=== PATIENT | female | born 1990 | race Caucasian/White ===

== ENCOUNTER 2020-02-22 08:59 | Emergency (ER) | payer MEDICAID, SELFPAY ==
[2020-02-22 09:16] VITALS: BP 103/71; PULSE 77; RESP 16; TEMP 37.1; O2SAT 100; BMI 29.2
--- NOTE | 2020-02-22 09:30 | CT_ITS ---
EXAMINATION: CT ABDOMEN AND PELVIS WITHOUT CONTRAST CLINICAL INFORMATION: Lower abdominal pain. Left abdominal/flank pain. Question stones. COMPARISON: 03/07/2019 TECHNIQUE: Multidetector volumetric imaging was performed from the superior aspect of the liver through the pubic symphysis. Sagittal and coronal reformatted images were obtained on the technologist's workstation. This CT examination was performed using dose optimization techniques as appropriate, variously including the following: *Automated exposure control *Adjustment of mA and/or kV according to patient size (this includes techniques or standardized protocols for targeted exams where dose is matched to indication/reason for exam; i.e. extremities or head) *Use of iterative reconstruction technique DLP: 625 mGy-cm FINDINGS: LUNG BASES: The visualized lung bases are unremarkable. LIVER, GALLBLADDER, AND BILIARY TREE: The liver is normal in size, shape, and attenuation. No focal hepatic lesion or biliary ductal dilatation is present. The gallbladder is unremarkable with no evidence of radiopaque gallstones, gallbladder wall thickening, or obvious pericholecystic inflammatory changes. PANCREAS: Unremarkable. SPLEEN: Unremarkable. ADRENAL GLANDS: Unremarkable. KIDNEYS AND URETERS: The kidneys are normal in size, shape, and attenuation. No hydronephrosis or hydroureter. Left-sided renal calculi are identified. On the left there are at least 2 lower pole calculi. The largest measures 0.3 cm, 9.5 cm from the posterior axillary line. 0.2 cm right upper pole calculus is seen. There are no ureteral calculi seen. BLADDER: Unremarkable. GASTROINTESTINAL TRACT: The stomach is unremarkable. Normal caliber small bowel. No obstruction. No colonic wall thickening or inflammatory change. No free air or free fluid. Normal appendix. ABDOMINAL WALL: No significant hernia is appreciated. LYMPH NODES: Normal. VASCULAR: Unremarkable. PELVIC VISCERA: Anteverted uterus. IUD in place. No adnexal mass. OSSEOUS STRUCTURES: No acute or suspicious osseous abnormality. CT/CT abdomen pelvis wo con IMPRESSION: Multiple nonobstructing bilateral renal calculi. No hydronephrosis. No acute inflammatory changes.
[2020-02-22 09:41] LABS: UPreg QC Valid YES; Urine Pregnancy NEGATIVE (NEGATIVE)
[2020-02-22 09:42] LABS: Glucose Urine UA NEG (NEG); Leukocyte Esterase Urine TRACE (NEG); Nitrite Urine NEG (NEG); PH 5.5 (5.0-8.0); Specific Gravity - Urine >= 1.030 (1.005-1.025); Urine Blood 1+ (NEG); Urine Ketones NEG (NEG); Urine Protein NEG (NEG-TRACE)
[2020-02-22 09:43] LABS: Appearance Urine HAZY; Color Urine YELLOW
[2020-02-22 09:53] LABS: Bacteria Urine TRACE /LPF; Mucus Urine TRACE /LPF; Squamous Epithelial Cell Urine 2+ /LPF; WBC Urine 0-2 /HPF (0-4)
[2020-02-22 09:57] LABS: MANUAL DIFF FLAG NO
[2020-02-22 10:00] LABS: Basophils Percent Auto 0.3 % (0-2); Eosinophils Absolute Auto 0.1 X10*3/uL (0.0-0.4); Eosinophils Percent Auto 1.2 % (0-4); Hematocrit 35.9 % (37-47); Hemoglobin 12.2 g/dl (12.0-16.0); Imm Gran Abs Auto 0.02 X10*3/uL (0.00-0.03); Imm Gran Pct Auto 0.3 % (0.0-0.4); Lymphocytes Percent Auto 33.5 % (20-40); Mean Corpuscular Hemoglobin 29.9 pg (27.0-33.0); Mean Platelet Volume 10.3 fL (9.4-12.3); Monocytes Absolute Auto 0.4 X10*3/uL (0.1-1.2); Monocytes Percent Auto 7.3 % (2-11); Neutrophils Absolute Auto 3.4 X10*3/uL (2.0-8.3); Neutrophils Percent Auto 57.4 % (45-73); Platelet Count 289 X10*3/uL (160-400); Red Blood Count 4.08 X10*6/uL (4.20-5.50); Red Cell Distribution Width 12.3 % (11.0-16.0)
--- NOTE | 2020-02-22 10:02 | ED.ABDPAIN ---
HPI - Abdominal Pain General Chief Complaint: Abdominal Pain Stated Complaint: QUEST UTI Time Seen by Provider: 02/22/20 09:22 Source: patient Mode of arrival: ambulatory Limitations: no limitations History of Present Illness HPI narrative: 29yoF c PMHx of uti's, kidney stones and arthritis presenting to the ED c c/o lower/left abd pain c associated dysuria, increased urgency/frequency and hematuria for a few days worse today. Denies vaginal discharge or thoughts of STD. Denies any additional complaints or concerns at this time. Related Data Previous Rx's Medication Instructions Recorded levofloxacin 750 mg PO DAILY 5 Days #5 tab 02/22/20 naproxen 500 mg PO BID PRN #10 tab 02/22/20 oxycodone-acetaminophen [Percocet] 1 tab PO Q6H PRN #10 tab 02/22/20 Allergies Allergy/AdvReac Type Severity Reaction Status Date / Time shrimp Allergy Mild SWELLING Verified 02/22/20 09:20 gabapentin [GABAPENTIN] Allergy Unknown COULDNT Verified 02/22/20 09:20 FEEL LEGS , numbness methotrexate [METHOTREXATE] Allergy Unknown VOMITING Verified 02/22/20 09:20 nitrofurantoin Allergy Unknown cyclic Verified 11/20/19 00:00 vomitting shellfish derived Allergy Unknown UNKNOWN Verified 02/22/20 09:20 [SHELLFISH DERIVED] Sulfa (Sulfonamide Allergy Unknown SOB, Verified 11/20/19 00:00 Antibiotics) Tembling, LE weakness sulfamethoxazole Allergy Unknown NUMBNESS Verified 02/22/20 09:20 [From BACTRIM] IN BLE, VOMITING trimethoprim [From BACTRIM] Allergy Unknown NUMBNESS Verified 02/22/20 09:20 IN BLE, VOMITING abatacept [From Orencia] Allergy Swelling Verified 02/22/20 09:20 Shellfish Allergy Unknown anaphylaxis Uncoded 11/20/19 00:00 Sulfamethoxazole Allergy Unknown SOB, Uncoded 11/20/19 00:00 trembling, LE weakness Review of Systems Review of Systems Constitutional : No Weight loss, No Fever, No Chills, No Night Sweats, No Fatigue, NoMalaise ENT/Mouth: No ear pain, No sore throat, No Difficulty swallowing Cardiovascular : No Chest Pain, No SOB, No Dyspnea on Exertion, No Orthopnea, NoEdema, No Palpitations Respiratory : No Cough, No Sputum, No Wheezing, No Dyspnea Gastrointestinal : No Nausea, No Vomiting, No Diarrhea, + abdominal Pain, No Hematochezia, No Melena Genitourinary : No irregular bleeding, + Dysuria, + Urinary Frequency, + Hematuria, No Urinary Incontinence, + Urgency, No Flank Pain, No Vaginal discharge Musculoskeletal : No joint pain, No Myalgias, No Joint Swelling Skin : No Skin Lesions, No rash Neuro : No Weakness, No Numbness, No Paresthesias, No Loss of Consciousness, NoDizziness, No Headache Psych : No Social Issues, Heme/Lymph: No Bruising, No Bleeding,No Lymphadenopathy Endocrine : No Polyuria, No Polydipsia, No Temperature Intolerance Yes all other systems are reviewed and are negative Physical Exam Vital Signs: Vital Signs: Last Vital Signs Temp 98.7 F 02/22/20 09:16 Pulse 77 02/22/20 09:16 Resp 16 02/22/20 09:16 BP 103/71 02/22/20 09:16 Pulse Ox 100 02/22/20 09:16 Body Mass Index 29.2 vital signs have been reviewed as normal and appeared to be correct. Blood pressure normal. Heart rate normal. Respiration rate normal. Temperature normal. Oxygen saturation normal. Appearance: Alert. Oriented X3. No acute distress. Head: Normal external exam. Eyes: PERRLA. EOMI. Conjunctiva and sclera normal. Eyelids normal. ENT: Pharynx normal. Uvula midline. Moist mucous membranes. Neck: Normal inspection. Neck supple. FROM. No adenopathy. No meningeal signs. CVS: Normal heart rate and rhythm. Heart sound normal. No murmurs noted. Pulses normal throughout. Respiratory: No respiratory distress. Painless inspiration. Breath sounds normal. No wheezes/rales/rhonchi noted. Chest nontender. No accessory muscle usage noted or decreased air movement noted. Abdomen: Soft and mild ttp of suprapubic abd and left flank. Bowel sounds normal in all 4 quadrants. No distention noted. No organomegaly noted. No visible injury noted. Back: + left sided CVA tenderness. No CVAT to right side. Full range of motion noted. Skin: Skin warm and dry. Normal skin color. Normal skin turgor. No rashes/lesions/lacerations noted. Extremities: Extremities exhibit normal range of motion. Extremities nontender. Neuro: Oriented X 3. No motor deficit. No sensory deficit. Reflexes normal. Course Course Course Narrative: 9:25am - 29yoF c PMHx of uti's, kidney stones and arthritis presenting to the ED c c/o lower/left abd pain c associated dysuria, increased urgency/frequency and hematuria for a few days worse today. - Concern for UTI vs Kidney stones vs Pyelonephritis - Plan: Labs, ua, uhcg, and ct scan of abd/pelvis without iv contrats. Then re-evaluate Reevaluation(s) Reevaluation #1: Labs within normal limits. UA with a trace of leukocytes although negative nitrates and +[address] scan of abdomen pelvis without contrast revealed bilateral renal stones no other acute processes. Will DC home with antibiotics for UTI and symptomatic treatment and instructions to follow-up with urologist that I will refer her to an primary care provider. Patient understands agrees with this plan. Also instructed to return if any new or worsening symptoms. Time: 11:06 MDM - Abdominal Pain Medical Records Attestation: I reviewed the patient's medical records. Lab Data Attestation: I reviewed the patient's lab results. Result diagrams: 02/22/20 09:51 02/22/20 09:51 Labs: Lab Results 02/22/20 02/22/20 02/22/20 Range/Units 09:30 09:51 09:51 WBC 6.0 (4.8-10.8) X10*3/uL RBC 4.08 L (4.20-5.50) X10*6/uL Hgb 12.2 (12.0-16.0) g/dl Hct 35.9 L (37-47) % MCV 88.0 (80-98) fL MCH 29.9 (27.0-33.0) pg MCHC 34.0 (31.0-35.0) g/dl RDW 12.3 (11.0-16.0) % Plt Count 289 (160-400) X10*3/uL MPV 10.3 (9.4-12.3) fL Immature Gran % (Auto) 0.3 (0.0-0.4) % Neut % (Auto) 57.4 (45-73) % Lymph % (Auto) 33.5 (20-40) % Hooker % (Auto) 7.3 (2-11) % Eos % (Auto) 1.2 (0-4) % Baso % (Auto) 0.3 (0-2) % Lymph # (Auto) 2.0 (1.2-4.9) X10*3/uL Hooker # (Auto) 0.4 (0.1-1.2) X10*3/uL Eos # (Auto) 0.1 (0.0-0.4) X10*3/uL Baso # (Auto) 0.0 (0.0-0.2) X10*3/uL Abs Immat Gran (auto) 0.02 (0.00-0.03) X10*3/uL Absolute Neuts (auto) 3.4 (2.0-8.3) X10*3/uL Absolute Nucleated RBC 0.000 (0.0-0.012) X10*3/uL Nucleated RBC % (auto) 0.0 (0.0-0.2) /100WBC PT (10.8-13.0) SEC INR (0.9-1.1) Sodium 137 (135-145) mmol/L Potassium 4.1 (3.3-5.1) mmol/l Chloride 106 (96-108) mmol/L Carbon Dioxide 24 (22-29) mmol/L Anion Gap 11 L (12-20) BUN 12 (9-16) mg/dL Creatinine 0.73 (0.5-1.4) mg/dL Estim Creat Clear Calc 102.9 Estimated GFR > 60 Random Glucose 84 (60-115) mg/dL Calcium 8.5 (8.4-10.2) mg/dL Urine Color YELLOW Urine Appearance HAZY Urine pH 5.5 (5.0-8.0) Ur Specific Willard >= 1.030 H (1.005-1.025) Urine Protein NEG (NEG-TRACE) MG/DL Urine Glucose (UA) NEG (NEG) MG/DL Urine Ketones NEG (NEG) MG/DL Urine Blood 1+ H (NEG) Urine Nitrite NEG (NEG) Ur Leukocyte Esterase TRACE H (NEG) Urine RBC 1-4 (0) /HPF Urine WBC 0-2 (0-4) /HPF Ur Squamous Epith Cells 2+ /LPF Urine Bacteria TRACE /LPF Urine Mucus TRACE /LPF Urine Test NEGATIVE (NEGATIVE) 02/22/20 Range/Units 09:51 WBC (4.8-10.8) X10*3/uL RBC (4.20-5.50) X10*6/uL Hgb (12.0-16.0) g/dl Hct (37-47) % MCV (80-98) fL MCH (27.0-33.0) pg MCHC (31.0-35.0) g/dl RDW (11.0-16.0) % Plt Count (160-400) X10*3/uL MPV (9.4-12.3) fL Immature Gran % (Auto) (0.0-0.4) % Neut % (Auto) (45-73) % Lymph % (Auto) (20-40) % Hooker % (Auto) (2-11) % Eos % (Auto) (0-4) % Baso % (Auto) (0-2) % Lymph # (Auto) (1.2-4.9) X10*3/uL Hooker # (Auto) (0.1-1.2) X10*3/uL Eos # (Auto) (0.0-0.4) X10*3/uL Baso # (Auto) (0.0-0.2) X10*3/uL Abs Immat Gran (auto) (0.00-0.03) X10*3/uL Absolute Neuts (auto) (2.0-8.3) X10*3/uL Absolute Nucleated RBC (0.0-0.012) X10*3/uL Nucleated RBC % (auto) (0.0-0.2) /100WBC PT 10.6 L (10.8-13.0) SEC INR 0.9 (0.9-1.1) Sodium (135-145) mmol/L Potassium (3.3-5.1) mmol/l Chloride (96-108) mmol/L Carbon Dioxide (22-29) mmol/L Anion Gap (12-20) BUN (9-16) mg/dL Creatinine (0.5-1.4) mg/dL Estim Creat Clear Calc Estimated GFR Random Glucose (60-115) mg/dL Calcium (8.4-10.2) mg/dL Urine Color Urine Appearance Urine pH (5.0-8.0) Ur Specific Willard (1.005-1.025) Urine Protein (NEG-TRACE) MG/DL Urine Glucose (UA) (NEG) MG/DL Urine Ketones (NEG) MG/DL Urine Blood (NEG) Urine Nitrite (NEG) Ur Leukocyte Esterase (NEG) Urine RBC (0) /HPF Urine WBC (0-4) /HPF Ur Squamous Epith Cells /LPF Urine Bacteria /LPF Urine Mucus /LPF Urine Test (NEGATIVE) Imaging Data CT scan - abdomen: Attestation: I personally reviewed and interpreted this imaging study as follows: Radiologist's impression: FINDINGS: LUNG BASES: The visualized lung bases are unremarkable. LIVER, GALLBLADDER, AND BILIARY TREE: The liver is normal in size, shape, and attenuation. No focal hepatic lesion or biliary ductal dilatation is present. The gallbladder is unremarkable with no evidence of radiopaque gallstones, gallbladder wall thickening, or obvious pericholecystic inflammatory changes. PANCREAS: Unremarkable. SPLEEN: Unremarkable. ADRENAL GLANDS: Unremarkable. KIDNEYS AND URETERS: The kidneys are normal in size, shape, and attenuation. No hydronephrosis or hydroureter. Left-sided renal calculi are identified. On the left there are at least 2 lower pole calculi. The largest measures 0.3 cm, 9.5 cm from the posterior axillary line. 0.2 cm right upper pole calculus is seen. There are no ureteral calculi seen. BLADDER: Unremarkable. GASTROINTESTINAL TRACT: The stomach is unremarkable. Normal caliber small bowel. No obstruction. No colonic wall thickening or inflammatory change. No free air or free fluid. Normal appendix. ABDOMINAL WALL: No significant hernia is appreciated. LYMPH NODES: Normal. VASCULAR: Unremarkable. PELVIC VISCERA: Anteverted uterus. IUD in place. No adnexal mass. OSSEOUS STRUCTURES: No acute or suspicious osseous abnormality. CT/CT abdomen pelvis wo con IMPRESSION: Multiple nonobstructing bilateral renal calculi. No hydronephrosis. No acute inflammatory changes. Discharge Plan Discharge Clinical Impression: UTI (urinary tract infection), Kidney stones Patient Disposition: Home, Self-Care Instructions: Kidney Stones (ED), Urinary Tract Infection in Women (ED) Prescriptions: New oxycodone-acetaminophen [Percocet] 5-325 mg tablet 1 tab PO Q6H PRN (Reason: pain) Qty: 10 RF: 0 naproxen 500 mg tablet 500 mg PO BID PRN (Reason: pain) Qty: 10 RF: 0 levofloxacin 750 mg tablet 750 mg PO DAILY 5 Days Qty: 5 RF: 0 Referrals: Yoni Topete MD [Physician] - 2 days Zachary Damian III, MD [Physician] - 2 days Print Language: Armenian [facility] Past Medical History Attestation statement: The following information was validated with the patient. Medical History Arthritis Social History Social History Smoking Status: Never smoker Use of substances other than those prescribed or required for medical reasons: Yes Substance Use Type: Marijuana and Other Substance Use Type Other:: edibles Substance Use Frequency: Daily Advance Directives: No Advance Directives Information Provided: Yes
[2020-02-22 10:05] LABS: INTERNATIONAL NORM RATIO 0.9 (0.9-1.1); Prothrombin Time 10.6 SEC (10.8-13.0)
[2020-02-22 10:20] LABS: Anion Gap 11 (12-20); Blood Urea Nitrogen 12 mg/dL (9-16); Calcium 8.5 mg/dL (8.4-10.2); Carbon Dioxide 24 mmol/L (22-29); Chloride 106 mmol/L (96-108); Creatinine Clr Calc Pharmacy 102.9; Estimated Glomerular Filt Rate > 60; Glucose Random 84 mg/dL (60-115); Potassium 4.1 mmol/l (3.3-5.1); Sodium 137 mmol/L (135-145)
== END 2020-02-22 12:03 | disposition home or self-care (01) ==
PROVIDERS: Physician Assistant Medical; Emergency Provider Emergency Medicine; PCP Internal Medicine
DX: N20.0 Calculus of kidney (principal); N39.0 Urinary tract infection, site not specified; R10.30 Lower abdominal pain, unspecified; Z79.899 Other long term (current) drug therapy
CPT/HCPCS: 36415; 74176; 80048; 81001; 81025; 85025; 85610; 87086; 99284

== ENCOUNTER 2020-02-26 07:56 | Outpatient (REF) | payer MEDICAID, SELFPAY ==
--- NOTE | 2020-02-26 | US_ITS ---
EXAMINATION: US COMPLETE ABDOMEN WITH LIVER ELASTOGRAPHY CLINICAL INFORMATION: Abdominal bloating COMPARISON: CT of the abdomen and pelvis 02/22/2020 and renal ultrasound June 2019 TECHNIQUE: Real-time imaging of the abdominal viscera. Noninvasive ultrasound liver fibrosis assessment is performed using Florecita ElastPQ point quantification shear wave elastography (pSWE) with a 5 MHz transducer. Multiple elastography samples are obtained. FINDINGS: PANCREAS: The visualized pancreatic head and body are normal in appearance. The remainder of the pancreas is obscured from visualization by the overlying bowel gas. ABDOMINAL AORTA: The proximal, middle, and distal aortic segments are normal in caliber. INFERIOR VENA CAVA: Visualized portions are normal. LIVER: Liver echotexture is slightly increased. The liver is normal in contour. No focal lesion or intrahepatic biliary duct dilatation. The right lobe measures 14.7 cm in length. The left lobe measures 9 cm in length. The main portal vein is patent with appropriate hepatopedal flow Shear wave elastography provides a median stiffness of 1.2 m/s (reference: normal median stiffness is 0.81 - 1.22 m/s). The IQR/median stiffness to assess sampling precision is 0.1 (reference: optimal IQR/median stiffness is under 0.3). GALLBLADDER: There are gallstones in the gallbladder. The gallbladder is normal in size. The gallbladder wall does not appear thickened. There is no pericholecystic fluid. COMMON BILE DUCT: Normal in caliber measuring 0.4 cm in diameter. RIGHT KIDNEY: Normal. No hydronephrosis. No renal calculi or focal parenchymal lesions. The kidney measures 11 cm in maximum dimension. LEFT KIDNEY: There are 2 echogenic densities in the lower pole with twinkle artifact suggestive of small stones. No hydronephrosis or mass. The kidney measures 10 cm in maximum dimension. SPLEEN: Normal. The spleen measures 9.5 cm in maximum dimension. FREE FLUID: None. US/US abdomen comp w elastography IMPRESSION: 1. Impression: Slightly echogenic liver. Gallstones. Small left renal stones. Limited visualization of the tail the pancreas. 2. Elastography: Metavir score F0 suggestive of no increased risk of developing liver fibrosis.
== END 2020-02-26 07:57 | disposition home or self-care (01) ==
LOC: HO.US 07:56
PROVIDERS: PCP Internal Medicine; Visit Provider Internal Medicine Gastroenterology
DX: R14.0 Abdominal distension (gaseous) (principal)
CPT/HCPCS: 76705; 76981

== ENCOUNTER 2020-04-05 09:25 | Observation (INO) | payer MEDICAID, SELFPAY ==
[2020-04-05 09:47] VITALS: BP 126/90; PULSE 78; RESP 18; TEMP 36.6; O2SAT 99; BMI 29.1
--- NOTE | 2020-04-05 10:01 | US_ITS ---
EXAMINATION: US ABDOMEN LIMITED CLINICAL INFORMATION: Right upper quadrant pain with nausea and vomiting. History of gallstone. COMPARISON: Ultrasound abdomen 02/26/[address] abdomen pelvis 02/22/2020 TECHNIQUE: Real-time imaging of the right upper quadrant abdominal viscera. FINDINGS: PANCREAS: The pancreas appears unremarkable, without masses or ductal dilatation, with the exception of the tail which is obscured by bowel gas. LIVER: Liver echogenicity is increased consistent with fatty infiltration of the liver. The liver is normal in size. The liver contour is normal. No focal hepatic lesion. There is no intrahepatic biliary duct dilatation seen. GALLBLADDER: Again seen is at one large mobile gallstone in the gallbladder measuring 1.8 cm. There is no evidence of cholecystitis. COMMON BILE DUCT: Normal in caliber measuring 0.2 cm in diameter. RIGHT KIDNEY: Normal. No hydronephrosis. No renal calculi or focal parenchymal lesions. The kidney measures 11.4 cm in maximum dimension. FREE FLUID: None. US/US abdomen limited IMPRESSION: Hepatic steatosis and cholelithiasis. No evidence of cholecystitis.
--- NOTE | 2020-04-05 10:03 | ED.ABDPAIN ---
HPI - Abdominal Pain General Chief Complaint: Abdominal Pain Stated Complaint: abd pain Time Seen by Provider: 04/05/20 09:56 Source: patient Mode of arrival: ambulatory History of Present Illness HPI narrative: 30-year-old female with a past medical history of kidney stones, UTI, threatened, gallstones presenting to the ED complaining of right upper quadrant abdominal pain radiating to back worsening x2 weeks with associated nonbloody nausea/vomiting and diarrhea. Reports was sent in by Dr. Osorio for likely cholecystectomy. Admits to decreased p.o. intake, and pain worse with eating. Denies fever, chills, dysuria/hematuria, constipation MD elicited complaint: abdominal pain Related Data Home Medications Medication Instructions Recorded Confirmed tocilizumab [Actemra] 1 syringe SUBCUT QWEEK 04/05/20 04/05/20 Previous Rx's Medication Instructions Recorded dicyclomine 10 mg capsule 10 mg PO TID PRN 30 Days #90 cap 04/03/20 Allergies Allergy/AdvReac Type Severity Reaction Status Date / Time shrimp Allergy Mild SWELLING Verified 02/22/20 09:20 gabapentin [GABAPENTIN] Allergy Unknown COULDNT Verified 02/22/20 09:20 FEEL LEGS , numbness methotrexate [METHOTREXATE] Allergy Unknown VOMITING Verified 02/22/20 09:20 nitrofurantoin Allergy Unknown cyclic Verified 11/20/19 00:00 vomitting shellfish derived Allergy Unknown UNKNOWN Verified 02/22/20 09:20 [SHELLFISH DERIVED] Sulfa (Sulfonamide Allergy Unknown SOB, Verified 11/20/19 00:00 Antibiotics) Tembling, LE weakness sulfamethoxazole Allergy Unknown NUMBNESS Verified 02/22/20 09:20 [From BACTRIM] IN BLE, VOMITING trimethoprim [From BACTRIM] Allergy Unknown NUMBNESS Verified 02/22/20 09:20 IN BLE, VOMITING abatacept [From Orencia] Allergy Swelling Verified 02/22/20 09:20 Shellfish Allergy Unknown anaphylaxis Uncoded 11/20/19 00:00 Sulfamethoxazole Allergy Unknown SOB, Uncoded 11/20/19 00:00 trembling, LE weakness Review of Systems Review of Systems Constitutional: No Weight loss, No Fever, No Chills Cardiovascular: No Chest Pain, No SOB Respiratory: No Cough, No Sputum, No Wheezing Gastrointestinal: + Nausea, + Vomiting, + Diarrhea, No Constipation, + Abdominal pain Genitourinary: No irregular bleeding, No Dysuria, No Urinary Frequency, No Hematuria,No Flank Pain, No Urinary Flow Changes, No Hesitancy Musculoskeletal: No joint pain, No Myalgias, No Joint Swelling Skin: No Skin Lesions, No rash Yes all other systems are reviewed and are negative Physical Exam Vital Signs: Vital Signs: Last Vital Signs Temp 95.8 F L 04/05/20 14:00 Pulse 75 04/05/20 14:00 Resp 15 04/05/20 14:00 BP 105/70 04/05/20 14:00 Pulse Ox 100 04/05/20 14:00 Body Mass Index 29.1 Const: General: cooperative and healthy appearing Orientation/consciousness: patient oriented x3 Limitations: no limitations HENMT: Head: Yes normal to inspection Ears: hearing grossly normal bilaterally General nose exam: Normal external nose present Face and sinus: Yes normal facial exam Eyes: General: appearance normal, both eyes and all related structures EOM: EOMs intact bilaterally Neck: Neck: Yes normal visual inspection Resp: Effort & Inspection: normal respiratory effort Cardio: Rate: regular rate GI: Inspection: Yes normal to inspection Palpation (GI): Soft to palpation, Tenderness to palpation present (GI) in the epigastrum and in the RUQ, no guarding and not rigid : General: Yes no CVA tenderness Back/Spine/Pelvis: Back: no CVA tenderness Skin: Rashes: no rashes Wounds: no wounds Neuro: General: patient oriented x3 Gait exam (Neuro): Normal gait present Extrem: General: Yes normal to inspection Course Course Course Narrative: labs unremarkable, UA neg Abdomen ultrasound showing hepatic steatosis and cholelithiasis. No evidence of cholecystitis > will consult Dr. Osorio Patient failed p.o. trial in the ED due to nausea and abd pain Dr. Osorio evaluated patient in the ED and recommended CT with IV/ PO contrast and then admission. Dr. Veronica aware MDM - Abdominal Pain MDM Narrative Medical decision making narrative: 30-year-old female with a past medical history of kidney stones, UTI, threatened, gallstones presenting to the ED complaining of right upper quadrant abdominal pain radiating to back worsening x2 weeks with associated nonbloody nausea/vomiting and diarrhea. On exam VSS, NAD/well appearing, abdomen soft with right upper quadrant ttp, no rebound or guarding. Concern for cholecystitis vs pancreatitis vs cholelithiasis. Lower concern for appendicitis/diverticulitis or UTI Plan: Labs, UA, abdomen ultrasound, IVF, Zofran, reassess Lab Data Result diagrams: 04/05/20 11:04 04/05/20 11:04 Labs: Lab Results 04/05/20 04/05/20 04/05/20 Range/Units 11:04 11:04 11:04 WBC 9.3 (4.8-10.8) X10*3/uL RBC 4.18 L (4.20-5.50) X10*6/uL Hgb 12.7 (12.0-16.0) g/dl Hct 38.3 (37-47) % MCV 91.6 (80-98) fL MCH 30.4 (27.0-33.0) pg MCHC 33.2 (31.0-35.0) g/dl RDW 12.7 (11.0-16.0) % Plt Count 310 (160-400) X10*3/uL MPV 10.5 (9.4-12.3) fL Immature Gran % (Auto) 0.2 (0.0-0.4) % Neut % (Auto) 65.0 (45-73) % Lymph % (Auto) 25.1 (20-40) % [place] % (Auto) 7.0 (2-11) % Eos % (Auto) 2.4 (0-4) % Baso % (Auto) 0.3 (0-2) % Lymph # (Auto) 2.3 (1.2-4.9) X10*3/uL [place] # (Auto) 0.7 (0.1-1.2) X10*3/uL Eos # (Auto) 0.2 (0.0-0.4) X10*3/uL Baso # (Auto) 0.0 (0.0-0.2) X10*3/uL Abs Immat Gran (auto) 0.02 (0.00-0.03) X10*3/uL Absolute Neuts (auto) 6.1 (2.0-8.3) X10*3/uL Absolute Nucleated RBC 0.000 (0.0-0.012) X10*3/uL Nucleated RBC % (auto) 0.0 (0.0-0.2) /100WBC Hold Blue Top SEE NOTE Sodium 139 (135-145) mmol/L Potassium 4.4 (3.3-5.1) mmol/l Chloride 108 (96-108) mmol/L Carbon Dioxide 24 (22-29) mmol/L Anion Gap 11 L (12-20) BUN 14 (9-16) mg/dL Creatinine 0.67 (0.5-1.4) mg/dL Estim Creat Clear Calc 110.8 Estimated GFR > 60 Random Glucose 88 (60-115) mg/dL Calcium 8.5 (8.4-10.2) mg/dL Magnesium 2.2 (1.6-2.6) mg/dL Total Bilirubin 0.4 (0.0-1.0) mg/dL Direct Bilirubin < 0.2 (0.0-0.5) mg/dL AST 17 (5-31) U/L ALT 13 (0-31) U/L Alkaline Phosphatase 57 (39-117) U/L Total Protein 6.9 (6.5-8.0) g/dL Albumin 4.3 (3.5-5.0) g/dL Urine Color Urine Appearance Urine pH (5.0-8.0) Ur Specific [place] (1.005-1.025) Urine Protein (NEG-TRACE) MG/DL Urine Glucose (UA) (NEG) MG/DL Urine Ketones (NEG) MG/DL Urine Blood (NEG) Urine Nitrite (NEG) Ur Leukocyte Esterase (NEG) Urine RBC (0) /HPF Urine WBC (0-4) /HPF Ur Squamous Epith Cells /LPF Urine Bacteria /LPF Urine Test (NEGATIVE) COVID-19 ([facility]) (Negative) COVID-19 Clin Com 04/05/20 04/05/20 Range/Units 11:04 15:59 WBC (4.8-10.8) X10*3/uL RBC (4.20-5.50) X10*6/uL Hgb (12.0-16.0) g/dl Hct (37-47) % MCV (80-98) fL MCH (27.0-33.0) pg MCHC (31.0-35.0) g/dl RDW (11.0-16.0) % Plt Count (160-400) X10*3/uL MPV (9.4-12.3) fL Immature Gran % (Auto) (0.0-0.4) % Neut % (Auto) (45-73) % Lymph % (Auto) (20-40) % [place] % (Auto) (2-11) % Eos % (Auto) (0-4) % Baso % (Auto) (0-2) % Lymph # (Auto) (1.2-4.9) X10*3/uL [place] # (Auto) (0.1-1.2) X10*3/uL Eos # (Auto) (0.0-0.4) X10*3/uL Baso # (Auto) (0.0-0.2) X10*3/uL Abs Immat Gran (auto) (0.00-0.03) X10*3/uL Absolute Neuts (auto) (2.0-8.3) X10*3/uL Absolute Nucleated RBC (0.0-0.012) X10*3/uL Nucleated RBC % (auto) (0.0-0.2) /100WBC Hold Blue Top Sodium (135-145) mmol/L Potassium (3.3-5.1) mmol/l Chloride (96-108) mmol/L Carbon Dioxide (22-29) mmol/L Anion Gap (12-20) BUN (9-16) mg/dL Creatinine (0.5-1.4) mg/dL Estim Creat Clear Calc Estimated GFR Random Glucose (60-115) mg/dL Calcium (8.4-10.2) mg/dL Magnesium (1.6-2.6) mg/dL Total Bilirubin (0.0-1.0) mg/dL Direct Bilirubin (0.0-0.5) mg/dL AST (5-31) U/L ALT (0-31) U/L Alkaline Phosphatase (39-117) U/L Total Protein (6.5-8.0) g/dL Albumin (3.5-5.0) g/dL Urine Color YELLOW Urine Appearance CLEAR Urine pH 5.5 (5.0-8.0) Ur Specific [place] >= 1.030 H (1.005-1.025) Urine Protein NEG (NEG-TRACE) MG/DL Urine Glucose (UA) NEG (NEG) MG/DL Urine Ketones NEG (NEG) MG/DL Urine Blood 1+ H (NEG) Urine Nitrite NEG (NEG) Ur Leukocyte Esterase NEG (NEG) Urine RBC 1-4 (0) /HPF Urine WBC 0-2 (0-4) /HPF Ur Squamous Epith Cells 1+ /LPF Urine Bacteria NONE /LPF Urine Test NEGATIVE (NEGATIVE) COVID-19 ([facility]) Negative (Negative) COVID-19 Clin Com See Note Discharge Plan Discharge Clinical Impression: Cholelithiasis, Nausea & vomiting Patient Disposition: Admitted As Inpatient Prescriptions: No Action dicyclomine 10 mg capsule 10 mg PO TID PRN (Reason: abdominal cramping) 30 Days Qty: 90 RF: 3 Actemra 162 mg/0.9 mL syringe 1 syringe subcut QWEEK RF: 0 PMFSH Past Medical History Attestation statement: The following information was validated with the patient. Medical History Arthritis Social History Social History Smoking Status: Never smoker Use of substances other than those prescribed or required for medical reasons: No Substance Use Type: Marijuana and Other Advance Directives: No Advance Directives Information Provided: Yes
--- NOTE | 2020-04-05 10:23 | PC.NURSE ---
ultrasound at bedside.
[2020-04-05] MEDS: ondansetron HCL 4 MG/2 ML VIAL IVPUSH (11:09)
[2020-04-05] MEDS: 0.9 % Sodium Chloride 1,000 ML 999 ML IVCONT (11:09)
[2020-04-05 11:12] VITALS: BP 105/64; PULSE 75; RESP 16; TEMP 36.8; O2SAT 99
[2020-04-05 11:14] LABS: Basophils Percent Auto 0.3 % (0-2); Eosinophils Absolute Auto 0.2 X10*3/uL (0.0-0.4); Eosinophils Percent Auto 2.4 % (0-4); Hematocrit 38.3 % (37-47); Hemoglobin 12.7 g/dl (12.0-16.0); Imm Gran Abs Auto 0.02 X10*3/uL (0.00-0.03); Imm Gran Pct Auto 0.2 % (0.0-0.4); Lymphocytes Absolute Auto 2.3 X10*3/uL (1.2-4.9); Lymphocytes Percent Auto 25.1 % (20-40); MANUAL DIFF FLAG NO; Mean Corpuscular HGB Conc 33.2 g/dl (31.0-35.0); Mean Corpuscular Hemoglobin 30.4 pg (27.0-33.0); Mean Corpuscular Volume 91.6 fL (80-98); Mean Platelet Volume 10.5 fL (9.4-12.3); Monocytes Absolute Auto 0.7 X10*3/uL (0.1-1.2); Neutrophils Absolute Auto 6.1 X10*3/uL (2.0-8.3); Platelet Count 310 X10*3/uL (160-400); Red Blood Count 4.18 X10*6/uL (4.20-5.50); Red Cell Distribution Width 12.7 % (11.0-16.0); White Blood Count 9.3 X10*3/uL (4.8-10.8)
[2020-04-05 11:17] LABS: Glucose Urine UA NEG (NEG); Leukocyte Esterase Urine NEG (NEG); Nitrite Urine NEG (NEG); PH 5.5 (5.0-8.0); Specific Gravity - Urine >= 1.030 (1.005-1.025); Urine Blood 1+ (NEG); Urine Ketones NEG (NEG); Urine Protein NEG (NEG-TRACE)
[2020-04-05 11:19] LABS: UPreg QC Valid YES; Urine Pregnancy NEGATIVE (NEGATIVE)
[2020-04-05 11:20] LABS: Appearance Urine CLEAR; Color Urine YELLOW
[2020-04-05 11:26] LABS: Squamous Epithelial Cell Urine 1+ /LPF; WBC Urine 0-2 /HPF (0-4)
[2020-04-05 11:42] LABS: Alanine Aminotransferase 13 U/L (0-31); Albumin Level 4.3 g/dL (3.5-5.0); Alkaline Phosphatase 57 U/L (39-117); Anion Gap 11 (12-20); Aspartate Amino Transferase 17 U/L (5-31); Bilirubin Direct < 0.2 mg/dL (0.0-0.5); Bilirubin Total 0.4 mg/dL (0.0-1.0); Blood Urea Nitrogen 14 mg/dL (9-16); Calcium 8.5 mg/dL (8.4-10.2); Carbon Dioxide 24 mmol/L (22-29); Chloride 108 mmol/L (96-108); Creatinine Clr Calc Pharmacy 110.8; Estimated Glomerular Filt Rate > 60; Glucose Random 88 mg/dL (60-115); Magnesium 2.2 mg/dL (1.6-2.6); Potassium 4.4 mmol/l (3.3-5.1); Sodium 139 mmol/L (135-145); Total Protein 6.9 g/dL (6.5-8.0)
[2020-04-05 12:00] VITALS: BP 103/58; PULSE 79; RESP 16; O2SAT 100
--- NOTE | 2020-04-05 12:47 | PC.NURSE ---
pt c/o nausea after po challenge (apple juice and saltine.
[2020-04-05] MEDS: Ketorolac Tromethamine 15 MG/ML VIAL IVPUSH (13:10)
[2020-04-05] MEDS: Metoclopramide HCl 10 MG/2 ML VIAL IVPUSH (13:11)
[2020-04-05] MEDS: Magnesium Hydrox/Alum Hydrox 30 ML ORAL.SUSP PO (13:11)
--- NOTE | 2020-04-05 13:27 | CT_ITS ---
EXAMINATION: CT ABDOMEN AND PELVIS WITH CONTRAST CLINICAL INFORMATION: Upper abdominal pain. Nausea and vomiting. COMPARISON: CT scan abdomen pelvis 02/22/2020. Ultrasound of abdomen 04/05/2020 TECHNIQUE: Multidetector volumetric images were obtained from the superior aspect of the liver through the pubic symphysis following administration 85 mL of Omnipaque 350 intravenous contrast. Sagittal and coronal reformatted images were obtained on the technologist's workstation. Oral contrast: Administered This CT examination was performed using dose optimization techniques as appropriate, variously including the following: *Automated exposure control *Adjustment of mA and/or kV according to patient size (this includes techniques or standardized protocols for targeted exams where dose is matched to indication/reason for exam; i.e. extremities or head) *Use of iterative reconstruction technique DLP: 634 mGy-cm FINDINGS: LUNG BASES: The visualized lung bases are unremarkable. LIVER, GALLBLADDER, AND BILIARY TREE: The liver is normal in size, shape, and attenuation. No focal hepatic lesion or biliary ductal dilatation is present. The gallbladder is unremarkable with no evidence of radiopaque gallstones, gallbladder wall thickening, or obvious pericholecystic inflammatory changes. PANCREAS: Unremarkable. SPLEEN: Unremarkable. ADRENAL GLANDS: Unremarkable. KIDNEYS AND URETERS: Normal enhancement of the parenchyma of the kidneys. No edema around the kidneys. There is no renal lesion. No renal or ureteral calculus or hydronephrosis. The small stone seen in the left kidney on prior CAT scan 02/22/2020 are not apparent on this postcontrast exam. BLADDER: Unremarkable. GASTROINTESTINAL TRACT: The small and large bowel are unremarkable. The appendix is unremarkable. ABDOMINAL WALL: No significant hernia is appreciated. LYMPH NODES: Normal. VASCULAR: Unremarkable. PELVIC VISCERA: The uterus is anteverted. IUD in the endometrial cavity. There is no adnexal abnormality. OSSEOUS STRUCTURES: Unremarkable. CT/CT abdomen pelvis w con IMPRESSION: No acute abnormality CT scan abdomen and pelvis.
[2020-04-05 14:00] VITALS: BP 105/70; PULSE 75; RESP 15; TEMP 35.4; O2SAT 100
--- NOTE | 2020-04-05 14:46 | P.CNGI_ITS ---
History of Present Illness Data of Consult Service Date: 04/05/20 Requesting physician: Janessa Rivera Primary Care Provider: Sharon Caicedo MD HPI Reason for consult: RUQ pain 30 yr old f with hx of migraines and RA on actemra who I am seeing for assessment for abdominal pain She has had on and off upper abdominal pain for months, which has been getting worse over time, and colicky in nature recent episode stated lastnight and was 10/10 severity, radiating into the side and into the right shoulder tip as well she has nausea, no vomtiing pain worse with fried,greasy foods and garlic sh has had soem oily type diarrhea episodes denie sjaundice, no dark urine or glo stools she denies fever, but feels like she is having chills LFT this admission nml, gallstone seen in GB, CBC is nml us last month also revealed gallstones Family history: Significant for 3 cousins with MS, mother has RA Social history: Comes from home, smokes marijuana medically for her RA, denies any alcohol or tobacco use Review of Systems Review of Systems: Constitutional: No Weight loss, No Fever, No Chills Cardiovascular: No Chest Pain, No SOB Respiratory: No Cough, No Sputum, No Wheezing Gastrointestinal: as above Genitourinary: No irregular bleeding, No Dysuria, No Urinary Frequency, No Hematuria,No Flank Pain, No Urinary Flow Changes, No Hesitancy Musculoskeletal: No joint pain, No Myalgias, No Joint Swelling Skin: No Skin Lesions, No rash Yes all other systems are reviewed and are negative PMFSH Past Medical History Medical History Arthritis Social History Social History Smoking Status: Never smoker Use of substances other than those prescribed or required for medical reasons: No Substance Use Type: Marijuana and Other Advance Directives: No Advance Directives Information Provided: Yes Meds Allergies Allergy/AdvReac Type Severity Reaction Status Date / Time shrimp Allergy Mild SWELLING Verified 02/22/20 09:20 gabapentin [GABAPENTIN] Allergy Unknown COULDNT Verified 02/22/20 09:20 FEEL LEGS , numbness methotrexate [METHOTREXATE] Allergy Unknown VOMITING Verified 11/13/20 09:20 nitrofurantoin Allergy Unknown cyclic Verified 11/20/19 00:00 vomitting shellfish derived Allergy Unknown UNKNOWN Verified 02/22/20 09:20 [SHELLFISH DERIVED] Sulfa (Sulfonamide Allergy Unknown SOB, Verified 11/20/19 00:00 Antibiotics) Tembling, LE weakness sulfamethoxazole Allergy Unknown NUMBNESS Verified 02/22/20 09:20 [From BACTRIM] IN BLE, VOMITING trimethoprim [From BACTRIM] Allergy Unknown NUMBNESS Verified 02/22/20 09:20 IN BLE, VOMITING abatacept [From Orencia] Allergy Swelling Verified 02/22/20 09:20 Shellfish Allergy Unknown anaphylaxis Uncoded 11/20/19 00:00 Sulfamethoxazole Allergy Unknown SOB, Uncoded 11/20/19 00:00 trembling, LE weakness Physical Exam Vital Signs: Vital Signs: Last Vital Signs Temp 98.2 F 04/05/20 11:12 Pulse 79 04/05/20 12:00 Resp 16 04/05/20 12:00 BP 103/58 L 04/05/20 12:00 Pulse Ox 100 04/05/20 12:00 Body Mass Index 29.1 Const: General: cooperative and healthy appearing Orientation/consciousness: patient oriented x3 Limitations: no limitations HENMT: Head: Yes normal to inspection Ears: hearing grossly normal bilaterally General nose exam: Normal external nose present Face and sinus: Yes normal facial exam Eyes: General: appearance normal, both eyes and all related structures EOM: EOMs intact bilaterally Neck: Neck: Yes normal visual inspection Resp: Effort & Inspection: normal respiratory effort Cardio: Rate: regular rate GI: Inspection: Yes normal to inspection Palpation (GI): Soft to palpation, Tenderness to palpation present (GI) in the epigastrum and in the RUQ, no guarding and not rigid : General: Yes no CVA tenderness Back/Spine/Pelvis: Back: no CVA tenderness Skin: Rashes: no rashes Wounds: no wounds Neuro: General: patient oriented x3 Gait exam (Neuro): Normal gait present Extrem: General: Yes normal to inspection Results Labs CBC & Chem 7: 04/05/20 11:04 04/05/20 11:04 Labs: Short CBC 04/05/20 Range/Units 11:04 WBC 9.3 (4.8-10.8) X10*3/uL Hgb 12.7 (12.0-16.0) g/dl Hct 38.3 (37-47) % Plt Count 310 (160-400) X10*3/uL BMP 04/05/20 11:04 Sodium 139 Potassium 4.4 Chloride 108 Carbon Dioxide 24 BUN 14 Creatinine 0.67 Calcium 8.5 Liver Function 04/05/20 Range/Units 11:04 Total Bilirubin 0.4 (0.0-1.0) mg/dL Direct Bilirubin < 0.2 (0.0-0.5) mg/dL AST 17 (5-31) U/L ALT 13 (0-31) U/L Alkaline Phosphatase 57 (39-117) U/L Albumin 4.3 (3.5-5.0) g/dL Urine 04/05/20 Range/Units 11:04 Urine Color YELLOW Urine Appearance CLEAR Urine pH 5.5 (5.0-8.0) Ur Specific [place] >= 1.030 H (1.005-1.025) Urine Protein NEG (NEG-TRACE) MG/DL Urine Glucose (UA) NEG (NEG) MG/DL Assessment and Plan (1) RUQ abdominal pain: Status: Acute 1/ Suspect her sx are biliary in origin may be having biliary colic, clinical presentation maybe attenuated by being on actrema, she feels pain is not controlled, can;t maintain PO intake,pain radiating into right shoulder as well PLAN: 1/ CT abdomen to r/o other causes, if neg then surgical review, may need HIDA, or further imaging if sx persist or even cholecystectomy
[2020-04-05 16:20] LABS: COVID-19 Test Negative (Negative); IDNOW Serial# 9DD0AD1C
[2020-04-05] MEDS: Diatrizoate Meglumine, Sodium 30 ML SOLUTION PO (16:58)
[2020-04-05] MEDS: iohexoL 350 MG/ML 100 ML INFUS..BTL IV (16:59)
--- NOTE | 2020-04-05 17:16 | PM.IMHP ---
History of Present Illness Date of Service: 04/05/20 <ANGELY Fall - Last Filed: 04/05/20 17:30> Chief Complaint: Abdominal pain <ANGELY Fall - Last Filed: 04/05/20 17:30> This is a 30-year-old female who presents emergency department with abdominal pain. Her pain is been intermittent over the past 1-2 months. Typically it is brought on by greasy or fatty food and sometimes garlic. The pain is located in her right upper quadrant. She came to the emergency department because her pain started last evening and has been persistent since. This is associated with nausea vomiting and diarrhea. She reports multiple episodes of diarrhea. She denies any associated fever chills. Her CBC and basic metabolic profile were unremarkable. She was evaluated by her mountain guide in the emergency department who felt she should be admitted the hospital for further management. He also recommended further imaging of the abdomen. <ANGELY Fall - Last Filed: 04/05/20 17:30> Review of Systems Review of Systems: Yes all other systems are reviewed and are negative <ANGELY Fall - Last Filed: 04/05/20 17:30> Constitutional: Constitutional: Denies chills and Denies fever(s) <ANGELY Fall - Last Filed: 04/05/20 17:30> Cardiovascular: Cardiovascular: Denies chest pain <ANGELY Fall - Last Filed: 04/05/20 17:30> Respiratory: Respiratory: Denies cough <ANGELY Fall - Last Filed: 04/05/20 17:30> [facility] Medical History: Medical History (Updated 04/06/20 @ 09:21 by Gabo Veronica MD) Kidney stones Migraines Rheumatoid arthritis <ANGELY Fall - Last Filed: 04/05/20 17:30> Functional capacity: independent ambulation <ANGELY Fall - Last Filed: 04/05/20 17:30> Pertinent family history: Rheumatoid arthritis <ANGELY Fall - Last Filed: 04/05/20 17:30> Social History: Social History Smoking Status: Never smoker Use of substances other than those prescribed or required for medical reasons: No Substance Use Type: Marijuana and Other Advance Directives: No Advance Directives Information Provided: Yes <ANGELY Fall - Last Filed: 04/05/20 17:30> Meds Allergies/Adverse reactions: Allergies Allergy/AdvReac Type Severity Reaction Status Date / Time shrimp Allergy Mild SWELLING Verified 02/22/20 09:20 gabapentin [GABAPENTIN] Allergy Unknown COULDNT Verified 02/22/20 09:20 FEEL LEGS , numbness methotrexate [METHOTREXATE] Allergy Unknown VOMITING Verified 02/22/20 09:20 nitrofurantoin Allergy Unknown cyclic Verified 11/20/19 00:00 vomitting shellfish derived Allergy Unknown UNKNOWN Verified 02/22/20 09:20 [SHELLFISH DERIVED] Sulfa (Sulfonamide Allergy Unknown SOB, Verified 11/20/19 00:00 Antibiotics) Tembling, LE weakness sulfamethoxazole Allergy Unknown NUMBNESS Verified 02/22/20 09:20 [From BACTRIM] IN BLE, VOMITING trimethoprim [From BACTRIM] Allergy Unknown NUMBNESS Verified 02/22/20 09:20 IN BLE, VOMITING abatacept [From Orencia] Allergy Swelling Verified 02/22/20 09:20 Shellfish Allergy Unknown anaphylaxis Uncoded 11/20/19 00:00 Sulfamethoxazole Allergy Unknown SOB, Uncoded 11/20/19 00:00 trembling, LE weakness <ANGELY Fall - Last Filed: 04/05/20 17:30> Home medications: Home Medications Medication Instructions Recorded Confirmed Type tocilizumab [Actemra] 1 syringe SUBCUT QWEEK 04/05/20 04/05/20 History <ANGELY Fall - Last Filed: 04/05/20 17:30> Physical Exam Vital Signs and Narrative: Vital Signs: Last Vital Signs Temp 95.8 F L 04/05/20 14:00 Pulse 75 04/05/20 14:00 Resp 15 04/05/20 14:00 BP 105/70 04/05/20 14:00 Pulse Ox 100 04/05/20 14:00 Body Mass Index 29.1 <ANGELY Fall - Last Filed: 04/05/20 17:30> Const: Nutritional Appearance: well nourished <ANGELY Fall - Last Filed: 04/05/20 17:30> Orientation/consciousness: patient oriented x3 <ANGELY Fall - Last Filed: 04/05/20 17:30> HENMT: Head: Yes normocephalic and Yes atraumatic <ANGELY Fall - Last Filed: 04/05/20 17:30> Eyes: Sclerae: sclerae normal <ANGELY Fall - Last Filed: 04/05/20 17:30> Chest: Chest palpation & inspection: normal inspection of the chest <ANGELY Fall - Last Filed: 04/05/20 17:30> Resp: Effort & Inspection: normal respiratory effort and no respiratory distress <ANGELY Fall - Last Filed: 04/05/20 17:30> Auscultation: clear to auscultation bilaterally <ANGELY Fall - Last Filed: 04/05/20 17:30> Cardio: Rate: regular rate <ANGELY Fall - Last Filed: 04/05/20 17:30> Rhythm: regular rhythm <ANGELY Fall - Last Filed: 04/05/20 17:30> GI: Other: Right upper quadrant mild tenderness to palpation <ANGELY Fall - Last Filed: 04/05/20 17:30> Inspection: Yes normal to inspection <ANGELY Fall - Last Filed: 04/05/20 17:30> Palpation (GI): Soft to palpation <ANGELY Fall - Last Filed: 04/05/20 17:30> Auscultation: normal bowel sounds <ANGELY Fall - Last Filed: 04/05/20 17:30> Skin: General skin exam: no rashes or lesions noted <ANGELY Fall - Last Filed: 04/05/20 17:30> Neuro: General: patient oriented x3 <ANGELY Fall - Last Filed: 04/05/20 17:30> Cranial nerves: Yes CN's II-XII intact bilaterally and Yes Bilaterally intact EOM present <ANGELY Fall - Last Filed: 04/05/20 17:30> Extrem: General: Yes normal to inspection <ANGELY Fall - Last Filed: 04/05/20 17:30> Results Labs CBC and Chem 7: : 04/05/20 11:04 04/05/20 11:04 <ANGELY Fall - Last Filed: 04/05/20 17:30> Labs: Laboratory Results - last 24 hr 04/05/20 04/05/20 04/05/20 11:04 11:04 11:04 MCV 91.6 MCH 30.4 MCHC 33.2 RDW 12.7 Plt Count 310 MPV 10.5 Immature Gran % (Auto) 0.2 Neut % (Auto) 65.0 Lymph % (Auto) 25.1 [place] % (Auto) 7.0 Eos % (Auto) 2.4 Baso % (Auto) 0.3 Lymph # (Auto) 2.3 [place] # (Auto) 0.7 Eos # (Auto) 0.2 Baso # (Auto) 0.0 Abs Immat Gran (auto) 0.02 Absolute Neuts (auto) 6.1 Absolute Nucleated RBC 0.000 Nucleated RBC % (auto) 0.0 Hold Blue Top SEE NOTE Anion Gap 11 L Estim Creat Clear Calc 110.8 Estimated GFR > 60 Random Glucose 88 Calcium 8.5 Magnesium 2.2 Total Bilirubin 0.4 Direct Bilirubin < 0.2 AST 17 ALT 13 Alkaline Phosphatase 57 Total Protein 6.9 Albumin 4.3 Urine Color Urine Appearance Urine pH Ur Specific [place] Urine Protein Urine Glucose (UA) Urine Ketones Urine Blood Urine Nitrite Ur Leukocyte Esterase Urine RBC Urine WBC Ur Squamous Epith Cells Urine Bacteria Urine Test COVID-19 ([facility]) COVID-19 Clin Com 04/05/20 04/05/20 11:04 15:59 MCV MCH MCHC RDW Plt Count MPV Immature Gran % (Auto) Neut % (Auto) Lymph % (Auto) [place] % (Auto) Eos % (Auto) Baso % (Auto) Lymph # (Auto) [place] # (Auto) Eos # (Auto) Baso # (Auto) Abs Immat Gran (auto) Absolute Neuts (auto) Absolute Nucleated RBC Nucleated RBC % (auto) Hold Blue Top Anion Gap Estim Creat Clear Calc Estimated GFR Random Glucose Calcium Magnesium Total Bilirubin Direct Bilirubin AST ALT Alkaline Phosphatase Total Protein Albumin Urine Color YELLOW Urine Appearance CLEAR Urine pH 5.5 Ur Specific [place] >= 1.030 H Urine Protein NEG Urine Glucose (UA) NEG Urine Ketones NEG Urine Blood 1+ H Urine Nitrite NEG Ur Leukocyte Esterase NEG Urine RBC 1-4 Urine WBC 0-2 Ur Squamous Epith Cells 1+ Urine Bacteria NONE Urine Test NEGATIVE COVID-19 ([facility]) Negative COVID-19 Clin Com See Note <ANGELY Fall - Last Filed: 04/05/20 17:30> Imaging Radiologist's Impressions: Impressions Abdomen Ultrasound 04/05/20 10:01 IMPRESSION: Hepatic steatosis and cholelithiasis. No evidence of cholecystitis. Abdomen/Pelvis CT 04/05/20 13:27 IMPRESSION: No acute abnormality CT scan abdomen and pelvis. <ANGELY Fall Last Filed: 04/05/20 17:30> Assessment and Plan (1) Cholelithiasis: Qualifiers: Biliary obstruction: without biliary obstruction Cholecystitis acuity: acute Cholelithiasis location: gallbladder <ANGELY Fall Last Filed: 04/05/20 17:30> Status: Acute <ANGELY Fall - Last Filed: 04/05/20 17:30> (2) Nausea & vomiting: Status: Acute <ANGELY Fall - Last Filed: 04/05/20 17:30> This is a 30-year-old female history of cholelithiasis who presents the emergency department with abdominal pain Biliary colic/ intractable nausea vomiting Lab work within normal limits CT scan has returned and is unremarkable -GI following -will obtain surgical consult to evaluate need for cholecystectomy -clear liquid diet, IV fluid DVT prophylaxis-low risk encourage early ambulation This case discussed with Dr. Rai <ANGELY Fall - Last Filed: 04/05/20 17:30>
[2020-04-05 20:00] VITALS: BP 126/90; PULSE 73; RESP 18; TEMP 36.2; O2SAT 100
[2020-04-05] MEDS: 0.9 % Sodium Chloride 1,000 ML 100 ML IVCONT (20:47)
[2020-04-05] MEDS: 0.9 % Sodium Chloride Flush 3 ML SYRINGE IVFLUSH (20:47)
[2020-04-05 23:12] VITALS: BP 101/56; PULSE 72; RESP 19; TEMP 36.4; O2SAT 99
[2020-04-06 03:20] VITALS: BP 100/54; PULSE 76; RESP 19; TEMP 36.4; O2SAT 96
[2020-04-06] MEDS: 0.9 % Sodium Chloride 1,000 ML 100 ML IVCONT ×2 (06:16→16:31)
[2020-04-06 07:44] VITALS: BP 92/48; PULSE 89; RESP 18; TEMP 36.6; O2SAT 99
--- NOTE | 2020-04-06 09:16 | P.CONGS_ITS ---
History of Present Illness Consult details Consult date: 04/06/20 Reason for consult: gallstones Narrative: 30-year-old female patient presenting with a 2 month history of intermittent abdominal pain located mainly in the right upper quadrant without significant radiation. Her past medical history significant for rheumatoid arthritis and kidney stones. The pain is occasionally sharp and seems to be made worse with fatty food intake. There are no relieving factors. The pain is associated with nausea, vomiting, and diarrhea. Patient presented to the emergency department and was noted to be tender in the right upper quadrant. An ultrasound of the abdomen revealed a single large gallstone within the gallbladder which was mobile. There was no wall thickening, pericholecystic fluid, or common bile duct dilation. Subsequent CT of the abdomen pelvis also revealed a normal appearing gallbladder wall without secondary signs of cholecystitis. Surgical consultation was recommended for possible cholecystectomy. Review of Systems Constitutional: Constitutional: Denies chills, Denies fever(s), Denies headache(s) and Denies poor appetite ENT: Reports dizziness and Denies headache(s) Cardiovascular: Cardiovascular: Denies chest pain, Denies rapid heart rate, Denies palpitations and Denies slow heart rate Respiratory: Respiratory: Denies chest congestion, Denies cough, Denies pain on inspiration and Denies wheezing Gastrointestinal: Gastrointestinal: Reports abdominal pain, Denies bloating, Denies change in stool character, Denies constipation, Reports diarrhea, Reports nausea, Reports vomiting and Denies hematemesis Musculoskeletal: Musculoskeletal: Denies back pain, Reports arthralgias, Reports joint swelling and Denies numbness Integumentary/Breasts: Skin/Breast: Denies change in pigmentation, Denies erythema and Denies rash Neurologic: Denies confusion, Reports dizziness, Denies headache(s) and Denies numbness Psychiatric: Psychiatric: Denies anxiety, Denies confusion and Denies depre ssion Endocrine: Endocrine: Denies palpitations Hematologic/Lymphatic: Hematologic/Lymphatic: Denies easy bleeding, Denies easy bruising and Denies lymphadenopathy Allergic/Immunologic: Allergic/Immunologic: Denies wheezing PMFSH Past Medical History Medical History (Updated 04/06/20 @ 09:21 by Gabo Veronica MD) Kidney stones Migraines Rheumatoid arthritis Functional capacity: independent ambulation Social History Social History Smoking Status: Never smoker Use of substances other than those prescribed or required for medical reasons: No Substance Use Type: Marijuana and Other Advance Directives: No Advance Directives Information Provided: Yes Meds Allergies Allergy/AdvReac Type Severity Reaction Status Date / Time shrimp Allergy Mild SWELLING Verified 02/22/20 09:20 gabapentin [GABAPENTIN] Allergy Unknown COULDNT Verified 02/22/20 09:20 FEEL LEGS , numbness methotrexate [METHOTREXATE] Allergy Unknown VOMITING Verified 02/22/20 09:20 nitrofurantoin Allergy Unknown cyclic Verified 11/20/19 00:00 vomitting shellfish derived Allergy Unknown UNKNOWN Verified 02/22/20 09:20 [SHELLFISH DERIVED] Sulfa (Sulfonamide Allergy Unknown SOB, Verified 11/20/19 00:00 Antibiotics) Tembling, LE weakness sulfamethoxazole Allergy Unknown NUMBNESS Verified 02/22/20 09:20 [From BACTRIM] IN BLE, VOMITING trimethoprim [From BACTRIM] Allergy Unknown NUMBNESS Verified 02/22/20 09:20 IN BLE, VOMITING abatacept [From Orencia] Allergy Swelling Verified 02/22/20 09:20 Shellfish Allergy Unknown anaphylaxis Uncoded 11/20/19 00:00 Sulfamethoxazole Allergy Unknown SOB, Uncoded 11/20/19 00:00 trembling, LE weakness Home Medications Medication Instructions Recorded Confirmed Type tocilizumab [Actemra] 1 syringe SUBCUT QWEEK 04/05/20 04/05/20 History Physical Exam Vital Signs: Vital Signs: Last Vital Signs Temp 97.9 F 04/06/20 07:44 Pulse 89 04/06/20 07:44 Resp 18 04/06/20 07:44 BP 92/48 L 04/06/20 07:44 Pulse Ox 99 04/06/20 07:44 Body Mass Index 29.1 Const: General: cooperative, comfortable and well developed; No confusion Nutritional Appearance: well nourished Orientation/consciousness: patient oriented x3 and No confusion Eyes: Sclerae: sclerae normal EOM: EOMs intact bilaterally Neck: Neck: Yes normal visual inspection Resp: Effort & Inspection: normal respiratory effort, no cough and no respiratory distress Cardio: Jugular venous distension: no JVD Rate: regular rate Rhythm: regular rhythm GI: Inspection: Yes normal to inspection Palpation (GI): Soft to palpation, Tenderness to palpation present (GI) Bailey's sign negative, no guarding and not rigid Percussion: Yes normal to percussion Auscultation: normal bowel sounds Skin: General skin exam: dry skin Rashes: no rashes Neuro: General: patient oriented x3, no focal motor deficits and No confusion Extrem: General: Yes full ROM and Yes no clubbing, cyanosis or edema Results Labs Result diagrams: 04/05/20 11:04 04/05/20 11:04 Labs: Abnormal lab results 04/05/20 04/05/20 04/05/20 Range/Units 11:04 11:04 11:04 RBC 4.18 L (4.20-5.50) X10*6/uL Anion Gap 11 L (12-20) Ur Specific [place] >= 1.030 H (1.005-1.025) Urine Blood 1+ H (NEG) Short CBC 04/05/20 Range/Units 11:04 WBC 9.3 (4.8-10.8) X10*3/uL Hgb 12.7 (12.0-16.0) g/dl Hct 38.3 (37-47) % Plt Count 310 (160-400) X10*3/uL BMP 04/05/20 11:04 Sodium 139 Potassium 4.4 Chloride 108 Carbon Dioxide 24 BUN 14 Creatinine 0.67 Calcium 8.5 Liver Function 04/05/20 Range/Units 11:04 Total Bilirubin 0.4 (0.0-1.0) mg/dL Direct Bilirubin < 0.2 (0.0-0.5) mg/dL AST 17 (5-31) U/L ALT 13 (0-31) U/L Alkaline Phosphatase 57 (39-117) U/L Albumin 4.3 (3.5-5.0) g/dL Urine 04/05/20 Range/Units 11:04 Urine Color YELLOW Urine Appearance CLEAR Urine pH 5.5 (5.0-8.0) Ur Specific [place] >= 1.030 H (1.005-1.025) Urine Protein NEG (NEG-TRACE) MG/DL Urine Glucose (UA) NEG (NEG) MG/DL Urine Test NEGATIVE (NEGATIVE) All other labs normal. Assessment and Plan (1) Symptomatic cholelithiasis: Status: Acute 30-year-old female patient with a prolonged history of complaints of intermittent abdominal pain in the right upper quadrant which seems to be triggered by fatty food intake. The symptoms seem to be progressing in severity and frequency to the point where the patient has lost a significant amount of weight. Workup revealed gallstones without evidence of acute cholecystitis. Findings are most suggestive of symptomatic cholelithiasis. We discussed possible laparoscopic or open cholecystectomy including the procedure, risks (including but not limited to bleeding, infection, pain, scarring, possible injury to surrounding organs including liver, colon, stomach and duodenum, bile duct, as well as the possibility of continued abdominal pain following the procedure), and alternatives (no surgery). After this discussion she gives her consent for laparoscopic or possible open cholecystectomy. She will be sche duled as an add on for tomorrow.
--- NOTE | 2020-04-06 10:17 | HO.PM.IMPN ---
Subjective Subjective Date of Service: 04/06/20 Physical Exam Vital Signs: Vital Signs: Last Vital Signs Temp 97.9 F 04/06/20 07:44 Pulse 89 04/06/20 07:44 Resp 18 04/06/20 07:44 BP 92/48 L 04/06/20 07:44 Pulse Ox 99 04/06/20 07:44 Body Mass Index 29.1 Const: Nutritional Appearance: well nourished Orientation/consciousness: patient oriented x3 Eyes: Sclerae: sclerae normal Resp: Effort & Inspection: normal respiratory effort Cardio: Rate: regular rate Rhythm: regular rhythm GI: Other: Right upper quadrant mild tenderness to palpation Inspection: Yes normal to inspection Palpation (GI): Soft to palpation Neuro: General: patient oriented x3 Objective Data Current Medications Generic Name Dose Route Start Last Admin Trade Name Freq PRN Reason Stop Dose Admin Acetaminophen 650 mg 04/05/20 19:34 Acetaminophen Supp 650 Mg Supp.Rect [place] Q6H PRN Pain, Mild (Pain Scale 1-3) Dicyclomine HCl 10 mg 04/05/20 19:34 Dicyclomine Hcl 10 Mg Capsule PO TID PRN abdominal cramping Sodium Chloride 1,000 mls @ 100 mls/hr 04/05/20 19:34 04/06/20 06:16 Ns IVCONT 100 mls/hr .Q10H KAMLA Administration Ondansetron HCl 4 mg 04/05/20 19:34 Ondansetron Hcl 4 Mg/2 Ml Vial IVPUSH Q8H PRN Nausea and Vomiting Pharmacy Consult 1 each 04/05/20 15:47 Consult Rx Perform Med Rec MISCELLANE ONCE PRN Consult order Sodium Chloride 3 ml 04/06/20 00:00 04/06/20 10:15 0.9 % Sodium Chloride Flush 3 Ml Syringe IVFLUSH Not Given QSHIFT KAMLA Labs CBC & Chem 7: 04/05/20 11:04 04/05/20 11:04 Assessment and Plan (1) Cholelithiasis: Status: Acute (2) Nausea & vomiting: Status: Acute Assessment and Plan: 30-year-old female history of cholelithiasis who presents the emergency department with abdominal pain Biliary colic/ intractable nausea vomiting Lab work within normal limits CT scan unremarkable, no evidence of cholecystitis -GI following -Surgery recommends CCY tomorrow DVT prophylaxis-low risk encourage early ambulation
[2020-04-06 11:43] VITALS: BP 118/71; PULSE 68; RESP 18; TEMP 36.4; O2SAT 98
--- NOTE | 2020-04-06 12:38 | MHC.CM.PN ---
PLAN IS FOR CCY SATURDAY 04/07 PATIENT IS INDEPENDENT WITH ALL ADLS. 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 PATIENT LIVES WITH HER CHILDREN, AND HAS PLENTY OF FAMILY SUPPORT DURING AND AFTER HER STAY AT [facility] [place]. PLAN IS HOME WITH NO SERVICES. CASE MANAGEMENT AVAILABLE IF NEEDED FOR ANY DISCHARGE CHANGE OF PLAN
[2020-04-06 15:58] VITALS: BP 111/64; PULSE 76; RESP 18; TEMP 37.1; O2SAT 98
[2020-04-06] MEDS: ondansetron HCL 4 MG/2 ML VIAL IVPUSH (16:31)
[2020-04-06] MEDS: Dicyclomine HCl 10 MG CAPSULE PO (16:38)
[2020-04-06 19:11] VITALS: BP 115/74; PULSE 78; RESP 20; TEMP 36.6; O2SAT 100
[2020-04-06] MEDS: oxyCODONE HCl Immed Release 5 MG TABLET PO (22:23)
[2020-04-07] VITALS (13 sets, daily range): BP systolic 98–128; BP diastolic 51–82; PULSE 69–88; RESP 16–20; TEMP 36.1–36.9; O2SAT 98–100; BMI 29.1
[2020-04-07] MEDS: 0.9 % Sodium Chloride 1,000 ML 100 ML IVCONT (00:42)
[2020-04-07 04:21] LABS: Amphetamine Screen Urine Not Detected (Not Detect); Barbiturates, Urine Not Detected (Not Detect); Benzodiazepines Screen Urine Not Detected (Not Detect); Cannabinoid Screen Urine POSITIVE (Not Detect); Cocaine Screen Urine Not Detected (Not Detect); Opiate Screen Urine Not Detected (Not Detect); Phencyclidine Screen Urine Not Detected (Not Detect)
--- NOTE | 2020-04-07 08:57 | MHC.SHP ---
Pre-Procedural Eval Section A The patient is an INPATIENT: Yes The History & Physical has been completed within 30 days and I have reviewed it.: Yes Section B Chief Complaint: abd pain Allergies: Allergies Allergy/AdvReac Type Severity Reaction Status Date / Time shrimp Allergy Mild SWELLING Verified 02/22/20 09:20 gabapentin [GABAPENTIN] Allergy Unknown COULDNT Verified 02/22/20 09:20 FEEL LEGS , numbness methotrexate [METHOTREXATE] Allergy Unknown VOMITING Verified 02/22/20 09:20 nitrofurantoin Allergy Unknown cyclic Verified 11/20/19 00:00 vomitting shellfish derived Allergy Unknown UNKNOWN Verified 02/22/20 09:20 [SHELLFISH DERIVED] Sulfa (Sulfonamide Allergy Unknown SOB, Verified 11/20/19 00:00 Antibiotics) Tembling, LE weakness sulfamethoxazole Allergy Unknown NUMBNESS Verified 02/22/20 09:20 [From BACTRIM] IN BLE, VOMITING trimethoprim [From BACTRIM] Allergy Unknown NUMBNESS Verified 02/22/20 09:20 IN BLE, VOMITING abatacept [From Orencia] Allergy Swelling Verified 02/22/20 09:20 Shellfish Allergy Unknown anaphylaxis Uncoded 11/20/19 00:00 Sulfamethoxazole Allergy Unknown SOB, Uncoded 11/20/19 00:00 trembling, LE weakness Plan Diagnosis/Plan: Unchanged I have reviewed the history and physical and performed a pertinent physical examination on my patient. No changes have occurred unless specified.
--- NOTE | 2020-04-07 09:17 | MHC.CM.PN ---
OBSERVATION NOTICE GIVEN TO PATIENT, PATIENT SEEN PREVIOUS TO SURGERY AND REPORTS PLAN TO GO HOME SELF-CARE, PATIENTS FATHER TO TRANSPORT, PATIENT PLANS ON STAYING WITH PARENTS THE THE FIRST NIGHT OR TWO. NO ANTICIPATED HOME SERVICES AT THIS TIME. FATHER JOSE SY [phone] MOTHER SERGIO [phone]
[2020-04-07] MEDS: Lactated Ringers 1,000 ML 100 ML IVCONT ×2 (09:27→20:55)
--- NOTE | 2020-04-07 09:43 | P.PNIM_ITS ---
Subjective Subjective Date of Service: 04/07/20 Interval History: Seen in follow up with biliary colic, pain is better ROS: no fever, mild abd pain that is intermittent Physical Exam Vital Signs: Vital Signs: Last Vital Signs Temp 97.0 F 04/07/20 09:16 Pulse 77 04/07/20 09:16 Resp 16 04/07/20 09:16 BP 113/82 04/07/20 09:16 Pulse Ox 99 04/07/20 09:16 Body Mass Index 29.1 Const: Nutritional Appearance: well nourished Orientation/consciousness: patient oriented x3 Eyes: Sclerae: sclerae normal Resp: Effort & Inspection: normal respiratory effort Cardio: Rate: regular rate Rhythm: regular rhythm GI: Other: Right upper quadrant mild tenderness to palpation Inspection: Yes normal to inspection Palpation (GI): Soft to palpation Neuro: General: patient oriented x3 Objective Data Current Medications Generic Name Dose Route Start Last Admin Trade Name Freq PRN Reason Stop Dose Admin Acetaminophen 650 mg 04/05/20 19:34 Acetaminophen Supp 650 Mg Supp.Rect [place] Q6H PRN Pain, Mild (Pain Scale 1-3) Dicyclomine HCl 10 mg 04/05/20 19:34 04/06/20 16:38 Dicyclomine Hcl 10 Mg Capsule PO 10 mg TID PRN Administration abdominal cramping Sodium Chloride 1,000 mls @ 100 mls/hr 04/05/20 19:34 04/07/20 00:42 Ns IVCONT 100 mls/hr .Q10H KAMLA Administration Lactated Ringer's 1,000 mls @ 100 mls/hr 04/07/20 10:15 04/07/20 09:27 Lr IVCONT 100 mls/hr .Q10H KAMLA Administration Cefotetan Disodium 2 gm in 50 mls @ 100 mls/hr 04/07/20 10:10 04/07/20 09:30 Cefotan IV 04/07/20 10:39 100 mls/hr PREOP ONE Administration Ondansetron HCl 4 mg 04/05/20 19:34 04/06/20 16:31 Ondansetron Hcl 4 Mg/2 Ml Vial IVPUSH 4 mg Q8H PRN Administration Nausea and Vomiting Oxycodone HCl 5 mg 04/06/20 21:48 04/06/20 22:23 Oxycodone Hcl Immed Release 5 Mg Tablet PO 5 mg Q6H PRN Administration Pain, Severe (Pain Scale 7-10) Pharmacy Consult 1 each 04/05/20 15:47 Consult Rx Perform Med Rec MISCELLANE ONCE PRN Consult order Sodium Chloride 3 ml 04/06/20 00:00 04/07/20 07:29 0.9 % Sodium Chloride Flush 3 Ml Syringe IVFLUSH Not Given QSHIFT KAMLA Labs CBC & Chem 7: 04/05/20 11:04 04/05/20 11:04 Assessment and Plan (1) Cholelithiasis: Status: Acute (2) Nausea & vomiting: Status: Acute Assessment and Plan: 30-year-old female history of cholelithiasis who presents the emergency d epartment with abdominal pain Biliary colic/ intractable nausea vomiting Lab work within normal limits CT scan unremarkable, no evidence of cholecystitis -GI following -Surgery recommends CCY today DVT prophylaxis-low risk encourage early ambulation
[2020-04-07] MEDS: Scopolamine 1.5 MG PATCH.TD.3 TRANSDERMA (09:59)
--- NOTE | 2020-04-07 10:54 | P.BOP_ITS ---
Brief Operative Note Date of Service: 04/07/20 Pre-op diagnosis: Acute cholecystitis, cholelithiasis Post-op diagnosis: same Procedure: Laparoscopic cholecystectomy Implants: None Surgeon: Gabo Veronica MD Anesthesia: [facility]ANET [facility] Special Education Teacher: Marycarmen Joy Estimated blood loss (mL): 5 Pathology: other (Gallbladder) Condition: stable Disposition: PACU
--- NOTE | 2020-04-07 10:55 | W.PM.OPN ---
Operative Note Operative Note Date of Service: 04/07/20 Narrative: Preoperative diagnosis: Acute cholecystitis, cholelithiasis Postoperative diagnosis: Same Procedure: Laparoscopic cholecystectomy Surgeon: Gabo Veronica MD Operational Communication Chief: ABE Perkins Anesthesia: General endotracheal Indications for procedure: 30-year-old female presenting with a chronic history of abdominal pain located in the right upper quadrant with intermittent attacks of increased pain associated with nausea vomiting. Patient presented to the emergency department was noted to be tender in the right upper quadrant. Ultrasound and CT of the abdomen confirmed a thickened gallbladder wall with gallstones. She presents now for laparoscopic or possible open cholecystectomy Operative findings:. The gallbladder was found to be mildly inflamed with adhesions to the undersurface of the gallbladder suggestive of chronic cholecystitis as well. A large gallstone was noted within the gallbladder. Specimen: Gallbladder Estimated blood loss: 5 mL Complications: None Procedure details: Patient was brought to the OR and placed in a supine position. After administering general anesthesia the patient's abdomen was prepped with ChloraPrep and draped in a sterile fashion. Local anesthesia consisting of 0.75% Sensorcaine with epinephrine was infiltrated in a periumbilical region. A 5 mm incision was made above the umbilicus in a transverse fashion. The Veress needle was then inserted while elevating abdominal cavity with towel clips. After positive drop test the abdomen was insufflated to a pressure of 15 mm of mercury. The Veress needle was then removed and a 5 mm trocar inserted. The camera was inserted in the abdomen explored. A 12 mm trocar was then placed in the epigastrium and 2 5 mm trocars placed in the right upper quadrant. The patient was placed in reverse Trendelenburg positioning and rotated to the left. The gallbladder was grasped with the fundus and retracted cephalad.. The infundibulum Was then grasped and retracted away from the liver bed. The Dolphin dissected was then used to dissect the peritoneum off the infundibulum to reveal the junction with the cystic duct. Cystic artery was noted slightly medial and posterior to the cystic duct. After obtaining a critical view the cystic duct was doubly clipped and divided. The cystic artery was then doubly clipped and divided. The gallbladder was then dissected off the liver bed using electrocautery with an L hook. Hemostasis was assured all times using the electrocautery. When the gallbladder is completely dissected off the liver bed was placed in an Endo-Catch bag and brought out through the epigastric incision. The gallbladder was sent to pathology for further examination. The abdomen was then re-examined. The liver bed was irrigated and suctioned dry. No bleeding or bile leak could be identified. CO2 was then evacuated and all trocars removed. Fascia was closed at the epigastric incision using a [id number] 0 Polysorb suture. Skin was closed in all incisions using a subcuticular 4 0 Polysorb suture. Sterile dressings consisting of Steri-Strips, 2 x 2 gauze, and Tegaderm were then applied. The patient tolerated the procedure well. Sponge instrument and needle counts reported as correct. The patient was transferred to PACU in stable condition.
--- NOTE | 2020-04-07 10:59 | P.BOP_ITS ---
Brief Operative Note Date of Service: 04/07/20 Pre-op diagnosis: acute cholecystitis, cholelithiasis Post-op diagnosis: same Procedure: laparoscopic cholecystectomy Implants: None Surgeon: GREG PRESSLEY MD Anesthesia: JANET [employer] Sueding Supervisor: Marycarmen Joy Estimated blood loss (mL): 10 Pathology: other (gallbladder) Condition: stable Disposition: PACU
[2020-04-07] MEDS: oxyCODONE HCl Immed Release 5 MG TABLET PO ×2 (11:22→19:19)
[2020-04-07] MEDS: Acetaminophen 325 MG TABLET 650 MG PO (11:30)
[2020-04-07] MEDS: HYDROmorphone HCl 0.5 MG/0.5 ML SYRINGE IVPUSH ×3 (12:59→23:08)
[2020-04-07] MEDS: 0.9 % Sodium Chloride Flush 3 ML SYRINGE IVFLUSH (19:20)
[2020-04-08] MEDS: oxyCODONE HCl Immed Release 5 MG TABLET PO ×2 (00:57→09:05)
[2020-04-08 03:34] VITALS: BP 112/44; PULSE 60; RESP 19; TEMP 36.4; O2SAT 99
[2020-04-08] MEDS: HYDROmorphone HCl 0.5 MG/0.5 ML SYRINGE IVPUSH (05:49)
[2020-04-08] MEDS: Lactated Ringers 1,000 ML 100 ML IVCONT (05:57)
--- NOTE | 2020-04-08 07:56 | P.PNGS_ITS ---
Subjective Subjective Date of Service: 04/08/20 <Marycarmen Joy PA-C - Last Filed: 04/08/20 08:01> 04/08/20 <Gabo Veronica MD - Last Filed: 04/08/20 08:16> Interval history: Feels much better than prior to surgery. Has some incisional pain but comfortable with analgesics. Tolerating solid diet. OOB without difficulty. Feels ready for discharge. <Marycarmen Joy PA-C - Last Filed: 04/08/20 08:01> Physical Exam Vital Signs: Vital Signs: Last Vital Signs Temp 97.6 F 04/08/20 03:34 Pulse 60 04/08/20 03:34 Resp 19 04/08/20 03:34 BP 112/44 L 04/08/20 03:34 Pulse Ox 99 04/08/20 03:34 Body Mass Index 29.1 <Marycarmen Joy PA-C - Last Filed: 04/08/20 08:01> Const: General: healthy appearing, comfortable, no acute distress and alert <Marycarmen Joy PA-C - Last Filed: 04/08/20 08:01> Eyes: Sclerae: sclerae normal <Marycarmen Joy PA-C - Last Filed: 04/08/20 08:01> Resp: Effort & Inspection: normal respiratory effort <Marycarmen Joy PA-C - Last Filed: 04/08/20 08:01> GI: Inspection: No distended and Yes incision (dressings c/d/i) <Marycarmen Joy PA-C - Last Filed: 04/08/20 08:01> Palpation (GI): Soft to palpation, Tenderness to palpation present (GI) (mild, incisional), no guarding, not rigid and No Rebound tenderness present <EMELIA Perkins Last Filed: 04/08/20 08:01> Skin: General skin exam: no rashes or lesions noted <EMELIA Perkins Last Filed: 04/08/20 08:01> Neuro: General: patient oriented x3 <EMELIA Perkins Last Filed: 04/08/20 08:01> Progress Note: A&P Assessment and plan (1) Symptomatic cholelithiasis: Status: Acute <Marycarmen Joy PA-C - Last Filed: 04/08/20 08:01> (2) RUQ abdominal pain: Status: Acute <Marycarmen Joy PA-C - Last Filed: 04/08/20 08:01> (3) S/P laparoscopic cholecystectomy: Problem details: POD #1 <Marycarmen Joy PA-C - Last Filed: 04/08/20 08:01> Status: Acute <Marycarmen Joy PA-C - Last Filed: 04/08/20 08:01> Assessment and Plan: Doing well post op. Comfortable and tolerating solid diet. VSS. Abd exam benign with appropriate post op tenderness, dressings c/d/i. Stable for d/c to home today. F/u in office in [address] Veronica. Patient comfortable with plan. <Marycarmen Joy PA-C - Last Filed: 04/08/20 08:01> Patient reports feeling improved following the surgery, reports some incisional discomfort. Her dizziness is improved with the scopolamine patch. Agree with the above assessment and plan. Will discharged to home with follow- up in office in 1 week. <Gabo Veronica MD - Last Filed: 04/08/20 08:16> Fall Risk Details Current Medications: Current Medications Generic Name Dose Route Start Last Admin Trade Name Freq PRN Reason Stop Dose Admin Dicyclomine HCl 10 mg 04/05/20 19:34 04/06/20 16:38 Dicyclomine Hcl 10 Mg Capsule PO 10 mg TID PRN Administration abdominal cramping Hydromorphone HCl 0.5 mg 04/07/20 12:32 04/08/20 05:49 Hydromorphone Hcl 0.5 Mg/0.5 Ml Syringe IVPUSH 0.5 mg Q4H PRN Administration Pain, Severe (Pain Scale 7-10) Lactated Ringer's 1,000 mls @ 100 mls/hr 04/07/20 10:15 04/08/20 05:57 Lr IVCONT 100 mls/hr .Q10H KAMLA Administration Ondansetron HCl 4 mg 04/05/20 19:34 04/06/20 16:31 Ondansetron Hcl 4 Mg/2 Ml Vial IVPUSH 4 mg Q8H PRN Administration Nausea and Vomiting Oxycodone HCl 5 mg 04/06/20 21:48 04/08/20 00:57 Oxycodone Hcl Immed Release 5 Mg Tablet PO 5 mg Q6H PRN Administration Pain, Severe (Pain Scale 7-10) Pharmacy Consult 1 each 04/05/20 15:47 Consult Rx Perform Med Rec MISCELLANE ONCE PRN Consult order Sodium Chloride 3 ml 04/06/20 00:00 04/07/20 19:20 0.9 % Sodium Chloride Flush 3 Ml Syringe IVFLUSH 3 ml QSHIFT KAMLA Administration <Marycarmen Joy PA-C - Last Filed: 04/08/20 08:01> Time Spent With Patient Time: Total time spent is greater than 50% in coordination of care (as documented) at patient's floor/unit and/or counseling patient: <Marycarmen Joy PA-C - Last Filed: 04/08/20 08:01> Time with patient: 15 - 24 minutes <Marycarmen Joy PA-C - Last Filed: 04/08/20 08:01>
--- NOTE | 2020-04-08 09:58 | MHC.CM.PN ---
PATIENT DISCHARGING TODAY, HOME SELF-CARE, FATHER TO TRANSPORT AND PATIENT WILL STAY WITH PARENTS FOR AT LEAST FIRST 24HRS. PATIENT TO FOLLOW-UP WITH SURGEON IN ONE WEEK.
--- NOTE | 2020-04-08 10:36 | PM.DS ---
DS: Providers Provider Date of admission: 04/05/20 16:41 Primary care physician: Sharon Caicedo MD Consults: 04/05/20 17:26 Consult to General Surgery Routine Consulting Provider: Gabo Veronica Reason for consultation: Biliary colic Has provider been notified: No 04/05/20 19:34 Consult to Gastroenterology Routine Consulting Provider: Jonathan Osorio Reason for consultation: Abdominal pain Has provider been notified: Yes DS: Diagnosis Discharge Diagnosis (1) S/P laparoscopic cholecystectomy: Status: Acute Problem details: POD #1 DS: Medications Discharge Medications Home Medications: Home Medications Medication Instructions Recorded Confirmed Actemra 1 syringe SUBCUT QWEEK 04/05/20 04/05/20 Previous Rx's Medication Instructions Recorded dicyclomine 10 mg capsule 10 mg PO TID PRN 30 Days #90 cap 04/03/20 amoxicillin-pot clavulanate 1 tab PO BID #6 tab 04/08/20 [Augmentin] oxycodone 5 mg PO Q4H PRN #20 tab 04/08/20 scopolamine base 1 patch TRANSDERMAL Q3D PRN #1 ea 04/08/20 DS: Summary Hospital Course Hospital Course: She presented with bilicary colic, no evidence of cholecystitis by imaging. Was seen by surgery and underwent successful Lap-josiah an doing well today, tolerating diert and will be going home. Time Spent with Patient Time attestation: Total time spent providing and/or coordinating discharge services: Physical Exam Vital Signs: Vital Signs: Last Vital Signs Temp 97.6 F 04/08/20 03:34 Pulse 60 04/08/20 03:34 Resp 19 04/08/20 03:34 BP 112/44 L 04/08/20 03:34 Pulse Ox 99 04/08/20 03:34 Body Mass Index 29.1 General: AO X 3, no acute distress Resp: normal efforts CVS: S1,S2,RRR GI: no pain Skin: No rash Neuro: motor grossly intact Psych: appropriate affect DS: Data Data Completed and Pending Completed studies during hospitalization [Text1]: Pending at discharge 04/07/20 10:41 Surgical [PTH] Routine Labs on day of discharge: 04/05/20 10:01 ondansetron HCL [Zofran] 4 mg IVPUSH ONCE ONE US abdomen limited Stat 04/05/20 10:15 0.9 % Sodium Chloride [Ns] 1,000 ml IVCONT 999 mls/hr 04/05/20 11:04 Basic Metabolic Panel Stat Complete Blood Count Auto Diff Stat Hold Lt Blue - Possible Coag Stat Liver Panel Stat Magnesium Stat Ur Preg Test Stat 04/05/20 12:38 Ketorolac Tromethamine [Toradol] 15 mg IVPUSH ONCE ONE Metoclopramide HCl [Reglan] 10 mg IVPUSH ONCE ONE 04/05/20 12:39 Magnesium Hydrox/Alum Hydrox [Maalox] 30 ml PO ONCE ONE 04/05/20 13:27 CT abdomen pelvis w con Stat 04/05/20 15:59 COVID-19 ID NOW ([facility]) Stat 04/05/20 16:37 Transfer Order Routine 04/05/20 16:58 Diatrizoate Meglumine, Sodium [Gastrografin 66-10] 30 ml PO ONCE ONE iohexoL 350 MG/ML [Omnipaque 350 MG/ML] 100 ml IV ONCE ONE 04/05/20 19:34 0.9 % Sodium Chloride [Ns] 1,000 ml IVCONT 100 mls/hr Acetaminophen Supp [Tylenol Supp] 650 mg HI Q6H PRN 04/07/20 03:46 Drug Screen Urine Stat 04/07/20 09:27 cefoTEtan disodium [Cefotan] 2 gm .ROUTE .STK-MED ONE 04/07/20 09:44 Bupivacaine MPF 0.75 % w/EPI [Sensorcaine MPF 0.75%/EPI 1:200,000] 30 ml .ROUTE .STK-MED ONE 04/07/20 09:50 Midazolam HCl/PF [Versed] 2 mg .ROUTE .STK-MED ONE Rocuronium [place] [Zemuron] 100 mg IV .STK-MED ONE fentaNYL citrate/PF [Sublimaze] 2,500 mcg .ROUTE .STK-MED ONE 04/07/20 09:51 Lidocaine HCl 2 % MPF [Xylocaine 2 % MPF] 5 ml .ROUTE .STK-MED ONE dexAMETHasone sod phosphate [Decadron] 4 mg .ROUTE .STK-MED ONE ondansetron HCL [Zofran] 4 mg .ROUTE .STK-MED ONE propofoL [Diprivan] 200 mg IVPUSH .STK-MED ONE 04/07/20 10:00 Scopolamine [Transderm-Scop] 1.5 mg TRANSDERMA PREOP ONE 04/07/20 10:08 Transfer Order Routine 04/07/20 10:10 cefoTEtan disod/Dextrose,Iso [Cefotan] 2 gm in 50 ml IV PREOP 04/07/20 10:21 Sugammadex Sodium [[place]] 200 mg IVPUSH .STK-MED ONE 04/07/20 10:41 Surgical [PTH] Routine 04/07/20 10:55 Vital Signs Q1H HYDROmorphone HCl [Dilaudid] 0.25 mg IVPUSH Q5M PRN Promethazine HCL [Phenergan] 12.5 mg 0.9 % Sodium Chloride [Ns] 50 ml IV ONCE oxyCODONE HCl Immed Release [Roxicodone] 5 mg PO ONCE PRN 04/07/20 10:59 Transfer Order Routine 04/07/20 11:20 Acetaminophen [Tylenol] 325 mg .ROUTE .STK-MED ONE oxyCODONE HCl Immed Release [Roxicodone] 5 mg .ROUTE .STK-MED ONE 04/07/20 11:33 Acetaminophen [Tylenol] 650 mg PO ONCE ONE Laboratory Last Values WBC 9.3 X10*3/uL (4.8-10.8) 04/05/20 11:04 RBC 4.18 X10*6/uL (4.20-5.50) L 04/05/20 11:04 Hgb 12.7 g/dl (12.0-16.0) 04/05/20 11:04 Hct 38.3 % (37-47) 04/05/20 11:04 MCV 91.6 fL (80-98) 04/05/20 11:04 MCH 30.4 pg (27.0-33.0) 04/05/20 11:04 MCHC 33.2 g/dl (31.0-35.0) 04/05/20 11:04 RDW 12.7 % (11.0-16.0) 04/05/20 11:04 Plt Count 310 X10*3/uL (160-400) 04/05/20 11:04 MPV 10.5 fL (9.4-12.3) 04/05/20 11:04 Immature Gran % (Auto) 0.2 % (0.0-0.4) 04/05/20 11:04 Neut % (Auto) 65.0 % (45-73) 04/05/20 11:04 Lymph % (Auto) 25.1 % (20-40) 04/05/20 11:04 [place] % (Auto) 7.0 % (2-11) 04/05/20 11:04 Eos % (Auto) 2.4 % (0-4) 04/05/20 11:04 Baso % (Auto) 0.3 % (0-2) 04/05/20 11:04 Lymph # (Auto) 2.3 X10*3/uL (1.2-4.9) 04/05/20 11:04 [place] # (Auto) 0.7 X10*3/uL (0.1-1.2) 04/05/20 11:04 Eos # (Auto) 0.2 X10*3/uL (0.0-0.4) 04/05/20 11:04 Baso # (Auto) 0.0 X10*3/uL (0.0-0.2) 04/05/20 11:04 Abs Immat Gran (auto) 0.02 X10*3/uL (0.00-0.03) 04/05/20 11:04 Absolute Neuts (auto) 6.1 X10*3/uL (2.0-8.3) 04/05/20 11:04 Absolute Nucleated RBC 0.000 X10*3/uL (0.0-0.012) 04/05/20 11:04 Nucleated RBC % (auto) 0.0 /100WBC (0.0-0.2) 04/05/20 11:04 Hold Blue Top SEE NOTE 04/05/20 11:04 Sodium 139 mmol/L (135-145) 04/05/20 11:04 Potassium 4.4 mmol/l (3.3-5.1) 04/05/20 11:04 Chloride 108 mmol/L (96-108) 04/05/20 11:04 Carbon Dioxide 24 mmol/L (22-29) 04/05/20 11:04 Anion Gap 11 (12-20) L 04/05/20 11:04 BUN 14 mg/dL (9-16) 04/05/20 11:04 Creatinine 0.67 mg/dL (0.5-1.4) 04/05/20 11:04 Estim Creat Clear Calc 110.8 04/05/20 11:04 Estimated GFR > 60 04/05/20 11:04 Random Glucose 88 mg/dL (60-115) 04/05/20 11:04 Calcium 8.5 mg/dL (8.4-10.2) 04/05/20 11:04 Magnesium 2.2 mg/dL (1.6-2.6) 04/05/20 11:04 Total Bilirubin 0.4 mg/dL (0.0-1.0) 04/05/20 11:04 Direct Bilirubin < 0.2 mg/dL (0.0-0.5) 04/05/20 11:04 AST 17 U/L (5-31) 04/05/20 11:04 ALT 13 U/L (0-31) 04/05/20 11:04 Alkaline Phosphatase 57 U/L (39-117) 04/05/20 11:04 Total Protein 6.9 g/dL (6.5-8.0) 04/05/20 11:04 Albumin 4.3 g/dL (3.5-5.0) 04/05/20 11:04 Urine Color YELLOW 04/05/20 11:04 Urine Appearance CLEAR 04/05/20 11:04 Urine pH 5.5 (5.0-8.0) 04/05/20 11:04 Ur Specific [place] >= 1.030 (1.005-1.025) H 04/05/20 11:04 Urine Protein NEG MG/DL (NEG-TRACE) 04/05/20 11:04 Urine Glucose (UA) NEG MG/DL (NEG) 04/05/20 11:04 Urine Ketones NEG MG/DL (NEG) 04/05/20 11:04 Urine Blood 1+ (NEG) H 04/05/20 11:04 Urine Nitrite NEG (NEG) 04/05/20 11:04 Ur Leukocyte Esterase NEG (NEG) 04/05/20 11:04 Urine RBC 1-4 /HPF (0) 04/05/20 11:04 Urine WBC 0-2 /HPF (0-4) 04/05/20 11:04 Ur Squamous Epith Cells 1+ /LPF 04/05/20 11:04 Urine Bacteria NONE /LPF 04/05/20 11:04 Urine Test NEGATIVE (NEGATIVE) 04/05/20 11:04 Urine Opiates Screen Not Detected (Not Detect) 04/07/20 03:46 Ur Barbiturates Screen Not Detected (Not Detect) 04/07/20 03:46 Ur Phencyclidine Scrn Not Detected (Not Detect) 04/07/20 03:46 Ur Amphetamines Screen Not Detected (Not Detect) 04/07/20 03:46 U Benzodiazepines Scrn Not Detected (Not Detect) 04/07/20 03:46 Urine Cocaine Screen Not Detected (Not Detect) 04/07/20 03:46 U Marijuana (THC) Screen POSITIVE (Not Detect) H 04/07/20 03:46 COVID-19 ([facility]) Negative (Negative) 04/05/20 15:59 COVID-19 Clin Com See Note 04/05/20 15:59 Discharge Plan Discharge Patient Disposition: Home, Self-Care Referrals: Sharon Mcmahon MD [Primary Care Provider] - Gabo Veronica MD [Physician] - 1 Week Discharge Medications: New scopolamine base 1 mg over 3 days patch 3 day 1 patch transdermal Q3D PRN (Reason: nausea and vomiting) Qty: 1 RF: 0 oxycodone 5 mg tablet 5 mg PO Q4H PRN (Reason: pain (scale score 7-10)) Qty: 20 RF: 0 amoxicillin-pot clavulanate [Augmentin] 500-125 mg tablet 1 tab PO BID Qty: 6 RF: 0 Continued dicyclomine 10 mg capsule 10 mg PO TID PRN (Reason: abdominal cramping) 30 Days Qty: 90 RF: 3 Held Actemra 162 mg/0.9 mL syringe 1 syringe subcut QWEEK RF: 0 Hold Instructions: Resume on 04/15/20. Discharge Orders: Discharge Order (Routine); Ordered 04/08/20 Ordered By: Gabo Veronica Diet: low fat, low cholesterol Activity on Discharge: No heavy lifting Patient Instructions: Laparoscopic Cholecystectomy (DC) Stand Alone Forms: Work/School Release Activity Restrictions/Additional Instructions: If the incision area is tender, you may apply an ice pack for short intervals (No more than 20 minutes on, followed by at least 20 minutes off). Do not apply heat. Do not use creams, lotions, or topical antibiotics unless instructed to do so by your surgeon. These can cause infection or allergic reaction. Ok to shower. Remove clear dressings 3 days following your procedure. You have steri strips (small white cloth strips) covering your incision- these will fall off ~1 week. Call Your Doctor If: -Your temperature exceeds 101.5? F -You experience excessive pain or swelling -You have an unexpected reaction to medication -You have excessive bleeding -You experience continued vomiting/nausea -Your incision begins to separate -Your incision shows signs of infection such as increased redness, swelling, excessive pain, drainage (light blood or clear fluid is normal) or heat Visit Report Forms: Patient Portal Discharge page Care Plan Goals: Return to normal diet and activity Health Concerns: Symptomatic cholelithiasis Plan of Treatment: Laparoscopic cholecystectomy
== END 2020-04-08 11:00 | disposition home or self-care (01) ==
LOC: HO.ED 16:39 → HO.S3 18:56
PROVIDERS: Physician Assistant; Physician Assistant Medical; Surgery; Admitting Provider Internal Medicine; Emergency Provider Emergency Medicine; PCP Internal Medicine; Visit Provider Internal Medicine
PROC: 0FT44ZZ Resection of Gallbladder, Percutaneous Endoscopic Approach (ICD-10-PCS; CPT 47562; principal; 2020-04-07 11:20)
DX: K81.0 Acute cholecystitis (principal); R10.11 Right upper quadrant pain; R11.2 Nausea with vomiting, unspecified; R19.7 Diarrhea, unspecified; M06.9 Rheumatoid arthritis, unspecified; N20.0 Calculus of kidney; Z20.828 Contact with and (suspected) exposure to other viral communicable diseases; Z91.013 Allergy to seafood; Z88.2 Allergy status to sulfonamides; Z88.8 Allergy status to other drugs, medicaments and biological substances; Z90.49 Acquired absence of other specified parts of digestive tract; Z79.899 Other long term (current) drug therapy
CPT/HCPCS: 47562; 36415; 74177; 76705; 80048; 80076; 80307; 81001; 81025; 83735; 85025; 87635; 88304; 96361; 96374; 96375; 99218; 99284; 99285; J1100; J1170; J1885; J2250; J2405; J2765; J3010; Q9967

== ENCOUNTER → 2020-04-16 10:08 | Outpatient (BNVA) | payer MEDICAID, SELFPAY | PROVIDERS: PCP Internal Medicine; Visit Provider Surgery | DX: K80.20 Calculus of gallbladder without cholecystitis without obstruction (principal) | CPT/HCPCS: 99212 ==

== ENCOUNTER → 2020-05-23 08:37 | Outpatient (BNVA) | payer MEDICAID, SELFPAY | PROVIDERS: PCP Internal Medicine; Visit Provider Internal Medicine Gastroenterology ==

== ENCOUNTER 2020-06-19 07:40 | Emergency (ER) | payer MEDICAID, SELFPAY ==
--- NOTE | 2020-06-19 | ECG_ITS ---
Test Reason : CHEST PAIN Blood Pressure : / mmHG Vent. Rate : 074 BPM Atrial Rate : 074 BPM P-R Int : 186 ms QRS Dur : 084 ms QT Int : 390 ms P-R-T Axes : 059 040 030 degrees QTc Int : 432 ms Normal sinus rhythm with sinus arrhythmia Normal ECG When compared with ECG of 27-AUG-2019 09:41, No significant change was found Referred By: Jaya Tobias Electronically Signed By:MARY GARCIA MD
--- NOTE | ~2020-06-19 | XR_ITS ---
EXAMINATION: XR CHEST CLINICAL INFORMATION: Left anterior chest pain COMPARISON: Chest radiographs 08/27/2019, 04/28/2019 TECHNIQUE: Portable upright AP view of the chest is performed. FINDINGS: There is no pneumothorax or pneumomediastinum. There is no airspace consolidation or groundglass opacity. No pleural reaction or effusion. The heart is normal in size. The costophrenic sulci are clear. The hilar and mediastinal contours and visualized bony structures are unremarkable. XR/XR chest 1V IMPRESSION: Unremarkable examination.
[2020-06-19 07:56] VITALS: BP 107/66; PULSE 79; RESP 20; TEMP 36.7; O2SAT 99; BMI 29.2
--- NOTE | 2020-06-19 08:22 | PC.NURSE ---
pt presents to the ED with 4/10 chest pain that started last night (last night was 8/10 pain) along with left arm pain. pt is alert and oriented x3, lung sounds clear bilaterally in all sanchez, heart sounds and rate normal, bowel sounds active x4. pt also states when she woke up this morning she thought the right side of her mouth was drooping. no mouth or facial drooping noted during assessment, perrla, pt able to smile, stick out tongue, upper and lower extremities have full strength and range of motion, pt able to squeeze nurse fingers with both hands, pt able to push up and down against nurses arms, pull and push against nurses hands with feet. no extremity impairments or deformities noted. pt has left calf tenderness upon palpation. pt states her mother last week and this has been a significant stressor in her life. md at bedside during assessment. pt aware of plan of care.
--- NOTE | 2020-06-19 08:23 | ED.CHESTPAIN ---
HPI - Chest Pain General Chief Complaint: Chest Pain Stated Complaint: chest pain Time Seen by Provider: 06/19/20 07:45 Source: patient Mode of arrival: ambulatory Limitations: no limitations History of Present Illness HPI narrative: 30-year-old female who presents emergency department for evaluation of left-sided chest pain. She states that she was in bed last night around 9:00 p.m. when she had a sudden onset of left-sided, sharp, tightness which was constant for approximately 30 minutes and was 8/10. The pain then diminished to 5/10 and has been constant since then. The patient states she is also feeling pain that radiates down her left arm. She denied change of the pain with respirations. She states that she does feel short of breath and has dyspnea on exertion. She states that 2 days prior she did notice left calf pain which resolved. She denied fever, chills, cough. She does not take control pills but she does have an IUD. The patient states that she had COVID-19 infection April 2020 and has not been vaccinated. Related Data Previous Rx's Medication Instructions Recorded dicyclomine 10 mg capsule 10 mg PO TID PRN 30 Days #90 cap 04/03/20 amoxicillin-pot clavulanate 1 tab PO BID #6 tab 04/08/20 [Augmentin] oxycodone 5 mg PO Q4H PRN #20 tab 04/08/20 scopolamine base 1 patch TRANSDERMAL Q3D PRN #1 ea 04/08/20 tocilizumab 162 mg/0.9 mL 162 mg SUBCUT QWEEK #0.9 ml 06/17/20 subcutaneous syringe Allergies Allergy/AdvReac Type Severity Reaction Status Date / Time shrimp Allergy Mild SWELLING Verified 05/23/20 08:34 gabapentin [GABAPENTIN] Allergy Unknown COULDNT Verified 05/23/20 08:34 FEEL LEGS , numbness methotrexate [METHOTREXATE] Allergy Unknown VOMITING Verified 05/23/20 08:34 nitrofurantoin Allergy Unknown cyclic Verified 05/23/20 08:34 vomitting Sulfa (Sulfonamide Allergy Unknown SOB, Verified 05/23/20 08:34 Antibiotics) Tembling, LE weakness trimethoprim [From BACTRIM] Allergy Unknown NUMBNESS Verified 05/23/20 08:34 IN BLE, VOMITING abatacept [From Orencia] Allergy Swelling Verified 02/12/21 08:34 Review of Systems Review of Systems: Yes all other systems are reviewed and are negative COUNT INCLUDES THE [facility] Past Medical History Medical History H/O renal calculi Kidney stones Migraines Rheumatoid arthritis Symptomatic cholelithiasis Surgical History Hx of colonoscopy Hx of cystoscopy S/P laparoscopic cholecystectomy Social History Social History Household Members: Children Alcohol intake: never Smoking Status: Never smoker Smoked in Last 30 Days: No Use of substances other than those prescribed or required for medical reasons: Yes Substance Use Type: Marijuana Substance Use Type Other:: marijuana edibles Advance Directives: Yes Advance Directives Information Provided: Yes Advance Directives on File: No service: No Current occupational status: unemployed Physical Exam Vital Signs: Vital Signs: Last Vital Signs Temp 98.1 F 06/19/20 07:56 Pulse 79 06/19/20 07:56 Resp 20 06/19/20 07:56 BP 107/66 06/19/20 07:56 Pulse Ox 99 06/19/20 07:56 Body Mass Index 29.2 Const: General: cooperative and healthy appearing Orientation/consciousness: oriented to person and oriented to place Limitations: no limitations HENMT: Head: Yes normal to inspection, Yes normocephalic and Yes atraumatic Ears: external ears normal General nose exam: Normal external nose present Face and sinus: Yes normal facial exam Mouth: Normal oral and palatal mucosa present Throat: Yes posterior oropharynx normal Eyes: Periorbital: periorbital findings normal Eyelids: Yes eyelids normal Conjunctivae: conjunctivae normal Sclerae: sclerae normal Corneas: corneas normal Pupils: Equal, round and reactive pupils present Direct Ophthalmoscopy: normal light reflex Neck: Neck: Yes full ROM, Yes no lymphadenopathy, Yes no meningeal signs, Yes trachea midline and Yes supple Chest: Chest palpation & inspection: normal inspection of the chest and tenderness (Moderate left anterior chest wall tenderness) Resp: Effort & Inspection: normal respiratory effort and able to speak in complete sentences Auscultation: clear to auscultation bilaterally Cardio: Rate: regular rate Rhythm: regular rhythm Heart sounds: S1 normal heart sound present, S2 normal heart sound present and no murmurs GI: Inspection: Yes normal to inspection Palpation (GI): Soft to palpation, nontender, no guarding, not rigid and No hepatosplenomegaly present : General: Yes no CVA tenderness Back/Spine/Pelvis: Back: no CVA tenderness Cervical Spine: normal cervical lordosis Thoracic/Lumbar Spine: thoracic and lumbar spine normal to inspection Skin: Lesions: no lesions Rashes: no rashes Wounds: no wounds Neuro: General: oriented to person, oriented to place and no meningeal signs Cranial nerves: Yes CN's II-XII intact bilaterally and Yes Equal, round and reactive pupils present Cognition (Neuro): normal cognition Motor exam (neuro): 5/5 motor strength present throughout Extrem: General: Yes normal to inspection, Yes full ROM and Yes other (Tender left anterior calf, negative Homans sign bilaterally) Psych: Appearance: well kempt Mental Status: mental status grossly normal Speech and movement: Normal speech and movement present Affect: normal affect Attitude: cooperative Thought process: Normal thought process present Thought content: Normal thought content present Course Course Course Narrative: 30-year-old female who presents emergency department for evaluation of sudden onset of left-sided chest pain which began last night at 9:00 p.m. while she was at rest. Patient experienced left calf pain 2 days prior but this resolved. Physical examination did reveal left-sided anterior chest wall tenderness and tenderness to palpation the left calf. I ordered a CBC, CMP, high sensitivity troponin, D-dimer and urine test patient. Her pain was treated with Toradol 30 mg IV. 1012: The patient's pain did improve with the IV Toradol. Patient's laboratory evaluation revealed mild anemia, the patient's troponin and D-dimer below detectable limits. At this time, I do not think the patient's chest pain is secondary to coronary artery disease or secondary to pulmonary embolism. Patient most likely has costochondritis and I did discuss this with her. She was advised to take Tylenol and ibuprofen and she was discharged home with verbal and printed instructions. MDM - Chest Pain Lab Data Result diagrams: 06/19/20 08:45 06/19/20 08:45 Labs: Lab Results 06/19/20 06/19/20 06/19/20 Range/Units 08:45 08:45 08:45 WBC 4.9 (4.8-10.8) X10*3/uL RBC 4.08 L (4.20-5.50) X10*6/uL Hgb 12.2 (12.0-16.0) g/dl Hct 35.7 L (37-47) % MCV 87.5 (80-98) fL MCH 29.9 (27.0-33.0) pg MCHC 34.2 (31.0-35.0) g/dl RDW 11.8 (11.0-16.0) % Plt Count 372 (160-400) X10*3/uL MPV 10.2 (9.4-12.3) fL Immature Gran % (Auto) 0.4 (0.0-0.4) % Neut % (Auto) 60.1 (45-73) % Lymph % (Auto) 30.6 (20-40) % [place] % (Auto) 6.9 (2-11) % Eos % (Auto) 1.6 (0-4) % Baso % (Auto) 0.4 (0-2) % Lymph # (Auto) 1.5 (1.2-4.9) X10*3/uL [place] # (Auto) 0.3 (0.1-1.2) X10*3/uL Eos # (Auto) 0.1 (0.0-0.4) X10*3/uL Baso # (Auto) 0.0 (0.0-0.2) X10*3/uL Abs Immat Gran (auto) 0.02 (0.00-0.03) X10*3/uL Absolute Neuts (auto) 3.0 (2.0-8.3) X10*3/uL Absolute Nucleated RBC 0.000 (0.0-0.012) X10*3/uL Nucleated RBC % (auto) 0.0 (0.0-0.2) /100WBC D-Dimer < 200 NG/ML Sodium 139 (135-145) mmol/L Potassium 4.5 (3.3-5.1) mmol/L Chloride 106 (96-108) mmol/L Carbon Dioxide 26 (22-29) mmol/L Anion Gap 12 (12-20) BUN 10 (9-16) mg/dL Creatinine 0.70 (0.5-1.4) mg/dL Estim Creat Clear Calc 106.3 Estimated GFR > 60 Random Glucose 90 (60-115) mg/dL Calcium 8.9 (8.4-10.2) mg/dL Total Bilirubin 0.4 (0.0-1.0) mg/dL AST 18 (5-31) U/L ALT 10 (0-31) U/L Alkaline Phosphatase 74 D (39-117) U/L Troponin I High Sens (<3.5-17.0) ng/L Total Protein 6.9 (6.5-8.0) g/dL Albumin 4.1 (3.5-5.0) g/dL Urine Test (NEGATIVE) 06/19/20 06/19/20 Range/Units 08:45 09:03 WBC (4.8-10.8) X10*3/uL RBC (4.20-5.50) X10*6/uL Hgb (12.0-16.0) g/dl Hct (37-47) % MCV (80-98) fL MCH (27.0-33.0) pg MCHC (31.0-35.0) g/dl RDW (11.0-16.0) % Plt Count (160-400) X10*3/uL MPV (9.4-12.3) fL Immature Gran % (Auto) (0.0-0.4) % Neut % (Auto) (45-73) % Lymph % (Auto) (20-40) % [place] % (Auto) (2-11) % Eos % (Auto) (0-4) % Baso % (Auto) (0-2) % Lymph # (Auto) (1.2-4.9) X10*3/uL [place] # (Auto) (0.1-1.2) X10*3/uL Eos # (Auto) (0.0-0.4) X10*3/uL Baso # (Auto) (0.0-0.2) X10*3/uL Abs Immat Gran (auto) (0.00-0.03) X10*3/uL Absolute Neuts (auto) (2.0-8.3) X10*3/uL Absolute Nucleated RBC (0.0-0.012) X10*3/uL Nucleated RBC % (auto) (0.0-0.2) /100WBC D-Dimer NG/ML Sodium (135-145) mmol/L Potassium (3.3-5.1) mmol/L Chloride (96-108) mmol/L Carbon Dioxide (22-29) mmol/L Anion Gap (12-20) BUN (9-16) mg/dL Creatinine (0.5-1.4) mg/dL Estim Creat Clear Calc Estimated GFR Random Glucose (60-115) mg/dL Calcium (8.4-10.2) mg/dL Total Bilirubin (0.0-1.0) mg/dL AST (5-31) U/L ALT (0-31) U/L Alkaline Phosphatase (39-117) U/L Troponin I High Sens < 3.5 (<3.5-17.0) ng/L Total Protein (6.5-8.0) g/dL Albumin (3.5-5.0) g/dL Urine Test NEGATIVE (NEGATIVE) Discharge Plan Discharge Clinical Impression: Acute costochondritis Patient Disposition: Home, Self-Care Instructions: Costochondritis (ED) Additional Instructions: Your EKG was normal. The D-dimer, a marker of blood clots, was below detectable limits which is reassuring suggesting that you do not have a blood clot as the cause of your pain. Your troponin, a marker of heart damage, was below detectable limits which is reassuring and suggests that the pain is not caused by your heart. Your tender when I pushed on your left chest, this is consistent with inflammation of the joints of your chest, costochondritis Take ibuprofen 200 mg pills, 3 pills every 6 hours as needed for pain. Take Tylenol (acetaminophen) 500 mg pills, 2 pills every 4 to 6 hours as needed for pain. Follow-up with your doctor in 2 days. Please return to the emergency department if your symptoms get worse or if you develop any symptoms that are concerning to you. Prescriptions: No Action dicyclomine 10 mg capsule 10 mg PO TID PRN (Reason: abdominal cramping) 30 Days Qty: 90 RF: 3 Actemra 162 mg/0.9 mL syringe 162 mg subcut QWEEK Qty: 0.9 RF: 3 Hold Instructions: Resume on 04/15/20. scopolamine base 1 mg over 3 days patch 3 day 1 patch transdermal Q3D PRN (Reason: nausea and vomiting) Qty: 1 RF: 0 oxycodone 5 mg tablet 5 mg PO Q4H PRN (Reason: pain (scale score 7-10)) Qty: 20 RF: 0 amoxicillin-pot clavulanate [Augmentin] 500-125 mg tablet 1 tab PO BID Qty: 6 RF: 0
[2020-06-19 08:51] LABS: MANUAL DIFF FLAG NO
[2020-06-19 08:52] LABS: Basophils Percent Auto 0.4 % (0-2); Eosinophils Absolute Auto 0.1 X10*3/uL (0.0-0.4); Eosinophils Percent Auto 1.6 % (0-4); Hematocrit 35.7 % (37-47); Hemoglobin 12.2 g/dl (12.0-16.0); Imm Gran Abs Auto 0.02 X10*3/uL (0.00-0.03); Imm Gran Pct Auto 0.4 % (0.0-0.4); Lymphocytes Absolute Auto 1.5 X10*3/uL (1.2-4.9); Lymphocytes Percent Auto 30.6 % (20-40); Mean Corpuscular HGB Conc 34.2 g/dl (31.0-35.0); Mean Corpuscular Hemoglobin 29.9 pg (27.0-33.0); Mean Corpuscular Volume 87.5 fL (80-98); Mean Platelet Volume 10.2 fL (9.4-12.3); Monocytes Absolute Auto 0.3 X10*3/uL (0.1-1.2); Monocytes Percent Auto 6.9 % (2-11); Neutrophils Percent Auto 60.1 % (45-73); Platelet Count 372 X10*3/uL (160-400); Red Blood Count 4.08 X10*6/uL (4.20-5.50); Red Cell Distribution Width 11.8 % (11.0-16.0); White Blood Count 4.9 X10*3/uL (4.8-10.8)
[2020-06-19 09:03] LABS: D Dimer < 200 NG/ML
[2020-06-19] MEDS: Ketorolac Tromethamine 30 MG/ML VIAL IVPUSH (09:03)
[2020-06-19 09:21] LABS: UPreg QC Valid YES; Urine Pregnancy NEGATIVE (NEGATIVE)
[2020-06-19 09:32] LABS: Alanine Aminotransferase 10 U/L (0-31); Albumin Level 4.1 g/dL (3.5-5.0); Alkaline Phosphatase 74 U/L (39-117); Anion Gap 12 (12-20); Aspartate Amino Transferase 18 U/L (5-31); Bilirubin Total 0.4 mg/dL (0.0-1.0); Blood Urea Nitrogen 10 mg/dL (9-16); Calcium 8.9 mg/dL (8.4-10.2); Carbon Dioxide 26 mmol/L (22-29); Chloride 106 mmol/L (96-108); Creatinine Clr Calc Pharmacy 106.3; Estimated Glomerular Filt Rate > 60; Glucose Random 90 mg/dL (60-115); Potassium 4.5 mmol/L (3.3-5.1); Sodium 139 mmol/L (135-145); Total Protein 6.9 g/dL (6.5-8.0); Troponin-I High Sensitivity < 3.5 ng/L (<3.5-17.0)
[2020-06-19 10:16] VITALS: BP 107/59; PULSE 71; RESP 14; TEMP 37; O2SAT 100
== END 2020-06-19 10:34 | disposition home or self-care (01) ==
PROVIDERS: Emergency Provider Emergency Medicine Emergency Medical Services; PCP Internal Medicine
DX: M94.0 Chondrocostal junction syndrome [Tietze] (principal); F12.90 Cannabis use, unspecified, uncomplicated; Z87.442 Personal history of urinary calculi; Z90.49 Acquired absence of other specified parts of digestive tract; Z86.16 Personal history of COVID-19; Z72.89 Other problems related to lifestyle; Z63.4 Disappearance and death of family member
CPT/HCPCS: 36415; 71045; 80053; 81025; 84484; 85025; 85379; 93005; 96374; 99284; 99285; J1885

== ENCOUNTER 2020-07-04 09:32 | Outpatient (REF) | payer MEDICAID, SELFPAY ==
--- NOTE | ~2020-07-04 | XR_ITS ---
EXAMINATION: BILATERAL KNEE X-RAY CLINICAL INFORMATION: Pain COMPARISON: Previous left knee x-ray February 2019 TECHNIQUE: 4 views each knee FINDINGS: Bone alignment is normal. No fracture or dislocation is seen. There may be mild bilateral medial femoral tibial joint space narrowing seen on the AP upright view. Joint spaces are otherwise normal. There is no joint effusion. XR/XR knee RT 3V IMPRESSION: Mild bilateral medial femoral tibial joint space narrowing on the upright view. Otherwise unremarkable exam.
--- NOTE | ~2020-07-04 | XR_ITS ---
EXAMINATION: BILATERAL KNEE X-RAY CLINICAL INFORMATION: Pain COMPARISON: Previous left knee x-ray February 2019 TECHNIQUE: 4 views each knee FINDINGS: Bone alignment is normal. No fracture or dislocation is seen. There may be mild bilateral medial femoral tibial joint space narrowing seen on the AP upright view. Joint spaces are otherwise normal. There is no joint effusion. XR/XR knee LT 3V IMPRESSION: Mild bilateral medial femoral tibial joint space narrowing on the upright view. Otherwise unremarkable exam.
== END 2020-07-04 09:33 | disposition home or self-care (01) ==
LOC: HO.XRAY 09:32
PROVIDERS: PCP Internal Medicine; Visit Provider Student in an Organized Health Care Education/Training Program
DX: M25.561 Pain in right knee (principal); M25.562 Pain in left knee; M19.90 Unspecified osteoarthritis, unspecified site
CPT/HCPCS: 73562

== ENCOUNTER → 2020-07-09 12:59 | Outpatient (BNVA) | payer MEDICAID, SELFPAY | PROVIDERS: PCP Internal Medicine; Referring Provider Internal Medicine; Visit Provider Internal Medicine Endocrinology, Diabetes & Metabolism | DX: Z13.29 Encounter for screening for other suspected endocrine disorder (principal) | CPT/HCPCS: 99202 ==

== ENCOUNTER 2020-07-12 07:46 | Outpatient (REF) | payer MEDICAID, SELFPAY ==
[2020-07-12 09:02] LABS: Free T4 (Free Thyroxine) 1.05 ng/dL (0.71-1.85); Thyroid Stimulating Hormone 1.54 uIU/mL (0.32-4.0)
[2020-07-14 15:12] LABS: Adrenocorticotropic Hormone 10 pg/mL (6-50)
[2020-07-14 23:06] LABS: DHEA Sulfate 168 mcg/dL (18-391)
== END 2020-07-12 07:47 | disposition home or self-care (01) ==
LOC: HO.LAB 07:46
PROVIDERS: PCP Internal Medicine; Visit Provider Internal Medicine Endocrinology, Diabetes & Metabolism
DX: Z13.29 Encounter for screening for other suspected endocrine disorder (principal)
CPT/HCPCS: 36415; 82024; 82533; 82627; 83519; 84439; 84443

== ENCOUNTER 2020-08-02 07:47 | Outpatient (REF) | payer MEDICAID, SELFPAY | END 2020-08-02 07:48 | disposition home or self-care (01) | LOC: HO.LAB 07:47 | PROVIDERS: PCP Internal Medicine; Visit Provider Internal Medicine Endocrinology, Diabetes & Metabolism | DX: Z13.29 Encounter for screening for other suspected endocrine disorder (principal) | CPT/HCPCS: 36415; 83498 ==

== ENCOUNTER 2020-08-04 07:57 | Outpatient (REF) | payer MEDICAID, SELFPAY ==
[2020-08-05 06:51] LABS: Cortisol 30 Minute 29.3 mcg/dL; Cortisol 60 Minute 33.2 mcg/dL; Cortisol Baseline 12.1 mcg/dL
== END 2020-08-04 07:58 | disposition home or self-care (01) ==
LOC: HO.MDS 07:57
PROVIDERS: PCP Internal Medicine; Visit Provider Internal Medicine Endocrinology, Diabetes & Metabolism
DX: I95.9 Hypotension, unspecified (principal)
CPT/HCPCS: 36415; 82533; 96374; J0834

== ENCOUNTER 2020-09-04 09:10 | Outpatient (REF) | payer MEDICAID, SELFPAY ==
--- NOTE | ~2020-09-04 | XR_ITS ---
EXAMINATION: XR CHEST 2 VIEWS CLINICAL INFORMATION: Rheumatoid arthritis. COMPARISON: Prior chest radiographs as remote as 06/22/2011. TECHNIQUE: Frontal and lateral views of the chest were obtained. FINDINGS: The heart, great vessels, pulmonary vasculature and mediastinum are normal. The lungs show no focal infiltrate, effusion or pneumothorax. No mass, nodule or thoracic lymphadenopathy is seen. There is no acute osseous abnormality. There are right upper quadrant surgical clips. XR/XR chest 2V IMPRESSION: No active cardiopulmonary disease.
[2020-09-04 10:38] LABS: MANUAL DIFF FLAG NO
[2020-09-04 10:46] LABS: Basophils Percent Auto 0.4 % (0-2); Eosinophils Absolute Auto 0.2 X10*3/uL (0.0-0.4); Eosinophils Percent Auto 1.8 % (0-4); Hematocrit 41.5 % (37-47); Hemoglobin 13.8 g/dl (12.0-16.0); Imm Gran Abs Auto 0.05 X10*3/uL (0.00-0.03); Imm Gran Pct Auto 0.6 % (0.0-0.4); Lymphocytes Absolute Auto 2.7 X10*3/uL (1.2-4.9); Lymphocytes Percent Auto 31.9 % (20-40); Mean Corpuscular HGB Conc 33.3 g/dl (31.0-35.0); Mean Corpuscular Hemoglobin 29.5 pg (27.0-33.0); Mean Corpuscular Volume 88.7 fL (80-98); Mean Platelet Volume 10.5 fL (9.4-12.3); Monocytes Absolute Auto 0.4 X10*3/uL (0.1-1.2); Neutrophils Absolute Auto 5.1 X10*3/uL (2.0-8.3); Neutrophils Percent Auto 60.3 % (45-73); Platelet Count 333 X10*3/uL (160-400); Red Blood Count 4.68 X10*6/uL (4.20-5.50); Red Cell Distribution Width 12.4 % (11.0-16.0); White Blood Count 8.4 X10*3/uL (4.8-10.8)
[2020-09-04 11:21] LABS: Alanine Aminotransferase 12 U/L (0-31); Albumin Level 4.5 g/dL (3.5-5.0); Alkaline Phosphatase 59 U/L (39-117); Anion Gap 12 (12-20); Aspartate Amino Transferase 18 U/L (5-31); Bilirubin Total 0.4 mg/dL (0.0-1.0); Blood Urea Nitrogen 11 mg/dL (9-16); C Reactive Protein 0.04 mg/dL (< or = 0.50); Calcium 9.6 mg/dL (8.4-10.2); Carbon Dioxide 25 mmol/L (22-29); Chloride 105 mmol/L (96-108); Estimated Glomerular Filt Rate > 60; Glucose Random 87 mg/dL (60-115); Potassium 4.5 mmol/L (3.3-5.1); Sodium 137 mmol/L (135-145); Total Protein 7.5 g/dL (6.5-8.0)
[2020-09-04 11:46] LABS: Erythrocyte Sedimentation Rate 5 MM/HR (0-20)
== END 2020-09-04 09:11 | disposition home or self-care (01) ==
LOC: HO.LAB 09:10
PROVIDERS: PCP Internal Medicine; Visit Provider Student in an Organized Health Care Education/Training Program
DX: M05.9 Rheumatoid arthritis with rheumatoid factor, unspecified (principal); Z79.899 Other long term (current) drug therapy
CPT/HCPCS: 36415; 71046; 80053; 82533; 85025; 85652; 86140; 99212

== ENCOUNTER → 2020-10-08 08:48 | Outpatient (BNVA) | payer MEDICAID, SELFPAY | PROVIDERS: PCP Internal Medicine; Visit Provider Internal Medicine Endocrinology, Diabetes & Metabolism | DX: Z13.29 Encounter for screening for other suspected endocrine disorder (principal) | CPT/HCPCS: 99212 ==

== ENCOUNTER 2020-12-18 11:51 | Outpatient (REF) | payer MEDICAID, SELFPAY ==
[2020-12-18 15:51] LABS: CT PCR NOT DETECTED (Not Detect.); NG PCR NOT DETECTED (Not Detect.)
== END 2020-12-18 11:52 | disposition home or self-care (01) ==
LOC: HO.LAB 11:51
PROVIDERS: PCP Internal Medicine; Visit Provider Obstetrics & Gynecology
DX: Z30.09 Encounter for other general counseling and advice on contraception (principal); T83.39XA Other mechanical complication of intrauterine contraceptive device, initial encounter
CPT/HCPCS: 87491; 87591; 99202

== ENCOUNTER 2021-01-21 09:48 | Outpatient (REF) | payer MEDICAID, SELFPAY | END 2021-01-21 09:49 | disposition home or self-care (01) | LOC: HO.LAB 09:48 | PROVIDERS: PCP Internal Medicine; Visit Provider Internal Medicine Endocrinology, Diabetes & Metabolism | DX: Z13.89 Encounter for screening for other disorder (principal) ==

== ENCOUNTER 2021-01-27 07:55 | Outpatient (REF) | payer MEDICAID, SELFPAY ==
[2021-01-27 09:05] LABS: MANUAL DIFF FLAG NO
[2021-01-27 09:40] LABS: Basophils Percent Auto 0.3 % (0-2); Eosinophils Absolute Auto 0.1 X10*3/uL (0.0-0.4); Eosinophils Percent Auto 0.6 % (0-4); Hematocrit 37.3 % (37-47); Hemoglobin 12.4 g/dl (12.0-16.0); Imm Gran Abs Auto 0.05 X10*3/uL (0.00-0.03); Imm Gran Pct Auto 0.4 % (0.0-0.4); Lymphocytes Absolute Auto 2.4 X10*3/uL (1.2-4.9); Lymphocytes Percent Auto 20.3 % (20-40); Mean Corpuscular HGB Conc 33.2 g/dl (31.0-35.0); Mean Corpuscular Hemoglobin 29.6 pg (27.0-33.0); Mean Platelet Volume 10.9 fL (9.4-12.3); Monocytes Absolute Auto 0.9 X10*3/uL (0.1-1.2); Monocytes Percent Auto 7.6 % (2-11); Neutrophils Absolute Auto 8.4 X10*3/uL (2.0-8.3); Neutrophils Percent Auto 70.8 % (45-73); Platelet Count 400 X10*3/uL (160-400); Red Blood Count 4.19 X10*6/uL (4.20-5.50); Red Cell Distribution Width 11.9 % (11.0-16.0); White Blood Count 11.8 X10*3/uL (4.8-10.8)
[2021-01-27 09:58] LABS: Alanine Aminotransferase 14 U/L (0-31); Albumin Level 4.5 g/dL (3.5-5.0); Alkaline Phosphatase 64 U/L (39-117); Anion Gap 12 (12-20); Aspartate Amino Transferase 16 U/L (5-31); Bilirubin Total 0.5 mg/dL (0.0-1.0); Blood Urea Nitrogen 17 mg/dL (9-16); C Reactive Protein 0.88 mg/dL (< or = 0.50); Calcium 9.7 mg/dL (8.4-10.2); Carbon Dioxide 26 mmol/L (22-29); Chloride 107 mmol/L (96-108); Estimated Glomerular Filt Rate > 60; Glucose Random 89 mg/dL (60-115); Sodium 141 mmol/L (135-145); Total Protein 7.3 g/dL (6.5-8.0)
[2021-01-27 10:18] LABS: HBsAGNum1 0.15 S/CO (0.00-0.99); Hepatitis B Surface Antigen Negative (Negative); ~HepC Num1 0.07 S/CO (0.00-0.79); ~Hepatitis C Antibody Nonreactive (Nonreactive)
[2021-01-27 10:19] LABS: HBS Num1 58.45 mIU/mL (0-7.99); HBc Num1 0.05 S/CO (0.00-0.79); Hepatitis B Core Antibody Nonreactive (Nonreactive); ~Hepatitis B Surface Antibody REACTIVE (Nonreactive)
[2021-01-27 10:38] LABS: Erythrocyte Sedimentation Rate 14 MM/HR (0-20)
[2021-01-28 07:55] LABS: Hepatitis A Antibody IgM 0.12 Index (0-0.79); ~Hepatitis A Antibody IgM Nonreactive (Nonreactive)
[2021-01-29 23:32] LABS: TS Negative Control Passed; TS Panel A 0; TS Panel B 0; TS Positive Control Passed; TSpotTB Negative (SeeBelow)
== END 2021-01-27 07:56 | disposition home or self-care (01) ==
LOC: HO.LAB 07:55
PROVIDERS: PCP Internal Medicine; Visit Provider Nurse Practitioner Family
DX: Z01.84 Encounter for antibody response examination (principal); Z11.1 Encounter for screening for respiratory tuberculosis; M05.9 Rheumatoid arthritis with rheumatoid factor, unspecified
CPT/HCPCS: 36415; 80053; 85025; 85652; 86140; 86481; 86704; 86706; 86709; 86803; 87340; 99212

== ENCOUNTER 2021-02-12 08:49 | Outpatient (REF) | payer MEDICAID, SELFPAY ==
--- NOTE | ~2021-02-12 | CT_ITS ---
EXAMINATION: CT ABDOMEN AND PELVIS WITH CONTRAST CLINICAL INFORMATION: IUD complication COMPARISON: Previous CT of the abdomen and pelvis most recent March 2020 TECHNIQUE: Multidetector volumetric images were obtained from the superior aspect of the liver through the pubic symphysis following administration 85 mL of Omnipaque 350 intravenous contrast. Sagittal and coronal reformatted images were obtained on the technologist's workstation. Oral contrast: Yes This CT examination was performed using dose optimization techniques as appropriate, variously including the following: *Automated exposure control *Adjustment of mA and/or kV according to patient size (this includes techniques or standardized protocols for targeted exams where dose is matched to indication/reason for exam; i.e. extremities or head) *Use of iterative reconstruction technique DLP: 427 mGy-cm FINDINGS: LUNG BASES: The visualized lung bases are unremarkable. LIVER, GALLBLADDER, AND BILIARY TREE: The liver is low in attenuation suggestive of fatty infiltration. The liver is normal in size and shape.. No focal hepatic lesion or biliary ductal dilatation is present. The gallbladder is been removed. PANCREAS: Unremarkable. SPLEEN: Unremarkable. ADRENAL GLANDS: Unremarkable. KIDNEYS AND URETERS: The kidneys are normal in size, shape, and attenuation. No hydronephrosis, hydroureter, or calculi seen. No perinephric stranding. BLADDER: Not optimally distended but appears unremarkable. GASTROINTESTINAL TRACT: The small and large bowel are unremarkable. The appendix is unremarkable. ABDOMINAL WALL: No significant hernia is appreciated. LYMPH NODES: Normal. VASCULAR: Unremarkable. PELVIC VISCERA: The uterus and ovaries are unremarkable. No IUD is seen. There is trace fluid in the pelvis. OSSEOUS STRUCTURES: Unremarkable. CT/CT abdomen pelvis w con IMPRESSION: Fatty infiltration of the liver otherwise unremarkable exam. No IUD is seen. No abnormal air or fluid collection seen in the pelvis.
[2021-02-12] MEDS: iohexoL 350 MG/ML 100 ML INFUS..BTL IV (09:42)
== END 2021-02-12 08:50 | disposition home or self-care (01) ==
LOC: HO.CT 08:49
PROVIDERS: PCP Internal Medicine; Visit Provider Obstetrics & Gynecology
DX: T83.39XA Other mechanical complication of intrauterine contraceptive device, initial encounter (principal)
CPT/HCPCS: 74177; Q9967

== ENCOUNTER 2021-02-18 18:27 | Emergency (ER) | payer MEDICAID, SELFPAY ==
--- NOTE | ~2021-02-18 | US_ITS ---
EXAMINATION: US VENOUS ULTRASOUND WITH DOPPLER LOWER EXTREMITY, RIGHT CLINICAL INFORMATION: Right-sided calf pain. COMPARISON: None TECHNIQUE: Ultrasound of the deep veins is performed from the hip to the calf with compression sonography and color and pulse Doppler assessment. Spectral analysis with color-flow imaging is performed. FINDINGS: There is normal venous compression and respiratory variation and augmented flow. The visualized common femoral vein, superficial femoral vein, profunda femoral vein, popliteal vein, and the trifurcation region shows no evidence of deep venous thrombosis. There is no significant popliteal fossa cyst. If the patient's symptoms persist, followup ultrasound in 5 days 7 days might be of value to exclude proximal propagation from a non-visualized calf vein. US/US venous duplex LE RT IMPRESSION: No DVT demonstrated in the right lower extremity.
[2021-02-18 19:04] VITALS: BP 121/79; PULSE 83; RESP 18; TEMP 36.2; O2SAT 99; BMI 28.3
--- NOTE | 2021-02-18 19:46 | ED_ITS ---
HPI - Extremity Problem General Chief complaint: Extremity Problem Stated complaint: leg pain Time Seen by Provider: 02/18/21 19:33 Source: patient Mode of arrival: ambulatory History of Present Illness HPI Narrative: 30-year-old female with a past medical history of kidney stones, migraines, rheumatoid arthritis, presenting to the ED complaining of right calf pain since yesterday now radiating to thigh. Reports pain with movement/ambul ation, was seen by PCP earlier today and sent to ED for rule out DVT. Admits to associated numbness. Denies trauma/fall or injury, CP/SOB, history of blood clots, recent travel, cigarette smoking, oral OCPs MD Complaint: extremity pain Related Data Home Medications Medication Instructions Recorded Confirmed citalopram 20 mg tablet 20 mg PO DAILY 07/09/20 01/27/21 omeprazole 20 mg capsule,delayed 20 mg PO DAILY 07/09/20 01/27/21 release ibuprofen 400 mg tablet 400 mg PO Q6H PRN 09/04/20 01/27/21 meclizine 25 mg tablet 25 mg PO DAILY PRN 09/04/20 01/27/21 cyclobenzaprine 5 mg tablet 5 mg PO BEDTIME 01/27/21 01/27/21 Previous Rx's Medication Instructions Recorded dicyclomine 10 mg capsule 10 mg PO TID PRN 30 Days #90 cap 04/03/20 tocilizumab 162 mg/0.9 mL 162 mg (0.9 mL) SUBCUT QWEEK #3.6 12/15/20 subcutaneous syringe (Actemra) ml Allergies Allergy/AdvReac Type Severity Reaction Status Date / Time shrimp Allergy Mild SWELLING Verified 01/27/21 08:11 gabapentin [GABAPENTIN] Allergy Unknown COULDNT Verified 01/27/21 08:11 FEEL LEGS , numbness methotrexate [METHOTREXATE] Allergy Unknown VOMITING Verified 01/27/21 08:11 nitrofurantoin Allergy Unknown cyclic Verified 01/27/21 08:11 vomitting abatacept [From Orencia] Allergy Swelling Verified 01/27/21 08:11 Sulfa (Sulfonamide AdvReac Unknown SOB, Verified 02/18/21 19:12 Antibiotics) Tembling, LE weakness trimethoprim [From BACTRIM] AdvReac Unknown NUMBNESS Verified 02/18/21 19:12 IN BLE, VOMITING Review of Systems Review of Systems: Constitutional: No Fever, No Chills ENT/Mouth: No Ear Pain, No Nasal Congestion, No sore throat Cardiovascular: No Chest Pain, No SOB Respiratory: No Cough, No Sputum, No Wheezing Gastrointestinal: No Nausea, No Vomiting, No Diarrhea, No Constipation, No Abdominal pain Genitourinary: No Hematuria, No Flank Pain Musculoskeletal: + joint pain, No Myalgias, No Joint Swelling Skin: No Skin Lesions, No rash Neuro: No Weakness, + Numbness, No Paresthesias Yes all other systems are reviewed and are negative [facility] Past Medical History Attestation statement: The following information was validated with the patient. Medical History Encounter for screening for endocrine disorder H/O renal calculi Hypotension Kidney stones Migraines Rheumatoid arthritis Seropositive rheumatoid arthritis Symptomatic cholelithiasis Surgical History Hx of colonoscopy Hx of cystoscopy S/P laparoscopic cholecystectomy Social History Social History Household Members: Children Alcohol intake: never Patient Tobacco Use Status: Never used Tobacco e-Cigarette/Vaping Use: Never Used Substance Use Type: Marijuana Advance Directives: No Advance Directives Information Provided: Yes Patient : No service: No Current occupational status: unemployed Physical Exam Vital Signs: Vital Signs: Last Vital Signs Temp 97.1 F 02/18/21 19:04 Pulse 75 02/18/21 21:00 Resp 16 02/18/21 21:00 BP 123/74 02/18/21 21:00 Pulse Ox 100 02/18/21 21:00 Body Mass Index 28.3 Const: General: cooperative, healthy appearing and no acute distress Orientation/consciousness: patient oriented x3 Limitations: no limitations HENMT: Head: Yes normal to inspection Ears: hearing grossly normal bilaterally General nose exam: Normal external nose present Face and sinus: Yes normal facial exam Eyes: General: appearance normal, both eyes and all related structures EOM: EOMs intact bilaterally Neck: Neck: Yes normal visual inspection and Yes no meningeal signs Resp: Effort & Inspection: normal respiratory effort and no respiratory distress Auscultation: clear to auscultation bilaterally Cardio: Rate: regular rate Heart sounds: S1 normal heart sound present and S2 normal heart sound present Peripheral pulses: dorsalis pedis present GI: Inspection: Yes normal to inspection Palpation (GI): Soft to palpation, nontender, no guarding and not rigid : General: Yes no CVA tenderness Back/Spine/Pelvis: Back: no CVA tenderness Skin: Rashes: no rashes Wounds: no wounds Neuro: General: patient oriented x3 and no meningeal signs Gait exam (Neuro): Normal gait present Extrem: Other: RLE within normal limits to inspection, no swellin g/edema/erythema. + calf tenderness, + Woo's sign. Neurovascularly intact. Sensation intact to light touch. FROM intact to right lower extremity General: Yes normal to inspection Course Course Course Narrative: US venous duplex LE RT IMPRESSION: No DVT demonstrated in the right lower extremity. >> discussed with patient results including worrisome signs and symptoms and strict return precautions and need to follow-up with PCP. She verbalized understanding feel safe for discharge home a this time MDM - Extremity (Nontraumatic) MDM Narrative Medical decision making narrative: 30-year-old female with a past medical history of kidney stones, migraines, rheumatoid arthritis, presenting to the ED complaining of right calf pain since yesterday now radiating to thigh. On exam vital signs stable, NAD/nontoxic, physical exam as above. Concern for DVT. Low concern for PE without SOB, tachycardia, or hypoxia Plan: Venous duplex ultrasound Medical Records Attestation: I reviewed the patient's medical records. Lab Data Attestation: I reviewed the patient's lab results. Discharge Plan Discharge Clinical Impression: Right calf pain Patient Disposition: Home, Self-Care Additional Instructions: Your ultrasound was negative for a blood clot Rest Ice and or apply heat Take Tylenol and Motrin at home Please follow-up with her doctor If symptoms persist or worsen, pain becomes unbearable, develops shortness of breath, pain persists return to the ED If pain persists we recommend a repeat ultrasound in 1 week Prescriptions: No Action dicyclomine 10 mg capsule 10 mg PO TID PRN (Reason: abdominal cramping) 30 Days Qty: 90 RF: 3 Actemra 162 mg/0.9 mL syringe 162 mg subcut QWEEK Qty: 3.6 RF: 0 Hold Instructions: Resume on 04/15/20. omeprazole 20 mg capsule,delayed release(DR/EC) 20 mg PO DAILY RF: 0 citalopram 20 mg tablet 20 mg PO DAILY RF: 0 ibuprofen 400 mg tablet 400 mg PO Q6H PRNRF: 0 meclizine 25 mg tablet 25 mg PO DAILY PRNRF: 0 cyclobenzaprine 5 mg tablet 5 mg PO BEDTIME RF: 0 Referrals: Sharon Mcmahon MD [Primary Care Provider] - 1 week Interventions: ED Discharge Assessment Last Done: 02/18/21 21:03 Discharge Date/Time: 02/18/21 21:04
[2021-02-18 21:00] VITALS: BP 123/74; PULSE 75; RESP 16; O2SAT 100
== END 2021-02-18 21:04 | disposition home or self-care (01) ==
PROVIDERS: Emergency Provider Internal Medicine; PCP Internal Medicine
DX: M79.661 Pain in right lower leg (principal)
CPT/HCPCS: 93971; 99284

== ENCOUNTER → 2021-02-23 13:07 | Outpatient (BNVA) | payer MEDICAID, SELFPAY | PROVIDERS: Visit Provider Obstetrics & Gynecology ==

== ENCOUNTER 2021-03-11 14:19 | Emergency (ER) | payer MEDICAID, SELFPAY ==
[2021-03-11 14:23] VITALS: BP 117/78; PULSE 18; RESP 95; TEMP 36.8; O2SAT 100; BMI 26.5
[2021-03-11 14:36] LABS: Glucose, Whole Blood 106 mg/dL (60-115)
[2021-03-11 15:18] LABS: Hematocrit 36.2 % (37.0-47.0); Mean Corpuscular HGB Conc 33.1 g/dl (31.0-35.0); Mean Corpuscular Hemoglobin 29.6 pg (27.0-33.0); Mean Corpuscular Volume 89.4 fL (80.0-98.0); Mean Platelet Volume 10.4 fL (9.4-12.3); Platelet Count 332 X10*3/uL (160-400); Red Blood Count 4.05 X10*6/uL (4.20-5.50); Red Cell Distribution Width 12.2 % (11.0-16.0); White Blood Count 9.1 X10*3/uL (4.8-10.8)
[2021-03-11 15:35] LABS: Blood Urea Nitrogen 11 mg/dL (9-16); Calcium 8.9 mg/dL (8.4-10.2); Creatinine Clr Calc Pharmacy 95.2; Estimated Glomerular Filt Rate > 60; Glucose Random 72 mg/dL (60-115)
[2021-03-11 15:41] LABS: Troponin-I High Sensitivity < 3.5 ng/L (<3.5-17.0)
[2021-03-11 15:45] LABS: Anion Gap 12 (12-20); Carbon Dioxide 22 mmol/L (22-29); Chloride 109 mmol/L (96-108); Potassium 3.9 mmol/L (3.3-5.1); Sodium 139 mmol/L (135-145)
[2021-03-11 16:00] VITALS: BP 98/57; PULSE 74; RESP 16; TEMP 36.7; O2SAT 99
--- NOTE | 2021-03-11 17:09 | ED_ITS ---
HPI - Neuro Symptoms/Deficit General Chief Complaint: Neuro Symptoms/Deficit Stated Complaint: SPURRED SPEECH DISORENTED Time Seen by Provider: 03/11/21 16:03 Source: patient Mode of arrival: ambulatory Limitations: no limitations History of Present Illness HPI Narrative: 31-year-old female came in for evaluation of feeling disoriented and not acting herself. Patient noted by her partner after lunch and that she is having abnormal behavior, patient felt weakness, felt feet on her left side of her face almost like somebody having environmental conservation professor close to her left side of her face, initially patient appeared weak in the emergency department, I saw the patient after 1 hour from her presentation patient now feels normal ambulating with steady gait, no visual problems, patient having normal behavior. Patient was seen in the past by Dr. Salvador neurology for similar presentation, patient do not have a definitive diagnosis of neurological disease. Patient declined using any drugs today. Related Data Home Medications Medication Instructions Recorded Confirmed citalopram 20 mg tablet 20 mg PO DAILY 07/09/20 01/27/21 omeprazole 20 mg capsule,delayed 20 mg PO DAILY 07/09/20 01/27/21 release ibuprofen 400 mg tablet 400 mg PO Q6H PRN 09/04/20 01/27/21 meclizine 25 mg tablet 25 mg PO DAILY PRN 09/04/20 01/27/21 cyclobenzaprine 5 mg tablet 5 mg PO BEDTIME 01/27/21 01/27/21 Previous Rx's Medication Instructions Recorded dicyclomine 10 mg capsule 10 mg PO TID PRN 30 Days #90 cap 04/03/20 tocilizumab 162 mg/0.9 mL 162 mg (0.9 mL) SUBCUT QWEEK #3.6 12/15/20 subcutaneous syringe (Actemra) ml Allergies Allergy/AdvReac Type Severity Reaction Status Date / Time shrimp Allergy Mild SWELLING Verified 01/27/21 08:11 gabapentin [GABAPENTIN] Allergy Unknown COULDNT Verified 02/23/21 13:08 FEEL LEGS , numbness methotrexate [METHOTREXATE] Allergy Unknown VOMITING Verified 02/23/21 13:08 nitrofurantoin Allergy Unknown cyclic Verified 02/23/21 13:08 vomitting abatacept [From Orencia] Allergy Swelling Verified 02/23/21 13:08 Sulfa (Sulfonamide AdvReac Unknown SOB, Verified 02/23/21 13:08 Antibiotics) Tembling, LE weakness trimethoprim [From BACTRIM] AdvReac Unknown NUMBNESS Verified 02/23/21 13:08 IN BLE, VOMITING Review of Systems Review of Systems: All other systems are reviewed and are negative Constitutional: Reports as per HPI and Reports no additional constitutional complaints Eyes: Reports as per HPI and Reports no additional eye complaints Reports system reviewed and no additional complaints, except as documented Cardiovascular: Reports as per HPI and Reports no additional cardiovascular complaints Respiratory: Reports as per HPI and Reports no additional respiratory complaints Gastrointestinal: Reports as per HPI and Reports no additional gastrointestinal complaints Genitourinary: Reports no additional female genitourinary complaints Musculoskeletal: Reports no additional musculoskeletal complaints Skin/Breast: Reports system reviewed and no additional complaints, except as docu Psychiatric: Reports no additional psychiatric complaints Endocrine: Reports no additional endocrine complaints Hematologic/Lymphatic: Reports no additional hematologic/lymphatic complaints Allergic/Immunologic: Reports no additional allergic/immunologic complaints Reports system reviewed and no additional complaints, except as documented and Reports Abnormal speech present PMFSH Past Medical History Medical History Encounter for screening for endocrine disorder H/O renal calculi Hypotension Kidney stones Migraines Rheumatoid arthritis Seropositive rheumatoid arthritis Symptomatic cholelithiasis Surgical History Hx of colonoscopy Hx of cystoscopy S/P laparoscopic cholecystectomy Social History Social History Household Members: Children Alcohol intake: never Patient Tobacco Use Status: Never used Tobacco e-Cigarette/Vaping Use: Never Used Substance Use Type: Marijuana Advance Directives: No Advance Directives Information Provided: No Patient : No service: No Current occupational status: unemployed Physical Exam Vital Signs: Vital Signs: Last Vital Signs Temp 97.9 F 03/11/21 17:28 Pulse 78 03/11/21 17:28 Resp 16 03/11/21 17:28 BP 103/68 03/11/21 17:28 Pulse Ox 99 03/11/21 17:28 BMI result Body Mass Index 26.5 vital signs have been reviewed as appeared to be correct. Blood pressure normal. Heart rate normal. Respiration rate normal. Temperature normal. Oxygen saturation normal. Appearance: Alert. Oriented X3. No acute distress. Head: Normal external exam. Normocephalic. Atraumatic. No Chawla signs noted. No raccoon eyes noted Eyes: PERRLA. EOMI. Conjunctiva and sclera normal. Eyelids normal. ENT: TM's Normal. Pharynx normal. Uvula midline. Moist mucous membranes. No trismus noted. No drooling noted. No muffled voice noted. Neck: Normal inspection. Neck supple. FROM. No adenopathy. Thyroid Normal. No meningeal signs. No neck mass noted. CVS: Normal heart rate and rhythm. Heart sound normal. No murmurs noted. Pulses normal throughout. Respiratory: No respiratory distress. Painless inspiration. Breath sounds normal. No wheezes/rales/rhonchi noted. Chest nontender. No accessory muscle usage noted or decreased air movement noted. Abdomen: Soft and nontender. Bowel sounds normal in all 4 quadrants. No distention noted. No organomegaly noted. No visible injury noted. Back: No CVA tenderness. Full range of motion noted. Skin: Skin warm and dry. Normal skin color. Normal skin turgor. No rashes/lesions/lacerations noted. Extremities: No lower extremity edema. Extremities exhibit normal range of motion. Extremities nontender. Neuro: Oriented X 3. Cranial nerve exam: II-XII are grossly intact No motor deficit. No sensory deficit. Reflexes normal. Course Course Course Narrative: Assessment and plan. 31-year-old female came in for evaluation of abnormal behavior, nonspecific neurological symptoms. At the time of the exam patient is back to her normal baseline. With normal visual acuity, no deficit. Patient declined using any drugs urine tox is positive for marijuana. Will discharge to follow-up with PCP. MDM - Neuro Symptoms/Deficit Medical Records Attestation: I reviewed the patient's medical records. Lab Data Result diagrams: 03/11/21 15:12 03/11/21 15:12 Labs: Lab Results 03/11/21 03/11/21 03/11/21 Range/Units 14:31 15:12 15:12 WBC 9.1 (4.8-10.8) X10*3/uL RBC 4.05 L (4.20-5.50) X10*6/uL Hgb 12.0 (12.0-16.0) g/dl Hct 36.2 L (37.0-47.0) % MCV 89.4 (80.0-98.0) fL MCH 29.6 (27.0-33.0) pg MCHC 33.1 (31.0-35.0) g/dl RDW 12.2 (11.0-16.0) % Plt Count 332 (160-400) X10*3/uL MPV 10.4 (9.4-12.3) fL Absolute Nucleated RBC 0.000 (0.0-0.012) X10*3/uL Nucleated RBC % (auto) 0.0 (0.0-0.2) /100WBC Sodium 139 (135-145) mmol/L Potassium 3.9 (3.3-5.1) mmol/L Chloride 109 H (96-108) mmol/L Carbon Dioxide 22 (22-29) mmol/L Anion Gap 12 (12-20) BUN 11 (9-16) mg/dL Creatinine 0.80 (0.5-1.4) mg/dL Estim Creat Clear Calc 95.2 Estimated GFR > 60 POC Glucose 106 (60-115) mg/dL Random Glucose 72 (60-115) mg/dL Calcium 8.9 D (8.4-10.2) mg/dL Troponin I High Sens (<3.5-17.0) ng/L Urine Color Urine Appearance Urine pH (5.0-8.0) Ur Specific Chazy (1.005-1.025) Urine Protein (NEG-TRACE) MG/DL Urine Glucose (UA) (NEG) MG/DL Urine Ketones (NEG) MG/DL Urine Blood (NEG) Urine Nitrite (NEG) Ur Leukocyte Esterase (NEG) Urine Test (NEGATIVE) Urine Opiates Screen (Not Detect) Urine Fentanyl Screen (Not Detect) Ur Barbiturates Screen (Not Detect) Ur Phencyclidine Scrn (Not Detect) Ur Amphetamines Screen (Not Detect) U Benzodiazepines Scrn (Not Detect) Urine Cocaine Screen (Not Detect) U Marijuana (THC) Screen (Not Detect) 03/11/21 03/11/21 03/11/21 Range/Units 15:12 17:04 17:04 WBC (4.8-10.8) X10*3/uL RBC (4.20-5.50) X10*6/uL Hgb (12.0-16.0) g/dl Hct (37.0-47.0) % MCV (80.0-98.0) fL MCH (27.0-33.0) pg MCHC (31.0-35.0) g/dl RDW (11.0-16.0) % Plt Count (160-400) X10*3/uL MPV (9.4-12.3) fL Absolute Nucleated RBC (0.0-0.012) X10*3/uL Nucleated RBC % (auto) (0.0-0.2) /100WBC Sodium (135-145) mmol/L Potassium (3.3-5.1) mmol/L Chloride (96-108) mmol/L Carbon Dioxide (22-29) mmol/L Anion Gap (12-20) BUN (9-16) mg/dL Creatinine (0.5-1.4) mg/dL Estim Creat Clear Calc Estimated GFR POC Glucose (60-115) mg/dL Random Glucose (60-115) mg/dL Calcium (8.4-10.2) mg/dL Troponin I High Sens < 3.5 (<3.5-17.0) ng/L Urine Color YELLOW Urine Appearance HAZY Urine pH 7.0 (5.0-8.0) Ur Specific Chazy 1.020 (1.005-1.025) Urine Protein NEG (NEG-TRACE) MG/DL Urine Glucose (UA) NEG (NEG) MG/DL Urine Ketones 5 (NEG) MG/DL Urine Blood NEG (NEG) Urine Nitrite NEG (NEG) Ur Leukocyte Esterase NEG (NEG) Urine Test NEGATIVE (NEGATIVE) Urine Opiates Screen (Not Detect) Urine Fentanyl Screen (Not Detect) Ur Barbiturates Screen (Not Detect) Ur Phencyclidine Scrn (Not Detect) Ur Amphetamines Screen (Not Detect) U Benzodiazepines Scrn (Not Detect) Urine Cocaine Screen (Not Detect) U Marijuana (THC) Screen (Not Detect) 03/11/21 Range/Units 17:04 WBC (4.8-10.8) X10*3/uL RBC (4.20-5.50) X10*6/uL Hgb (12.0-16.0) g/dl Hct (37.0-47.0) % MCV (80.0-98.0) fL MCH (27.0-33.0) pg MCHC (31.0-35.0) g/dl RDW (11.0-16.0) % Plt Count (160-400) X10*3/uL MPV (9.4-12.3) fL Absolute Nucleated RBC (0.0-0.012) X10*3/uL Nucleated RBC % (auto) (0.0-0.2) /100WBC Sodium (135-145) mmol/L Potassium (3.3-5.1) mmol/L Chloride (96-108) mmol/L Carbon Dioxide (22-29) mmol/L Anion Gap (12-20) BUN (9-16) mg/dL Creatinine (0.5-1.4) mg/dL Estim Creat Clear Calc Estimated GFR POC Glucose (60-115) mg/dL Random Glucose (60-115) mg/dL Calcium (8.4-10.2) mg/dL Troponin I High Sens (<3.5-17.0) ng/L Urine Color Urine Appearance Urine pH (5.0-8.0) Ur Specific Chazy (1.005-1.025) Urine Protein (NEG-TRACE) MG/DL Urine Glucose (UA) (NEG) MG/DL Urine Ketones (NEG) MG/DL Urine Blood (NEG) Urine Nitrite (NEG) Ur Leukocyte Esterase (NEG) Urine Test (NEGATIVE) Urine Opiates Screen Not Detected (Not Detect) Urine Fentanyl Screen Not Detected (Not Detect) Ur Barbiturates Screen Not Detected (Not Detect) Ur Phencyclidine Scrn Not Detected (Not Detect) Ur Amphetamines Screen Not Detected (Not Detect) U Benzodiazepines Scrn Not Detected (Not Detect) Urine Cocaine Screen Not Detected (Not Detect) U Marijuana (THC) Screen POSITIVE H (Not Detect) NIH Stroke Scale Time: 17:17 Level of Consciousness: Alert Level of Consciousness Questions: Answers both questions correctly Level of Consciousness Commands: Performs both tasks correctly Best Gaze: Normal Visual: No visual loss Facial Palsy: Normal Motor Arm (Right): No drift Motor Arm (Left): No drift Motor Leg (Right): No drift Motor Leg (Left): No drift Limb Ataxia: Absent Sensory: Normal Best Language: No aphasia Dysarthia: Normal Extinction and Inattention: No abnormality Score: 0 Discharge Plan Discharge Clinical Impression: Normal exam Patient Disposition: Home, Self-Care Instructions: Normal Exam (ED) Prescriptions: No Action dicyclomine 10 mg capsule 10 mg PO TID PRN (Reason: abdominal cramping) 30 Days Qty: 90 RF: 3 Actemra 162 mg/0.9 mL syringe 162 mg subcut QWEEK Qty: 3.6 RF: 0 Hold Instructions: Resume on 04/15/20. omeprazole 20 mg capsule,delayed release(DR/EC) 20 mg PO DAILY RF: 0 citalopram 20 mg tablet 20 mg PO DAILY RF: 0 ibuprofen 400 mg tablet 400 mg PO Q6H PRNRF: 0 meclizine 25 mg tablet 25 mg PO DAILY PRNRF: 0 cyclobenzaprine 5 mg tablet 5 mg PO BEDTIME RF: 0 Referrals: Sharon Mcmahon MD [Primary Care Provider] - 2 days
--- NOTE | 2021-03-11 17:13 | PC.NURSE ---
alert, speech clear, steady gait, nad pleasant and not at all withdrawn. wylie
[2021-03-11 17:14] LABS: Appearance Urine HAZY; Color Urine YELLOW; Glucose Urine UA NEG (NEG); Leukocyte Esterase Urine NEG (NEG); Nitrite Urine NEG (NEG); Urine Blood NEG (NEG); Urine Ketones 5 MG/DL (NEG); Urine Protein NEG (NEG-TRACE)
[2021-03-11 17:17] LABS: UPreg QC Valid YES; Urine Pregnancy NEGATIVE (NEGATIVE)
[2021-03-11 17:28] VITALS: BP 103/68; PULSE 78; RESP 16; TEMP 36.6; O2SAT 99
[2021-03-11 17:45] LABS: Amphetamine Screen Urine Not Detected (Not Detect); Barbiturates, Urine Not Detected (Not Detect); Benzodiazepines Screen Urine Not Detected (Not Detect); Cannabinoid Screen Urine POSITIVE (Not Detect); Cocaine Screen Urine Not Detected (Not Detect); Fentanyl, urine Not Detected (Not Detect); Opiate Screen Urine Not Detected (Not Detect); Phencyclidine Screen Urine Not Detected (Not Detect)
== END 2021-03-11 17:47 | disposition home or self-care (01) ==
PROVIDERS: Emergency Provider Emergency Medicine; PCP Internal Medicine
DX: R47.9 Unspecified speech disturbances (principal); F12.90 Cannabis use, unspecified, uncomplicated; Z79.899 Other long term (current) drug therapy
CPT/HCPCS: 36415; 80048; 80307; 81003; 81025; 82947; 84484; 85027; 99284

== ENCOUNTER → 2021-04-27 10:49 | Outpatient (BNVA) | payer MEDICAID, SELFPAY | PROVIDERS: PCP Internal Medicine; Visit Provider Obstetrics & Gynecology | DX: Z30.09 Encounter for other general counseling and advice on contraception (principal) | CPT/HCPCS: 99212 ==

== ENCOUNTER → 2021-04-30 07:56 | Outpatient (BNVA) | payer MEDICAID, SELFPAY | PROVIDERS: PCP Internal Medicine; Visit Provider Nurse Practitioner Family | DX: M05.9 Rheumatoid arthritis with rheumatoid factor, unspecified (principal) | CPT/HCPCS: 99212 ==

== ENCOUNTER 2021-05-01 08:11 | Day surgery (SDC) | payer MEDICAID, SELFPAY ==
--- NOTE | 2021-04-29 14:54 | HO.ANESPROP2 ---
Documented by User: Carolyn Walsh NP 04/29/21 15:00 HPI - Anesthesia Eval Consult details Narrative: 31yo F for Bilateral Tubal Ligation Laparoscopic with Bipolar Cautery, Possible Bilateral Salpingectomy s/p lap josiah with GA-ETT 7.5 *Multiple Med Allergies* PMFSH Active Problems Active Problems: All Active Problems (Updated 04/27/21 @ 11:21 by Rajan Maria MD) Sterilization (Acute) Arthritis (Acute) UTI (urinary tract infection) (Acute) Gallstones (Acute) Right knee pain (Acute) Bilateral primary osteoarthritis of knee (Acute) IUD mechanical complication (Acute) Family planning (Acute) Seropositive rheumatoid arthritis (Acute) Hypotension (Acute) Encounter for screening for endocrine disorder (Acute) Kidney stones (Acute) Past Medical History Medical History Encounter for screening for endocrine disorder H/O renal calculi Hypotension Kidney stones Migraines Rheumatoid arthritis Seropositive rheumatoid arthritis Symptomatic cholelithiasis Surgical History Surgical History History of laparoscopic cholecystectomy Hx of colonoscopy Hx of cystoscopy Social History Social History Household Members: Children Alcohol intake: never Patient Tobacco Use Status: Never used Tobacco e-Cigarette/Vaping Use: Never Used Use of substances other than those prescribed or required for medical reasons: Yes Substance Use Type: Marijuana Have you been hit, kicked, punched, or otherwise hurt by someone within the past year? If so, by whom?: No Are you DNR?: No Advance Directives: No Advance Directives Information Provided: Yes Recently lost weight without trying: No Eating poorly because of decreased appetite: No Nutrition Risks: No Nutritional Risk service: No Current occupational status: unemployed Meds Allergies Allergy/AdvReac Type Severity Reaction Status Date / Time shrimp Allergy Mild SWELLING Verified 05/01/21 08:41 gabapentin [GABAPENTIN] Allergy Unknown COULDNT Verified 05/01/21 08:41 FEEL LEGS , numbness methotrexate [METHOTREXATE] Allergy Unknown VOMITING Verified 05/01/21 08:41 nitrofurantoin Allergy Unknown cyclic Verified 05/01/21 08:41 vomitting abatacept [From Orencia] Allergy Swelling Verified 05/01/21 08:41 Sulfa (Sulfonamide AdvReac Unknown SOB, Verified 05/01/21 08:41 Antibiotics) Tembling, LE weakness trimethoprim [From BACTRIM] AdvReac Unknown NUMBNESS Verified 05/01/21 08:41 IN BLE, VOMITING Home Medications Medication Instructions Recorded Confirmed Last Taken Type citalopram 20 mg tablet 20 mg PO DAILY 07/09/20 04/23/21 Unknown History omeprazole 20 mg capsule,delayed 20 mg PO DAILY 07/09/20 04/23/21 Unknown History release ibuprofen 400 mg tablet 400 mg PO Q6H PRN 09/04/20 04/23/21 Unknown History meclizine 25 mg tablet 25 mg PO DAILY PRN 09/04/20 04/23/21 Unknown History cyclobenzaprine 5 mg tablet 5 mg PO BEDTIME 01/27/21 04/23/21 Unknown History mirtazapine 7.5 mg tablet 1 tab PO BEDTIME 04/23/21 04/23/21 Unknown History Exam Exam Date and Time: April 29, 2021 1454 Pertinent Lab Results Pertinent Lab Results: Laboratory Tests 03/11/21 03/11/21 15:12 15:12 WBC 9.1 Hgb 12.0 Hct 36.2 L Plt Count 332 Sodium 139 Potassium 3.9 Chloride 109 H Carbon Dioxide 22 BUN 11 Creatinine 0.80 Narrative Narrative: EKG 06/2020 Vent. Rate : 074 BPM ? ? Atrial Rate : 074 BPM ?? P-R Int : 186 ms? QRS Dur : 084 ms ? ? QT Int : 390 ms ? ? ? P-R-T Axes : 059 040 030 degrees ?? QTc Int : 432 ms ? Normal sinus rhythm with sinus arrhythmia Normal ECG When compared with ECG of 27-AUG-2019 09:41, No significant change was found Assessment and Plan Assessment Anesthesia Assessment: Chart Reviewed Documented by User: Fernanda Weinberg MD 05/01/21 09:44 PMFSH Active Problems Active Problems: All Active Problems (Updated 04/27/21 @ 11:21 by Rajna Maria MD) Sterilization (Acute) Arthritis (Acute) UTI (urinary tract infection) (Acute) Gallstones (Acute) Right knee pain (Acute) Bilateral primary osteoarthritis of knee (Acute) IUD mechanical complication (Acute) Family planning (Acute) Seropositive rheumatoid arthritis (Acute) Hypotension (Acute) Encounter for screening for endocrine disorder (Acute) Kidney stones (Acute) Anxiety/Depression- not taking any medications for now Fibromyalgia Vertigo Past Medical History Medical History Encounter for screening for endocrine disorder H/O renal calculi Hypotension Kidney stones Migraines Rheumatoid arthritis Seropositive rheumatoid arthritis Symptomatic cholelithiasis Family History Family history of problems with anesthesia: No Surgical History Surgical History History of laparoscopic cholecystectomy Hx of colonoscopy Hx of cystoscopy History of Problems with Anesthesia: No Social History Social History Household Members: Children Alcohol intake: never Patient Tobacco Use Status: Never used Tobacco e-Cigarette/Vaping Use: Never Used Use of substances other than those prescribed or required for medical reasons: Yes Substance Use Type: Marijuana Have you been hit, kicked, punched, or otherwise hurt by someone within the past year? If so, by whom?: No Are you DNR?: No Advance Directives: No Advance Directives Information Provided: Yes Recently lost weight without trying: No Eating poorly because of decreased appetite: No Nutrition Risks: No Nutritional Risk service: No Current occupational status: unemployed Meds Allergies Allergy/AdvReac Type Severity Reaction Status Date / Time shrimp Allergy Mild SWELLING Verified 05/01/21 08:41 gabapentin [GABAPENTIN] Allergy Unknown COULDNT Verified 05/01/21 08:41 FEEL LEGS , numbness methotrexate [METHOTREXATE] Allergy Unknown VOMITING Verified 05/01/21 08:41 nitrofurantoin Allergy Unknown cyclic Verified 05/01/21 08:41 vomitting abatacept [From Orencia] Allergy Swelling Verified 05/01/21 08:41 Sulfa (Sulfonamide AdvReac Unknown SOB, Verified 05/01/21 08:41 Antibiotics) Tembling, LE weakness trimethoprim [From BACTRIM] AdvReac Unknown NUMBNESS Verified 05/01/21 08:41 IN BLE, VOMITING Home Medications Medication Instructions Recorded Confirmed Last Taken Type citalopram 20 mg tablet 20 mg PO DAILY 07/09/20 04/23/21 Unknown History omeprazole 20 mg capsule,delayed 20 mg PO DAILY 07/09/20 04/23/21 Unknown History release ibuprofen 400 mg tablet 400 mg PO Q6H PRN 09/04/20 04/23/21 Unknown History meclizine 25 mg tablet 25 mg PO DAILY PRN 09/04/20 04/23/21 Unknown History cyclobenzaprine 5 mg tablet 5 mg PO BEDTIME 01/27/21 04/23/21 Unknown History mirtazapine 7.5 mg tablet 1 tab PO BEDTIME 04/23/21 04/23/21 Unknown History Exam Height,Weight and Vital Signs: Height 5 ft 1 in Weight 63.503 kg Vital Signs Temp Pulse Resp BP Pulse Ox 05/01/21 08:45 98.2 F 91 18 122/81 97 Pertinent Lab Results Pertinent Lab Results: Laboratory Tests 03/11/21 03/11/21 15:12 15:12 WBC 9.1 Hgb 12.0 Hct 36.2 L Plt Count 332 Sodium 139 Potassium 3.9 Chloride 109 H Carbon Dioxide 22 BUN 11 Creatinine 0.80 Lab Results 05/01/21 Range/Units 08:20 Urine Test NEGATIVE (NEGATIVE) Airway Mallampati Class: I TM Dist: >3cm Neck ROM: Full Loose/Missing/Broken Teeth: No Heart: RRR Lungs: CTAB Assessment and Plan Assessment Anesthesia Assessment: Anesthesia Plan Discussed Final Anesthetic Review Family History of Problems with Anesthesia: No History of Problems with Anesthesia: No NPO: Yes ASA Class: II Final Preanesthetic Review: No Changes in Pt Med Stat, Meds/Allgs Chart Reviewed, Consent Obtained/Reviewed and Anes Risks/Benef Reviewed Patient Risk: Low Procedure Risk: Intermediate Assessment/Block/Sedation in SS: Assess/Block/Sedation-SS Anesthetic Plan Anesthetic Plan: GA Disposition: Standard PACU
[2021-05-01] VITALS (13 sets, daily range): BP systolic 92–122; BP diastolic 54–81; PULSE 71–91; RESP 12–22; TEMP 36.8–37.1; O2SAT 97–100; BMI 26.4
--- NOTE | 2021-05-01 08:52 | MHC.SHP ---
Pre-Procedural Eval Section A Date of Service: 05/01/21 The patient is an INPATIENT: No Changes since office visit: No Cold of Flu in the past 2 weeks, No New Medical Problems, No Changes in Medication and No Patient answered all questions The History & Physical has been completed within 30 days and I have reviewed it.: Yes Section B Chief Complaint: requesting permanent sterilization Allergies: Allergies Allergy/AdvReac Type Severity Reaction Status Date / Time shrimp Allergy Mild SWELLING Verified 05/01/21 08:41 gabapentin [GABAPENTIN] Allergy Unknown COULDNT Verified 05/01/21 08:41 FEEL LEGS , numbness methotrexate [METHOTREXATE] Allergy Unknown VOMITING Verified 05/01/21 08:41 nitrofurantoin Allergy Unknown cyclic Verified 05/01/21 08:41 vomitting abatacept [From Orencia] Allergy Swelling Verified 05/01/21 08:41 Sulfa (Sulfonamide AdvReac Unknown SOB, Verified 05/01/21 08:41 Antibiotics) Tembling, LE weakness trimethoprim [From BACTRIM] AdvReac Unknown NUMBNESS Verified 05/01/21 08:41 IN BLE, VOMITING Plan Diagnosis/Plan: Unchanged I have reviewed the history and physical and performed a pertinent physical examination on my patient. No changes have occurred unless specified.
[2021-05-01 08:56] LABS: UPreg QC Valid YES; Urine Pregnancy NEGATIVE (NEGATIVE)
[2021-05-01] MEDS: Acetaminophen 325 MG TABLET 650 MG PO (08:58)
[2021-05-01] MEDS: Lactated Ringers 1,000 ML 100 ML IVCONT (09:09)
--- NOTE | 2021-05-01 10:46 | P.BOP_ITS ---
Brief Operative Note Date of Service: 05/01/21 Pre-op diagnosis: Completed family requesting permanent sterilization Post-op diagnosis: same Procedure: Laparoscopic bliateral salpingectomy Surgeon: Rajan Maria MD Anesthesia: GETA Was an Global Supply Chain Vice President used for this Procedure?: No Estimated blood loss (mL): 0 Pathology: other (Right & left fallopian tubes) Condition: stable Disposition: PACU
--- NOTE | 2021-05-01 10:48 | P.OP_ITS ---
Operative Note Operative Note Date of Service: 05/01/21 Narrative: PREOPERATIVE DIAGNOSIS:?Completed family requesting?permanent sterilization POSTOPERATIVE DIAGNOSIS:?Completed family requesting?permanent sterilization QBL: Minimal Anesthesia: GETA SURGEON:? Rajan Maria MD?? Concrete Pile Driver Operator: Complications: None Pathology: Right and left Fallopian tubes? DESCRIPTION OF PROCEDURE:?The patient was taken to the OR where general anesthesia was easily obtained. The patient was then prepped and draped in a sterile fashion and placed in dorsal lithotomy position. A speculum was introduced into the patient?s vagina for cervical visualization. Once the cervix was visualized, a single-toothed tenaculum was applied to the upper lip of the cervix, and a Humi manipulator was introduced into the patient?s cervix. The single tooth tenaculum was then removed and hemostasis was assured?using pressure. a David catheter?was inserted and clear urine started draining. Gloves were changed to clean ones. Attention was then drawn to the abdomen where a 10 mm longitudinal incision was done intra umbilical and carried down all the way to the fascia, which was tented?up using 2 Nilda clamps and was nicked in the midline and then extended on both end of the incision?, them using 2 pick?ups the peritoneum?was entered with Metzenbaum scissors and under direct visualization, a 10 mm Osorio trocar was introduced into the patient?s abdomen. Once intraperitoneal placement was confirmed with direct visualization, pneumoperitoneum was started & was easily obtained.Then, two fingerbreadths above the pubic symphysis and towards the?right lower quadrant, under direct visualization, a 5 mm trocar was then introduced into the patient?s abdomen. and a 3rd one on the left?lower quadrant was placed?in a similar manner. The patient was placed in Trendelenburg position, Inspection revealed normal pelvic stru ctures & bilateral ovaries and fallopian tubes. Attention was then drawn to the left fallopian tube. The IP ligament was identified and fallopian tube was then grasped by the fimbria and incised from the mesosalpinx using ligasure device, using cautery for hemostasis and cutting afterwards a bite at a time all the way to the cornual end of the left tube. The same was done?on the?right fallopian tu be. Good hemostasis was noted from both fallopian tube sites and the operative site. Specimen were then removed from the patient?s abdomen. Copious irrigation was done. Once good hemostasis was noted from the patient?s abdomen, pneumoperitoneum was deflated and all trocars were removed. Infraumbilical fascia was closed with 0 Vicryl and interrupted suture. The skin was closed with 4-0 Vicryl. The Right and left?lower quadrant ports were closed with 0 Vicryl. Bupivicaine 0.25 10 cc were injected subcuticularly in the 3 incisions. Then speculum was put back in the vagina inspection revealed?hemostasis at the site of the tenaculum, the?humi manipulator was removed? and David was draining clear urine was taken out too. Sponge, lap and needle counts were correct x2. The patient was taken to the recovery room in stable condition.
[2021-05-01] MEDS: oxyCODONE HCl Immed Release 5 MG TABLET PO (11:34)
[2021-05-01] MEDS: fentaNYL citrate/PF 100 MCG/2 ML VIAL 25 MCG IVPUSH ×2 (11:34→11:39)
[2021-05-01] MEDS: ondansetron HCL 4 MG/2 ML VIAL IVPUSH (11:38)
== END 2021-05-01 13:40 | disposition home or self-care (01) ==
PROVIDERS: PCP Internal Medicine; Visit Provider Obstetrics & Gynecology
PROC: (CPT 58670; principal; 2021-05-01 09:50)
DX: Z30.2 Encounter for sterilization (principal); I95.9 Hypotension, unspecified; M05.9 Rheumatoid arthritis with rheumatoid factor, unspecified; Z79.899 Other long term (current) drug therapy; Z88.8 Allergy status to other drugs, medicaments and biological substances; Z88.2 Allergy status to sulfonamides; Z90.49 Acquired absence of other specified parts of digestive tract; Z87.442 Personal history of urinary calculi
CPT/HCPCS: 58661; 81025; 88302; J1100; J1885; J2250; J2405; J2550; J3010

== ENCOUNTER 2021-05-07 08:36 | Outpatient (REF) | payer MEDICAID, SELFPAY ==
[2021-05-07 08:57] LABS: MANUAL DIFF FLAG NO
[2021-05-07 09:12] LABS: Basophils Percent Auto 0.3 % (0-2); Eosinophils Absolute Auto 0.1 X10*3/uL (0.0-0.4); Eosinophils Percent Auto 1.5 % (0-4); Hematocrit 37.1 % (37.0-47.0); Hemoglobin 12.3 g/dl (12.0-16.0); Imm Gran Abs Auto 0.04 X10*3/uL (0.00-0.03); Imm Gran Pct Auto 0.4 % (0.0-0.4); Lymphocytes Absolute Auto 2.8 X10*3/uL (1.2-4.9); Lymphocytes Percent Auto 29.8 % (20-40); Mean Corpuscular HGB Conc 33.2 g/dl (31.0-35.0); Mean Corpuscular Hemoglobin 29.7 pg (27.0-33.0); Mean Corpuscular Volume 89.6 fL (80.0-98.0); Mean Platelet Volume 10.2 fL (9.4-12.3); Monocytes Absolute Auto 0.5 X10*3/uL (0.1-1.2); Monocytes Percent Auto 5.4 % (2-11); Neutrophils Percent Auto 62.6 % (45-73); Platelet Count 387 X10*3/uL (160-400); Red Blood Count 4.14 X10*6/uL (4.20-5.50); Red Cell Distribution Width 11.9 % (11.0-16.0); White Blood Count 9.5 X10*3/uL (4.8-10.8)
[2021-05-07 09:41] LABS: Alanine Aminotransferase 34 U/L (0-31); Alkaline Phosphatase 80 U/L (39-117); Anion Gap 11 (12-20); Aspartate Amino Transferase 26 U/L (5-31); Bilirubin Total 0.2 mg/dL (0.0-1.0); Blood Urea Nitrogen 17 mg/dL (9-16); C Reactive Protein 2.14 mg/dL (< or = 0.50); Calcium 9.8 mg/dL (8.4-10.2); Carbon Dioxide 29 mmol/L (22-29); Chloride 102 mmol/L (96-108); Estimated Glomerular Filt Rate > 60; Glucose Random 97 mg/dL (60-115); Potassium 4.2 mmol/L (3.3-5.1); Sodium 138 mmol/L (135-145); Total Protein 7.1 g/dL (6.5-8.0)
[2021-05-07 09:49] LABS: Erythrocyte Sedimentation Rate 44 MM/HR (0-20)
== END 2021-05-07 08:37 | disposition home or self-care (01) ==
LOC: HO.LAB 08:36
PROVIDERS: Absent Provider Internal Medicine; PCP Internal Medicine; Visit Provider Nurse Practitioner Family
DX: M05.9 Rheumatoid arthritis with rheumatoid factor, unspecified (principal)
CPT/HCPCS: 36415; 80053; 85025; 85652; 86140

== ENCOUNTER → 2021-05-14 10:26 | Outpatient (BNVA) | payer MEDICAID, SELFPAY | PROVIDERS: PCP Internal Medicine; Visit Provider Obstetrics & Gynecology | DX: Z09 Encounter for follow-up examination after completed treatment for conditions other than malignant neoplasm (principal); Z98.51 Tubal ligation status | CPT/HCPCS: 99212 ==

== ENCOUNTER → 2021-07-24 08:32 | Outpatient (BNVA) | payer MEDICAID, SELFPAY | PROVIDERS: PCP Internal Medicine; Referring Provider Internal Medicine; Visit Provider Internal Medicine Gastroenterology | DX: Z13.89 Encounter for screening for other disorder (principal) ==

== ENCOUNTER 2021-08-03 07:59 | Outpatient (REF) | payer MEDICAID, SELFPAY ==
[2021-08-03 09:00] LABS: MANUAL DIFF FLAG NO
[2021-08-03 09:18] LABS: Basophils Percent Auto 0.5 % (0-2); Eosinophils Absolute Auto 0.2 X10*3/uL (0.0-0.4); Eosinophils Percent Auto 2.4 % (0-4); Hematocrit 35.5 % (37.0-47.0); Hemoglobin 11.8 g/dl (12.0-16.0); Imm Gran Abs Auto 0.03 X10*3/uL (0.00-0.03); Imm Gran Pct Auto 0.5 % (0.0-0.4); Lymphocytes Absolute Auto 1.9 X10*3/uL (1.2-4.9); Lymphocytes Percent Auto 28.5 % (20-40); Mean Corpuscular HGB Conc 33.2 g/dl (31.0-35.0); Mean Corpuscular Hemoglobin 30.1 pg (27.0-33.0); Mean Corpuscular Volume 90.6 fL (80.0-98.0); Mean Platelet Volume 10.2 fL (9.4-12.3); Monocytes Absolute Auto 0.4 X10*3/uL (0.1-1.2); Monocytes Percent Auto 6.2 % (2-11); Neutrophils Absolute Auto 4.1 x10*3/uL (2.0-8.3); Neutrophils Percent Auto 61.9 % (45-73); Platelet Count 342 X10*3/uL (160-400); Red Blood Count 3.92 X10*6/uL (4.20-5.50); Red Cell Distribution Width 12.4 % (11.0-16.0); White Blood Count 6.6 X10*3/uL (4.8-10.8)
[2021-08-03 09:46] LABS: Alanine Aminotransferase 19 U/L (0-31); Aspartate Amino Transferase 18 U/L (5-31); C Reactive Protein 1.31 mg/dL (< or = 0.50); Estimated Glomerular Filt Rate > 60
[2021-08-03 10:00] LABS: Erythrocyte Sedimentation Rate 26 MM/HR (0-20)
[2021-08-05 13:11] LABS: Transglutaminase Ab IgG <1.0 U/mL; Transglutaminase IgA <1.0 U/mL
== END 2021-08-03 08:00 | disposition home or self-care (01) ==
LOC: HO.LAB 07:59
PROVIDERS: Absent Provider Internal Medicine Gastroenterology; PCP Internal Medicine; Visit Provider Internal Medicine Rheumatology
DX: M05.9 Rheumatoid arthritis with rheumatoid factor, unspecified (principal); R10.33 Periumbilical pain; G89.29 Other chronic pain; R10.13 Epigastric pain; Z79.899 Other long term (current) drug therapy; Z86.16 Personal history of COVID-19
CPT/HCPCS: 36415; 82565; 84450; 84460; 85025; 85652; 86140; 86364; 99212

== ENCOUNTER 2021-08-05 10:21 | Outpatient (REF) | payer MEDICAID, SELFPAY ==
--- NOTE | ~2021-08-05 | US_ITS ---
EXAMINATION: US ABDOMEN COMPLETE CLINICAL INFORMATION: Epigastric pain, rule out retained stones status post cholecystectomy. COMPARISON: CT abdomen and pelvis 02/12/2021. Ultrasound abdomen limited 04/05/2020. Ultrasound abdomen complete 02/26/2020. X-ray KUB 12/23/2016. TECHNIQUE: Real-time imaging of the abdominal viscera. FINDINGS: PANCREAS: The body of the pancreas is normal. The head and tail are not well visualized due to bowel gas. ABDOMINAL AORTA: The proximal, mid, and distal segments are normal in caliber. INFERIOR VENA CAVA: Visualized portions are normal. LIVER: Normal. The liver is normal in size. The liver contour is normal. Parenchymal echogenicity is normal. No focal hepatic lesion. There is no intrahepatic biliary duct dilatation seen. GALLBLADDER: Surgically absent. COMMON BILE DUCT: The proximal common bile duct is normal in caliber measuring 0.3 cm in diameter. The distal common bile duct is not optimally visualized. RIGHT KIDNEY: Normal. No hydronephrosis. No renal calculi or focal parenchymal lesions. The kidney measures 11.4 cm in maximum dimension. LEFT KIDNEY: Normal. No hydronephrosis. No renal calculi or focal parenchymal lesions. The kidney measures 10.4 cm in maximum dimension. SPLEEN: Normal. The spleen measures 8.7 cm in maximum dimension. FREE FLUID: None. US/US abdomen complete IMPRESSION: Limited visualization of the pancreas and distal common bile duct. Otherwise unremarkable exam. No biliary duct dilatation or common bile duct stone seen.
== END 2021-08-05 10:22 | disposition home or self-care (01) ==
LOC: HO.US 10:21
PROVIDERS: PCP Internal Medicine; Visit Provider Internal Medicine Gastroenterology
DX: R10.13 Epigastric pain (principal)
CPT/HCPCS: 76700

== ENCOUNTER 2021-08-07 09:38 | Outpatient (REF) | payer MEDICAID, SELFPAY ==
[2021-08-07 11:49] LABS: CDiff Gene PCR NEGATIVE (Negative)
[2021-08-12 15:26] LABS: Fecal Fat Qualitative Normal (Normal)
[2021-08-16 13:37] LABS: Pancreatic Elastase-1 >500 mcg/g
== END 2021-08-07 09:39 | disposition home or self-care (01) ==
LOC: HO.LNP 09:38
PROVIDERS: Visit Provider Internal Medicine Gastroenterology
DX: R10.13 Epigastric pain (principal)
CPT/HCPCS: 82656; 82705; 87338; 87493

== ENCOUNTER 2021-11-02 08:38 | Outpatient (REF) | payer MEDICAID, SELFPAY ==
[2021-11-02 10:21] LABS: MANUAL DIFF FLAG NO
[2021-11-02 10:24] LABS: Basophils Percent Auto 0.7 % (0-2); Eosinophils Absolute Auto 0.2 X10*3/uL (0.0-0.4); Eosinophils Percent Auto 2.6 % (0-4); Hematocrit 36.3 % (37.0-47.0); Hemoglobin 12.3 g/dl (12.0-16.0); Imm Gran Abs Auto 0.02 X10*3/uL (0.00-0.03); Imm Gran Pct Auto 0.4 % (0.0-0.4); Mean Corpuscular HGB Conc 33.9 g/dl (31.0-35.0); Mean Corpuscular Hemoglobin 30.1 pg (27.0-33.0); Mean Corpuscular Volume 88.8 fL (80.0-98.0); Mean Platelet Volume 10.6 fL (9.4-12.3); Monocytes Absolute Auto 0.5 X10*3/uL (0.1-1.2); Monocytes Percent Auto 8.5 % (2-11); Neutrophils Percent Auto 52.8 % (45-73); Platelet Count 328 X10*3/uL (160-400); Red Blood Count 4.09 X10*6/uL (4.20-5.50); Red Cell Distribution Width 12.2 % (11.0-16.0); White Blood Count 5.7 X10*3/uL (4.8-10.8)
[2021-11-02 10:33] LABS: Alanine Aminotransferase 14 U/L (0-31); Aspartate Amino Transferase 21 U/L (5-31); C Reactive Protein 0.03 mg/dL (< or = 0.50); Estimated Glomerular Filt Rate > 60
[2021-11-02 11:01] LABS: Erythrocyte Sedimentation Rate 2 MM/HR (0-20)
== END 2021-11-02 08:39 | disposition home or self-care (01) ==
LOC: HO.10HDL 08:38
PROVIDERS: Internal Medicine Gastroenterology; Visit Provider Internal Medicine Rheumatology
DX: R10.13 Epigastric pain (principal); M05.9 Rheumatoid arthritis with rheumatoid factor, unspecified; Z86.16 Personal history of COVID-19; Z79.899 Other long term (current) drug therapy
CPT/HCPCS: 36415; 82565; 84450; 84460; 85025; 85652; 86140; 99212

== ENCOUNTER 2021-11-16 12:17 | Emergency (ER) | payer MEDICAID, SELFPAY ==
[2021-11-16 14:06] VITALS: BP 131/86; PULSE 81; RESP 18; TEMP 37.3; O2SAT 100; BMI 27.3
[2021-11-16 14:36] LABS: MANUAL DIFF FLAG NO
[2021-11-16 14:37] LABS: Basophils Percent Auto 0.4 % (0-2); Eosinophils Absolute Auto 0.1 X10*3/uL (0.0-0.4); Eosinophils Percent Auto 1.5 % (0-4); Hematocrit 38.6 % (37.0-47.0); Hemoglobin 13.2 g/dl (12.0-16.0); Imm Gran Abs Auto 0.03 X10*3/uL (0.00-0.03); Imm Gran Pct Auto 0.3 % (0.0-0.4); Lymphocytes Absolute Auto 2.6 X10*3/uL (1.2-4.9); Mean Corpuscular HGB Conc 34.2 g/dl (31.0-35.0); Mean Corpuscular Hemoglobin 30.2 pg (27.0-33.0); Mean Corpuscular Volume 88.3 fL (80.0-98.0); Mean Platelet Volume 10.2 fL (9.4-12.3); Monocytes Absolute Auto 0.6 X10*3/uL (0.1-1.2); Monocytes Percent Auto 6.6 % (2-11); Neutrophils Absolute Auto 5.6 x10*3/uL (2.0-8.3); Neutrophils Percent Auto 62.2 % (45-73); Platelet Count 292 X10*3/uL (160-400); Red Blood Count 4.37 X10*6/uL (4.20-5.50); Red Cell Distribution Width 11.9 % (11.0-16.0)
[2021-11-16 14:58] LABS: Alanine Aminotransferase 12 U/L (0-31); Albumin Level 4.7 g/dL (3.5-5.0); Alkaline Phosphatase 51 U/L (39-117); Anion Gap 13 (12-20); Aspartate Amino Transferase 20 U/L (5-31); Bilirubin Total 0.6 mg/dL (0.0-1.0); Blood Urea Nitrogen 11 mg/dL (9-16); Calcium 9.4 mg/dL (8.4-10.2); Carbon Dioxide 23 mmol/L (22-29); Chloride 106 mmol/L (96-108); Estimated Glomerular Filt Rate > 60; Glucose Random 88 mg/dL (60-115); Potassium 3.9 mmol/L (3.3-5.1); Sodium 138 mmol/L (135-145); Total Protein 7.6 g/dL (6.5-8.0)
== END 2021-11-16 20:15 | disposition left against medical advice (07) ==
PROVIDERS: Emergency Provider Emergency Medicine; PCP Internal Medicine
DX: K92.1 Melena (principal); M05.9 Rheumatoid arthritis with rheumatoid factor, unspecified; Z79.899 Other long term (current) drug therapy; F12.90 Cannabis use, unspecified, uncomplicated
CPT/HCPCS: 36415; 80053; 85025; 99281; 99283

== ENCOUNTER 2022-01-16 08:20 | Outpatient (REF) | payer MEDICAID, SELFPAY ==
--- NOTE | ~2022-01-16 | XR_ITS ---
EXAMINATION: XR SCAPULA, RIGHT CLINICAL INFORMATION: Right-sided pain COMPARISON: Chest x-ray 09/04/2020 TECHNIQUE: AP and scapular Y views of the right scapula. FINDINGS: The bones and soft tissues are normal. No scapular fracture. Glenohumeral and acromioclavicular alignment is normal. XR/XR scapula RT IMPRESSION: Normal right scapula.
== END 2022-01-16 08:21 | disposition home or self-care (01) ==
LOC: HO.XRAY 08:20
PROVIDERS: Visit Provider Internal Medicine
DX: M89.8X1 Other specified disorders of bone, shoulder (principal); M25.511 Pain in right shoulder
CPT/HCPCS: 73010

== ENCOUNTER 2022-02-18 14:24 | Outpatient (REF) | payer MEDICAID, SELFPAY ==
--- NOTE | ~2022-02-18 | US_ITS ---
EXAMINATION: ULTRASOUND RIGHT EXTREMITY NONVASCULAR. CLINICAL INFORMATION: Right axillary tenderness. COMPARISON: None. TECHNIQUE: Limited ultrasound imaging of the right upper extremity in the area of pain followed by contralateral imaging in a similar area was performed. FINDINGS: There is a hypoechoic-appearing muscle likely infrascapular seen in the right lateral shoulder region where patient points to pain. Similar-appearing left infra-axial muscle is seen. The right infrascapular muscle may be slightly larger likely related to contusion but no hemorrhage or mass is seen. US/US extremity nonvascular IMPRESSION: Slight asymmetrically sized appearing right lateral scapula muscles, likely infrascapular when compared to the left side, but no focal mass or edema is seen. Findings could be secondary to contusion, sprain or insignificant trauma. No hematoma seen.
== END 2022-02-18 14:25 | disposition home or self-care (01) ==
LOC: HO.US 14:24
PROVIDERS: Visit Provider Internal Medicine
DX: M79.621 Pain in right upper arm (principal)
CPT/HCPCS: 76882

== ENCOUNTER → 2022-03-22 08:01 | Outpatient (BNVA) | payer MEDICAID, SELFPAY | PROVIDERS: PCP Internal Medicine; Visit Provider Internal Medicine Rheumatology | DX: Z23 Encounter for immunization (principal); M05.9 Rheumatoid arthritis with rheumatoid factor, unspecified; Z79.899 Other long term (current) drug therapy | CPT/HCPCS: 90471; 90686; 99212 ==

== ENCOUNTER 2022-03-22 08:48 | Outpatient (REF) | payer MEDICAID, SELFPAY ==
[2022-03-22 11:28] LABS: Anion Gap 11 (12-20); Blood Urea Nitrogen 19 mg/dL (9-16); Calcium 9.1 mg/dL (8.4-10.2); Carbon Dioxide 23 mmol/L (22-29); Chloride 107 mmol/L (96-108); Estimated Glomerular Filt Rate > 60; Glucose Random 90 mg/dL (60-115); Potassium 4.2 mmol/L (3.3-5.1); Sodium 137 mmol/L (135-145)
[2022-03-22 11:29] LABS: Alanine Aminotransferase 13 U/L (0-31); Albumin Level 4.4 g/dL (3.5-5.0); Alkaline Phosphatase 45 U/L (39-117); Aspartate Amino Transferase 18 U/L (5-31); Bilirubin Total 0.5 mg/dL (0.0-1.0); C Reactive Protein < 0.10 mg/dL (< or = 0.50); Total Protein 6.9 g/dL (6.5-8.0)
[2022-03-22 11:40] LABS: Erythrocyte Sedimentation Rate 3 MM/HR (0-20)
[2022-03-24 22:44] LABS: TS Negative Control Passed; TS Panel A 0; TS Panel B 0; TS Positive Control Passed; TSpotTB Negative (Negative)
== END 2022-03-22 08:49 | disposition home or self-care (01) ==
LOC: HO.10HDL 08:48
PROVIDERS: Visit Provider Internal Medicine Rheumatology
DX: Z11.1 Encounter for screening for respiratory tuberculosis (principal); M05.9 Rheumatoid arthritis with rheumatoid factor, unspecified; Z79.899 Other long term (current) drug therapy; Z23 Encounter for immunization
CPT/HCPCS: 36415; 80053; 85652; 86140; 86481; 90471; 90686; 99212

== ENCOUNTER 2022-06-14 11:00 | Outpatient (RCR) | payer MEDICAID, SELFPAY | END 2022-07-23 14:58 | disposition home or self-care (01) | LOC: HO.PT 11:00 | PROVIDERS: PCP Internal Medicine; Visit Provider Internal Medicine | DX: M89.8X1 Other specified disorders of bone, shoulder (principal) | CPT/HCPCS: 97110; 97161 ==

== ENCOUNTER → 2022-07-21 08:57 | Outpatient (BNVA) | payer MEDICAID, SELFPAY | PROVIDERS: PCP Internal Medicine; Visit Provider Internal Medicine Rheumatology | DX: M05.9 Rheumatoid arthritis with rheumatoid factor, unspecified (principal); Z79.899 Other long term (current) drug therapy | CPT/HCPCS: 36415; 82565; 84450; 84460; 85025; 85652; 86140; 99212 ==

== ENCOUNTER 2022-07-21 09:40 | Outpatient (REF) | payer MEDICAID, SELFPAY ==
[2022-07-21 10:30] LABS: MANUAL DIFF FLAG NO
[2022-07-21 10:34] LABS: Basophils Absolute Auto 0.1 X10*3/uL (0.0-0.2); Basophils Percent Auto 0.9 % (0-2); Eosinophils Absolute Auto 1.3 X10*3/uL (0.0-0.4); Eosinophils Percent Auto 16.4 % (0-4); Hematocrit 35.4 % (37.0-47.0); Hemoglobin 12.2 g/dl (12.0-16.0); Imm Gran Abs Auto 0.02 X10*3/uL (0.00-0.03); Imm Gran Pct Auto 0.3 % (0.0-0.4); Lymphocytes Percent Auto 26.7 % (20-40); Mean Corpuscular HGB Conc 34.5 g/dl (31.0-35.0); Mean Corpuscular Hemoglobin 30.4 pg (27.0-33.0); Mean Corpuscular Volume 88.3 fL (80.0-98.0); Mean Platelet Volume 10.5 fL (9.4-12.3); Monocytes Absolute Auto 0.7 X10*3/uL (0.1-1.2); Monocytes Percent Auto 8.9 % (2-11); Neutrophils Absolute Auto 3.6 x10*3/uL (2.0-8.3); Neutrophils Percent Auto 46.8 % (45-73); Platelet Count 288 X10*3/uL (160-400); Red Blood Count 4.01 X10*6/uL (4.20-5.50); Red Cell Distribution Width 12.1 % (11.0-16.0); White Blood Count 7.6 X10*3/uL (4.8-10.8)
[2022-07-21 11:22] LABS: Alanine Aminotransferase 13 U/L (0-31); Aspartate Amino Transferase 19 U/L (5-31); C Reactive Protein < 0.10 mg/dL (< or = 0.50); Estimated Glomerular Filt Rate > 60
[2022-07-21 11:27] LABS: Erythrocyte Sedimentation Rate 5 MM/HR (0-20)
== END 2022-07-21 09:41 | disposition home or self-care (01) ==
LOC: HO.10HDL 09:40
PROVIDERS: Visit Provider Internal Medicine Rheumatology
DX: M05.9 Rheumatoid arthritis with rheumatoid factor, unspecified (principal); Z79.899 Other long term (current) drug therapy
CPT/HCPCS: 36415; 82565; 84450; 84460; 85025; 85652; 86140

== ENCOUNTER 2022-09-02 07:44 | Outpatient (REF) | payer MEDICAID, SELFPAY ==
--- NOTE | ~2022-09-02 | XR_ITS ---
EXAMINATION: XR CHEST CLINICAL INFORMATION: Cough COMPARISON: Previous chest x-ray most recent June 2020 TECHNIQUE: 2 views of the chest were obtained. FINDINGS: No significant abnormality is noted involving the heart, lungs, mediastinum, bony thorax or soft tissues. XR/XR chest 2V IMPRESSION: Unremarkable examination.
== END 2022-09-02 07:45 | disposition home or self-care (01) ==
LOC: HO.XRAY 07:44
PROVIDERS: PCP Internal Medicine; Visit Provider Emergency Medicine
DX: R05.2 Subacute cough (principal)
CPT/HCPCS: 71046

== ENCOUNTER 2022-12-21 10:02 | Outpatient (AMB) | payer MEDICAID, SELFPAY ==
--- NOTE | 2022-12-21 10:53 | A.OFFVIS_ITS ---
Intake Vital Signs 12/21/22 10:54 Height 5 ft 1 in Weight 165 lb 12.602 oz BMI 31.3 BP 110/70 Blood Pressure Location Lt brachial Position Sitting Pulse 76 Pulse Source Pulse Oximeter Temp 98.4 F Temp Source Skin Pulse Oximetry (%) 99 Oxygen Delivery Method Room Air Intake Visit Reasons: ra Intake Note: Here to follow up on RA. 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 Accompanied by: Self / Same As Patient Allergies shrimp Allergy (Mild, Verified 12/21/22 10:54) SWELLING gabapentin [GABAPENTIN] Allergy (Unknown, Verified 12/21/22 10:54) COULDNT FEEL LEGS , numbness methotrexate [METHOTREXATE] Allergy (Unknown, Verified 12/21/22 10:54) VOMITING nitrofurantoin Allergy (Unknown, Verified 12/21/22 10:54) cyclic vomitting abatacept [From Orencia] Allergy (Verified 12/21/22 10:54) Swelling Sulfa (Sulfonamide Antibiotics) Adverse Reaction (Unknown, Verified 12/21/22 10:54) SOB, Tembling, LE weakness trimethoprim [From BACTRIM] Adverse Reaction (Unknown, Verified 12/21/22 10:54) NUMBNESS IN BLE, VOMITING HPI HPI Comments History of Present Illness Details The patient returns for evaluation of her rheumatoid arthritis. She remains on Actemra 162 mg once a week. She does not seem to have any side effects with this. That has helped with her joint pain and swelling. She occasionally needs to take an ibuprofen, often for some right wrist pain. She does get some intermittent discomfort in the neck and lower back region attributed to degenerative disease for which she takes some cyclobenzaprine and uses a lidocaine patch. She did have COVID during the summer but recovered quickly and mostly had nasal congestion some pharyngitis. [facility] Medical History History of COVID-19 Long-term use of immunosuppressant medication Seropositive rheumatoid arthritis Hypotension Encounter for screening for endocrine disorder H/O renal calculi Symptomatic cholelithiasis Migraines Rheumatoid arthritis Kidney stones Surgical History History of cholecystectomy Hx of tubal ligation History of laparoscopic cholecystectomy Hx of cystoscopy Hx of colonoscopy Social History Household Members: Children Alcohol intake: never Patient Tobacco Use Status: Never used Tobacco e-Cigarette/Vaping Use: Never Used Substance Use Type: Marijuana service: No Current occupational status: unemployed Female Reproductive History Menstrual Age of Menarche: 13 Review of Systems Const Details: Negative for appetite change, weight change, fever, chills, malaise and fatigue Eyes Details: Negative for vision change, dry eyes,headaches and dizziness Card Details: Negative chest pain, edema and syncope Resp Details: Negative for SOB, cough and wheezing GI Details: Occasional heartburn but most the time it has prevented by the use of omeprazole. Negative nausea, abdominal pain, bowel changes, diarrhea, constipation and bloody stool. Skin/Breast Details: Negative for itching, rash, hives, Raynaud's symptoms, sun sensitivity, and skin cancer Barry/Lymph Details: Negative for excessive bruising or bleeding. Physical Exam Vital Signs: Last Vital Signs Temp 98.4 F 12/21/22 10:54 Pulse 76 12/21/22 10:54 BP 110/70 12/21/22 10:54 Pulse Ox 99 12/21/22 10:54 Oxygen Delivery Method Room Air 12/21/22 10:54 BMI result Body Mass Index 31.3 APPEARANCE: Patient in no acute distress EYES no redness, pupils equal and reactive to light, eyelids normal Skin:? no inflammatory lesions. Cervical Spine:.? Mild discomfort with extremes of normal range of motion but no tenderness. Thoracic Spine:.? No scoliosis.? No tenderness on palpation. Lumbar Spine:.? Alignment normal.? Lumbar pain with flexion at 75 degrees.? There is no paraspinal muscle or vertebral tenderness.? Straight leg is negative. The? There is no leg weakness. Chest Wall:.? No tenderness, swelling, increased warmth or erythema. Hands:.? Right:? Slight bony enlargement and tenderness at the base of the thumb.? There is arms no MCP swelling or tenderness. No flexor tendon triggering.? Left:? There is moderate bony enlargement and slight tenderness at the base of the thumb.? No other areas of tenderness or swelling.? Some flexion deformity at the right 5th PIP.? None of the other joints have any tenderness or swelling.? There is no thenar atrophy or sensory loss. Wrists:.? Normal pain-free range of motion without tenderness, swelling, increased warmth or erythema. Elbows:. Normal pain-free range of motion without tenderness, swelling, increased warmth or erythema. Shoulders:? Right:? Mild discomfort with extremes of range of motion. ? The pain is felt in the deltoid and top of the shoulder.? There is no axillary or supraclavicular adenopathy.? She has some slight anterior tenderness.? No swelling.? Questionable abductor weakness. Left: ? Full range of motion with mild discomfort at the extremes.. No tenderness, weakness, swelling, increased warmth or erythema. Hips:? Right:? Some buttock pain with the extremes of flexion or external rotation. No groin pain with motion.? Left:? Full range of motion with mild buttock discomfort with extremes of external rotation. No groin pain with motion. Hip bursa:.? Slight left and right trochanteric tenderness. Knees:.??Right:? Normal pain-free range of motion without tenderness, swelling, increased warmth or erythema.? There is no effusion or crepitation.? Left:? No pain with the extremes of normal range of motion. No tenderness, redness or effusion. Ankles:. Right: Slight pain with extremes of normal range of motion with some minimal tenderness but no swelling. Left:? Normal pain-free range of motion without tenderness, swelling, increased warmth or erythema. Feet:.? Left:? Normal range of motion but there is some slight tenderness in the instep.? No swelling appreciated.? Right:? Normal pain-free range of motion without tenderness, swelling, increased warmth or erythema. Tender points:? Mild tenderness to digital palpation at the left trapezius, bilateral lateral epicondyle, both greater trochanter ?? 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 Some response to Kevzara but then she lost efficacy. She had allergic reaction to Orencia with facial swelling. Currently on Actemra since 2020. Code(s): M05.9 - Rheumatoid arthritis with rheumatoid factor, unspecified Plan She has good control of synovitis with the current Actemra. The knee OA symptoms seem to be minimal at present. I do not see any signs or symptoms of adverse effects of the Actemra. She is due for lab work that she should she shot done today. Assuming that is okay we will stay with the Actemra and follow her up in about 4 months. Coding Level of Care Code Est Pt Level 3 (22788) Diagnoses Long-term use of immunosuppressant medication Z79.899 Bilateral primary osteoarthritis of knee M17.0 Seropositive rheumatoid arthritis M05.9
[2022-12-21 10:54] VITALS: BP 110/70; PULSE 76; TEMP 36.9; O2SAT 99; BMI 31.3
== END 2022-12-21 11:27 | disposition home or self-care (01) ==
PROVIDERS: PCP Internal Medicine; Visit Provider Internal Medicine Rheumatology
DX: M05.79 Rheumatoid arthritis with rheumatoid factor of multiple sites without organ or systems involvement (principal); Z79.899 Other long term (current) drug therapy; M17.0 Bilateral primary osteoarthritis of knee
CPT/HCPCS: 99213

== ENCOUNTER → 2022-12-21 10:02 | Outpatient (BNVA) | payer MEDICAID, SELFPAY | PROVIDERS: PCP Internal Medicine; Visit Provider Internal Medicine Rheumatology | DX: M05.9 Rheumatoid arthritis with rheumatoid factor, unspecified (principal); M17.0 Bilateral primary osteoarthritis of knee; Z79.899 Other long term (current) drug therapy | CPT/HCPCS: 99212 ==

== ENCOUNTER 2022-12-21 11:35 | Outpatient (REF) | payer MEDICAID, SELFPAY ==
[2022-12-21 13:19] LABS: MANUAL DIFF FLAG NO
[2022-12-21 13:33] LABS: Basophils Absolute Auto 0.1 X10*3/uL (0.0-0.2); Basophils Percent Auto 0.9 % (0-2); Eosinophils Absolute Auto 0.5 X10*3/uL (0.0-0.4); Hematocrit 35.7 % (37.0-47.0); Imm Gran Abs Auto 0.03 X10*3/uL (0.00-0.03); Imm Gran Pct Auto 0.4 % (0.0-0.4); Lymphocytes Absolute Auto 2.5 X10*3/uL (1.2-4.9); Lymphocytes Percent Auto 31.2 % (20-40); Mean Corpuscular HGB Conc 33.6 g/dl (31.0-35.0); Mean Corpuscular Hemoglobin 30.4 pg (27.0-33.0); Mean Corpuscular Volume 90.4 fL (80.0-98.0); Monocytes Absolute Auto 0.7 X10*3/uL (0.1-1.2); Monocytes Percent Auto 8.4 % (2-11); Neutrophils Absolute Auto 4.3 x10*3/uL (2.0-8.3); Neutrophils Percent Auto 53.1 % (45-73); Platelet Count 306 X10*3/uL (160-400); Red Blood Count 3.95 X10*6/uL (4.20-5.50); Red Cell Distribution Width 12.2 % (11.0-16.0)
[2022-12-21 14:12] LABS: Erythrocyte Sedimentation Rate 2 MM/HR (0-20)
[2022-12-21 14:14] LABS: Alanine Aminotransferase 14 U/L (0-31); Aspartate Amino Transferase 19 U/L (5-31); C Reactive Protein < 0.10 mg/dL (< or = 0.50); Estimated Glomerular Filt Rate > 60
== END 2022-12-21 11:36 | disposition home or self-care (01) ==
LOC: HO.10HDL 11:35
PROVIDERS: Visit Provider Internal Medicine Rheumatology
DX: M05.9 Rheumatoid arthritis with rheumatoid factor, unspecified (principal); Z79.899 Other long term (current) drug therapy
CPT/HCPCS: 36415; 82565; 84450; 84460; 85025; 85652; 86140

== ENCOUNTER 2023-02-22 15:45 | Outpatient (REF) | payer MEDICAID, SELFPAY ==
--- NOTE | ~2023-02-22 | US_ITS ---
EXAMINATION: US RIGHT AXILLA CLINICAL INFORMATION: Axillary pain. COMPARISON: Right axillary ultrasound one year ago on 02/18/2022. TECHNIQUE: High-frequency linear ultrasound transducer was used to examine the region of clinical concern in the right axilla. FINDINGS: Once again, no significant mass or adenopathy or fluid collection is seen in the right axilla to account for this patient's recurrent pain. US/US extremity nonvascular IMPRESSION: No significant abnormality is seen in the right axilla.
== END 2023-02-22 15:46 | disposition home or self-care (01) ==
LOC: HO.US 15:45
PROVIDERS: PCP Internal Medicine; Visit Provider Student in an Organized Health Care Education/Training Program
DX: M79.621 Pain in right upper arm (principal)
CPT/HCPCS: 76882

== ENCOUNTER 2023-04-01 18:09 | Outpatient (REF) | payer MEDICAID, SELFPAY | END 2023-04-01 18:10 | disposition home or self-care (01) | LOC: HO.HHCLNP 18:09 | PROVIDERS: Visit Provider Internal Medicine | DX: R39.9 Unspecified symptoms and signs involving the genitourinary system (principal) | CPT/HCPCS: 87086 ==

== ENCOUNTER 2023-05-03 16:31 | Outpatient (REF) | payer MEDICAID, SELFPAY ==
[2023-05-03 16:57] LABS: Basophils Absolute Auto 0.1 X10*3/uL (0.0-0.2); Basophils Percent Auto 0.7 % (0-2); Eosinophils Absolute Auto 0.6 X10*3/uL (0.0-0.4); Eosinophils Percent Auto 6.9 % (0-4); Hematocrit 36.8 % (37.0-47.0); Hemoglobin 12.2 g/dl (12.0-16.0); Imm Gran Abs Auto 0.02 X10*3/uL (0.00-0.03); Imm Gran Pct Auto 0.2 % (0.0-0.4); Lymphocytes Absolute Auto 3.1 X10*3/uL (1.2-4.9); Lymphocytes Percent Auto 36.1 % (20-40); MANUAL DIFF FLAG NO; Mean Corpuscular HGB Conc 33.2 g/dl (31.0-35.0); Mean Corpuscular Hemoglobin 29.4 pg (27.0-33.0); Mean Corpuscular Volume 88.7 fL (80.0-98.0); Mean Platelet Volume 10.4 fL (9.4-12.3); Monocytes Absolute Auto 0.6 X10*3/uL (0.1-1.2); Monocytes Percent Auto 6.6 % (2-11); Neutrophils Absolute Auto 4.3 x10*3/uL (2.0-8.3); Neutrophils Percent Auto 49.5 % (45-73); Platelet Count 291 X10*3/uL (160-400); Red Blood Count 4.15 X10*6/uL (4.20-5.50); Red Cell Distribution Width 12.2 % (11.0-16.0); White Blood Count 8.7 X10*3/uL (4.8-10.8)
[2023-05-03 17:36] LABS: Erythrocyte Sedimentation Rate 6 MM/HR (0-20)
[2023-05-03 17:43] LABS: Alanine Aminotransferase 14 U/L (0-31); Aspartate Amino Transferase 20 U/L (5-31); C Reactive Protein < 0.10 mg/dL (< or = 0.50); Estimated Glomerular Filt Rate > 60
== END 2023-05-03 16:32 | disposition home or self-care (01) ==
LOC: HO.LAB 16:31
PROVIDERS: PCP Internal Medicine; Visit Provider Internal Medicine Rheumatology
DX: M05.9 Rheumatoid arthritis with rheumatoid factor, unspecified (principal); Z79.899 Other long term (current) drug therapy
CPT/HCPCS: 36415; 82565; 84450; 84460; 85025; 85652; 86140

== ENCOUNTER 2023-05-06 11:00 | Outpatient (AMB) | payer MEDICAID, SELFPAY ==
--- NOTE | 2023-05-06 11:16 | MHC.OFFVIS ---
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 Randall, presents today for follow up. 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: No Accompanied by: Self / Same As Patient Allergies shrimp Allergy (Mild, Verified 05/06/23 11:23) SWELLING gabapentin [GABAPENTIN] Allergy (Unknown, Verified 05/06/23 11:23) COULDNT FEEL LEGS , numbness methotrexate [METHOTREXATE] Allergy (Unknown, Verified 05/06/23 11:23) VOMITING nitrofurantoin Allergy (Unknown, Verified 05/06/23 11:23) cyclic vomitting abatacept [From Orencia] Allergy (Verified 05/06/23 11:23) Swelling Sulfa (Sulfonamide Antibiotics) Adverse Reaction (Unknown, Verified 05/06/23 11:23) SOB, Tembling, LE weakness trimethoprim [From BACTRIM] Adverse Reaction (Unknown, Verified 05/06/23 11:23) NUMBNESS IN BLE, VOMITING HPI HPI Comments History of Present Illness Details Ms. Angeles, 33 yoF returns for follow-up of her Seropositive rheumatoid arthritis. She remains on Actemra 162 mg once a week. She does not seem to have any side effects with this. That has helped with her joint pain and swelling. She occasionally needs to take an ibuprofen, often for some right wrist pain. The right thumb has been especially painful since last visit and affects her ADLs even makes playing her clarinet a challenge. She does get some intermittent discomfort in the neck and lower back region attributed to degenerative disease for which she takes some cyclobenzaprine and uses a lidocaine patch. [facility] Medical History (Updated 05/06/23 @ 11:33 by FABRICE Hernandez) Flexor tenosynovitis of thumb History of COVID-19 Long-term use of immunosuppressant medication Seropositive rheumatoid arthritis Hypotension Encounter for screening for endocrine disorder H/O renal calculi Symptomatic cholelithiasis Migraines Rheumatoid arthritis Kidney stones Surgical History History of cholecystectomy Hx of tubal ligation History of laparoscopic cholecystectomy Hx of cystoscopy Hx of colonoscopy Social History Household Members: Children Alcohol intake: never Comment: pt. sleeping Patient Tobacco Use Status: Never used Tobacco e-Cigarette/Vaping Use: Never Used Substance Use Type: Marijuana service: No Current occupational status: unemployed Female Reproductive History Menstrual Age of Menarche: 13 Physical Exam APPEARANCE: Patient in no acute distress EYES no redness, eyelids normal NECK:? No thyromegaly or masses, no adenopathy, trachea midline. HEART:? Regular rhythm, S1-S2 heard, no murmurs, rubs or gallops. LUNG:? Clear to percussion and auscultation Skin:? no inflammatory lesions. Cervical Spine:.? Mild discomfort with extremes of normal range of motion but no tenderness. Thoracic Spine:.? No scoliosis.? No tenderness on palpation. Lumbar Spine:.? Alignment normal.? Lumbar pain with flexion at 75 degrees.? There is no paraspinal muscle or vertebral tenderness.? Straight leg is negative. There is no leg weakness. Chest Wall:.? No tenderness, swelling, increased warmth or erythema. Hands:.? Right:? Slight bony enlargement and tenderness at the base of the thumb with mild swelling.? There is no MCP swelling or tenderness. No flexor tendon triggering.? Left:? There is moderate bony enlargement and but no tenderness at the base of the thumb.? No other areas of tenderness or swelling.? Some flexion deformity at the right 5th PIP.? None of the other joints have any tenderness or swelling.? There is no thenar atrophy or sensory loss. Wrists:.? Normal pain-free range of motion without tenderness, swelling, increased warmth or erythema. Elbows:. Normal pain-free range of motion without tenderness, swelling, increased warmth or erythema. Shoulders:? Right:? Mild discomfort with extremes of range of motion. ? The pain is felt in the deltoid and top of the shoulder.? There is no axillary or supraclavicular adenopathy.? She has some slight anterior tenderness.? No swelling.? Questionable abductor weakness. Left: ? Full range of motion with mild discomfort at the extremes.. No tenderness, weakness, swelling, increased warmth or erythema. Hips:? Right:? Some buttock pain with the extremes of flexion or external rotation. No groin pain with motion.? Left:? Full range of motion with mild buttock discomfort with extremes of external rotation. No groin pain with motion. Hip bursa:.? Slight left and right trochanteric tenderness. Knees:.??Right:? Normal pain-free range of motion without tenderness, swelling, increased warmth or erythema.? There is no effusion or crepitation.? Left:? No pain with the extremes of normal range of motion. No tenderness, redness or effusion. Ankles:. Right: Slight pain with extremes of normal range of motion with some minimal tenderness but no swelling. Left:? Normal pain-free range of motion without tenderness, swelling, increased warmth or erythema. Feet:.? Left:? Normal range of motion but there is some slight tenderness in the instep.? No swelling appreciated.? Right:? Normal pain-free range of motion without tenderness, swelling, increased warmth or erythema. Tender points:? Mild tenderness to digital palpation at the left trapezius, bilateral lateral epicondyle, both greater trochanter ?? Results Reviewed Results Reviewed: Laboratory Tests 05/03/23 05/03/23 16:35 Unknown WBC 8.7 RBC 4.15 L Hgb 12.2 Hct 36.8 L Eos % (Auto) 6.9 H ESR 6 Creatinine 0.76 Estimated GFR > 60 AST 20 ALT 14 C-Reactive Protein < 0.10 Assessment & Plan Assessment & Plan (1) Long-term use of immunosuppressant medication: Code(s): Z79.899 - Other chcf (current) drug therapy (2) Bilateral primary osteoarthritis of knee: Code(s): M17.0 - Bilateral primary osteoarthritis of knee (3) Seropositive rheumatoid arthritis: Comment: Onset about 2017: CCP, TONE positive Nausea on oral methotrexate. Some response to Kevzara but then she lost efficacy. She had allergic reaction to Orencia with facial swelling. Currently on Actemra since 2020. Code(s): M05.9 - Rheumatoid arthritis with rheumatoid factor, unspecified (4) Flexor tenosynovitis of thumb: Code(s): M65.9 - Synovitis and tenosynovitis, unspecified Plan #SeroPos RA: On PE Ms. Angeles appears to have good control of synovitis with the current Actemra 162mg QW. #Right Thumb Tenosynovitis: Tenderness and swelling at CMC joint with decreased ROM. Will prescribe a course of Prednisone and diclofenac topical gel. Patient will apply gel consistently with gloves to aid absorption. She knows not to take additional NSAIDs while using the gel. I also recommend a thumb splint at night to rest the thumb. I suggested a corticosteroid injection if this regiment is not effective but patient does not like the idea. Hopefully the Prednisone and Gel will be effective as she does enjoy playing the api[employer]mat. #Bilareal Knee OA: The knee OA symptoms seem to be minimal at present. She takes Ibuprofen sparingly as needed. #Custodial Use: I do not see any signs or symptoms of adverse effects of the Actemra. Lab work was grossly WNL. The patient knows to stop Actemra and seek medical attention if she develops a fever, an infection or has a non-healing wound. We will do labs agin in 4 months. Follow her up in about 4 months. I spent 30 minutes, reviewing chart, evaluating patient and documenting Orders: Orders Erythrocyte Sedimentation Rate 4 Months M05.9 - Rheumatoid arthritis with rheumatoid factor, unspecified, Z79.899 - Other terminal makeup operator (current) drug therapy C Reactive Protein 4 Months M05.9 - Rheumatoid arthritis with rheumatoid factor, unspecified, Z79.899 - Other chcf (current) drug therapy Alanine Aminotransferase 4 Months M05.9 - Rheumatoid arthritis with rheumatoid factor, unspecified, Z79.899 - Other terminal makeup operator (current) drug therapy Complement C3 4 Months M05.9 - Rheumatoid arthritis with rheumatoid factor, unspecified, Z79.899 - Other terminal makeup operator (current) drug therapy Complement C4 4 Months M05.9 - Rheumatoid arthritis with rheumatoid factor, unspecified, Z79.899 - Other chcf (current) drug therapy Aspartate Amino Transferase 4 Months M05.9 - Rheumatoid arthritis with rheumatoid factor, unspecified, Z79.899 - Other terminal makeup operator (current) drug therapy Complete Blood Count Auto Diff 4 Months M05.9 - Rheumatoid arthritis with rheumatoid factor, unspecified, Z79.899 - Other terminal makeup operator (current) drug therapy Creatinine 4 Months M05.9 - Rheumatoid arthritis with rheumatoid factor, unspecified, Z79.899 - Other terminal makeup operator (current) drug therapy Medications: New prednisone 4 tablets per x 5 days, 3 tablets x 5 days then 2 tablets x 5 days 60 tabs 0RF diclofenac sodium 1% apply to hand; for hand includes palm/fingers/back of hand 2 grams topical QID PRN 100 grams 0RF Hand Pain M65.9 - Synovitis and tenosynovitis, unspecified finger splint As directed 1 ea 0RF Right Thumb brace-wear to stabilize thumb at night M65.9 - Synovitis and tenosynovitis, unspecified Coding Level of Care Code Est Pt Level 4 (32203) Diagnoses Long-term use of immunosuppressant medication Z79.899 Bilateral primary osteoarthritis of knee M17.0 Seropositive rheumatoid arthritis M05.9 Flexor tenosynovitis of thumb M65.9
[2023-05-06 11:22] VITALS: BP 110/70; PULSE 90; TEMP 36.6; O2SAT 98; BMI 30.6
== END 2023-05-06 11:40 | disposition home or self-care (01) ==
PROVIDERS: PCP Internal Medicine; Visit Provider Nurse Practitioner Family
DX: M17.0 Bilateral primary osteoarthritis of knee (principal); M05.79 Rheumatoid arthritis with rheumatoid factor of multiple sites without organ or systems involvement; M65.9 Synovitis and tenosynovitis, unspecified; Z79.899 Other long term (current) drug therapy
CPT/HCPCS: 99214

== ENCOUNTER → 2023-05-06 11:00 | Outpatient (BNVA) | payer MEDICAID, SELFPAY | PROVIDERS: PCP Internal Medicine; Visit Provider Nurse Practitioner Family | DX: M05.9 Rheumatoid arthritis with rheumatoid factor, unspecified (principal); M65.9 Synovitis and tenosynovitis, unspecified; M17.0 Bilateral primary osteoarthritis of knee; Z79.899 Other long term (current) drug therapy | CPT/HCPCS: 99212 ==

== ENCOUNTER 2023-06-13 18:18 | Emergency (ER) | payer MEDICAID, SELFPAY ==
--- NOTE | ~2023-06-13 | XR_ITS ---
EXAMINATION: XR CHEST CLINICAL INFORMATION: Chest pain COMPARISON: 09/02/2022 TECHNIQUE: 2 views of the chest were obtained. FINDINGS: No significant abnormality is noted involving the heart, lungs, mediastinum, bony thorax or soft tissues. XR/XR chest 2V IMPRESSION: Unremarkable examination.
--- NOTE | 2023-06-13 18:20 | ECG_ITS ---
Test Reason : CHEST PAIN Blood Pressure : / mmHG Vent. Rate : 095 BPM Atrial Rate : 095 BPM P-R Int : 178 ms QRS Dur : 082 ms QT Int : 358 ms P-R-T Axes : 060 027 015 degrees QTc Int : 449 ms Normal sinus rhythm Possible Left atrial enlargement Borderline ECG When compared with ECG of 19-JUN-2020 07:46, No significant change was found Referred By: Camilla Panchal Electronically Signed By:Lawson Hager
[2023-06-13 18:40] VITALS: BP 144/91; PULSE 100; RESP 18; TEMP 36.6; O2SAT 99; BMI 30.2
--- NOTE | 2023-06-13 18:41 | ED.CHESTPAIN ---
HPI - Chest Pain General Chief Complaint: Chest Pain Stated Complaint: chest pain Time Seen by Provider: 06/13/23 22:25 Source: patient Mode of arrival: ambulatory Limitations: no limitations History of Present Illness HPI narrative: Patient is a 33-year-old female who presents emergency department for evaluation of chest pain. She reports 1 week with midsternal chest pain that radiates down across the lower aspect of the left anterior chest/breast region. It has been constant with varying intensity though notably worse today. Has had intermittent lightheadedness and nausea associated with this. When asked she states at times she does get short of breath particularly with exertion. She trialed ibuprofen for pain management without any improvement. She does report that she has a history of anxiety resulting in her experiencing chest pain but does feel as though this is different. Denies any known sick contacts. She denies any recent URI symptoms or cough. She did recently travel by plane to [place]. Denies any personal history of DVT/PE/malignancy, OCP, recent surgery, recent lower extremity swelling pain redness. Related Data Home Medications Medication Instructions Recorded Confirmed ibuprofen 400 mg tablet 400 mg PO Q6H PRN Pain 09/04/20 07/21/22 meclizine 25 mg tablet 25 mg PO DAILY PRN Dizziness 09/04/20 07/21/22 cyclobenzaprine 5 mg tablet 5 mg PO BEDTIME PRN 08/03/21 07/21/22 omeprazole 20 mg capsule,delayed 20 mg PO DAILY PRN 08/03/21 07/21/22 release cetirizine 10 mg tablet 10 mg PO QAM 12/20/22 fluticasone propionate 50 intranasal 12/20/22 mcg/actuation nasal spray,suspension lidocaine 5 % topical patch 1 patch topical DAILY 12/20/22 (Lidoderm) Previous Rx's Medication Instructions Recorded tocilizumab 162 mg/0.9 mL 162 mg (0.9 mL) subcut QWEEK #3.6 02/04/23 subcutaneous syringe (Actemra) mL finger splint #1 ea 05/06/23 prednisone 2.5 mg tablet See Rx Instructions PO DAILY #60 05/06/23 tabs diclofenac sodium 1 % topical gel 2 g topical QID PRN Hand Pain 06/02/23 #100 grams Allergies Allergy/AdvReac Type Severity Reaction Status Date / Time shrimp Allergy Mild SWELLING Verified 06/13/23 18:40 gabapentin [GABAPENTIN] Allergy Unknown COULDNT Verified 06/13/23 18:40 FEEL LEGS , numbness methotrexate [METHOTREXATE] Allergy Unknown VOMITING Verified 06/13/23 18:40 nitrofurantoin Allergy Unknown cyclic Verified 06/13/23 18:40 vomitting abatacept [From Orencia] Allergy Swelling Verified 06/13/23 18:40 Sulfa (Sulfonamide AdvReac Unknown SOB, Verified 06/13/23 18:40 Antibiotics) Tembling, LE weakness trimethoprim [From BACTRIM] AdvReac Unknown NUMBNESS Verified 06/13/23 18:40 IN BLE, VOMITING Review of Systems Review of Systems: Yes all other systems are reviewed and are negative PMFSH Past Medical History Attestation statement: The following information was validated with the patient. Source: old records reviewed Medical History Flexor tenosynovitis of thumb History of COVID-19 Long-term use of immunosuppressant medication Seropositive rheumatoid arthritis Hypotension Encounter for screening for endocrine disorder H/O renal calculi Symptomatic cholelithiasis Migraines Rheumatoid arthritis Kidney stones Surgical History History of cholecystectomy Hx of tubal ligation History of laparoscopic cholecystectomy Hx of cystoscopy Hx of colonoscopy Social History Social History Household Members: Children Alcohol intake: never Comment: pt. sleeping Patient Tobacco Use Status: Never used Tobacco e-Cigarette/Vaping Use: Never Used Substance Use Type: Marijuana Advance Directives: No Advance Directives Information Provided: No service: No Current occupational status: unemployed Physical Exam Vital Signs: Vital Signs: Last Vital Signs Temp 98.1 F 06/13/23 23:27 Pulse 81 06/13/23 23:27 Resp 20 06/13/23 23:27 BP 114/70 06/13/23 23:27 Pulse Ox 98 06/13/23 23:27 O2 Del Method Room Air 06/13/23 23:27 BMI result Body Mass Index 30.2 Appearance: Alert.?Oriented to person, place and time. No acute distress.?Normal affect. Eyes: Pupils equal, round and reactive to light.? ENT: Pharynx normal.?? Neck: Normal inspection.? Neck supple.?? CVS: Heart sounds normal. Normal heart rate and rhythm.? Pulses normal.?? Respiratory: No respiratory distress.? Lung sounds clear to auscultation bilaterally?? Abdomen: Soft and non-tender. Normoactive bowel sounds. ?? Skin: Skin warm and dry.? Normal skin color.? Extremities: No lower extremity edema.? No calf ttp? Neuro: Moves all extremities spontaneously. Sensation intact bilaterally. No focal neuro deficits. Ambulates with normal steady gait. Course Course Course Narrative: KAHLIL- 18:41PM - 33yoF presenting to the ER with complaints of midsternal chest pain that started 1 week ago although has been worse today. She endorses lightheadedness and nausea She reports she took Motrin provided no symptomatic relief. Reports she recently traveled to [place]. She denies history of cancer, being on any control or recent immobilization or any other symptoms complaints or concerns at this time Plan: Labs, EKG, chest x-ray and patient will be sent back to the waiting room to be evaluated the ED. Medical Decision Making Medical Decision Making MDM Narrative: Patient is a 33-year-old female presents to the emergency department for evaluation of chest pain and shortness breath as per HPI. At the time my examination she appears overall well, nontoxic, afebrile. No tachypnea or hypoxia, presented initially mildly tachycardic. Reviewed labs obtained prior to my assumption of care; mild leukocytosis of 11.6 without left shift suspect that this is likely inflammatory in nature due to her rheumatoid arthritis, unremarkable CMP. High sensitive troponin below detectable limits, given duration of symptoms do not suspect this is pain secondary to ACS, EKG reveals a normal sinus rhythm with ventricular rate of 95, QTC 449, no ST depression, no ST elevation, T-wave inversion in lead III as seen on prior in 2020. Viral testing revealing positive COVID-19 which is most likely etiology for symptoms. D-dimer negative unlikely PE. Given duration of symptoms would not be a candidate to start Paxlovid. Advised outpatient follow-up with PCP, worrisome signs and symptoms that would warrant re-evaluation in the emergency department. All questions answered. Stable for discharge. Differential Diagnosis Differential Diagnoses: The differential diagnosis associated with the presentation includes (ACS, PE, muscular pain, GERD, viral syndrome) Admission/Observation Consideration of admission/observation: Escalation of care including admission/observation considered (See narrative above) Lab Data MDM Lab Attestation statement: I reviewed the patient's lab results. (See narrative above) 06/13/23 18:40 06/13/23 18:40 Labs: Lab Results 06/13/23 06/13/23 Range/Units 18:40 22:49 WBC 11.6 H (4.8-10.8) X10*3/uL RBC 4.11 L (4.20-5.50) X10*6/uL Hgb 12.4 (12.0-16.0) g/dl Hct 36.1 L (37.0-47.0) % MCV 87.8 (80.0-98.0) fL MCH 30.2 (27.0-33.0) pg MCHC 34.3 (31.0-35.0) g/dl RDW 11.9 (11.0-16.0) % Plt Count 400 D (160-400) X10*3/uL MPV 10.3 (9.4-12.3) fL Immature Gran % (Auto) 0.3 (0.0-0.4) % Neut % (Auto) 62.6 (45-73) % Lymph % (Auto) 26.8 (20-40) % [place] % (Auto) 6.2 (2-11) % Eos % (Auto) 3.6 (0-4) % Baso % (Auto) 0.5 (0-2) % Lymph # (Auto) 3.1 (1.2-4.9) X10*3/uL [place] # (Auto) 0.7 (0.1-1.2) X10*3/uL Eos # (Auto) 0.4 (0.0-0.4) X10*3/uL Baso # (Auto) 0.1 (0.0-0.2) X10*3/uL Abs Immat Gran (auto) 0.03 (0.00-0.03) X10*3/uL Absolute Neuts (auto) 7.3 (2.0-8.3) x10*3/uL Absolute Nucleated RBC 0.000 (0.0-0.012) X10*3/uL Nucleated RBC % (auto) 0.0 (0.0-0.2) /100WBC D-Dimer High Sensitivty < 150 NG/ML Sodium 139 (135-145) mmol/L Potassium 3.9 (3.3-5.1) mmol/L Chloride 104 (96-108) mmol/L Carbon Dioxide 27 (22-29) mmol/L Anion Gap 12 (12-20) BUN 10 (9-16) mg/dL Creatinine 0.67 (0.5-1.4) mg/dL Estim Creat Clear Calc 109.8 Estimated GFR > 60 Random Glucose 97 (60-115) mg/dL Calcium 10.0 D (8.4-10.2) mg/dL Magnesium 2.0 (1.6-2.6) mg/dL Total Bilirubin 0.2 (0.0-1.0) mg/dL Direct Bilirubin < 0.2 (0.0-0.5) mg/dL AST 17 (5-31) U/L ALT 10 (0-31) U/L Alkaline Phosphatase 75 (39-117) U/L Troponin I High Sens < 2.7 (<3.5-17.0) ng/L Total Protein 7.5 (6.5-8.0) g/dL Albumin 4.2 (3.5-5.0) g/dL Lipase 35 (8-78) U/L Beta HCG, Quant < 2 mIU/mL Influenza Type A (PCR) NEGATIVE (Negative) Influenza Type B (PCR) NEGATIVE (Negative) RSV RNA Qual (PCR) NEGATIVE (Negative) SARS-CoV-2 RNA (RT-PCR) POSITIVE A (Negative) Independent Interpretation I performed an independent interpretation of an: Plain X-Ray (No pneumonia or pleural effusion) Radiology Impression Discussion of test interpretation with radiology: I have reviewed the radiologist's reading. Radiologist Impression: XR/XR chest 2V IMPRESSION: Unremarkable examination. External Record Review External record reviewed: Outpatient record Tests considered The following testing was considered but not selected: CT chest deferred, unlikely PE, negative dimer Prescription Management I considered prescription management with: Antiviral (See narrative above) Discharge Plan Discharge Clinical Impression: COVID-19 Patient Disposition: Home, Self-Care Instructions: COVID-19 (Coronavirus Disease 2019) (ED) Prescriptions: No Action Actemra 162 mg/0.9 mL syringe 162 mg subcut QWEEK Qty: 3.6 5RF Hold Instructions: Resume on 04/15/20. diclofenac sodium 1 % gel 2 g topical QID PRN (Reason: Hand Pain ) Qty: 100 1RF Rx Instructions: apply to hand; for hand includes palm/fingers/back of hand ibuprofen 400 mg tablet 400 mg PO Q6H PRN (Reason: Pain) meclizine 25 mg tablet 25 mg PO DAILY PRN (Reason: Dizziness) omeprazole 20 mg capsule,delayed release(DR/EC) 20 mg PO DAILY PRN cyclobenzaprine 5 mg tablet 5 mg PO BEDTIME PRN lidocaine [Lidoderm] 5 % adhesive patch,medicated 1 patch topical DAILY fluticasone propionate 50 mcg/actuation spray,suspension intranasal cetirizine 10 mg tablet 10 mg PO QAM prednisone 2.5 mg tablet See Rx Instructions PO DAILY Qty: 60 0RF Rx Instructions: 4 tablets per x 5 days, 3 tablets x 5 days then 2 tablets x 5 days (DME) finger splint Misc See Rx Instructions .Route Qty: 1 0RF Rx Instructions: As directed Referrals: Physician,Unknown J [Primary Care Provider] - Stand Alone Forms: Work/School Release
[2023-06-13 18:45] LABS: MANUAL DIFF FLAG NO
[2023-06-13 18:46] LABS: Basophils Absolute Auto 0.1 X10*3/uL (0.0-0.2); Basophils Percent Auto 0.5 % (0-2); Eosinophils Absolute Auto 0.4 X10*3/uL (0.0-0.4); Eosinophils Percent Auto 3.6 % (0-4); Hematocrit 36.1 % (37.0-47.0); Hemoglobin 12.4 g/dl (12.0-16.0); Imm Gran Abs Auto 0.03 X10*3/uL (0.00-0.03); Imm Gran Pct Auto 0.3 % (0.0-0.4); Lymphocytes Absolute Auto 3.1 X10*3/uL (1.2-4.9); Lymphocytes Percent Auto 26.8 % (20-40); Mean Corpuscular HGB Conc 34.3 g/dl (31.0-35.0); Mean Corpuscular Hemoglobin 30.2 pg (27.0-33.0); Mean Corpuscular Volume 87.8 fL (80.0-98.0); Mean Platelet Volume 10.3 fL (9.4-12.3); Monocytes Absolute Auto 0.7 X10*3/uL (0.1-1.2); Monocytes Percent Auto 6.2 % (2-11); Neutrophils Absolute Auto 7.3 x10*3/uL (2.0-8.3); Neutrophils Percent Auto 62.6 % (45-73); Platelet Count 400 X10*3/uL (160-400); Red Blood Count 4.11 X10*6/uL (4.20-5.50); Red Cell Distribution Width 11.9 % (11.0-16.0); White Blood Count 11.6 X10*3/uL (4.8-10.8)
[2023-06-13 19:09] LABS: Alanine Aminotransferase 10 U/L (0-31); Albumin Level 4.2 g/dL (3.5-5.0); Alkaline Phosphatase 75 U/L (39-117); Anion Gap 12 (12-20); Aspartate Amino Transferase 17 U/L (5-31); Bilirubin Direct < 0.2 mg/dL (0.0-0.5); Bilirubin Total 0.2 mg/dL (0.0-1.0); Blood Urea Nitrogen 10 mg/dL (9-16); Carbon Dioxide 27 mmol/L (22-29); Chloride 104 mmol/L (96-108); Creatinine Clr Calc Pharmacy 109.8; Estimated Glomerular Filt Rate > 60; Glucose Random 97 mg/dL (60-115); HCG Quantitative < 2 mIU/mL; Lipase 35 U/L (8-78); Potassium 3.9 mmol/L (3.3-5.1); Sodium 139 mmol/L (135-145); Total Protein 7.5 g/dL (6.5-8.0)
[2023-06-13 19:10] LABS: Troponin-I High Sensitivity < 2.7 ng/L (<3.5-17.0)
[2023-06-13 20:17] VITALS: BP 130/83; PULSE 91; RESP 18; TEMP 37; O2SAT 95
[2023-06-13 23:16] LABS: D Dimer High Sensitivity < 150 NG/ML
[2023-06-13 23:27] VITALS: BP 114/70; PULSE 81; RESP 20; TEMP 36.7; O2SAT 98
[2023-06-13 23:38] LABS: Influenza A PCR NEGATIVE (Negative); Influenza B PCR NEGATIVE (Negative); Resp Syncy Virus RNA Qual PCR NEGATIVE (Negative); SARS COV2 PCR INHOUSE POSITIVE (Negative)
== END 2023-06-14 00:01 | disposition home or self-care (01) ==
PROVIDERS: Nurse Practitioner Family; Physician Assistant Medical; Emergency Provider Emergency Medicine Emergency Medical Services
DX: U07.1 COVID-19 (principal); M05.9 Rheumatoid arthritis with rheumatoid factor, unspecified
CPT/HCPCS: 0241U; 36415; 71046; 80053; 82248; 83690; 83735; 84484; 84702; 85025; 85379; 93005; 99283; 99285

== ENCOUNTER → 2023-06-13 18:20 | Outpatient (BNV) | payer MEDICAID, SELFPAY | PROVIDERS: Emergency Provider Emergency Medicine Emergency Medical Services; Visit Provider Internal Medicine Cardiovascular Disease | DX: R07.9 Chest pain, unspecified (principal) | CPT/HCPCS: 93010 ==

== ENCOUNTER 2023-07-26 09:58 | Outpatient (REF) | payer MEDICAID, SELFPAY ==
[2023-07-26 13:18] LABS: TSH reflex Free T4 2.18 uIU/mL (0.32-4.0)
== END 2023-07-26 09:59 | disposition home or self-care (01) ==
LOC: HO.HHCL 09:58
PROVIDERS: Visit Provider Nurse Practitioner Family
DX: R00.2 Palpitations (principal)
CPT/HCPCS: 36415; 84443

== ENCOUNTER 2023-08-16 13:30 | Emergency (ER) | payer MEDICAID, SELFPAY ==
--- NOTE | ~2023-08-16 | CT_ITS ---
EXAMINATION: CT ABDOMEN AND PELVIS WITHOUT CONTRAST CLINICAL INFORMATION: Left-sided abdominal pain. History of kidney stones COMPARISON: CT scan abdomen pelvis February 12, 2021 TECHNIQUE: Multidetector volumetric imaging was performed from the superior aspect of the liver through the pubic symphysis. Sagittal and coronal reformatted images were obtained on the technologist's workstation. This CT examination was performed using dose optimization techniques as appropriate, variously including the following: *Automated exposure control *Adjustment of mA and/or kV according to patient size (this includes techniques or standardized protocols for targeted exams where dose is matched to indication/reason for exam; i.e. extremities or head) *Use of iterative reconstruction technique DLP: 540 mGy-cm FINDINGS: LUNG BASES: The visualized lung bases are unremarkable. LIVER, GALLBLADDER, AND BILIARY TREE: The liver is normal in size, shape, and attenuation. No focal hepatic lesion or biliary ductal dilatation is present. Study cholecystectomy PANCREAS: Unremarkable. SPLEEN: Unremarkable. ADRENAL GLANDS: Unremarkable. KIDNEYS AND URETERS: Left kidney: Nonobstructive 1 mm stone in the upper pole left kidney. Mild hydronephrosis of left kidney with distention renal pelvis calyces and proximal left ureter. There is a obstructing stone in the proximal left ureter at the ureter pelvic junction measuring 3 mm. Coronal image 43/87 series 5. Right kidney: There is no renal or ureteral calculi. There is no hydronephrosis BLADDER: Unremarkable. GASTROINTESTINAL TRACT: The small and large bowel are unremarkable. The appendix is unremarkable. ABDOMINAL WALL: No significant hernia is appreciated. LYMPH NODES: Normal. VASCULAR: Unremarkable. PELVIC VISCERA: Unremarkable. OSSEOUS STRUCTURES: Unremarkable. CT/CT abdomen pelvis wo IV con IMPRESSION: Mild hydronephrosis of left kidney due to an obstructing 3 mm stone in the proximal left ureter at the ureteropelvic junction. Fleischner guidelines were followed.
[2023-08-16 14:39] VITALS: BP 153/93; PULSE 97; RESP 18; TEMP 36.7; O2SAT 99; BMI 30.4
--- NOTE | 2023-08-16 14:45 | ED.ABDPAIN ---
HPI - Abdominal Pain General Chief Complaint: Abdominal Pain Stated Complaint: Kidney stone? Time Seen by Provider: 08/16/23 16:44 Source: patient Mode of arrival: ambulatory Limitations: no limitations History of Present Illness HPI narrative: 33-year-old female with history of kidney stones presents to the ER for evaluation of left lower abdominal pain that started acutely an hour and a half ago. She reports nausea but no vomiting. She reports the pain is 10/10 and feels very similar to her prior kidney stone. No urinary symptoms. She took ibuprofen 800 mg with no improvement. No diarrhea, constipation or fevers. MD elicited complaint: abdominal pain Pertinent past history: kidney stones Onset (ago): hour(s) Pain Consistency: constant Location: LLQ Severity: severe Pain scale (0-10): 10 Quality: sharp Radiation: L flank Migration to: no migration Exacerbating factors: nothing Relieving factors: nothing Context: history of similar episodes Associated symptoms: nausea Treatments prior to arrival: NSAIDs Related Data Home Medications ?Medication ?Instructions ?Recorded ?Confirmed ibuprofen 400 mg tablet 400 mg PO Q6H PRN Pain 09/04/20 07/21/22 meclizine 25 mg tablet 25 mg PO DAILY PRN Dizziness 09/04/20 07/21/22 cyclobenzaprine 5 mg tablet 5 mg PO BEDTIME PRN 08/03/21 07/21/22 omeprazole 20 mg capsule,delayed 20 mg PO DAILY PRN 08/03/21 07/21/22 release cetirizine 10 mg tablet 10 mg PO QAM 12/20/22 fluticasone propionate 50 intranasal 12/20/22 mcg/actuation nasal spray,suspension lidocaine 5 % topical patch 1 patch topical DAILY 12/20/22 (Lidoderm) Previous Rx's ?Medication ?Instructions ?Recorded tocilizumab 162 mg/0.9 mL 162 mg (0.9 mL) subcut QWEEK #3.6 02/04/23 subcutaneous syringe (Actemra) mL finger splint #1 ea 05/06/23 prednisone 2.5 mg tablet See Rx Instructions PO DAILY #60 05/06/23 tabs diclofenac sodium 1 % topical gel 2 g topical QID PRN Hand Pain 06/02/23 #100 grams ibuprofen 600 mg tablet 600 mg PO Q8H PRN pain #20 tabs 08/16/23 ondansetron 4 mg disintegrating 4 mg PO Q8H PRN nausea and 08/16/23 tablet vomiting #10 tabs oxycodone 5 mg tablet 5 mg PO Q8H PRN severe pain (scale 08/16/23 score 7-10) #5 tabs prednisone 20 mg tablet 40 mg (2 x 20 mg) PO DAILY #6 tabs 08/16/23 tamsulosin 0.4 mg capsule (Flomax) 0.4 mg PO DAILY #20 caps 08/16/23 Allergies Allergy/AdvReac Type Severity Reaction Status Date / Time shrimp Allergy Mild SWELLING Verified 08/16/23 14:42 gabapentin [GABAPENTIN] Allergy Unknown COULDNT Verified 08/16/23 14:42 FEEL LEGS , numbness methotrexate [METHOTREXATE] Allergy Unknown VOMITING Verified 08/16/23 14:42 nitrofurantoin Allergy Unknown cyclic Verified 08/16/23 14:42 vomitting abatacept [From Orencia] Allergy Swelling Verified 08/16/23 14:42 Sulfa (Sulfonamide AdvReac Unknown SOB, Verified 08/16/23 14:42 Antibiotics) Tembling, LE weakness trimethoprim [From BACTRIM] AdvReac Unknown NUMBNESS Verified 08/16/23 14:42 IN BLE, VOMITING Review of Systems Review of Systems Yes all other systems are reviewed and are negative PMFSH Past Medical History Medical History Flexor tenosynovitis of thumb History of COVID-19 Long-term use of immunosuppressant medication Seropositive rheumatoid arthritis Hypotension Encounter for screening for endocrine disorder H/O renal calculi Symptomatic cholelithiasis Migraines Rheumatoid arthritis Kidney stones Surgical History History of cholecystectomy Hx of tubal ligation History of laparoscopic cholecystectomy Hx of cystoscopy Hx of colonoscopy Social History Social History Household Members: Children Alcohol intake: never Comment: pt. sleeping Patient Tobacco Use Status: Never used Tobacco e-Cigarette/Vaping Use: Never Used Substance Use Type: Marijuana Advance Directives: No Advance Directives Information Provided: No Do you have a plan to hurt others: No Plan service: No Current occupational status: unemployed Physical Exam ED Vital Signs: Vital Signs - 24 hr 08/16/23 14:39 08/16/23 16:50 Temperature 98.1 F 98.1 F Pulse Rate 97 97 Respiratory Rate 18 18 Blood Pressure 153/93 H 153/93 H Pulse Oximetry 99 99 Oxygen Delivery Method Room Air Room Air BMI result Body Mass Index 30.4 Appearance: Alert. Oriented X3. very uncomfortable Head: normocephalic, atraumatic. Eyes: Pupils equal, round and reactive to light. ENT: Pharynx normal. No tonsillar swelling or exudate. Neck: Normal inspection. Neck supple. CVS: Normal heart rate and rhythm. Pulses normal. Respiratory: No respiratory distress. Breath sounds normal. Abdomen: Soft and nontender. +BS x4. +left flank tenderness. LLQ tenderness Skin: Skin warm and dry. Normal skin color. Normal skin turgor. No rashes. Extremities: No lower extremity edema. No joint swelling. Neuro/psych: Oriented X 3. No motor deficit. No sensory deficit. CN II-XII intact. Normal speech and cognition. Course Course Course Narrative: This is a Rapid Medical Examination (RME) performed by Russ Cross PA-C in triage. Full HPI, ROS, assessment and treatment plan per primary provider in the Main ED. 33 y/o female with history of RA, history of kidney stones presenting with acute onset of left sided abd pain that started today at 1pm. +nausea but no vomiting. no urinary symptoms. feels similar to prior stones. on arrival patient hunched over in triage, appears uncomfortable. awake and alert. +cva tenderness on the left, LLQ tenderness. Plan: labs, UA, CT abd/pelvis Medical Decision Making Medical Decision Making MDM Narrative: 33-year-old female with history of kidney stones presenting to the ER for evaluation of acute onset of severe left lower quadrant abdominal pain associated with nausea. Feels similar to when she had kidney stones in the past. She took Motrin with no relief in her pain. On arrival to the ER she is uncomfortable appearing, hunched over in the wheelchair. She was hypertensive and slightly tachycardic. She had no fever. She had tenderness on left lower quadrant and left flank. Labs show leukocytosis of 11.5. She is normal renal function. Urinalysis is consistent with blood but no evidence of infection. It is contaminated sample. CT scan of her abdomen showed an obstructing 3 mm stone in the proximal ureter. Mild hydro. Patient brought back into the triage room and discussed the results. Patient would like to be discharged home with Flomax and pain control. She would like to follow-up with urology here. Medications have been sent to her pharmacy heat with plan to return if symptoms worsen despite these meds. Patient is in agreement will be discharged from triage. Stable for discharge home Differential Diagnosis Differential Diagnoses: The differential diagnosis associated with the presentation includes obstructing kidney stone w/ hydronephrosis, kidney stone, UTI, pyelonephritis, GHASSAN, colitis, gastroenteritis Admission/Observation Consideration of admission/observation: Escalation of care including admission/observation considered Lab Data MDM Lab Attestation statement: I reviewed the patient's lab results. 08/16/23 14:56 08/16/23 14:56 Labs: Lab Results 08/16/23 Range/Units 14:56 WBC 11.5 H (4.8-10.8) X10*3/uL RBC 4.17 L (4.20-5.50) X10*6/uL Hgb 12.4 (12.0-16.0) g/dl Hct 36.3 L (37.0-47.0) % MCV 87.1 (80.0-98.0) fL MCH 29.7 (27.0-33.0) pg MCHC 34.2 (31.0-35.0) g/dl RDW 11.9 (11.0-16.0) % Plt Count 402 H (160-400) X10*3/uL MPV 10.3 (9.4-12.3) fL Immature Gran % (Auto) 0.3 (0.0-0.4) % Neut % (Auto) 73.4 H (45-73) % Lymph % (Auto) 18.1 L (20-40) % Branch % (Auto) 5.3 (2-11) % Eos % (Auto) 2.5 (0-4) % Baso % (Auto) 0.4 (0-2) % Lymph # (Auto) 2.1 (1.2-4.9) X10*3/uL [place] # (Auto) 0.6 (0.1-1.2) X10*3/uL Eos # (Auto) 0.3 (0.0-0.4) X10*3/uL Baso # (Auto) 0.1 (0.0-0.2) X10*3/uL Abs Immat Gran (auto) 0.04 H (0.00-0.03) X10*3/uL Absolute Neuts (auto) 8.4 H (2.0-8.3) x10*3/uL Absolute Nucleated RBC 0.000 (0.0-0.012) X10*3/uL Nucleated RBC % (auto) 0.0 (0.0-0.2) /100WBC Sodium 138 (135-145) mmol/L Potassium 3.5 (3.3-5.1) mmol/L Chloride 105 (96-108) mmol/L Carbon Dioxide 23 (22-29) mmol/L Anion Gap 14 (12-20) BUN 11 (9-16) mg/dL Creatinine 0.71 (0.5-1.4) mg/dL Estim Creat Clear Calc 104.0 Estimated GFR > 60 Random Glucose 94 (60-115) mg/dL Calcium 9.5 (8.4-10.2) mg/dL Magnesium 1.9 (1.6-2.6) mg/dL Total Bilirubin 0.3 (0.0-1.0) mg/dL Direct Bilirubin 0.1 (0.0-0.5) mg/dL AST 16 (5-31) U/L ALT 9 (0-31) U/L Alkaline Phosphatase 76 (39-117) U/L Total Protein 7.7 (6.5-8.0) g/dL Albumin 4.3 (3.5-5.0) g/dL Beta HCG, Quant < 2 mIU/mL Urine Color Dark Yellow Urine Appearance Turbid Urine pH 5.5 (5.0-9.0) Ur Specific [place] >= 1.030 H (1.005-1.025) Urine Protein 100 (2+) H (Neg-Trace) mg/dL Urine Glucose (UA) Negative (Negative) mg/dL Urine Ketones Trace (Negative) mg/dL Urine Blood Large (3+) H (Negative) Urine Nitrite Negative (Negative) Ur Leukocyte Esterase Trace H (Negative) Urine RBC >20 H (0-2) /HPF Urine WBC 6-10 H (0-5) /HPF Ur Squamous Epith Cells >20 (0-2) /HPF Urine Bacteria 1+ (None Seen) Hyaline Casts 3-5 (0-2) /LPF Prescription Management I considered prescription management with: Pain Medication and Antibiotic Medications Administered Discontinued Medications Generic Name Dose Route Start Last Admin Trade Name Freq PRN Reason Stop Dose Admin Acetaminophen 975 mg 08/16/23 16:39 08/16/23 16:41 Acetaminophen 325 Mg Tablet PO 08/16/23 16:40 975 mg ONCE ONE Administration Ondansetron HCl 4 mg 08/16/23 16:39 08/16/23 16:41 Ondansetron Odt 4 Mg Tab.Rapdis TRANSLINGU 08/16/23 16:40 4 mg ONCE ONE Administration Critical Care Time Critical Care Time Critical Care Time: No Discharge Plan Discharge Clinical Impression: Hydronephrosis with renal calculous obstruction Patient Disposition: Home, Self-Care Instructions: Ureteral Stones (ED) Additional Instructions: Your CT scan showed a 3 mm stone in your left ureter. You have no urinary tract infection. Take the prescribed medications as directed. If you take oxycodone for severe pain, do not drive after taking this medication. Follow-up with Urology. If you develop new or worsening symptoms call 911 or come back to the ER for further evaluation. Prescriptions: New tamsulosin [Flomax] 0.4 mg capsule 0.4 mg PO DAILY Qty: 20 0RF ibuprofen 600 mg tablet 600 mg PO Q8H PRN (Reason: pain) Qty: 20 0RF ondansetron 4 mg tablet,disintegrating 4 mg PO Q8H PRN (Reason: nausea and vomiting) Qty: 10 0RF prednisone 20 mg tablet 40 mg PO DAILY Qty: 6 0RF oxycodone 5 mg tablet 5 mg PO Q8H PRN (Reason: severe pain (scale score 7-10)) Qty: 5 0RF Rx Instructions: Partial Fill upon patient request. No Action Actemra 162 mg/0.9 mL syringe 162 mg subcut QWEEK Qty: 3.6 5RF Hold Instructions: Resume on 04/15/20. diclofenac sodium 1 % gel 2 g topical QID PRN (Reason: Hand Pain ) Qty: 100 1RF Rx Instructions: apply to hand; for hand includes palm/fingers/back of hand ibuprofen 400 mg tablet 400 mg PO Q6H PRN (Reason: Pain) meclizine 25 mg tablet 25 mg PO DAILY PRN (Reason: Dizziness) omeprazole 20 mg capsule,delayed release(DR/EC) 20 mg PO DAILY PRN cyclobenzaprine 5 mg tablet 5 mg PO BEDTIME PRN lidocaine [Lidoderm] 5 % adhesive patch,medicated 1 patch topical DAILY fluticasone propionate 50 mcg/actuation spray,suspension intranasal cetirizine 10 mg tablet 10 mg PO QAM prednisone 2.5 mg tablet See Rx Instructions PO DAILY Qty: 60 0RF Rx Instructions: 4 tablets per x 5 days, 3 tablets x 5 days then 2 tablets x 5 days (DME) finger splint Misc See Rx Instructions .Route Qty: 1 0RF Rx Instructions: As directed Referrals: [facility] [Provider Group] (CT/CT abdomen pelvis wo IV con IMPRESSION: Mild hydronephrosis of left kidney due to an obstructing 3 mm stone in the proximal left ureter at the ureteropelvic junction.) Sharon Mcmahon MD [Primary Care Provider] - Stand Alone Forms: Work/School Release Interventions: ED Discharge Assessment Last Done: 08/16/23 16:50 Discharge Date/Time: 08/16/23 16:50 Print Language: Macedonian
[2023-08-16 15:05] LABS: MANUAL DIFF FLAG NO
[2023-08-16 15:07] LABS: Basophils Absolute Auto 0.1 X10*3/uL (0.0-0.2); Basophils Percent Auto 0.4 % (0-2); Eosinophils Absolute Auto 0.3 X10*3/uL (0.0-0.4); Eosinophils Percent Auto 2.5 % (0-4); Hematocrit 36.3 % (37.0-47.0); Hemoglobin 12.4 g/dl (12.0-16.0); Imm Gran Abs Auto 0.04 X10*3/uL (0.00-0.03); Imm Gran Pct Auto 0.3 % (0.0-0.4); Lymphocytes Absolute Auto 2.1 X10*3/uL (1.2-4.9); Lymphocytes Percent Auto 18.1 % (20-40); Mean Corpuscular HGB Conc 34.2 g/dl (31.0-35.0); Mean Corpuscular Hemoglobin 29.7 pg (27.0-33.0); Mean Corpuscular Volume 87.1 fL (80.0-98.0); Mean Platelet Volume 10.3 fL (9.4-12.3); Monocytes Absolute Auto 0.6 X10*3/uL (0.1-1.2); Monocytes Percent Auto 5.3 % (2-11); Neutrophils Absolute Auto 8.4 x10*3/uL (2.0-8.3); Neutrophils Percent Auto 73.4 % (45-73); Platelet Count 402 X10*3/uL (160-400); Red Blood Count 4.17 X10*6/uL (4.20-5.50); Red Cell Distribution Width 11.9 % (11.0-16.0); White Blood Count 11.5 X10*3/uL (4.8-10.8)
[2023-08-16 15:11] LABS: Appearance Urine Turbid; Color Urine Dark Yellow; Glucose Urine UA Negative (Negative); Leukocyte Esterase Urine Trace (Negative); Nitrite Urine Negative (Negative); PH 5.5 (5.0-9.0); Specific Gravity - Urine >= 1.030 (1.005-1.025); UMIC TRIGGER UACC YES; Urine Blood Large (3+) (Negative); Urine Ketones Trace mg/dL (Negative); Urine Protein 100 (2+) mg/dL (Neg-Trace)
[2023-08-16 15:23] LABS: Bacteria Urine 1+ (None Seen); RBC Urine >20 /HPF (0-2); Squamous Epithelial Cell Urine >20 /HPF (0-2); UACC Culture Trigger YES
[2023-08-16 15:32] LABS: Alanine Aminotransferase 9 U/L (0-31); Albumin Level 4.3 g/dL (3.5-5.0); Alkaline Phosphatase 76 U/L (39-117); Anion Gap 14 (12-20); Aspartate Amino Transferase 16 U/L (5-31); Bilirubin Direct 0.1 mg/dL (0.0-0.5); Bilirubin Total 0.3 mg/dL (0.0-1.0); Blood Urea Nitrogen 11 mg/dL (9-16); Calcium 9.5 mg/dL (8.4-10.2); Carbon Dioxide 23 mmol/L (22-29); Chloride 105 mmol/L (96-108); Estimated Glomerular Filt Rate > 60; Glucose Random 94 mg/dL (60-115); Magnesium 1.9 mg/dL (1.6-2.6); Potassium 3.5 mmol/L (3.3-5.1); Sodium 138 mmol/L (135-145); Total Protein 7.7 g/dL (6.5-8.0)
[2023-08-16 15:47] LABS: HCG Quantitative < 2 mIU/mL
[2023-08-16] MEDS: Acetaminophen 325 MG TABLET 975 MG PO (16:41)
[2023-08-16] MEDS: Ondansetron ODT 4 MG TAB.RAPDIS TRANSLINGU (16:41)
[2023-08-16 16:50] VITALS: BP 153/93; PULSE 97; RESP 18; TEMP 36.7; O2SAT 99
== END 2023-08-16 16:50 | disposition home or self-care (01) ==
PROVIDERS: Physician Assistant; Emergency Provider Emergency Medicine; PCP Internal Medicine
DX: N13.2 Hydronephrosis with renal and ureteral calculous obstruction (principal); Z87.442 Personal history of urinary calculi
CPT/HCPCS: 36415; 74176; 80048; 80076; 81001; 83735; 84702; 85025; 87086; 99283; 99284

== ENCOUNTER 2023-08-29 08:08 | Outpatient (REF) | payer MEDICAID, SELFPAY ==
[2023-08-29 08:22] LABS: MANUAL DIFF FLAG NO
[2023-08-29 09:07] LABS: Basophils Percent Auto 0.4 % (0-2); Eosinophils Absolute Auto 0.4 X10*3/uL (0.0-0.4); Eosinophils Percent Auto 3.6 % (0-4); Hematocrit 36.2 % (37.0-47.0); Hemoglobin 12.2 g/dl (12.0-16.0); Imm Gran Abs Auto 0.03 X10*3/uL (0.00-0.03); Imm Gran Pct Auto 0.3 % (0.0-0.4); Lymphocytes Absolute Auto 2.2 X10*3/uL (1.2-4.9); Lymphocytes Percent Auto 22.3 % (20-40); Mean Corpuscular HGB Conc 33.7 g/dl (31.0-35.0); Mean Corpuscular Hemoglobin 29.8 pg (27.0-33.0); Mean Corpuscular Volume 88.3 fL (80.0-98.0); Mean Platelet Volume 10.7 fL (9.4-12.3); Monocytes Absolute Auto 0.5 X10*3/uL (0.1-1.2); Monocytes Percent Auto 5.6 % (2-11); Neutrophils Absolute Auto 6.6 x10*3/uL (2.0-8.3); Neutrophils Percent Auto 67.8 % (45-73); Platelet Count 358 X10*3/uL (160-400); Red Cell Distribution Width 12.2 % (11.0-16.0); White Blood Count 9.7 X10*3/uL (4.8-10.8)
[2023-08-29 09:47] LABS: Alanine Aminotransferase 12 U/L (0-31); Aspartate Amino Transferase 16 U/L (5-31); C Reactive Protein 2.43 mg/dL (< or = 0.50); Erythrocyte Sedimentation Rate 38 MM/HR (0-20); Estimated Glomerular Filt Rate > 60
[2023-08-31 08:54] LABS: Complement C3 182 mg/dL (83-193)
== END 2023-08-29 08:09 | disposition home or self-care (01) ==
LOC: HO.LAB 08:08
PROVIDERS: PCP Internal Medicine; Visit Provider Nurse Practitioner Family
DX: Z79.899 Other long term (current) drug therapy (principal); M05.9 Rheumatoid arthritis with rheumatoid factor, unspecified
CPT/HCPCS: 36415; 82565; 84450; 84460; 85025; 85652; 86140; 86160

== ENCOUNTER 2023-09-01 13:41 | Outpatient (AMB) | payer MEDICAID, SELFPAY ==
--- NOTE | 2023-09-01 13:44 | A.OFFVIS_ITS ---
Intake Visit Reasons: Nephrolithiasis with mild hydronephrosis Intake Note: New Patient is Present for Nephrolithiasis Urology Medication: None Antibiotic Allergies: Nitrofuratoin, Sulfa, Trimethroprim Blood Thinners:None Allergies shrimp Allergy (Mild, Verified 09/01/23 13:51) SWELLING gabapentin [GABAPENTIN] Allergy (Unknown, Verified 09/01/23 13:51) COULDNT FEEL LEGS , numbness methotrexate [METHOTREXATE] Allergy (Unknown, Verified 09/01/23 13:51) VOMITING nitrofurantoin Allergy (Unknown, Verified 09/01/23 13:51) cyclic vomitting abatacept [From Orencia] Allergy (Verified 09/01/23 13:51) Swelling Sulfa (Sulfonamide Antibiotics) Adverse Reaction (Unknown, Verified 09/01/23 13:51) SOB, Tembling, LE weakness trimethoprim [From BACTRIM] Adverse Reaction (Unknown, Verified 09/01/23 13:51) NUMBNESS IN BLE, VOMITING HPI Comments Details: Bridgette is a pleasant female. She is a patient of . She is seen for the following urologic conditions - nephrolithiasis Follow-up from ER visit 2 weeks ago Medical system passage Recommend six-month follow-up with [facility] and imaging Nephrolithiasis Intermittent recurrent Recent presentation to ER with right-sided flank pain CT 09/01 - Left kidney: Nonobstructive 1 mm stone in the upper pole left kidney. Mild hydronephrosis of left kidney with distention renal pelvis calyces and proximal left ureter. There is a obstructing stone in the proximal left ureter at the ureter pelvic junction measuring 3 mm PFSH Medical History Flexor tenosynovitis of thumb History of COVID-19 Long-term use of immunosuppressant medication Seropositive rheumatoid arthritis Hypotension Encounter for screening for endocrine disorder H/O renal calculi Symptomatic cholelithiasis Migraines Rheumatoid arthritis Kidney stones Surgical History History of cholecystectomy Hx of tubal ligation History of laparoscopic cholecystectomy Hx of cystoscopy Hx of colonoscopy Social History Household Members: Children Alcohol intake: never Comment: pt. sleeping Patient Tobacco Use Status: Never used Tobacco e-Cigarette/Vaping Use: Never Used Substance Use Type: Marijuana service: No Current occupational status: unemployed Female Reproductive History Menstrual Age of Menarche: 13 Review of Systems Const Denies chills and Denies fever(s) Card Reports no additional complaints and Denies syncope Resp Denies cough GI Denies abdominal pain and Denies heartburn Reports as per HPI and Denies change in libido Neuro Denies syncope Psych Denies change in libido Endo Denies change in libido Physical Exam Const General: cooperative, healthy appearing, comfortable and no acute distress Orientation/consciousness: patient oriented x3 HEENT Face and sinus: Yes normal facial exam Mouth: moist mucous membranes Neck Neck: Yes normal visual inspection, Yes full ROM and Yes trachea midline Chest Chest palpation & inspection: normal inspection of the chest Resp Effort & Inspection: normal respiratory effort, able to speak in complete sentences and no respiratory distress GI Inspection: Yes normal to inspection Back/Spine/Pelvis Cervical Spine: normal cervical lordosis Thoracic/Lumbar Spine: thoracic and lumbar spine normal to inspection Skin General skin exam: no rashes or lesions noted Neuro General: patient oriented x3, gait normal, tone normal and moves all extremities Extrem General: Yes normal to inspection and Yes capillary refill normal Assessment & Plan Assessment & Plan (1) Kidney stones: Code(s): N20.0 - Calculus of kidney Category: Medical Plan Six-month follow-up imaging and [facility] Patient Instructions: Imaging studies, laboratory and physical exam results were discussed and reviewed in detail. No major barriers to patient understanding were identified. An opportunity to ask questions regarding the treatment plan was provided. All questions were answered. The patient expressed understanding and agreement with the above treatment plan. The patient is aware they should contact our office by phone for worsening of their current condition or the appearance of new urologic symptoms. Compliance is encouraged with any medications and followup testing that is ordered. It is a privilege to participate in the urologic care of your patient. If you have any questions or concerns regarding treatment for the above conditions, or other urologic issues, please do not hesitate to contact me. The office telephone contact is [phone]. This note is constructed using voice recognition software. While every effort has been made to ensure accuracy button breaker operator errors may have been included. Yours sincerely, Dr Yoni Topete MD, [facility] [place] - Urology Providers of Expert, Compassionate Care for the Genitourinary System Coding Level of Care Code New Pt Level 3 (27891) Diagnoses Kidney stones N20.0
== END 2023-09-01 14:08 | disposition home or self-care (01) ==
PROVIDERS: PCP Internal Medicine; Visit Provider Urology
DX: N20.0 Calculus of kidney (principal)
CPT/HCPCS: 99203

== ENCOUNTER → 2023-09-01 13:41 | Outpatient (BNVA) | payer MEDICAID, SELFPAY | PROVIDERS: PCP Internal Medicine; Visit Provider Urology | DX: N13.0 Hydronephrosis with ureteropelvic junction obstruction (principal); N13.2 Hydronephrosis with renal and ureteral calculous obstruction | CPT/HCPCS: 99202 ==

== ENCOUNTER 2023-10-12 10:01 | Outpatient (REF) | payer MEDICAID, SELFPAY ==
[2023-10-12 11:52] LABS: Appearance Urine Cloudy; Color Urine Yellow; Glucose Urine UA Negative (Negative); Leukocyte Esterase Urine Small (1+) (Negative); Nitrite Urine Negative (Negative); Specific Gravity - Urine 1.015 (1.005-1.025); UMIC TRIGGER UA YES; Urine Blood Negative (Negative); Urine Ketones Negative (Negative); Urine Protein Negative (Neg-Trace)
[2023-10-12 11:57] LABS: Bacteria Urine 2+ (None Seen); Hyaline Casts Urine 0-2 /LPF (0-2); RBC Urine 0-2 /HPF (0-2)
== END 2023-10-12 10:02 | disposition home or self-care (01) ==
LOC: HO.LAB 10:01
PROVIDERS: PCP Internal Medicine; Visit Provider Urology
DX: N20.0 Calculus of kidney (principal)
CPT/HCPCS: 81001; 87086

== ENCOUNTER 2023-10-18 10:18 | Outpatient (REF) | payer MEDICAID, SELFPAY ==
--- NOTE | ~2023-10-18 | XR_ITS ---
EXAMINATION: XR SHOULDER, RIGHT CLINICAL INFORMATION: Patient states no accident or injury, right shoulder pain is worsening started and arm pain now radiating towards the shoulder blade and COMPARISON: Right scapula 01/16/2022 TECHNIQUE: 6 views of the right shoulder. FINDINGS: The distal aspect of the clavicle is somewhat superiorly displaced relative to the acromion, suggestive of possible ligamentous/soft tissue injury. Mild degenerative changes in the glenohumeral joint. Possible tiny calcification/ossification along the inferior aspect of the glenohumeral joint. Glenohumeral alignment preserved. XR/XR shoulder RT min 2V IMPRESSION: 1. The distal aspect of the clavicle is somewhat superiorly displaced relative to the acromion, suggestive of possible ligamentous/soft tissue injury. 2. Mild degenerative changes in the glenohumeral joint. Possible tiny calcification/ossification along the inferior aspect of the glenohumeral joint. Correlation with clinical exam and possible additional imaging with CT scan or MRI recommended This study was presented today November 01, 2023 for interpretation. Stat results provided at this time as requested by referring provider.
== END 2023-10-18 10:19 | disposition home or self-care (01) ==
LOC: HO.HHCX 10:18
PROVIDERS: Visit Provider Internal Medicine
DX: M25.511 Pain in right shoulder (principal)
CPT/HCPCS: 73030

== ENCOUNTER 2023-11-04 09:25 | Emergency (ER) | payer MEDICAID, SELFPAY ==
[2023-11-04 09:28] VITALS: BP 142/98; PULSE 93; RESP 16; TEMP 37.1; O2SAT 97; BMI 31.2
--- NOTE | 2023-11-04 10:23 | ED.EXTPRO ---
HPI - Extremity Problem General Chief complaint: Extremity Injury, Upper Stated complaint: shoulder pain Time Seen by Provider: 11/04/23 09:59 Source: patient Mode of arrival: ambulatory Limitations: no limitations History of Present Illness HPI Narrative: Patient is a 33-year-old female who presents emergency department for evaluation of right shoulder pain. She reports onset approximately 3 years ago but has been progressively worsening. Particularly over the past month or pain has become more severe, majority of the pain is localized to the mid posterior upper scapular region, made worse with movement arm. She was evaluated by her primary care doctor, an x-ray obtained which showed inflammation arthritis? in a referral has been sent Orthopedics for further evaluation. She has trialed physical therapy in the past for her shoulder pain but this is only worsened her symptoms and ?caused flare of my rheumatoid arthritis?. She has been taking ibuprofen 600 mg, acetaminophen 1 g, and cyclobenzaprine 10 mg with only minimal improvement, she most recently took this this morning. She was prescribed a 10 day prednisone taper on 10/18/2023 with minimal improvement. She reports the pain continues to worsen and she just can not take it anymore. She denies any recent injury to the arm. She denies any numbness or tingling. She denies associated neck pain Related Data Home Medications ?Medication ?Instructions ?Recorded ?Confirmed meclizine 25 mg tablet 25 mg PO DAILY PRN Dizziness 09/04/20 07/21/22 cyclobenzaprine 5 mg tablet 5 mg PO BEDTIME PRN 08/03/21 07/21/22 omeprazole 20 mg capsule,delayed 20 mg PO DAILY PRN 08/03/21 07/21/22 release cetirizine 10 mg tablet 10 mg PO QAM 12/20/22 fluticasone propionate 50 intranasal 12/20/22 mcg/actuation nasal spray,suspension lidocaine 5 % topical patch 1 patch topical DAILY 12/20/22 (Lidoderm) Previous Rx's ?Medication ?Instructions ?Recorded finger splint #1 ea 05/06/23 diclofenac sodium 1 % topical gel 2 g topical QID PRN Hand Pain 06/02/23 #100 grams ibuprofen 600 mg tablet 600 mg PO Q8H PRN pain #20 tabs 08/16/23 ondansetron 4 mg disintegrating 4 mg PO Q8H PRN nausea and 08/16/23 tablet vomiting #10 tabs prednisone 20 mg tablet 40 mg (2 x 20 mg) PO DAILY #6 tabs 08/16/23 tamsulosin 0.4 mg capsule (Flomax) 0.4 mg PO DAILY #20 caps 08/16/23 prednisone 5 mg tablet See Rx Instructions PO DAILY #45 09/12/23 tabs Actemra 162 mg/0.9 mL subcutaneous 162 mg (0.9 mL) subcut QWEEK #3.6 10/10/23 syringe (tocilizumab) mL doxycycline monohydrate 100 mg 100 mg PO BID 10 days #20 tabs 10/14/23 tablet oxycodone 5 mg tablet 5 mg PO Q6H PRN pain #10 tabs 11/04/23 Allergies Allergy/AdvReac Type Severity Reaction Status Date / Time shrimp Allergy Mild SWELLING Verified 11/04/23 09:31 gabapentin [GABAPENTIN] Allergy Unknown COULDNT Verified 11/04/23 09:31 FEEL LEGS , numbness methotrexate [METHOTREXATE] Allergy Unknown VOMITING Verified 11/04/23 09:31 nitrofurantoin Allergy Unknown cyclic Verified 11/04/23 09:31 vomitting abatacept [From Orencia] Allergy Swelling Verified 11/04/23 09:31 Sulfa (Sulfonamide AdvReac Unknown SOB, Verified 11/04/23 09:31 Antibiotics) Tembling, LE weakness trimethoprim [From BACTRIM] AdvReac Unknown NUMBNESS Verified 11/04/23 09:31 IN BLE, VOMITING Review of Systems Review of Systems: Yes all other systems are reviewed and are negative PMFSH Past Medical History Attestation statement: The following information was validated with the patient. Source: old records reviewed Medical History Flexor tenosynovitis of thumb History of COVID-19 Long-term use of immunosuppressant medication Seropositive rheumatoid arthritis Hypotension Encounter for screening for endocrine disorder H/O renal calculi Symptomatic cholelithiasis Migraines Rheumatoid arthritis Kidney stones Surgical History History of cholecystectomy Hx of tubal ligation History of laparoscopic cholecystectomy Hx of cystoscopy Hx of colonoscopy Social History Social History Household Members: Children Alcohol intake: never Comment: pt. sleeping Patient Tobacco Use Status: Never used Tobacco e-Cigarette/Vaping Use: Never Used Substance Use Type: Marijuana Advance Directives: No Advance Directives Information Provided: Yes service: No Current occupational status: unemployed Physical Exam Vital Signs: Vital Signs: Last Vital Signs Temp 98.8 F 11/04/23 09:28 Pulse 93 11/04/23 09:28 Resp 16 11/04/23 09:28 BP 142/98 H 11/04/23 09:28 Pulse Ox 97 11/04/23 09:28 O2 Del Method Room Air 11/04/23 09:28 BMI result Body Mass Index 31.2 Appearance: Alert.?Oriented to person, place and time. No acute distress.?Normal affect. Eyes: Pupils equal, round and reactive to light.? ENT: Pharynx normal.?? Neck: Normal inspection.? Neck supple.??No midline cervical spine tenderness, step-offs, deformities. No palpable tenderness of the paraspinal muscles in the cervical region CVS: Heart sounds normal. Normal heart rate and rhythm.? Pulses normal.?? Respiratory: No respiratory distress.? Lung sounds clear to auscultation bilaterally??? Skin: Skin warm and dry.? Normal skin color.? Extremities: No lower extremity edema.? 2+ radial pulse bilaterally. Significant decreased AROM to the right shoulder. No obvious rashes, erythema, warmth. Neuro: Moves all extremities spontaneously. Sensation intact bilaterally. Ambulates with normal steady gait. Medications Administered Discontinued Medications Generic Name Dose Route Start Last Admin Trade Name Freq PRN Reason Stop Dose Admin Oxycodone HCl 5 mg 11/04/23 10:35 11/04/23 10:40 Oxycodone Hcl Immed Release 5 Mg Tablet PO 11/04/23 10:36 5 mg ONCE ONE Administration Medical Decision Making Medical Decision Making MDM Narrative: Patient is a 33-year-old female with past medical history of rheumatoid arthritis on long-term immunosuppressant with Actemra, nephrolithiasis, migraines who presents emergency department for evaluation of acute on chronic right shoulder pain. The extremity is neurovascularly intact distally, but she has significant pain with minimal range of motion to the right shoulder. No reported subsequent injury since her initial outpatient XR, clinically have low suspicion for acute fracture or dislocation. No associated in, exacerbation of pain with movement of the neck, no weakness or paresthesias, suspect less likely to be a radicular pain from cervical nature. Upon review of her record, she had an XR of the right shoulder obtained 10/18/2023 which reveals a somewhat superiorly displaced distal clavicle suggesting possible ligamentous or soft tissue injury, degenerative changes of the glenohumeral joint. For this her primary care doctor has sent a referral to Orthopedics but an appointment has not yet been established. She has trialed multiple medicinal modalities for pain management thus far without achieving much relief. She states in the past she has been hesitant to take narcotic types of medications but at this point she can not bear the pain any longer. She was provided with a dose of oxycodone in the emergency department notable improvement in her pain, states it is currently tolerable and is requesting discharge which I feel is appropriate.. I provided her with contact information for the Orthopedic Department associated with this hospital and recommended outpatient follow-up, short prescription for oxycodone was sent to her pharmacy, [facility] was reviewed. Discussed worrisome signs and symptoms that would warrant re-evaluation in the emergency department. All questions answered. Stable for discharge Differential Diagnosis Differential Diagnoses: The differential diagnosis associated with the presentation includes (See narrative above) External Record Review External record reviewed: Outpatient record, Prior outpatient radiology and Other ([facility]) XR/XR shoulder RT min 2V IMPRESSION: 1. The distal aspect of the clavicle is somewhat superiorly displaced relative to the acromion, suggestive of possible ligamentous/soft tissue injury. 2. Mild degenerative changes in the glenohumeral joint. Possible tiny calcification/ossification along the inferior aspect of the glenohumeral joint. Correlation with clinical exam and possible additional imaging with CT scan or MRI recommended Tests considered The following testing was considered but not selected: No indication for emergent CT/MRI Prescription Management I considered prescription management with: Pain Medication (See narrative above) Discharge Plan Discharge Clinical Impression: Chronic right shoulder pain Patient Disposition: Home, Self-Care Instructions: Shoulder Pain (ED) Additional Instructions: As discussed, continue taking your medications as prescribed. I sent a new prescription for oxycodone to your pharmacy. This is a narcotic medication. It can be addictive. It may make you drowsy. You should not drive, drink alcohol, or work while taking this medication. In addition it is not advised that you take this medication at the same time that you are taking your Flexeril. Please follow-up with email marketing specialist as advised. I provided their contact information in your discharge paperwork, you may trial calling their office to schedule the appointment as instructed by her primary care doctor. Prescriptions: New oxycodone 5 mg tablet 5 mg PO Q6H PRN (Reason: pain) Qty: 10 0RF Rx Instructions: Partial Fill upon patient request. No Action diclofenac sodium 1 % gel 2 g topical QID PRN (Reason: Hand Pain ) Qty: 100 1RF Rx Instructions: apply to hand; for hand includes palm/fingers/back of hand prednisone 5 mg tablet See Rx Instructions PO DAILY Qty: 45 0RF Rx Instructions: 3 tablets per day for 7 days, 2 tablets per day for 7 days, 1 tablet per day for 7 days and stop Actemra 162 mg/0.9 mL syringe 162 mg subcut QWEEK Qty: 3.6 2RF Hold Instructions: Resume on 04/15/20. doxycycline monohydrate 100 mg tablet 100 mg PO BID 10 Days Qty: 20 0RF tamsulosin [Flomax] 0.4 mg capsule 0.4 mg PO DAILY Qty: 20 0RF ibuprofen 600 mg tablet 600 mg PO Q8H PRN (Reason: pain) Qty: 20 0RF ondansetron 4 mg tablet,disintegrating 4 mg PO Q8H PRN (Reason: nausea and vomiting) Qty: 10 0RF prednisone 20 mg tablet 40 mg PO DAILY Qty: 6 0RF meclizine 25 mg tablet 25 mg PO DAILY PRN (Reason: Dizziness) omeprazole 20 mg capsule,delayed release(DR/EC) 20 mg PO DAILY PRN cyclobenzaprine 5 mg tablet 5 mg PO BEDTIME PRN lidocaine [Lidoderm] 5 % adhesive patch,medicated 1 patch topical DAILY fluticasone propionate 50 mcg/actuation spray,suspension intranasal cetirizine 10 mg tablet 10 mg PO QAM (DME) finger splint Misc See Rx Instructions .Route Qty: 1 0RF Rx Instructions: As directed Referrals: Liana Farnklin PA-C [Physician Lace Inspector] - Print Language: Malay
[2023-11-04] MEDS: oxyCODONE HCl Immed Release 5 MG TABLET PO (10:40)
[2023-11-04 13:16] VITALS: BP 142/98; PULSE 93; RESP 16; TEMP 37.1; O2SAT 97
== END 2023-11-04 13:17 | disposition home or self-care (01) ==
PROVIDERS: Emergency Provider Emergency Medicine; PCP Internal Medicine
DX: G89.29 Other chronic pain (principal); M25.511 Pain in right shoulder; M06.9 Rheumatoid arthritis, unspecified; Z79.69 Long term (current) use of other immunomodulators and immunosuppressants
CPT/HCPCS: 99283

== ENCOUNTER 2023-11-28 11:52 | Outpatient (REF) | payer MEDICAID, SELFPAY | END 2023-11-28 11:53 | disposition home or self-care (01) | LOC: HO.HOSX 11:52 | DX: Z13.89 Encounter for screening for other disorder (principal) ==

== ENCOUNTER 2023-11-29 08:31 | Outpatient (AMB) | payer MEDICAID, SELFPAY ==
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
[2023-11-29 08:44] VITALS: BMI 31.2
== END 2023-11-29 09:11 | disposition home or self-care (01) ==
PROVIDERS: PCP Internal Medicine
DX: M25.511 Pain in right shoulder (principal); R20.0 Anesthesia of skin; R20.2 Paresthesia of skin
CPT/HCPCS: 99204

== ENCOUNTER 2023-11-29 10:22 | Outpatient (REF) | payer MEDICAID, SELFPAY ==
--- NOTE | ~2023-11-29 | XR_ITS ---
EXAMINATION: XR SHOULDER, RIGHT CLINICAL INFORMATION: M25.511 - Pain in right shoulder COMPARISON: 10/18/2023 shoulder radiographs TECHNIQUE: Three views of the shoulder. FINDINGS: No acute fracture. Similar superior subluxation of the distal clavicle with respect to the acromion which can be seen in the setting of acromioclavicular injury. Glenohumeral joint space is maintained. Soft tissues are unremarkable. XR/XR shoulder RT min 2V IMPRESSION: 1. Similar superior subluxation of the distal clavicle with respect to the acromion which can be seen in the setting of acromioclavicular injury. No acute fracture. Electronically signed by: Arely Chaves MD 12/22/2023 04:58 PM EDT
== END 2023-11-29 10:23 | disposition home or self-care (01) ==
LOC: HO.HOSX 10:22
DX: M25.511 Pain in right shoulder (principal); R20.0 Anesthesia of skin; R20.2 Paresthesia of skin
CPT/HCPCS: 73030; 99212

== ENCOUNTER 2023-12-05 16:51 | Outpatient (REF) | payer MEDICAID, SELFPAY ==
[2023-12-06 09:24] LABS: Bacterial Vaginosis PCR NEGATIVE (Negative); Candida Group PCR NOT DETECTED (Not Detect); Candida glab krusei PCR NOT DETECTED (Not Detect); Trichomonas vaginalis PCR NOT DETECTED (Not Detect)
== END 2023-12-05 16:52 | disposition home or self-care (01) ==
LOC: HO.HHCLNP 16:51
PROVIDERS: Visit Provider Internal Medicine
DX: Z12.4 Encounter for screening for malignant neoplasm of cervix (principal)
CPT/HCPCS: 0352U; 36415; 88175

== ENCOUNTER 2023-12-14 11:25 | Outpatient (REF) | payer MEDICAID, SELFPAY ==
--- NOTE | ~2023-12-14 | US_ITS ---
EXAMINATION: US PELVIS CLINICAL INFORMATION: Menorrhagia COMPARISON: CT scan from 08/16/2023 TECHNIQUE: Ultrasound of the pelvis is performed using both transabdominal and transvaginal transducers along with Doppler. Transvaginal imaging is performed due to inadequate visualization transabdominally. FINDINGS: Uterus: The uterus is anteverted and measures 7.2 x 3.7 x 4.2 cm. The double wall endometrial thickness is 8 mm. The uterus is smooth in contour and has normal myometrial echogenicity. No visible fibroid. Adnexa: Both ovaries are visualized. There is normal color flow to the adnexa. There is no ovarian torsion. There is no pelvic ascites or fluid collection. Right ovary measures 2.5 x 1.7 x 2.2 cm. Right ovary is unremarkable in appearance Left ovary measures 2.7 x 1.7 x 2.1 cm. Left ovary is unremarkable in appearance US/US pelvic and transvaginal IMPRESSION: Normal pelvic ultrasound. Electronically signed by: Eliel Omer MD 12/22/2023 09:27 AM EDT
== END 2023-12-14 11:26 | disposition home or self-care (01) ==
LOC: HO.US 11:25
PROVIDERS: PCP Internal Medicine; Visit Provider Internal Medicine
DX: N92.1 Excessive and frequent menstruation with irregular cycle (principal)
CPT/HCPCS: 76830; 76856

== ENCOUNTER 2023-12-24 10:19 | Outpatient (REF) | payer MEDICAID, SELFPAY ==
--- NOTE | ~2023-12-24 | MR_ITS ---
EXAMINATION: MR SHOULDER WITHOUT CONTRAST, RIGHT CLINICAL INFORMATION: Shoulder pain, weakness. Concern for rotator cuff pathology. COMPARISON: Right shoulder radiograph dated 11/29/2023. TECHNIQUE: MRI of the shoulder without contrast was performed on a high-field scanner. FINDINGS: ROTATOR CUFF: Intact. No muscle atrophy or fatty infiltration. BICEPS: Normal. CORACOACROMIAL ARCH: The undersurface of the acromion is curved with no subacromial spur. The acromioclavicular joint is well preserved with normal alignment. Mild subacromial-subdeltoid bursitis. LABRUM/CAPSULE: The posterior labrum is somewhat diminutive at the 9 o'clock position, most likely due to focal labral fraying. Joint capsule is normal. GLENOHUMERAL JOINT/MARROW: Articular cartilage is normal. No fracture or malalignment. No joint effusion. MR/MR shoulder RT wo con IMPRESSION: 1. Mild subacromial-subdeltoid bursitis. 2. Intact rotator cuff. 3. Focal fraying of the posterior labrum at the 9 o'clock position. No discrete labral tears. Electronically signed by: Robert Cedeño MD 12/26/2023 01:54 PM EDT
== END 2023-12-24 10:20 | disposition home or self-care (01) ==
LOC: HO.MRI 10:19
PROVIDERS: PCP Internal Medicine
DX: M77.8 Other enthesopathies, not elsewhere classified (principal)
CPT/HCPCS: 73221

== ENCOUNTER 2023-12-28 14:54 | Outpatient (REF) | payer MEDICAID, SELFPAY ==
--- NOTE | 2023-12-28 14:57 | EMG_ITS ---
Chief complaint: History of RA, right shoulder pain, right hand numbness Reason for referral: Evaluate for Carpal Tunnel Syndrome Referred by: Raheel AU Procedure done: Right upper extremity NCS/EMG Precautions and/or limitations: None The limb temperature was monitored continuously and remained between 32-36 degrees C during the performance of the NCS. Nerve Conduction Studies Anti Sensory Summary Table ?Stim Site NR Onset (ms) Norm Onset (ms) Peak (ms) Norm Peak (ms) O-P Amp (?V) Norm O-P Amp Site1 Site2 Delta-0 (ms) Dist (cm) Viral (m/s) Norm Viral (m/s) Right Median Anti Sensory (2nd Digit) Wrist ? 1.9 2.5 <3.6 72.8 >10 Wrist 2nd Digit 1.9 14.0 74 Right Ulnar Anti Sensory (5th Digit) Wrist ? 2.0 2.5 <3.7 78.7 >15.0 Wrist 5th Digit 2.0 14.0 70 Motor Summary Table ?Stim Site NR Onset (ms) Norm Onset (ms) O-P Amp (mV) Norm O-P Amp iAmp (mV) Amp (1st) (%) Site1 Site2 Delta-0 (ms) Dist (cm) Viral (m/s) Norm Viral (m/s) Right Median Motor (Abd Poll Brev) Wrist ? 2.7 <3.9 13.9 >4.5 16.9 100.0 Elbow Wrist 3.1 19.0 61 >45 Elbow ? 5.8 13.6 16.6 97.8 Right Ulnar Motor (Abd Dig Minimi) Wrist ? 2.3 <3.0 6.5 >5 8.3 100.0 B Elbow Wrist 2.6 18.0 69 >45 B Elbow ? 4.9 6.3 8.2 96.9 A Elbow B Elbow 1.4 10.0 71 >45 A Elbow ? 6.3 6.2 8.1 95.4 Comparison Summary Table ?Stim Site NR Peak (ms) Norm Peak (ms) P-T Amp (?V) Site1 Site2 Delta-P (ms) Norm Delta (ms) Right Median/Radial Dig I Comparison (Digit 1 - 10cm) Median ? 2.1 <2.9 79.3 Median Radial 0.1 Radial ? 2.2 <2.8 14.6 EMG ?Side Muscle Nerve Root Ins Act Fibs Psw Amp Dur Poly Recrt Int Pat Comment Right 1stDorInt Ulnar C8-T1 Nml Nml Nml Nml Nml 0 Nml Complete Right FlexCarRad Median C6-7 Nml Nml Nml Nml Nml 0 Nml Complete Right Biceps Musculocut C5-6 Nml Nml Nml Nml Nml 0 Nml Complete Right Triceps Radial C6-7-8 Nml Nml Nml Nml Nml 0 Nml Complete Right Deltoid Axillary C5-6 Nml Nml Nml Nml Nml 0 Nml Complete FINDINGS: All motor and sensory nerves tested showed normal latencies, amplitudes and conduction velocities. Concentric needle EMG was performed in selected muscles of the right upper extremity. Study did not reveal signs of electric abnormalities as shown in the table above. IMPRESSION: 1. This is a normal study. 2. There is no electrodiagnostic evidence for median neuropathy, ulnar neuropathy, brachial plexopathy, or cervical radiculopathy. Thank you for your kind referral. Kirsten Johnson MD, JULIO Board Certified, [place] Board of Physical Medicine and Rehabilitation (ABPMR) Board Certified, [place] Board of Electrodiagnostic Medicine (ABEM) CODIN [id number] MTDD
== END 2023-12-28 14:55 | disposition home or self-care (01) ==
LOC: HO.NEURO 14:54
PROVIDERS: PCP Internal Medicine
DX: R20.0 Anesthesia of skin (principal); R20.2 Paresthesia of skin
CPT/HCPCS: 95886; 95909

== ENCOUNTER → 2023-12-28 14:57 | Outpatient (BNV) | payer MEDICAID, SELFPAY | PROVIDERS: PCP Internal Medicine; Visit Provider Physical Medicine & Rehabilitation | DX: M25.511 Pain in right shoulder (principal); R20.2 Paresthesia of skin | CPT/HCPCS: 95886; 95909 ==

== ENCOUNTER 2023-12-29 09:37 | Outpatient (AMB) | payer MEDICAID, SELFPAY ==
--- NOTE | 2023-12-29 09:39 | A.OFFVIS_ITS ---
Vital Signs 12/29/23 09:40 Height 5 ft 1 in Weight 166 lb BMI 31.4 BP 124/64 Blood Pressure Location Lt brachial Position Sitting Intake Visit Reasons: metrorrhagia/referral Materials Recycler Required: No Allergies shrimp Allergy (Mild, Verified 11/29/23 08:50) SWELLING gabapentin [GABAPENTIN] Allergy (Unknown, Verified 11/29/23 08:50) COULDNT FEEL LEGS , numbness methotrexate [METHOTREXATE] Allergy (Unknown, Verified 11/29/23 08:50) VOMITING nitrofurantoin Allergy (Unknown, Verified 11/29/23 08:50) cyclic vomitting abatacept [From Orencia] Allergy (Verified 11/29/23 08:50) Swelling Sulfa (Sulfonamide Antibiotics) Adverse Reaction (Unknown, Verified 11/29/23 08:50) SOB, Tembling, LE weakness trimethoprim [From BACTRIM] Adverse Reaction (Unknown, Verified 11/29/23 08:50) NUMBNESS IN BLE, VOMITING Medication List - Last Reconciled 12/29/23 by Vera Cortes CNM Actemra (tocilizumab) 162 mg (0.9 mL) subcut QWEEK NS cetirizine 10 mg PO QAM cyclobenzaprine 5 mg PO BEDTIME PRN diclofenac sodium 1% 2 grams topical QID PRN doxycycline monohydrate 100 mg PO BID 10 days finger splint As directed fluticasone propionate 50 mcg/actuation intranasal ibuprofen 600 mg PO Q8H PRN lidocaine 5% (Lidoderm) 1 patch topical DAILY meclizine 25 mg PO DAILY PRN omeprazole 20 mg PO DAILY PRN ondansetron 4 mg PO Q8H PRN oxycodone 5 mg PO Q6H PRN prednisone 40 mg (2 x 20 mg) PO DAILY prednisone 3 tablets per day for 7 days, 2 tablets per day for 7 days, 1 tablet per day for 7 days and stop tamsulosin (Flomax) 0.4 mg PO DAILY Is last menstrual period known: Yes Last menstrual period: 12/07/23 Post menopausal: No Patient : No HPI HPI metrorrhagia/referral: Details: Patient is here to discuss her menorrhagia. She has had her tubes tied in 2020 she also had a negative Pap smear then but she also says she just had her last Pap smear done in November with her primary here at the [facility] and it was negative with negative HPV. She had a ParaGard IUD in the past before the having her tubes tied and was very problematic in that it was causing severe cramping it was partially removed but a piece was left in which later came out and she said the copper had stripped off of it. She has rheumatoid arthritis she also has lots of other issues she is going to be seeing a different construction coordinator for consultation she is on lots of different medications she does get migraines with auras. Her periods last about 3 days and they are very heavy and crampy and they are just becoming unmanageable. The only good thing is they are short. She is glad she has her tubes tied but now she is ready to do something about her periods. She says her doctor already ordered an ultrasound for her and there was nothing abnormal found so she knows she does not have fibroids or anything. [facility] Medical History Flexor tenosynovitis of thumb History of COVID-19 Long-term use of immunosuppressant medication Seropositive rheumatoid arthritis Hypotension Encounter for screening for endocrine disorder H/O renal calculi Symptomatic cholelithiasis Migraines Rheumatoid arthritis Kidney stones Surgical History History of cholecystectomy Hx of tubal ligation History of laparoscopic cholecystectomy Hx of cystoscopy Hx of colonoscopy Social History (Updated 11/29/23 @ 08:42 by WENDY Lee) Household Members: Children Alcohol intake: never Comment: pt. sleeping Patient Tobacco Use Status: Never used Tobacco e-Cigarette/Vaping Use: Never Used Substance Use Type: Marijuana Patient : No service: No Current occupational status: unemployed Current occupation: right hand dominant Female Reproductive History Menstrual Age of Menarche: 13 Date of last menstrual period: 12/07/23 Physical Exam Vital Signs: Last Vital Signs BP 124/64 12/29/23 09:40 BMI result Body Mass Index 31.4 Other: Abdomen soft nontender no palpable masses patient is not on her menses pelvic exam deferred she just recently had 1 in November with her primary care provider and felt she did not need it she does not have her period at the moment Results Reviewed Results Reviewed: Name: Bridgette Hayden Age/Sex: 31/F Attending: Rajan Maria MD : 1990 Submitted by: Rajan Maria MD Copies to: CESAR MCMAHON MD MR #: [id number] Status: [facility] Collected: 05/01/21 Location: [facility] Received: 05/01/21 Diagnosis A. Fallopian tube, left (tubal ligation): Segment of normal fallopian tube with epithelium/ lumen identified. B. Fallopian tube, right (tubal ligation): Segment of normal fallopian tube with epithelium/ lumen identified. Clinical History Requesting permanent sterilization Microscopic Description Microscopic sections reviewed. Material Received A. Left fallopian tube B. Right fallopian tube Gross Description Received in two parts. Part A: Received in formalin labeled Left fallopian tube is a 3.5 cm. in length and up to 0.6 cm. in diameter, fimbriated, congested, pink-maroon, cauterized segment of fallopian tube, which is serially sectioned to reveal a central, pinpoint- stellate lumen, measuring up to 0.2 cm. in diameter. Chief Diversity Officer sections are submitted in a single cassette labeled A1. Part B: Received in formalin labeled Right fallopian tube is a 6.0 cm. in length and up to 0.5 cm. in diameter, edematous and congested, fimbriated, pink-maroon segment of fallopian tube, which is sectioned to reveal a central, pinpoint- stellate lumen, measuring up to 0.2 cm. in diameter. Chief Diversity Officer sections are submitted in a single cassette labeled B1. CEDS Copies To CESAR MCMAHON MD [address] [place] [address] Patient: Barry Page 1 of 2 Surgical Pathology [id number] Rajan Maria MD [address] [place] [address] Dr. Garibay [address] [place] [id number] NOTE: Some or all of the immunohistochemical tests reported herein may have been developed and their performance characteristics determined by [facility]. They have not been cleared or approved by the U.S. Food and Drug Administration (FDA). However, the FDA has determined that such clearance or approval is not necessary. This laboratory is certified under the Clinical Laboratory Improvement Amendments of 1988 (CLIA) as qualified to perform high complexity clinical laboratory testing. Electronically Signed By: Zunilda Cardona 05/04/21 1055 Patient: Barry pap smear- 11/27/20= NIL, [facility],( and patient states she had a negative Pap smear with her primary care provider at the [facility] in 11/29/2023 with negative HPV results not in system). [address] [address] Ultrasound Report Signed Patient: Bridgette Hayden MR#: [id number] : 1990 Acct:[id number] Age/Sex: 33 / F ADM Date: 12/14/23 Loc: HO.US Attending Dr: Cesar Caicedo MD Ordering Physician: Cesar Mcmahon MD Date of Service: 12/14/23 Procedure(s): US pelvic and transvaginal Accession Number(s): [id number] cc: Cesar Mcmahon MD~ EXAMINATION: US PELVIS CLINICAL INFORMATION: Menorrhagia COMPARISON: CT scan from 08/16/2023 TECHNIQUE: Ultrasound of the pelvis is performed using both transabdominal and transvaginal transducers along with Doppler. Transvaginal imaging is performed due to inadequate visualization transabdominally. FINDINGS: Uterus: The uterus is anteverted and measures 7.2 x 3.7 x 4.2 cm. The double wall endometrial thickness is 8 mm. The uterus is smooth in contour and has normal myometrial echogenicity. No visible fibroid. Adnexa: Both ovaries are visualized. There is normal color flow to the adnexa. There is no ovarian torsion. There is no pelvic ascites or fluid collection. Right ovary measures 2.5 x 1.7 x 2.2 cm. Right ovary is unremarkable in appearance Left ovary measures 2.7 x 1.7 x 2.1 cm. Left ovary is unremarkable in appearance US/US pelvic and transvaginal IMPRESSION: Normal pelvic ultrasound. Electronically signed by: Eliel Omer MD 12/22/2023 09:27 AM EDT Dictated By: Eliel Omer MD Signed By: <Electronically signed by Eliel Omer MD in OV> 12/22/23 0927 DD/ 1137 TD/TT: 12/14/23 1146 Senior Quantity Surveyor: Assessment & Plan Assessment & Plan (1) Long-term use of immunosuppressant medication: Code(s): Z79.899 - Other intermediate project manager (current) drug therapy Category: Medical (2) Menorrhagia with regular cycle: Code(s): N92.0 - Excessive and frequent menstruation with regular cycle Category: Medical (3) Dysmenorrhea, unspecified: Code(s): N94.6 - Dysmenorrhea, unspecified Category: Medical Plan Extensive discussion of her history in her challenges and what she has already used and her Mrs. With the ParaGard IUD which turn her off to the idea of an IUD. Discussed that she is not a candidate for oral contraceptives because of her migraines with aura discussed other alternatives and their side effects. Options discussed including all of the hormonal methods as above. She does know about the Mirena and she is not interested in trying that yet. She might be interested in trying the progestin only control pills I did tell her there is not really a guarantee that they would work but they maybe worth a try and she is willing to give it a try for maybe 3 months reviewed how to take them any of starting them with her beginning of her period, (and why also if she chooses a Mirena it would be very important to try to aim for insertion in the 1st day or 2 of her menses as well discussed the physiological changes that allow for smoother less uncomfortable and less problematic insertion,) Prescription sent for progestin only pills to her pharmacy we will see her in about 3 months to see how she is doing if at some point she decides it is not helping at all though I recommend giving it at least 2 months to see there is a benefit if she is not feeling any benefit whatsoever she may call to schedule a Mirena insertion at the beginning of her period. Medications: New norethindrone (contraceptive) 0.35 mg PO DAILY 84 tabs 4RF Coding Level of Care Code Est Pt Level 3 (60427) Diagnoses Long-term use of immunosuppressant medication Z79.899 Menorrhagia with regular cycle N92.0 Dysmenorrhea, unspecified N94.6
[2023-12-29 09:40] VITALS: BP 124/64; BMI 31.4
== END 2023-12-29 10:30 | disposition home or self-care (01) ==
PROVIDERS: PCP Internal Medicine; Visit Provider Advanced Practice Midwife
DX: Z79.899 Other long term (current) drug therapy (principal); N92.0 Excessive and frequent menstruation with regular cycle; N94.6 Dysmenorrhea, unspecified
CPT/HCPCS: 99213

== ENCOUNTER → 2023-12-29 09:37 | Outpatient (BNVA) | payer MEDICAID, SELFPAY | PROVIDERS: PCP Internal Medicine; Visit Provider Advanced Practice Midwife | DX: N92.0 Excessive and frequent menstruation with regular cycle (principal); N94.6 Dysmenorrhea, unspecified; Z98.51 Tubal ligation status; Z79.899 Other long term (current) drug therapy | CPT/HCPCS: 99212 ==

== ENCOUNTER 2024-01-13 13:44 | Emergency (ER) | payer MEDICAID, SELFPAY ==
[2024-01-13 13:54] VITALS: BP 170/94; PULSE 93; RESP 18; TEMP 36.6; O2SAT 97; BMI 32.1
--- NOTE | 2024-01-13 13:55 | ED_ITS ---
HPI - Extremity Injury (Upper) General Chief Complaint: Extremity Problem Stated Complaint: L shoulder pain Time Seen by Provider: 01/13/24 14:15 Source: patient Mode of arrival: ambulatory Limitations: no limitations History of Present Illness HPI narrative: 33-year-old female with a past medical history of rheumatoid arthritis presents to the emergency department with complaints chronic right shoulder pain, worse over the last 3 days. She reports she has been alternating Tylenol and Motrin, using topical creams, and heat and ice with no relief of pain. She reports she has had decreased sleep over the last 3 days due to the pain. She denies any trauma or noted overuse injury. She reports she had an MRI completed on 12/24/2023 with evidence mild subacromial-subdeltoid bursitis and focal fraying of the posterior labrum was at 9:00 a.m. position with no discrete labral tears and an intact rotator cuff. She denies any erythema or ecchymosis. She reports she has vague swelling the right shoulder and upper arm area with color changes to the skin. She denies any paresthesias, fevers, chills She states she had an appointment with her training and development specialist for today to discuss the MRI results but the appointment was rescheduled until Tuesday. Pertinent positives and negatives discussed in HPI Related Data Home Medications ?Medication ?Instructions ?Recorded ?Confirmed meclizine 25 mg tablet 25 mg PO DAILY PRN Dizziness 09/04/20 12/29/23 cyclobenzaprine 5 mg tablet 5 mg PO BEDTIME PRN 08/03/21 12/29/23 omeprazole 20 mg capsule,delayed 20 mg PO DAILY PRN 08/03/21 12/29/23 release cetirizine 10 mg tablet 10 mg PO QAM 12/20/22 12/29/23 fluticasone propionate 50 intranasal 12/20/22 12/29/23 mcg/actuation nasal spray,suspension lidocaine 5 % topical patch 1 patch topical DAILY 12/20/22 12/29/23 (Lidoderm) Previous Rx's ?Medication ?Instructions ?Recorded finger splint #1 ea 05/06/23 diclofenac sodium 1 % topical gel 2 g topical QID PRN Hand Pain 06/02/23 #100 grams ibuprofen 600 mg tablet 600 mg PO Q8H PRN pain #20 tabs 08/16/23 ondansetron 4 mg disintegrating 4 mg PO Q8H PRN nausea and 08/16/23 tablet vomiting #10 tabs prednisone 20 mg tablet 40 mg (2 x 20 mg) PO DAILY #6 tabs 08/16/23 tamsulosin 0.4 mg capsule (Flomax) 0.4 mg PO DAILY #20 caps 08/16/23 prednisone 5 mg tablet See Rx Instructions PO DAILY #45 09/12/23 tabs Actemra 162 mg/0.9 mL subcutaneous 162 mg (0.9 mL) subcut QWEEK #3.6 10/10/23 syringe (tocilizumab) mL doxycycline monohydrate 100 mg 100 mg PO BID 10 days #20 tabs 10/14/23 tablet oxycodone 5 mg tablet 5 mg PO Q6H PRN pain #10 tabs 11/04/23 norethindrone (contraceptive) 0.35 0.35 mg PO DAILY #84 tabs 12/29/23 mg tablet oxycodone 5 mg capsule 5 mg PO Q6H PRN pain #12 caps 01/13/24 Allergies Allergy/AdvReac Type Severity Reaction Status Date / Time shrimp Allergy Mild SWELLING Verified 01/13/24 13:56 gabapentin [GABAPENTIN] Allergy Unknown COULDNT Verified 01/13/24 13:56 FEEL LEGS , numbness methotrexate [METHOTREXATE] Allergy Unknown VOMITING Verified 01/13/24 13:56 nitrofurantoin Allergy Unknown cyclic Verified 01/13/24 13:56 vomitting abatacept [From Orencia] Allergy Swelling Verified 01/13/24 13:56 Sulfa (Sulfonamide AdvReac Unknown SOB, Verified 01/13/24 13:56 Antibiotics) Tembling, LE weakness trimethoprim [From BACTRIM] AdvReac Unknown NUMBNESS Verified 01/13/24 13:56 IN BLE, VOMITING Review of Systems 2 Review of Systems: Yes all other systems are reviewed and are negative PMFSH Past Medical History Medical History Flexor tenosynovitis of thumb History of COVID-19 Long-term use of immunosuppressant medication Seropositive rheumatoid arthritis Hypotension Encounter for screening for endocrine disorder H/O renal calculi Symptomatic cholelithiasis Migraines Rheumatoid arthritis Kidney stones Surgical History History of cholecystectomy Hx of tubal ligation History of laparoscopic cholecystectomy Hx of cystoscopy Hx of colonoscopy Social History Social History (Updated 11/29/23 @ 08:42 by WENDY Lee) Household Members: Children Alcohol intake: never Comment: pt. sleeping Patient Tobacco Use Status: Never used Tobacco e-Cigarette/Vaping Use: Never Used Substance Use Type: Marijuana Advance Directives: No Advance Directives Information Provided: No service: No Current occupational status: unemployed Current occupation: right hand dominant Physical Exam 2 Vital Signs: Vital Signs: Last Vital Signs Temp 98 F 01/13/24 13:54 Pulse 93 01/13/24 13:54 Resp 18 01/13/24 13:54 BP 170/94 H 01/13/24 13:54 Pulse Ox 97 01/13/24 13:54 O2 Del Method Room Air 01/13/24 13:54 BMI result Body Mass Index 32.1 Nursing notes and vital signs reviewed. GENERAL APPEARANCE: A&0 x 4, generally well appearing, no acute distress HENMT: Normal to inspection, atraumatic, face symmetrical. Normal external ears, nose, and oropharynx clear. EYE: PERRLA, EOM intact, structures appear normal NECK: Supple without stiffness or restricted ROM. HEART: Normal rate and regular rhythm, normal S1/S2, no M/R/G LUNGS: LS CTA, moving air well. Able to speak in complete sentences. No crackles, wheezes, or rhonchi auscultated BACK: No CVAT, no obvious deformity EXTREMITIES: Decreased range of motion right shoulder.. Normal capillary refill. NEUROLOGICAL: Alert and oriented. CN not formally tested but appearing grossly intact. Observed to ambulate with normal gait. Cognition normal SKIN: Warm and dry without any lesions, rash, or visible sores Course Course Course Narrative: This is a Rapid Medical Examination (RME) performed by Nolan Pandey PA-C in triage. Full HPI, ROS, assessment and treatment plan per primary provider in the Main ED. 33 yo female hx of chronic atraumatic right shoulder pain here for eval of worsening right shoulder pain worse at night. states she's going crazy d/t the pain. now endorsing new symptoms of fatigue and feeling generally unwell . follows with [facility]. had MRI of right shoulder on 12/24/23 showing mild subacromial-subdeltoid bursitis and focal fraying of the posterior labrum at the 9 o'clock position without discrete labral tears. Intact rotator cuff. She had follow up appointment with ortho today however she was contacted by their office and told her appointment needed to be rescheduled. she requested for them to send her something for the pain however was told they can't send anything without seeing her in the office. Plan: basic labs/ viral serology. shoulder MRI obtained on 12/24/23 Medical Decision Making Medical Decision Making [facility] Narrative: Old records reviewed for previous imaging, lab studies, ECGs, and notes. MRI results from 12/24/2023 reviewed. Patient was assessed the emergency department with no acute distress or toxicity noted. Blood work and nasal serology completed as patient reports she feels increased fatigue and feels ?not right?. Hematology showing mild, chronic anemia chemistries showing no evidence of organ dysfunction or electrolyte imbalance. Nasal strategy negative for COVID, flu, and RSV. Patient educated to continue resting, using heat and ice, and alternating Tylenol and ibuprofen for management of pain. Short course of oxycodone since patient's preferred pharmacy for further management of pain. Patient educated to continue her appointment on Tuesday, with her training and development specialist. Patient is safe for discharge at this time with plan for [id number] Tylenol and/or NSAID such as ibuprofen or naproxen for fever/discomfort with dosing as per packaging. HPI, PE, diagnostics, and plan discussed with patient and family with no unanswered questions at this time. Strict return precautions given to return to the emergency department with new, worsening, or concerning emergent symptoms. Recommended to follow-up with there primary care provider in 24-48 hours for further treatment and management. Differential Diagnosis Differential Diagnoses: The differential diagnosis associated with the presentation includes But not limited to fracture, dislocation, strain, sprain, contusion, strain, tendon or ligament injury, effusion, sepsis, malignancy Lab Data [facility] Lab Attestation statement: I reviewed the patient's lab results. 01/13/24 14:16 01/13/24 14:15 Labs: Lab Results 01/13/24 01/13/24 01/13/24 Range/Units 14:15 14:16 14:20 WBC 7.2 (4.8-10.8) X10*3/uL RBC 4.17 L (4.20-5.50) X10*6/uL Hgb 12.7 (12.0-16.0) g/dl Hct 36.1 L (37.0-47.0) % MCV 86.6 (80.0-98.0) fL MCH 30.5 (27.0-33.0) pg MCHC 35.2 H (31.0-35.0) g/dl RDW 12.8 (11.0-16.0) % Plt Count 296 (160-400) X10*3/uL MPV 9.8 (9.4-12.3) fL Immature Gran % (Auto) 0.3 (0.0-0.4) % Neut % (Auto) 46.8 (45-73) % Lymph % (Auto) 40.4 H (20-40) % Storey % (Auto) 6.2 (2-11) % Eos % (Auto) 5.7 H (0-4) % Baso % (Auto) 0.6 (0-2) % Lymph # (Auto) 2.9 (1.2-4.9) X10*3/uL Storey # (Auto) 0.4 (0.1-1.2) X10*3/uL Eos # (Auto) 0.4 (0.0-0.4) X10*3/uL Baso # (Auto) 0.0 (0.0-0.2) X10*3/uL Abs Immat Gran (auto) 0.02 (0.00-0.03) X10*3/uL Absolute Neuts (auto) 3.4 (2.0-8.3) x10*3/uL Absolute Nucleated RBC 0.000 (0.0-0.012) X10*3/uL Nucleated RBC % (auto) 0.0 (0.0-0.2) /100WBC Sodium 140 (135-145) mmol/L Potassium 3.8 (3.3-5.1) mmol/L Chloride 107 (96-108) mmol/L Carbon Dioxide 26 (22-29) mmol/L Anion Gap 11 L (12-20) BUN 13 (9-16) mg/dL Creatinine 0.72 (0.5-1.4) mg/dL Estim Creat Clear Calc 105.4 Estimated GFR > 60 Random Glucose 89 (60-115) mg/dL Calcium 9.5 (8.4-10.2) mg/dL Total Bilirubin 0.5 (0.0-1.0) mg/dL AST 21 (5-31) U/L ALT 15 (0-31) U/L Alkaline Phosphatase 67 (39-117) U/L Total Protein 7.5 (6.5-8.0) g/dL Albumin 4.4 (3.5-5.0) g/dL Influenza Type A (PCR) NEGATIVE (Negative) Influenza Type B (PCR) NEGATIVE (Negative) RSV RNA Qual (PCR) NEGATIVE (Negative) SARS-CoV-2 RNA (RT-PCR) NEGATIVE (Negative) External Record Review External record reviewed: Prior outpatient labs and Prior outpatient radiology Tests considered The following testing was considered but not selected: Repeat imaging of right shoulder cores considered but deemed necessary Prescription Management I considered prescription management with: Antibiotic Antibiotics for considered but there was no evidence of bacterial infection at this time Chronic Conditions Patient?s care impacted by: Other Chronic right shoulder pain Discharge Plan Discharge Clinical Impression: Right shoulder pain Patient Disposition: Home, Self-Care Instructions: Oxycodone, Rapid Release (By mouth), Arthralgia (ED), Heat Pack Application (ED) Prescriptions: New oxycodone 5 mg capsule 5 mg PO Q6H PRN (Reason: pain) Qty: 12 0RF Rx Instructions: Partial Fill upon patient request. No Action diclofenac sodium 1 % gel 2 g topical QID PRN (Reason: Hand Pain ) Qty: 100 1RF Rx Instructions: apply to hand; for hand includes palm/fingers/back of hand prednisone 5 mg tablet See Rx Instructions PO DAILY Qty: 45 0RF Rx Instructions: 3 tablets per day for 7 days, 2 tablets per day for 7 days, 1 tablet per day for 7 days and stop Actemra 162 mg/0.9 mL syringe 162 mg subcut QWEEK Qty: 3.6 2RF doxycycline monohydrate 100 mg tablet 100 mg PO BID 10 Days Qty: 20 0RF tamsulosin [Flomax] 0.4 mg capsule 0.4 mg PO DAILY Qty: 20 0RF ibuprofen 600 mg tablet 600 mg PO Q8H PRN (Reason: pain) Qty: 20 0RF ondansetron 4 mg tablet,disintegrating 4 mg PO Q8H PRN (Reason: nausea and vomiting) Qty: 10 0RF prednisone 20 mg tablet 40 mg PO DAILY Qty: 6 0RF oxycodone 5 mg tablet 5 mg PO Q6H PRN (Reason: pain) Qty: 10 0RF Rx Instructions: Partial Fill upon patient request. meclizine 25 mg tablet 25 mg PO DAILY PRN (Reason: Dizziness) omeprazole 20 mg capsule,delayed release(DR/EC) 20 mg PO DAILY PRN cyclobenzaprine 5 mg tablet 5 mg PO BEDTIME PRN lidocaine [Lidoderm] 5 % adhesive patch,medicated 1 patch topical DAILY fluticasone propionate 50 mcg/actuation spray,suspension intranasal cetirizine 10 mg tablet 10 mg PO QAM (DME) finger splint Misc See Rx Instructions .Route Qty: 1 0RF Rx Instructions: As directed norethindrone (contraceptive) 0.35 mg tablet 0.35 mg PO DAILY Qty: 84 4RF Referrals: Sharon Mcmahon MD [Primary Care Provider] - Stand Alone Forms: Work/School Release Print Language: German
[2024-01-13 14:21] LABS: Basophils Percent Auto 0.6 % (0-2); Eosinophils Absolute Auto 0.4 X10*3/uL (0.0-0.4); Eosinophils Percent Auto 5.7 % (0-4); Hematocrit 36.1 % (37.0-47.0); Hemoglobin 12.7 g/dl (12.0-16.0); Imm Gran Abs Auto 0.02 X10*3/uL (0.00-0.03); Imm Gran Pct Auto 0.3 % (0.0-0.4); Lymphocytes Absolute Auto 2.9 X10*3/uL (1.2-4.9); Lymphocytes Percent Auto 40.4 % (20-40); MANUAL DIFF FLAG NO; Mean Corpuscular HGB Conc 35.2 g/dl (31.0-35.0); Mean Corpuscular Hemoglobin 30.5 pg (27.0-33.0); Mean Corpuscular Volume 86.6 fL (80.0-98.0); Mean Platelet Volume 9.8 fL (9.4-12.3); Monocytes Absolute Auto 0.4 X10*3/uL (0.1-1.2); Monocytes Percent Auto 6.2 % (2-11); Neutrophils Absolute Auto 3.4 x10*3/uL (2.0-8.3); Neutrophils Percent Auto 46.8 % (45-73); Platelet Count 296 X10*3/uL (160-400); Red Blood Count 4.17 X10*6/uL (4.20-5.50); Red Cell Distribution Width 12.8 % (11.0-16.0); White Blood Count 7.2 X10*3/uL (4.8-10.8)
[2024-01-13 14:37] LABS: Alanine Aminotransferase 15 U/L (0-31); Albumin Level 4.4 g/dL (3.5-5.0); Alkaline Phosphatase 67 U/L (39-117); Anion Gap 11 (12-20); Aspartate Amino Transferase 21 U/L (5-31); Bilirubin Total 0.5 mg/dL (0.0-1.0); Blood Urea Nitrogen 13 mg/dL (9-16); Calcium 9.5 mg/dL (8.4-10.2); Carbon Dioxide 26 mmol/L (22-29); Chloride 107 mmol/L (96-108); Creatinine Clr Calc Pharmacy 105.4; Estimated Glomerular Filt Rate > 60; Glucose Random 89 mg/dL (60-115); Potassium 3.8 mmol/L (3.3-5.1); Sodium 140 mmol/L (135-145); Total Protein 7.5 g/dL (6.5-8.0)
[2024-01-13 15:00] LABS: Influenza A PCR NEGATIVE (Negative); Influenza B PCR NEGATIVE (Negative); Resp Syncy Virus RNA Qual PCR NEGATIVE (Negative); SARS COV2 PCR INHOUSE NEGATIVE (Negative)
[2024-01-13 15:14] VITALS: BP 126/72; PULSE 76; RESP 18; TEMP 36.8; O2SAT 100
--- NOTE | 2024-01-13 15:29 | PC.NURSE ---
PT WAS SEEN AND DISCHARGED BY PROVIDER.
== END 2024-01-13 15:29 | disposition home or self-care (01) ==
PROVIDERS: Physician Assistant Medical; Emergency Provider Student in an Organized Health Care Education/Training Program; PCP Internal Medicine
DX: M25.511 Pain in right shoulder (principal); Z03.818 Encounter for observation for suspected exposure to other biological agents ruled out; M05.9 Rheumatoid arthritis with rheumatoid factor, unspecified; Z79.899 Other long term (current) drug therapy
CPT/HCPCS: 0241U; 80053; 85025; 99282; 99283

== ENCOUNTER 2024-01-17 09:12 | Outpatient (AMB) | payer MEDICAID, SELFPAY ==
--- NOTE | 2024-01-17 09:14 | MHC.OFFVIS ---
Intake Visit Reasons: MRI review of Right Shoulder Intake Note: Bridgette is a 33 year old right hand dominant female who presents today for an MRI review of the right shoulder. Pt states she is still having severe pain. She states she has been wearing a sling for for the past 3 days due to the pain. Allergies shrimp Allergy (Mild, Verified 01/17/24 09:15) SWELLING gabapentin [GABAPENTIN] Allergy (Unknown, Verified 01/17/24 09:15) COULDNT FEEL LEGS , numbness methotrexate [METHOTREXATE] Allergy (Unknown, Verified 01/17/24 09:15) VOMITING nitrofurantoin Allergy (Unknown, Verified 01/17/24 09:15) cyclic vomitting abatacept [From Orencia] Allergy (Verified 01/17/24 09:15) Swelling Sulfa (Sulfonamide Antibiotics) Adverse Reaction (Unknown, Verified 01/17/24 09:15) SOB, Tembling, LE weakness trimethoprim [From BACTRIM] Adverse Reaction (Unknown, Verified 01/17/24 09:15) NUMBNESS IN BLE, VOMITING HPI HPI MRI review of Right Shoulder: Details: Patient is a 33-year-old female who presents for MRI review of her right shoulder. Today, the patient reports that she has experienced improved range of motion in her right shoulder since last visit, but she is still experiencing some discomfort. The patient reports that this pain is ?moving down her right shoulder?. The patient reports that she is aware that her EMG and nerve conduction study ordered at last visit was negative, but she is unsure of what the findings on her MRI were. Patient reports that she is still experiencing numbness and tingling in the ulnar nerve distribution of the right hand. No other acute complaints or concerns at this time. ON LICENSE OF [facility] Medical History Flexor tenosynovitis of thumb History of COVID-19 Long-term use of immunosuppressant medication Seropositive rheumatoid arthritis Hypotension Encounter for screening for endocrine disorder H/O renal calculi Symptomatic cholelithiasis Migraines Rheumatoid arthritis Kidney stones Surgical History History of cholecystectomy Hx of tubal ligation History of laparoscopic cholecystectomy Hx of cystoscopy Hx of colonoscopy Social History (Updated 11/29/23 @ 08:42 by WENDY Lee) Household Members: Children Alcohol intake: never Comment: pt. sleeping Patient Tobacco Use Status: Never used Tobacco e-Cigarette/Vaping Use: Never Used Substance Use Type: Marijuana service: No Current occupational status: unemployed Current occupation: right hand dominant Female Reproductive History Menstrual Age of Menarche: 13 Review of Systems Const All systems reviewed & are unremarkable except as noted in HPI and below Results Reviewed Results Reviewed: MRI right shoulder IMPRESSION: 1. Mild subacromial-subdeltoid bursitis. 2. Intact rotator cuff. 3. Focal fraying of the posterior labrum at the 9 o'clock position. No discrete labral tears. Electronically signed by: Robert Cedeño MD 12/26/2023 01:54 PM EDT RP Dictated By: Robert Cedeño MD Nerve conduction study IMPRESSION: 1. This is a normal study. 2. There is no electrodiagnostic evidence for median neuropathy, ulnar neuropathy, brachial plexopathy, or cervical radiculopathy. Thank you for your kind referral. Kirsten Johnson MD, JULIO Assessment & Plan Assessment & Plan (1) Bursitis of right shoulder: Code(s): M75.51 - Bursitis of right shoulder Category: Medical (2) Numbness and tingling of right hand: Code(s): R20.0 - Anesthesia of skin; R20.2 - Paresthesia of skin Category: Medical Plan 1. Subacromial bursitis of right shoulder Patient is educated about this condition Patient is educated about the treatment options available, namely physical therapy and injections The patient states that she would not like to pursue injections at this time, would instead like to proceed with conservative management with physical therapy and conservative pain management options such as rest, ice, elevation, and [id number] pain medication as needed Patient is informed that if she does not notice improvement in her symptoms in 4-6 weeks after starting physical therapy, she can call our office for repeat evaluation and discussion of further treatment options if she would like Patient was amenable to this plan 2. Numbness and tingling of ring and small fingers of right hand Symptoms intermittent, daily, worse at night At this time, patient is informed that EMG and nerve conduction study were negative However, patient is also informed that if her symptoms persist, she can call for repeat evaluation and potential repeat of EMG and nerve conduction study Patient understands this and is amenable to this plan Patient will follow-up as needed with any acute concerns Orders: Orders PT Evaluation and Treatment Today M75.51 - Bursitis of right shoulder Coding Level of Care Code Est Pt Level 3 (26931) Diagnoses Bursitis of right shoulder M75.51 Numbness and tingling of right hand R20.0; R20.2
== END 2024-01-17 09:51 | disposition home or self-care (01) ==
PROVIDERS: PCP Internal Medicine
DX: M75.51 Bursitis of right shoulder (principal); R20.0 Anesthesia of skin; R20.2 Paresthesia of skin
CPT/HCPCS: 99213

== ENCOUNTER → 2024-01-17 09:12 | Outpatient (BNVA) | payer MEDICAID, SELFPAY | PROVIDERS: PCP Internal Medicine | DX: M75.51 Bursitis of right shoulder (principal); R20.0 Anesthesia of skin; R20.2 Paresthesia of skin | CPT/HCPCS: 99212 ==

== ENCOUNTER 2024-02-16 09:15 | Outpatient (REF) | payer MEDICAID, SELFPAY ==
--- NOTE | ~2024-02-16 | US_ITS ---
EXAMINATION: US RETROPERITONEAL LIMITED (RENAL ONLY) CLINICAL INFORMATION: Calculus of kidney. COMPARISON: CT abdomen and pelvis 08/16/2023. Ultrasound abdomen complete 08/05/2021. Renal ultrasound 07/04/2019. X-ray abdomen KUB 12/23/2016. TECHNIQUE: Real-time imaging of the kidneys. FINDINGS: RIGHT KIDNEY: 10.8 x 3.9 x 4.0 cm (SAG x AP x TRV). The kidney is normal in size, contour, and echogenicity. Renal cortical thickness is normal. No calculi or focal parenchymal lesions. No hydronephrosis. LEFT KIDNEY: 9.7 x 4.8 x 5.0 cm (SAG x AP x TRV). The kidney is normal in size, contour, and echogenicity. Renal cortical thickness is normal. No focal parenchymal lesions or hydronephrosis. The previously seen mild left-sided hydronephrosis caused by an obstructing proximal ureteral stone is no longer present. There is a lower pole 3 mm echogenic focus seen with twinkle artifact consistent with a nonobstructing calculus. At the time of the prior CT scan a similar sized calculus was noted in an upper pole calyx. Incidental note made of an echogenic liver consistent with hepatic steatosis. US/US renal BI IMPRESSION: 1. Nonobstructing 3 mm left lower pole calculus. 2. Incidentally noted hepatic steatosis. 3. Resolved left-sided hydronephrosis. Electronically signed by: Ventura Benjamin MD 02/28/2024 07:01 PM EST
== END 2024-02-16 09:16 | disposition home or self-care (01) ==
LOC: HO.US 09:15
PROVIDERS: PCP Internal Medicine; Visit Provider Nurse Practitioner Family
DX: N20.0 Calculus of kidney (principal)
CPT/HCPCS: 76775

== ENCOUNTER 2024-02-27 07:40 | Outpatient (AMB) | payer MEDICAID, SELFPAY ==
--- NOTE | 2024-02-27 07:40 | A.OFFVIS_ITS ---
Intake Visit Reasons: 6m/US/[facility] Intake Note: Patient presents today for follow up on :Nephrolithiasis, ultrasound and [facility]olink results Ultrasound Completed: 02/16/24 Urology Medication: None Antibiotic Allergies: Nitrofuratoin, Sulfa, Trimethroprim Blood Thinners:None Fur Remodeler Required: No Accompanied by: Self / Same As Patient Allergies shrimp Allergy (Mild, Verified 02/27/24 08:12) SWELLING gabapentin [GABAPENTIN] Allergy (Unknown, Verified 02/27/24 08:12) COULDNT FEEL LEGS , numbness methotrexate [METHOTREXATE] Allergy (Unknown, Verified 02/27/24 08:12) VOMITING nitrofurantoin Allergy (Unknown, Verified 02/27/24 08:12) cyclic vomitting abatacept [From Orencia] Allergy (Verified 02/27/24 08:12) Swelling Sulfa (Sulfonamide Antibiotics) Adverse Reaction (Unknown, Verified 02/27/24 08:12) SOB, Tembling, LE weakness trimethoprim [From BACTRIM] Adverse Reaction (Unknown, Verified 02/27/24 08:12) NUMBNESS IN BLE, VOMITING Medication List - Last Reconciled 02/27/24 by ANA Finch- Actemra (tocilizumab) 162 mg (0.9 mL) subcut QWEEK NS cetirizine 10 mg PO QAM cyclobenzaprine 5 mg PO BEDTIME PRN diclofenac sodium 1% 2 grams topical QID PRN finger splint As directed fluticasone propionate 50 mcg/actuation intranasal ibuprofen 600 mg PO Q8H PRN lidocaine 5% (Lidoderm) 1 patch topical DAILY meclizine 25 mg PO DAILY PRN methotrexate sodium 12.5 mg subcut QWEEK norethindrone (contraceptive) 0.35 mg PO DAILY omeprazole 20 mg PO DAILY PRN HPI Comments Details: Bridgette is a very pleasant 33-year-old female patient of . She has a past medical history of rheumatoid arthritis, nephrolithiasis, and migraines. She is being followed up on today via video telehealth for her nephrolithiasis. In discussion with the patient today she reports to be doing and feeling well. She does report intermittent episodes of generalized pain that she relates to her rheumatoid arthritis. She denies any bothersome urinary issues or concerns since her last office visit here [address] Topete. Recent renal imaging results reviewed with the patient today. Nonobstructing 3 mm left lower pole calculus. Resolved left-sided hydronephrosis. 24 hour urine collection results also reviewed with the patient today. Extremely low urine volume of 0.6 L. We discussed at length importance of adequate hydration in relation to nephrolithiasis as well as overall health and well-being. She discusses her longstanding history of nephrolithiasis during as well as her surgical history for nephrolithiasis. She denies urinary urgency, urinary frequency, incontinence, nocturia, hematuria, dysuria, foul smelling urine, changes to urinary stream, flank pain, fever, and or chills. She is happy with her current voiding parameters. She otherwise offers no other issues or concerns at this time. Nephrolithiasis Intermittent recurrent Recent presentation to ER with right-sided flank pain CT 09/01 - Left kidney: Nonobstructive 1 mm stone in the upper pole left kidney. Mild hydronephrosis of left kidney with distention renal pelvis calyces and proximal left ureter. There is a obstructing stone in the proximal left ureter at the ureter pelvic junction measuring 3 mm. [facility] Medical History Flexor tenosynovitis of thumb History of COVID-19 Long-term use of immunosuppressant medication Seropositive rheumatoid arthritis Hypotension Encounter for screening for endocrine disorder H/O renal calculi Symptomatic cholelithiasis Migraines Rheumatoid arthritis Kidney stones Surgical History History of cholecystectomy Hx of tubal ligation History of laparoscopic cholecystectomy Hx of cystoscopy Hx of colonoscopy Social History Household Members: Children Alcohol intake: never Comment: pt. sleeping Patient Tobacco Use Status: Never used Tobacco e-Cigarette/Vaping Use: Never Used Substance Use Type: Marijuana service: No Current occupational status: unemployed Current occupation: right hand dominant Female Reproductive History Menstrual Age of Menarche: 13 Review of Systems Const All systems reviewed & are unremarkable except as noted in HPI and below Physical Exam Const General: cooperative, healthy appearing, comfortable, no acute distress, well developed, alert and awake Orientation/consciousness: patient oriented x3 Resp Effort & Inspection: normal respiratory effort and able to speak in complete sentences Neuro General: patient oriented x3 Psych Appearance: grossly normal and well kempt Mental Status: mental status grossly normal Speech and movement: Normal speech and movement present and Clear speech present Affect: normal affect Attitude: cooperative Thought process: Normal thought process present Thought content: Normal thought content present Insight: Fair insight present (Psych) Judgement: Fair judgement present (Psych) Telehealth Telehealth Telehealth Platform: [employer] Location of provider rendering services: practice address Location of patient: address on file Telehealth method: video Patient verbally consented to treatment: Yes Patient verbally consented to billing insurance company: Yes Patient informed of any privacy concerns related to visit: Yes Minutes spent on Phone/Video with Pt.: 20 Results Reviewed Results Reviewed: Date of Service: 02/16/24 Procedure(s): US renal BI FINDINGS: RIGHT KIDNEY: 10.8 x 3.9 x 4.0 cm (SAG x AP x TRV). The kidney is normal in size, contour, and echogenicity. Renal cortical thickness is normal. No calculi or focal parenchymal lesions. No hydronephrosis. LEFT KIDNEY: 9.7 x 4.8 x 5.0 cm (SAG x AP x TRV). The kidney is normal in size, contour, and echogenicity. Renal cortical thickness is normal. No focal parenchymal lesions or hydronephrosis. The previously seen mild left-sided hydronephrosis caused by an obstructing proximal ureteral stone is no longer present. There is a lower pole 3 mm echogenic focus seen with twinkle artifact consistent with a nonobstructing calculus. At the time of the prior CT scan a similar sized calculus was noted in an upper pole calyx. Incidental note made of an echogenic liver consistent with hepatic steatosis. IMPRESSION: 1. Nonobstructing 3 mm left lower pole calculus. 2. Incidentally noted hepatic steatosis. 3. Resolved left-sided hydronephrosis. Assessment & Plan Assessment & Plan (1) Kidney stones: Code(s): N20.0 - Calculus of kidney Category: Medical Plan Recent renal imaging results reviewed with the patient today; as noted above. Recent 24 hour urine collection results reviewed with the patient today; as noted above. We discussed at length importance of hydration in relation to nephrolithiasis as well as overall health and well-being. We discussed low oxalate diet and specific foods to avoid including certain green leafy vegetables, chocalate, nuts, tea, beets, rubarb; low sodium, decreased use of animal protein and the importance of hydration drinking up to 2-2.5 liters of fluids and use of adding lemon to water to increase citrate in the diet. Patient currently denies any bothersome urinary issues or concerns. She reports be happy with current voiding parameters. Will obtain 24 hour urine collection in 3 months. Follow-up in 3 months with your wrist to be completed prior; or sooner with any issues, concerns, and or questions. Orders: Orders URORISK 02/27/24 N20.0 - Calculus of kidney Patient Instructions: The patient had an opportunity to ask questions regarding the treatment plan. All questions were answered. Physical exam, labs, and imaging were discussed and reviewed in detail. As well as risks, benefits, and discussion of treatment choices. No major barriers to understanding were identified. The patient expressed understanding and agreement with the above treatment plan. The patient was made aware they should contact our office by phone for worsening of their current condition, the appearance of new symptoms, or with any questions or concerns. Compliance is encouraged with any medications and follow up testing that is ordered. It is a privilege to be allowed the opportunity to participate in? your urological care.? Again, if you have any questions or conc erns If you have any questions or concerns please do not hesitate to contact me. The office is [phone]. This note is constructed using voice recognition software. While every effort has been made to ensure accuracy tile conduit layer errors may have been included. Yours sincerely, FABRICE Finch Coding Level of Care Code Tele Est Pt Level 3 (03790) Diagnoses Kidney stones N20.0 Time Spent (min) 20
== END 2024-02-27 08:29 | disposition home or self-care (01) ==
LOC: HO.HUSH 07:40
PROVIDERS: PCP Internal Medicine; Visit Provider Nurse Practitioner Family
DX: N20.0 Calculus of kidney (principal)
CPT/HCPCS: 99213

== ENCOUNTER 2024-03-05 13:45 | Outpatient (REF) | payer MEDICAID, SELFPAY ==
[2024-03-05 14:03] LABS: MANUAL DIFF FLAG NO
[2024-03-05 14:40] LABS: Basophils Percent Auto 0.5 % (0-2); Eosinophils Absolute Auto 0.6 X10*3/uL (0.0-0.4); Eosinophils Percent Auto 7.5 % (0-4); Hematocrit 34.7 % (37.0-47.0); Hemoglobin 11.9 g/dl (12.0-16.0); Imm Gran Abs Auto 0.02 X10*3/uL (0.00-0.03); Imm Gran Pct Auto 0.2 % (0.0-0.4); Lymphocytes Absolute Auto 2.8 X10*3/uL (1.2-4.9); Lymphocytes Percent Auto 34.7 % (20-40); Mean Corpuscular HGB Conc 34.3 g/dl (31.0-35.0); Mean Corpuscular Hemoglobin 30.5 pg (27.0-33.0); Mean Platelet Volume 10.7 fL (9.4-12.3); Monocytes Absolute Auto 0.5 X10*3/uL (0.1-1.2); Neutrophils Absolute Auto 4.2 x10*3/uL (2.0-8.3); Neutrophils Percent Auto 51.1 % (45-73); Platelet Count 282 X10*3/uL (160-400); White Blood Count 8.1 X10*3/uL (4.8-10.8)
[2024-03-05 15:18] LABS: Erythrocyte Sedimentation Rate 5 MM/HR (0-20)
[2024-03-05 15:25] LABS: Alanine Aminotransferase 18 U/L (0-31); Albumin Level 3.9 g/dL (3.5-5.0); Alkaline Phosphatase 71 U/L (39-117); Anion Gap 12 (12-20); Aspartate Amino Transferase 22 U/L (5-31); Bilirubin Total 0.2 mg/dL (0.0-1.0); Blood Urea Nitrogen 10 mg/dL (9-16); C Reactive Protein < 0.10 mg/dL (< or = 0.50); Calcium 8.9 mg/dL (8.4-10.2); Carbon Dioxide 20 mmol/L (22-29); Chloride 108 mmol/L (96-108); Estimated Glomerular Filt Rate > 60; Glucose Random 98 mg/dL (60-115); Potassium 3.4 mmol/L (3.3-5.1); Sodium 137 mmol/L (135-145); Total Protein 6.4 g/dL (6.5-8.0)
== END 2024-03-05 13:46 | disposition home or self-care (01) ==
LOC: HO.LAB 13:45
PROVIDERS: PCP Internal Medicine; Visit Provider Internal Medicine Rheumatology
DX: M05.741 Rheumatoid arthritis with rheumatoid factor of right hand without organ or systems involvement (principal); M05.742 Rheumatoid arthritis with rheumatoid factor of left hand without organ or systems involvement
CPT/HCPCS: 36415; 80053; 85025; 85652; 86140

== ENCOUNTER 2024-04-20 16:03 | Outpatient (REF) | payer MEDICAID, SELFPAY | END 2024-04-20 16:04 | disposition home or self-care (01) | LOC: HO.LNP 16:03 | PROVIDERS: Visit Provider Family Medicine | DX: R30.0 Dysuria (principal) | CPT/HCPCS: 87086 ==

== ENCOUNTER 2024-06-26 15:33 | Outpatient (AMB) | payer MEDICAID, SELFPAY ==
--- NOTE | 2024-06-26 15:33 | A.OFFVIS_ITS ---
Intake Visit Reasons: 3m/[facility] Intake Note: Patient presents today via telehealth-video call for 3 month follow up/[facility] Urology Medication: None Antibiotic Allergies: Nitrofuratoin, Sulfa, Trimethroprim Blood Thinners:None Securities Supervisor Required: No Accompanied by: Self / Same As Patient Allergies shrimp Allergy (Mild, Verified 06/26/24 16:03) SWELLING gabapentin [GABAPENTIN] Allergy (Unknown, Verified 06/26/24 16:03) COULDNT FEEL LEGS , numbness methotrexate [METHOTREXATE] Allergy (Unknown, Verified 06/26/24 16:03) VOMITING nitrofurantoin Allergy (Unknown, Verified 06/26/24 16:03) cyclic vomitting abatacept [From Orencia] Allergy (Verified 06/26/24 16:03) Swelling Sulfa (Sulfonamide Antibiotics) Adverse Reaction (Unknown, Verified 06/26/24 16:03) SOB, Tembling, LE weakness trimethoprim [From BACTRIM] Adverse Reaction (Unknown, Verified 06/26/24 16:03) NUMBNESS IN BLE, VOMITING Medication List - Last Reconciled 06/26/24 by ANA Finch- Actemra (tocilizumab) 162 mg (0.9 mL) subcut QWEEK NS cetirizine 10 mg PO QAM cyclobenzaprine 5 mg PO BEDTIME PRN diclofenac sodium 1% 2 grams topical QID PRN finger splint As directed fluticasone propionate 50 mcg/actuation intranasal ibuprofen 600 mg PO Q8H PRN lidocaine 5% (Lidoderm) 1 patch topical DAILY meclizine 25 mg PO DAILY PRN methotrexate sodium 12.5 mg subcut QWEEK norethindrone (contraceptive) 0.35 mg PO DAILY omeprazole 20 mg PO DAILY PRN HPI Comments Details: Bridgette is a very pleasant 34-year-old female patient of . She has a past medical history of rheumatoid arthritis, nephrolithiasis, and migraines. She is being followed up on today via video telehealth for her nephrolithiasis. In discussion with the patient today she discusses having to reschedule her appointment as she was sick with GI issues followed by JEN. She discusses feeling better now. Recent 24 hour urine collection results reviewed with the patient today. We discussed urine volume has risen but fátima ins low previously was 0.5 L and now is 1.1 L. We discussed clinical goal of approximately 2.5 L daily. We also discussed high urine calcium and potential/consideration of thiazide however patient would like to trial dietary recommendations prior. She denies any bothersome urinary issues. She does report having had a few episodes of right-sided flank pain however describes these episodes as infrequent and self-limiting. She denies urinary urgency, urinary frequency, incontinence, nocturia, hematuria, dysuria, foul smelling urine, changes to urinary stream, flank pain, fever, and or chills. She is happy with her current voiding parameters. She otherwise offers no other issues or concerns at this time. Nephrolithiasis Intermittent recurrent Recent presentation to ER with right-sided flank pain CT 09/01 - Left kidney: Nonobstructive 1 mm stone in the upper pole left kidney. Mild hydronephrosis of left kidney with distention renal pelvis calyces and proximal left ureter. There is a obstructing stone in the proximal left ureter at the ureter pelvic junction measuring 3 mm. [facility] Medical History Flexor tenosynovitis of thumb History of COVID-19 Long-term use of immunosuppressant medication Seropositive rheumatoid arthritis Hypotension Encounter for screening for endocrine disorder H/O renal calculi Symptomatic cholelithiasis Migraines Rheumatoid arthritis Kidney stones Surgical History History of cholecystectomy Hx of tubal ligation History of laparoscopic cholecystectomy Hx of cystoscopy Hx of colonoscopy Social History Household Members: Children Alcohol intake: never Comment: pt. sleeping Patient Tobacco Use Status: Never used Tobacco e-Cigarette/Vaping Use: Never Used Substance Use Type: Marijuana service: No Current occupational status: unemployed Current occupation: right hand dominant Female Reproductive History Menstrual Age of Menarche: 13 Review of Systems Const All systems reviewed & are unremarkable except as noted in HPI and below Physical Exam Const General: cooperative, healthy appearing, comfortable, no acute distress, well developed, alert and awake Orientation/consciousness: patient oriented x3 Resp Effort & Inspection: normal respiratory effort and able to speak in complete sentences Neuro General: patient oriented x3 Psych Appearance: grossly normal and well kempt Mental Status: mental status grossly normal Speech and movement: Normal speech and movement present and Clear speech present Affect: normal affect Attitude: cooperative Thought process: Normal thought process present Thought content: Normal thought content present Insight: Fair insight present (Psych) Judgement: Fair judgement present (Psych) Telehealth Telehealth Telehealth Platform: [employer] Location of provider rendering services: practice address Location of patient: address on file Patient Identification confirmed using: Name, : Yes Telehealth method: video Patient verbally consented to treatment: Yes Patient verbally consented to billing insurance company: Yes Patient informed of any privacy concerns related to visit: Yes Minutes spent on Phone/Video with Pt.: 15 Assessment & Plan Assessment & Plan (1) Kidney stones: Code(s): N20.0 - Calculus of kidney Category: Medical Plan Recent [facility] results reviewed with the patient today; as noted above. We discussed dietary modifications as well as importance of adequate hydration relation to nephrolithiasis as well as overall health and well-being. Patient currently denies any bothersome urinary issues. She reports be happy with current voiding parameters. We discussed adding 1 oz of lemon juice to water daily. Will obtain renal ultrasound in 3 months. Will obtain your risk in 3 months for further assessment evaluation. Follow-up in 3 months with imaging and [facility] to be completed prior; or sooner with any issues, concerns, and or questions. Orders: Orders US renal BI 3 Months N20.0 - Calculus of kidney URORISK 3 Months N20.0 - Calculus of kidney Patient Instructions: The patient had an opportunity to ask questions regarding the treatment plan. All questions were answered. Physical exam, labs, and imaging were discussed and reviewed in detail. As well as risks, benefits, and discussion of treatment choices. No major barriers to understanding were identified. The patient expressed understanding and agreement with the above treatment plan. The patient was made aware they should contact our office by phone for worsening of their current condition, the appearance of new symptoms, or with any questions or concerns. Compliance is encouraged with any medications and follow up testing that is ordered. It is a privilege to be allowed the opportunity to participate in? your urological care.? Again, if you have any questions or concerns If you have any questions or concerns please do not hesitate to contact me. The office is [phone]. This note is constructed using voice recognition software. While every effort has been made to ensure accuracy precinct police captain errors may have been included. Yours sincerely, FABRICE Finch Coding Level of Care Code Tele Est Pt Level 3 (25679) Diagnoses Kidney stones N20.0
--- OUTSIDE RECORDS SUMMARY | 2024-06-26 18:25 | XMS_ITS | Clinical Summary ---
Author Organization [employer] Address [address] [facility] [address] [place] [address] Care Team Providers Care Machine Rough Rounder Name Role Phone Sharon Mcmahon MD Primary Care Provide r Allergies Active Allergy Reactions Criticality Noted Date Comments Abatacept Shortness of breath High 01/31/2020 Gabapentin Other,Rash Low 11/05/2016 After taking gabapentin for 2 weeks, her legs from knees to feet became numb Other Reaction(s): Paralysis Methotrexate Vomiting 01/24/2018 Other reaction(s): GI Intolerance vomiting vomiting Other reaction(s): GI Intolerance vomiting Nitrofurantoin Hives 10/04/2018 Other reaction(s): Cyclic Vomiting, Cyclic Vomiting Shellfish Allergy Angioedema High 12/23/2016 Other reaction(s): mouth & throat swell up Other Reaction(s): lips swollen Shellfish-Derived Products 12/23/2016 Other reaction(s): mouth & throat swell up Sulfamethoxazole Hives 10/04/2018 Other reaction(s): Trembling, SOB, LE Weakness Sulfamethoxazole-Trimeth oprim Anaphylaxis High 12/21/2018 Trimethoprim 10/04/2018 Other reaction(s): Trembling, SOB, LE Weakness Medications tocilizumab (Actemra) injection 1 (one) time per week. Active dicyclomine (Bentyl) 10 MG capsule dicyclomine 10 mg capsule TAKE 1 CAPSULE BY MOUTH THREE TIMES A DAY NEEDED FOR ABDOMINAL CRAMPING 019 Active EPINEPHrine (Epipen) 0.3 MG/0.3ML injection syringe epinephrine 0.3 mg/0.3 mL injection, auto-injector INJECT 0.3 ML INTRAMUSCULARLY ONCE DIRECTED FOR ANAPHYLAXIS AND CALL 911 Active ondansetron (Zofran) 4 MG tablet Take 4 mg by mouth every 6 (six) hours. Active ibuprofen 400 MG tablet TAKE 1 TABLET BY MOUTH EVERY 6 HOURS NEEDED FOR PAIN 30 tablet 024 Active famotidine (Pepcid) 40 MG tabletIndicati ons:Gastroesop hageal reflux disease without esophagitis Take 1 tablet (40 mg) by mouth in the morning. 30 tablet 1 024 Active Lidoderm 5 % patchIndicatio ns:Rheumatoid arthritis flare (CMS/HCC) Apply 1 patch topically Once per day. Remove & discard patch within 12 hours or as directed by MD. 30 patch 024 Active Acetaminophen Extra Strength 500 MG tabletIndicati ons:COVID-19 TAKE 2 TABLETS (1,000 MG) BY MOUTH EVERY 8 (EIGHT) HOURS IF NEEDED FOR MILD PAIN FOR UP TO 10 DAYS. 30 tablet 024 Active cyclobenzaprin e (Flexeril) 10 MG tabletIndicati ons:Rheumatoid arthritis flare (CMS/HCC) TAKE 1 TABLET (10 MG) BY MOUTH 3 TIMES DAILY FOR 10 DAYS. 30 tablet 024 Active LORazepam (Ativan) 0.5 MG tabletIndicati ons:Anxiety Take one tablet 1-2 hours before the procedure 4 tablet 024 Active cetirizine (ZyrTEC) 10 MG tabletIndicati ons:Seasonal allergies TAKE 1 TABLET BY MOUTH EVERY DAY IN THE MORNING 90 tablet 1 025 Active cetirizine (ZyrTEC) 10 MG tabletIndicati ons:Seasonal allergies TAKE 1 TABLET BY MOUTH EVERY DAY IN THE MORNING 90 tablet 1 024 2024 Discontinued Active Problems Problem Noted Date Diagnosed Date Encounter for screening for cervical cancer 11/10 Assessment & Plan (12/05/2023 12:20 PM EDT): Pelvic exam done, PAP smear done, patient will be contacted with results Metrorrhagia 12/05/2023 Assessment & Plan (12/05/2023 12:21 PM EDT): BV and CG done Pelvic US ordered Patient will be contacted with results Injury of right clavicle 11/01/2023 Rheumatoid arthritis flare 10/18/2023 Assessment & Plan (10/18/2023 1:22 PM EDT): F/u with rheumatology she has an appointment 10/20/23 Acute pain of right shoulder 10/18/2023 Assessment & Plan (11/11/2023 3:13 PM EDT): Do not miss appointment with orthopedics C/w acetaminophen alternate with ibuprofen and flexeril Take oxycodone only if its really necessary, she is doing it correctly, I let her know that if she runs out of medication I will refill for another week until she is seen by specialist Palpitations 06/24/2023 Assessment & Plan (07/26/2023 5:24 PM EDT): Patient will do her TSH today she will be contacted with results F/u with cardiology Assessment & Plan (07/02/2023 1:36 PM EDT): See below, referral to cardiology. Atypical chest pain 06/24/2023 Assessment & Plan (07/02/2023 1:36 PM EDT): Pt seen in ER for these symptoms, referral to cardiology, aware of s/s to report, possible anxiety component, deep breath helps, Gastroesophageal reflux disease without esophagi tis 06/24/2023 Assessment & Plan (07/26/2023 5:24 PM EDT): I advise patient to avoid NSAIDs, spicy and acid food, I advise to eat at the same time every day, I advise to elevate the head of the bed and take medications as prescribe Assessment & Plan (07/02/2023 1:37 PM EDT): Potential sources of atypical chest pain, trial famotidine, follow up with pcp as scheduled. 06/21/2023 Traumatic injury during 06/21/2023 UTI symptoms 04/01/2023 Assessment & Plan (04/01/2023 1:31 PM EST): Drink plenty of water Do not hold urine UA ans culture done Axillary pain, right 02/13/2023 Assessment & Plan (04/01/2023 1:31 PM EST): Likely muscle spasm C/w acetaminophen PRN warm compresses and flexeril PRN Gentle stretching was advise Assessment & Plan (02/13/2023 9:57 AM EST): Right axillary pain is chronic but worsening ,there is some induration palpated ,not defined borders, normal bl breast examination. Pt with chronic and worsening pain in her right axillary area with palpated induration ,does not appear LDN -referred today for US axilla --I will call pt w image result -warm compresses in area of pain -tylenol prn Q 8 h -Ibuprofen 400 up to 2 tab if needed Abdominal bloating 04/23/2022 Forgetfulness 04/23/2022 Generalized abdominal pain 04/23/2022 Irritable bowel syndrome 04/23/2022 Low blood pressure 04/23/2022 Magnetic resonance imaging of brain abnormal Mechanical complication of i ntrauterine contraceptive device 04/23/2022 Mixed anxiety and depressive disorder 04/23/2022 Assessment & Plan (08/26/2022 9:32 AM EDT): We talked about non-medication interventions for anxiety including exercise, meditation, counseling, mindfulness practices. Also recommend consideration for medication start for persistent daily anxiety negatively impacting quality of life and activities. RTC 3 months Assessment & Plan (04/27/2022 1:41 PM EST): -PHQ9 score 15, pt denies active SI/HI/thoughts of self harm -Protective factors: children -Safety planning reviewed -Referral to N for further eval -Discussed various medication options, pt interested in restarting mirtazapine 7.5mg nightly before bed. Reviewed medication safety and SE Follow up in 2-4 weeks to review med SE and mood. Sooner as needed. Pt in agreement with plan. Female stress incontinence 05/13/2017 Mood disorder 05/13/2017 Overview (05/23/2022): -Mirtazapine 7.5mg nightly initiated on 04/23/22 Assessment & Plan (05/23/2022 10:34 AM EST): -Approx 4 weeks of mirtazapine w/o noted improvement in sleep or mood. Although, is noting increased appetite -Describing difficulty concentrating and mind racing before bed (not necessarily ruminating or anxious thoughts). During the day also mentions very difficult to stay on task -Referral for [facility] provided for pt to call for usually same day mental health prescriber and therapy eval. Considering mood disorder vs ADHD vs other, and discusses benefit of further psych eval prior to med adjustment -Safety planning -Follow up in 1 month with PCP or covering provider, sooner as needed. Pt in agreement with plan. Seropositive rheumatoid arthritis 01/11/2017 Assessment & Plan (02/28/2024 4:23 PM EST): Continue to follow with specialist Assessment & Plan (11/11/2023 3:14 PM EDT): I will refer patient for a second opinion Assessment & Plan (07/26/2023 5:25 PM EDT): Patient today also c/o neck pain radiating to her arm I advise to let specialist know meanwhile c/w same medication regiment, patient declines PT referral she will od gentle stretching at home Assessment & Plan (08/26/2022 9:31 AM EDT): Continue to follow with air defense artillery officer, condition for now stable Anaphylaxis due to shellfish 01/28/2016 Encounters Date Type Department Care Team Description 06/24/2024 Refill [facility] [address] [place] [address] Sharon Mcmahon MD Seasonal allergies 06/22/2024 Population Health Risk Score [facility] (C[facility]) Department [address] [facility] [address] [place] [address] Provider, Population Health Generic 04/27/2024 Telephone [facility] [address] [place] [address] Sharon Mcmahon MD Nurse Triage 04/20/2024 9:15 AM EST Office Visit [facility] [address] [place] [address] Ene Sales DO Acute UTI (Primary Dx) 04/20/2024 Travel from Last 3 Months Immunizations Name Administration Dates Next Due Influenza Injectable Quadriv alant Preservative Free IIV4 MDCK 12/08/2017,11/16/2016 Influenza injectable quadriv alent preservative free 02/18/2023,03/22/2022,01/12/2020,2018,11/28/2015 Td (adult), 5 Lf tetanus tox oid, preservative free, adsorbed 11/20/2012 Tdap 01/26/2018,05/23/2011 Family History Medical History Relation Name Comments end-stage bronchiectasis Brother lung transplant @34yo Sister Relation Name Status Comments Brother Sister Social History Tobacco Use Types Packs/Day Years Used Date Smoking Tobacco: Never Passive Smoke Exposure: Never Smokeless Tobacco: Never Tobacco Cessation:Counseling Given: Not Answered Alcohol Use Standard Drinks/Week Comments Yes 0 (1 standard drink = 0.6 oz pur e alcohol) Occassionally Depression Answer Date Recorded Patient Health Questionnaire-9 Score 0 04/01/2023 Patient Health Questionnaire-9 Score 0 04/01/2023 Last PHQ-9: Questionnaire Data Not on file 1 06/02/2022 Housing Stability Answer Date Recorded What is your housing situation today? I have brandon inman 06/24/[address] you li ve. Do you have problems with any of the following? None of the above 06/24/2023 Food Insecurity Answer Date Recorded Within the past 12 months, y ou worried that your food would run out before you got money to buy more: Never True 06/24/2023 Within the past 12 months,th e food you bought just didn't last and you didn't have enough money to get more: Never True Transportation Answer Date Recorded In the past 12 months, has l ack of transportation kept you from medical appts, meetings, work or from getting things needed for daily living? No 06/24/2023 Utilities Answer Date Recorded In the past 12 months, has t he electric, gas, oil or water company threatened to shut off services in your home? No 06/24/2023 Depression Answer Date Recorded Patient Health Questionnaire-2 Score 0 04/01/2023 Comments Unknown Sex and Gender Information Value Date Recorded Sex Assigned at Female 02/08/2022 10:17 AM EDT Legal Sex Female 10:17 AM EDT Gender Identity Female 02/08/2022 10:17 AM EDT Sexual Orientation Bisexual 02/08/2022 10 :17 AM EDT Last Filed Vital Signs Vital Sign Reading Time Taken Comments Blood Pressure 128/70 04/20/2024 9:19 AM EST Pulse 88 04/20/2024 9:19 AM EST Temperature 36.3 ??C (97.3 ??F) 04/20/2024 9:19 AM ES T Respiratory Rate 20 04/20/2024 9:19 AM EST Oxygen Saturation 98% 12/05/2023 9:42 AM EDT Inhaled Oxygen Concentration - - Weight 77.2 kg (170 lb 2 oz) 04/20/2024 9:19 AM EST Height 154.9 cm (5' 1 ) 04/20/2024 9:19 AM EST Body Mass Index 32.14 04/20/2024 9:19 AM EST Plan of Treatment Upcoming Encounters Date Type Department Care Team (Late st Contact Info) Description 08/31/2024 1:45 PM EDT Office Visit [facility] [address] [place] [address] Sharon Mcmahon MD [address] [place] [address] Health Maintenance Due Date Last Done Comments HIV Screening 1991 Family Planning (PISQ) 2006 Hepatitis B Vaccines (1 of 3 - 19+ 3-dose series) 2010 Pneumococcal Vaccine: Pediatrics (0 to 5 Years) and At-Risk Patients (6 to 49) Years) (1 of 2 - PCV) 2010 Zoster Vaccines (1 of 2) 2010 COVID-19 Vaccine (2 - Angel risk series) 08/13/2020 07/16/2020 Depression Screening 04/01/2024 04/01/2023, 04/01/20 SDOH Screening 06/23/2024 06/24/2023 Alcohol/Substance Use Screening 02/23/2025 02/24/2024 Tobacco Screening 02/23/2025 02/24/2024 HPV/Cotest 11/27/2025 11/27/2020 DTaP/Tdap/Td Vaccines (4 - Td or Tdap) 01/27/2028 01/26/2018, 11/20/2012, 05/23/2011 Cervical Cancer Screening 12/04/2028 Pap Smear 12/04/2028 12/05/2023, 11/27/2020 RSV Patients and Patients Aged 60 years or older (1 - 1-dose 75+ series) 2066 Hepatitis C Screening Completed 01/27/2021, 019 Influenza Vaccine Completed 01/04/2024, , 03/22/2022, Additional history exists HIB Vaccines Aged Out No longer eligi ble based on patient's age to complete this topic HPV Vaccines Aged Out No longer eligi ble based on patient's age to complete this topic Hepatitis A Vaccines Aged Out No long er eligible based on patient's age to complete this topic IPV Vaccines Aged Out No longer eligi ble based on patient's age to complete this topic Meningococcal Vaccine Aged Out No ria yohannes eligible based on patient's age to complete this topic RSV under 20 months Aged Out No longe r eligible based on patient's age to complete this topic Rotavirus Vaccines Aged Out No longer eligible based on patient's age to complete this topic Procedures Procedure Name Priority Date/Time Associated Diagnosis Comments POCT URINALYSIS DIPSTICK Routine 04/20/2024 9:27 AM EST Acute UTI CULTURE, URINE, ROUTINE Routine 04/20/2024 9:22 AM EST Acute UTI THINPREP IMAGING PAP WITH REFLEX TO HPV MRNA E6/E7 Routine 12/05/2023 12:00 AM EDT ZZZ HISTORICAL HEPATITIS A,B,C PROFILE Routine 01/27/2021 9:00 AM EDT HPV MRNA E6/E7 REFLEX TO HPV 16, 18/45 Routine 11/27/2020 9:15 AM EDT from Last 3 Months or Most Recently Relevant to Health Maintenance Results * (ABNORMAL) POCT Urinalysis (04/20/2024 9:27 AM EST) Color, UA Light Yellow Clarity, UA Clear Glucose, UA Negative Bilirubin, UA Negative Ketones, UA Negative Spec Grav, UA 1.030 Blood, UA Positive(A) Negative, None Detected Comment:Trace-Intact pH, UA 6.0 Protein, UA Negative Urobilinogen, UA 0.2 Leukocytes, UA Negative Negative, Rare, Trace Nitrite, UA Negative Negative, None Detected QC Media Lot # [id number] Lot# Expiration Date [id number] Urine 04/20/2024 9:27 AM EST Ene Sales DO POINT OF CARE TEST ENTER/PANFILO T ORDERABLES Final Result * Culture, Urine, Routine (04/20/2024 9:22 AM EST) Urine Urine specimen obtained by clean catch procedure / Unknown 04/20/2024 9:22 AM EST 04/20/2024 4:06 PM EST Comment:UACC Narrative [facility] - 04/22/2024 11:21 AM EST Urine Culture Report Result Urine Culture 50,000 to 100,000 cfu/ml Urine Culture Mixed bacterial patience characteristic of Urine Culture urogenital contamination. Specimen Source: Urine clean catch us Ene Sales DO LAB MICROBIOLOGY - GENERAL O RDERABLES Final Result [facility] [address] [place] [phone] * ThinPrep Imaging Pap with Reflex to HPV mRNA E6/E7 (12/05/2023 12:00 AM EDT) HPV nRNA E6/E7 TNP [facility] SOURCE: SEE NOTE [facility] Comment:None given Report Status: [facility] Clinical Information: SEE NOTE [facility] Comment:None given LMP: SEE NOTE [facility] Comment:NONE GIVEN Prev. PAP: SEE NOTE [facility] Comment:NONE GIVEN Prev. BX: SEE NOTE [facility] Comment:NONE GIVEN Statement Of Adequacy: SEE NOTE [facility] Comment:Satisfactory for edy luation.Endocervical/transformation zone componentpresent. General Categorization: [facility] Interpretation/Result: SEE NOTE [facility] Comment:Cytology Results: Ne gative for intraepitheliallesion or malignancy. Cytology Comment SEE NOTE [facility] Comment:This Pap test has be en evaluated with computerassisted technology. Athletic Scout: SEE NOTE [facility] Comment:YP, CT(ASCP)CT scree mau location: [place] [address] Review Athletic Scout: [facility] Pathologist [facility] PAP Infection [facility] See Note SEE NOTE [facility] Comment:EXPLANATORY NOTE:The Pap is a screening test for cervical cancer. It isnot a diagnostic test and is subject to false negativeand false positive results. It is most reliable when asatisfactory sample, regularly obtained, is submittedwith relevant clinical findings and history, and whenthe Pap result is evaluated along with historic andcurrent clinical information.THIS TEST WAS PERFORMED AT:[facility] [address] [id number] AGEE MD 12/05/2023 12/05/2023 Narrative [facility] - 12/07/2023 3:26 PM EDT SEE SCANNED RESULTS IN EMR us Sharon Caicedo MD LAB PATHOLOGY ORDERAB LES Final Result [facility] [address] [place] [address] [phone] * Hepatitis A,B,C Profile (01/27/2021 9:00 AM EDT) Hepatitis B Core Antibody Nonreactive Nonreactive [facility] Hepatitis B Surface Antibody REACTIVE Nonreactive [facility] Comment:REACTIVE: > 11.99 mI U/mL Hepatitis B Surface Antigen Negative Negative [facility] Hepatitis C Antibody Nonreactive Nonreactive [facility] Comment: Antibodies to HCV not detected; does not exclude early acute HCV infection. 01/27/2021 9:00 AM EDT us Historical Provider MD HISTORICAL/NON ORDERABLE LABS Final Result Performing Organization Address [facility] de Phone Number [facility] [address] * HPV mRNA E6/E7 REFLEX TO HPV 16, 18/45 (11/27/2020 9:15 AM EDT) Pathologist [facility] HPV nRNA E6/E7 Not Detected Not Detected [facility] Comment: Methodology: Director Sales Training-Mediated Amplification This assay detects E6/E7 viral messenger RNA (mRNA) from 14 high-risk HPV types (16,18,31,33,35,39,45,51,52,56,58,59,66,68). ? The analytical performance characteristics of this assay have been determined by [employer]. The modifications have not been cleared or approved by the FDA. This assay has been validated pursuant to the CLIA regulations and is used for clinical purposes. ?? For additional information, please refer to http://education.[employer] R&D/faq/VTM599w6 (This link if provided for information/ educational purposes only.) 11/27/2020 9:15 AM EDT Sharon Caicedo MD LAB CYTOLOGY ORDERABL ES Final Result Performing Organization Address [facility] Co de Phone Number [facility] [address] from Last 3 Months or Most Recently Relevant to Health Maintenance Insurance [facility] C3 Care Teams Machine Rough Rounder Relationship Specialty Start Date End Date Sharon Mcmahon MD [address] [place] [phone] PCP - General Family Medicine 12/21/17
--- OUTSIDE RECORDS SUMMARY | 2024-06-26 18:25 | XMS_ITS | Encounter Summary ---
Author Organization [employer] Address [address] [facility] [address] [place] [address] Care Team Providers Care Door Trimmer Name Role Phone Sharon Mcmahon MD Primary Care Provide r Reason for Visit * Reason Comments Med Refill Encounter Details Date Type Department Care Team ([facility] Contact Info) Description 05/01/2023 Refill [facility] [address] [place], [place] [phone] Sharon Mcmahon MD [address] [place], [place] [phone] Generalized abdominal pain Social History Tobacco Use Types Packs/Day Years Used Date Smoking Tobacco: Never Smokeless Tobacco: Never Alcohol Use Standard Drinks/Week Comments Yes 0 (1 standard drink = 0.6 oz pur e alcohol) Occassionally Depression Answer Date Recorded Patient Health Questionnaire-9 Score 0 04/01/2023 Patient Health Questionnaire-9 Score 0 04/01/2023 Last PHQ-9: Questionnaire Data Not on file 1 06/02/2022 Housing Stability Answer Date Recorded What is your housing situation today? I have brandon inman 02/07/[address] you li ve. Do you have problems with any of the following? None of the above 02/07/2023 Food Insecurity Answer Date Recorded Within the past 12 months, y ou worried that your food would run out before you got money to buy more: Never True 02/07/2023 Within the past 12 months,th e food you bought just didn't last and you didn't have enough money to get more: Never True Transportation Answer Date Recorded In the past 12 months, has l ack of transportation kept you from medical appts, meetings, work or from getting things needed for daily living? No 02/07/2023 Utilities Answer Date Recorded In the past 12 months, has t he electric, gas, oil or water company threatened to shut off services in your home? Yes 01/16/2023 Depression Answer Date Recorded Patient Health Questionnaire-2 Score 0 04/01/2023 Comments Unknown Sex and Gender Information Value Date Recorded Sex Assigned at Female 02/08/2022 10:17 AM EDT Legal Sex Female 10:17 AM EDT Gender Identity Female 02/08/2022 10:17 AM EDT Sexual Orientation Bisexual 02/08/2022 10 :17 AM EDT documented as of this encounter Plan of Treatment Upcoming Encounters Date Type Department Care Team (Late st Contact Info) Description 08/31/2024 1:45 PM EDT Office Visit [facility] [address] [place] [phone] Sharon Mcmahon MD [address] [place] [phone] documented as of this encounter Visit Diagnoses Diagnosis Generalized abdominal pain Abdominal pain, generalized documented in this encounter Additional Health Concerns Assessment Noted Time PHQ-9 Depression Total Score: 0 04/01/20 23 11:08 AM EST documented as of this encounter Care Teams Door Trimmer Relationship Specialty Start Date End Date Sharon Mcmahon MD [address] [place] [phone] PCP - General Family Medicine 12/21/17 documented as of this encounter
--- OUTSIDE RECORDS SUMMARY | 2024-06-26 18:25 | XMS_ITS | Encounter Summary ---
Author Organization [employer] Address [address] [facility] 7[address] [place] [address] Care Team Providers Care Administrative Executive Name Role Phone Sharon Mcmahon MD Primary Care Provide r Encounter Details Date Type Department Care Team ([facility] st Contact Info) Description 06/22/2024 Population Health Risk Score [facility] (C3) Department [address] [phone] Provider, Population Health Generic Social History Tobacco Use Types Packs/Day Years Used Date Smoking Tobacco: Never Passive Smoke Exposure: Never Smokeless Tobacco: Never Alcohol Use Standard [...] Description 08/31/2024 1:45 PM EDT Office Visit [facility] [address] [place] [phone] Sharon Mcmahon MD [address] [place] [address] documented as of this encounter Visit Diagnoses Not on filedocumented in this encounter Additional Health Concerns Assessment Noted Time PHQ-9 Depression Total Score: 0 04/01/20 23 11:08 AM EST documented as of this encounter Care Teams Administrative Executive Relationship Specialty Start Date End Date Sharon Mcmahon MD [address] [place] [phone] PCP - General Family Medicine 12/21/17 documented as of this encounter
--- OUTSIDE RECORDS SUMMARY | 2024-06-26 18:25 | XMS_ITS | Clinical Summary ---
Author Organization [facility] Address [address] [place] [address] Care Team Providers Care Crisis Intervention Specialist Name Role Phone Sharon Mcmahon MD Primary Care Provider Allergies Active Allergy Reactions Criticality Noted Date Comments Abatacept Dyspnea High 01/31/2020 Gabapentin Other (see comments),Paralysi s,Rash Low 11/05/2016 After taking gabapentin for 2 weeks, her legs from knees to feet became numb Methotrexate Analogues Vomiting 01/24/2018 vomiting Other reaction(s): GI Intolerance vomiting Nitrofurantoin Hives 10/04/2018 Other reaction(s): Cyclic Vomiting, Cyclic Vomiting Shellfish Containing Products Angioedema High 12/23/2016 Other reaction(s): mouth & throat swell up Sulfamethoxazole Hives 10/04/2018 Other reaction(s): Trembling, SOB, LE Weakness Medications cyclobenzaprine (FLEXERIL) 10 mg tablet Take 10 mg by mouth every night. 12/09/19 24 Active acetaminophen (TYLENOL) 500 mg tablet Take 1,000 mg by mouth every 6 hours as needed. 12/09/19 24 Active cetirizine (ZyrTEC) 10 mg tablet Take 1 tablet by mouth once a day. 12/09/19 24 Active ibuprofen (MOTRIN) 600 mg tablet Take 600 mg by mouth every 6 hours as needed. Active diclofenac (VOLTAREN) 1% gel Apply 2 g topically to the affected area every 4 hours as needed. 05/06/19 24 Active lidocaine (Lidoderm) 5% patch Apply 1 patch topically to the affected area daily. 10/18/19 24 Active syringe with needle (Monoject TB Safety Syringe) 1 mL 25 gauge x 5/8 syringe Use weekly for methotrexate injections 12 each 3 5 3:56 PM EST 01/04/20 24 Active Actemra 162 mg/0.9 mL subcutaneous injection Inject 0.9 mL (162 mg total) under the skin once a week. 3.6 mL 5 5 3:56 PM EST 01/09/20 24 025 Active folic acid (FOLVITE) 1 mg tablet Take 1 tablet (1 mg total) by mouth once a day. 30 tablet 11 5 3:56 PM EST 01/31/20 24 025 Active methotrexate 25 mg/mL injection Inject 0.5 mL (12.5 mg total) under the skin once a week. After first puncture, store in refrigerator and use within 30 days. 2 mL 1 5 3:56 PM EST 01/09/20 24 Active methotrexate 25 mg/mL injection Inject 0.5 mL (12.5 mg total) under the skin per week. After first puncture, store in refrigerator and use within 30 days. 4 mL 2 5 9:43 PM EST 01/04/20 24 025 Discontin ued(Other (enter Order note)) Active Problems Problem Noted Date Diagnosed Date Abnormal finding on MRI of brain 01/04/2024 Overview (01/04/2024): MRI brain 2020 reportedly abnormal Acute pain of right shoulder 10/18/2023 Overview (01/04/2024): Last Assessment & Plan: Do not miss appointment with orthopedics C/w acetaminophen alternate with ibuprofen and flexeril Take oxycodone only if its really necessary, she is doing it correctly, I let her know that if she runs out of medication I will refill for another week until she is seen by specialist Atypical chest pain 06/24/2023 Overview (01/04/2024): Last Assessment & Plan: Pt seen in ER for these symptoms, referral to cardiology, aware of s/s to report, possible anxiety component, deep breath helps, Gastroesophageal reflux disease without esophagi tis 06/24/2023 Overview (01/04/2024): Last Assessment & Plan: I advise patient to avoid NSAIDs, spicy and acid food, I advise to eat at the same time every day, I advise to elevate the head of the bed and take medications as prescribe Generalized abdominal pain 04/23/2022 Irritable bowel syndrome 04/23/2022 Seropositive rheumatoid arthritis 01/11/2017 Overview (01/13/2024): -Seropositive RA, onset about 26 yo Treated [facility] Positive anti CCP, negative RF Methotrexate by mouth, taken briefly, stopped due to nausea, vomiting Abatacept: allergic reaction, pain at injection site, lip swelling Tocilizumab (Actemra) 2020-?2021 effective Kevzara ? 2019 secondary faiure Tofacitinib (Xeljanz) failure Avoided anti TNF due to strong family history MS Occasional steroids Positive TONE Treatment at [facility] 01/04/2024 second opinion [facility] Rhe[facility] Clinic Try subcutaneous methotrexate Anaphylaxis due to shellfish 01/28/2016 Encounters Date Type Department Care Team Description 05/22/2024 Telephone [facility] Building [address] [place] [phone] Ian Koo corrina Medication Follow Up Assessment 05/09/2024 10:20 AM EST Follow-Up [facility] [address] [place] [address] Fire Safety Manager: Jonna Fletcher MD Seropositive rheumatoid arthritis (HCC) (Primary Dx); Immunosuppression due to drug therapy (HCC); High risk medication use from Last 3 Months Immunizations Immunization Administration Dates Next Due Influenza, Trivalent, Adjuvanted, PF 01/04/2024 Family History Medical History Relation Name Comments Unknown Lung Disease Brother Rheum arthritis Mother Tuberculosis Neg Hx Relation Name Status Comments Brother Alive Father Alive Mother Social History Tobacco Use Types Packs/Day Years Used Date Smoking Tobacco: Never Passive Smoke Exposure: Never Smokeless Tobacco: Never Tobacco Cessation:Counseling Given: Not Answered Alcohol Use Standard Drinks/Week Comments Yes 0 (1 standard drink = 0.6 oz pur e alcohol) rare Comments Unknown Sex and Gender Information Value Date Recorded Sex Assigned at Female 01/01/2024 3:09 PM EDT Legal Sex Female 8:52 PM EDT Gender Identity Female 01/01/2024 3:09 PM EDT Sexual Orientation Bisexual 01/01/2024 3: 09 PM EDT Last Filed Vital Signs Vital Sign Reading Time Taken Comments Blood Pressure 128/84 05/09/2024 10:13 AM EST Pulse 76 05/09/2024 10:13 AM EST Temperature 36.4 ??C (97.6 ??F) 05/09/2024 10:[address] Respiratory Rate - - Oxygen Saturation - - Inhaled Oxygen Concentration - - Weight 77.1 kg (170 lb) 05/09/2024 10:13 AM EST Height 154.9 cm (5' 1 ) 05/09/2024 10:13 AM EST Body Mass Index 32.12 05/09/2024 10:13 AM EST Plan of Treatment Upcoming Encounters Date Type Department Care Team (Late st Contact Info) Description 08/29/2024 10:40 AM EDT Follow-Up [facility] [address] [place] [address] Fire Safety Manager: Jonna Fletcher MD [address] [place] [address] Health Maintenance Due Date Last Done Comments HIV Screening 1991 HPV and Pap Smear 1991 Hepatitis C Screening 1991 Varicella Vaccines (1 of 2 - 13+ 2-dose series) 2004 Hepatitis B Vaccines (1 of 3 - 19+ 3-dose series) 2010 Pneumococcal Vaccine: Pediat nneka (0-5 Years) and At-Risk Patients (6-50 Years) (1 of 2 - PCV) 2010 COVID-19 Vaccine (2 - Jansse n risk series) 08/13/2020 07/16/2020 Alcohol/Substance Use Screening 04/11/2024 Depression Screening and Follow-Up 04/11/2024 Social Drivers of Health Janine ual Screening 04/11/2024 Cervical Cancer Screening 12/04/2026 Pap Smear 12/04/2026 12/05/2023 DTaP,Tdap,and Td Vaccines (4 - Td or Tdap) 01/27/2028 01/26/2018, 11/20/2012, 05/23/2011 RSV Vaccine (60+ years old a nd patients) (1 - 1-dose 75+ series) 2066 Influenza Vaccine Completed 01/04/2024, , 03/22/2022, Additional history exists Procedures * Due to [place] [employer] law, this organization might not be sharing negative HIV tests. Procedure Name Priority Date/Time Associated Diagnosis Comments CREATININE Routine 05/09/2024 11:16 AM EST Seropositive rheumatoid arthritis (HCC) CBC AUTO DIFFERENTIAL Routine 05/09/2024 11:16 AM EST Seropositive rheumatoid arthritis (HCC) ALT Routine 05/09/2024 11:16 AM EST Seropositive rheumatoid arthritis (HCC) C-REACTIVE PROTEIN Routine 05/09/2024 11 :16 AM EST Seropositive rheumatoid arthritis (HCC) SEDIMENTATION RATE, AUTOMATED Routine 05/09/2024 11:16 AM EST Seropositive rheumatoid arthritis (HCC) AST Routine 05/09/2024 11:16 AM EST Seropositive rheumatoid arthritis (HCC) LYME ANTIBODY SCREEN W/REFLEX TO BLOT Routine 05/09/2024 11:16 AM EST Seropositive rheumatoid arthritis (HCC) QUANTIFERON-TB GOLD PLUS, 1 [id number] Routine 05/09/2024 11:16 AM EST Immunosuppression due to drug therapy (HCC) from Last 3 Months Results * Due to [place] [employer] law, this organization might not be sharing negative HIV tests. * QuantiFERON-TB Gold Plus, 1 Tube (05/09/2024 11:16 AM EST) QuantiFERON-TB Gold Plus NEGATIVE NEGATIVE 05/12/2024 1:54 PM EST [facility] Comment: Negative test result. M. tuberculosis complex infection unlikely. NIL 0.06 IU/mL 05/12/2024 1:54 PM EST [facility] Mitogen-NIL >10.00 IU/mL 05/12/2024 1:54 PM EST [facility] TB1-NIL <0.00 IU/mL 05/12/2024 1:54 PM EST [facility] TB2-NIL 0.00 IU/mL 05/12/2024 1:54 PM EST [facility] Comment: The Nil tube value reflects the background interferon gamma immune response of the patient's blood sample. This value has been subtracted from the patient's displayed TB and Mitogen results. Lower than expected results with the Mitogen tube prevent false-negative Quantiferon readings by detecting a patient with a potential immune suppressive condition and/or suboptimal pre-analytical specimen handling. The TB1 Antigen tube is coated with the M. tuberculosis-specific antigens designed to elicit responses from TB antigen primed CD4+ helper T-lymphocytes. The TB2 Antigen tube is coated with the M. tuberculosis-specific antigens designed to elicit responses from TB antigen primed CD4+ helper and CD8+ cytotoxic T-lymphocytes. For additional information, please refer to https://education.EpiEP/faq/HKE130 (This link is being provided for informational/ educational purposes only.) Blood Structure of peripheral vein / Unknown Venipuncture / Unknown 05/09/2024 11:16 AM EST 05/09/2024 11:40 AM EST Narrative [facility] - 05/12/2024 1:54 PM EST [facility] Received Date: Jonna Moreland MD LAB BLOOD ORDERABLES Final Resul t [facility] [address] [facility] [address], [place] [address], [place] [phone] [facility] [address] [facility] 3rd Floor, [place] [address], [place] [phone] * (ABNORMAL) CBC Auto Differential (05/09/2024 11:16 AM EST) [facility] WBC 9.7 3.8 - 10.8 10*3/uL 05/09/2024 11:52 AM EST [facility] RBC 4.06 3.80 - 5.10 10*6/uL 05/09/2024 11:52 AM [facility] Hemoglobin 12.4 11.7 - 15.5 g/dL 05/09/2024 11:52 AM [facility] Hematocrit 36.9 35.0 - 45.0 % 05/09/2024 11:52 AM [facility] MCV 90.9 80.0 - 100.0 fL 05/09/2024 11:52 AM [facility] MCH 30.5 27.0 - 33.0 pg 05/09/2024 11:52 AM [facility] MCHC 33.6 32.0 - 36.0 g/dL 05/09/2024 11:52 AM [facility] RDW 12.3 11.0 - 15.0 % 05/09/2024 11:52 AM [facility] Platelets 311 140 - 400 10*3/uL 05/09/2024 11:52 AM [facility] MPV 10.5 7.5 - 12.5 fL 05/09/2024 11:52 AM [facility] Neutrophil % 57.0 % 05/09/2024 11:52 AM [facility] Immature Grans % 0.2 0.0 - 0.9 % 05/09/2024 11:52 AM [facility] Lymphocyte % 29.0 % 05/09/2024 11:52 AM [facility] Monocyte % 6.6 % 05/09/2024 11:52 AM [facility] Eosinophil % 6.7 % 05/09/2024 11:52 AM [facility] Basophil % 0.5 % 05/09/2024 11:52 AM EST [facility] Neutrophil # 5.55 1.50 - 7.80 10*3/uL 05/09/2024 11:52 AM EST [facility] Immature Grans # <0.03 <=0.03 10*3/uL 05/09/2024 11:52 AM EST [facility] Lymphocyte # 2.80 0.85 - 3.90 10*3/uL 05/09/2024 11:52 AM EST [facility] Monocyte # 0.60 0.20 - 0.95 10*3/uL 05/09/2024 11:52 AM EST [facility] Eosinophil # 0.70(H) 0.02 - 0.50 10*3/uL 05/09/2024 11:52 AM EST [facility] Basophil # 0.10 0.00 - 0.20 10*3/uL 05/09/2024 11:52 AM EST [facility] nRBC % 0.0 /100 WBCs 05/09/2024 11:52 AM EST [facility] nRBC # <0.01 <0.01 10*3/uL 05/09/2024 11:52 AM EST [facility] Blood Structure of peripheral vein / Unknown Venipuncture / Unknown 05/09/2024 11:16 AM EST 05/09/2024 11:40 AM EST us Jonna Moreland MD LAB BLOOD ORDERABLES Final Resul t [facility] [address] [place] [address], * Lyme Antibody Screen w/Reflex to Blot (05/09/2024 11:16 AM EST) Lyme Ab Screen <0.90 index 05/09/2024 9:43 PM EST [facility] Comment: ? Index ?Interpretation ? ----- ? < 0.90 ? Negative ? 0.90-1.09 ?Equivocal ? > 1.09 ? Positive ?? As recommended by the Food and Drug Administration (FDA), all samples with positive or equivocal results in a Borrelia burgdorferi antibody screen will be tested using a blot method. Positive or equivocal screening test results should not be interpreted as truly positive until verified as such using a supplemental assay (e.g., B. burgdorferi blot). The screening test and/or blot for B. burgdorferi antibodies may be falsely negative in early stages of Lyme disease, including the period when erythema migrans is apparent. Blood Structure of peripheral vein / Unknown Venipuncture / Unknown 05/09/2024 11:16 AM EST 05/09/2024 11:40 AM EST Narrative [facility] - 05/09/2024 9:43 PM EST [facility] Received Date: us Jonna Moreland MD LAB BLOOD ORDERABLES Final Resul t [facility] [address] [facility] [address], [place] [address], [place] [phone] [facility] [address] [facility] [address], [place] [address], [place] [phone] * Sedimentation Rate (05/09/2024 11:16 AM EST) [facility] Signature Sed Rate 2 <20 mm/Hr mm/Hr 05/09/2024 11:53 AM EST [facility] Blood Structure of peripheral vein / Unknown Venipuncture / Unknown 05/09/2024 11:16 AM EST 05/09/2024 11:40 AM EST us Jonna Moreland MD LAB BLOOD ORDERABLES Final Resul t Performing Organization Address City/[facility]/ZIP Co de Phone Number [facility] [address] [place] [address], [place] * C-Reactive Protein (05/09/2024 11:16 AM EST) C Reactive Protein <3.0 <=9.9 mg/L 05/09/2024 12:21 PM EST [facility] Blood Structure of peripheral vein / Unknown Venipuncture / Unknown 05/09/2024 11:16 AM EST 05/09/2024 11:40 AM EST us Jonna Moreland MD LAB BLOOD ORDERABLES Final Resul t Performing Organization Address [facility] Co de Phone Number [facility] [address] [place] [address], [place] * ALT (05/09/2024 11:16 AM EST) ALT 15 10 - 40 U/L 05/09/2024 12:21 PM EST [facility] Blood Structure of peripheral vein / Unknown Venipuncture / Unknown 05/09/2024 11:16 AM EST 05/09/2024 11:40 AM EST us Jonna Moreland MD LAB BLOOD ORDERABLES Final Resul t Performing Organization Address City/[facility] Co de Phone Number [facility] [address] [place] [address], [place] * AST (05/09/2024 11:16 AM EST) AST 23 10 - 40 U/L 05/09/2024 12:21 PM EST [facility] Blood Structure of peripheral vein / Unknown Venipuncture / Unknown 05/09/2024 11:16 AM EST 05/09/2024 11:40 AM EST us Jonna Moreland MD LAB BLOOD ORDERABLES Final Resul t Performing Organization Address [facility] Co de Phone Number [facility] [address] [place] [address], * Creatinine (05/09/2024 11:16 AM EST) Creatinine 0.63 0.50 - 1.20 mg/dL 05/09/2024 12:21 PM EST [facility] eGFR >90 >=60 mL/min/1. 73m2 05/09/2024 12:21 PM EST [facility] Comment:The estimated glomer ular filtration rate (eGFR) is calculated using a new formula developed by the NKF-ASN task force to eliminate race-based correction factors. The new formula uses serum/plasma creatinine, age, and gender to determine eGFR. A value below 60mls/min might indicate kidney disease and will be flagged. For additional information, see Bartolo et al, Am J Kidney Dis. 2021;79(2):268- 288, A Unifying Approach for GFR estimation: Recommendations of the NKF-ASN Task Force on Reassessing the Inclusion of Race in Diagnosing Kidney Disease . Blood Structure of peripheral vein / Unknown Venipuncture / Unknown 05/09/2024 11:16 AM EST 05/09/2024 11:40 AM EST us Jonna Moreland MD LAB BLOOD ORDERABLES Final Resul t Performing Organization Address [facility] Co de Phone Number [facility] [address] [place] [address], from Last 3 Months Insurance [facility] Advance Directives Documents on File Type Date Recorded Patient Colliery Clerk Expl anation Health Care Proxy 01/04/2024 8:57 AM HCP-R ECV'D 01/04/24 Health Care Proxy 01/04/2024 8:55 AM HCP-R ECEIVED 01/04/24 Care Teams Crisis Intervention Specialist Relationship Specialty Start Date End Date Sharon Mcmahon MD [address] [place] [phone] PCP - General Internal Medicine 01/04/24
--- OUTSIDE RECORDS SUMMARY | 2024-06-26 18:25 | XMS_ITS | Encounter Summary ---
Author Organization [employer] Address [address] [facility] [address] [place] [address] Care Team Providers Care Central Sterile Supply Technician Name Role Phone Sharon Mcmahon MD Primary Care Provide r Encounter Details Date Type Department Care Team ([facility] st Contact Info) Description 10/27/2023 Telephone [facility] [address] [place], [place] [phone] Sharon Mcmahon MD [address] [place], [place] [phone] Social History Tobacco Use Types Packs/Day Years [...] Description 08/31/2024 1:45 PM EDT Office Visit [facility] [address] [place] [address] Sharon Mcmahon MD [address] [place] [phone] documented as of this encounter Visit Diagnoses Not on filedocumented in this encounter Additional Health Concerns Assessment Noted Time PHQ-9 Depression Total Score: 0 04/01/20 23 11:08 AM EST documented as of this encounter Care Teams Central Sterile Supply Technician Relationship Specialty Start Date End Date Sharon Mcmahon MD [address] [place] [phone] PCP - General Family Medicine 12/21/17 documented as of this encounter
--- OUTSIDE RECORDS SUMMARY | 2024-06-26 18:25 | XMS_ITS | Encounter Summary ---
Author Organization [employer] Address [address] [facility] [address]t [place] [address] Care Team Providers Care New Order Clerk Name Role Phone Sharon Mcmahon MD Primary Care Provide r Reason for Visit * Reason Comments Med Refill Encounter Details Date Type Department Care Team ([facility] Contact Info) Description 03/25/2024 Refill [facility] [address] [place], [place] [phone] Sharon Mcmahon MD [address] [place], [place] [phone] Rheumatoid arthritis flare (CMS/HCC) Social History Tobacco Use Types Packs/Day Years [...] 1:45 PM EDT Office Visit [facility] [address] [place] [phone] Sharon Mcmahon MD [address] [place] [phone] documented as of this encounter Visit Diagnoses Diagnosis Rheumatoid arthritis flare (CMS/HCC) documented in this encounter Additional Health Concerns Assessment Noted Time PHQ-9 Depression Total Score: 0 04/01/20 23 11:08 AM EST documented as of this encounter Care Teams New Order Clerk Relationship Specialty Start Date End Date Sharon Mcmahon MD [address] [place] [phone] PCP - General Family Medicine 12/21/17 documented as of this encounter
--- OUTSIDE RECORDS SUMMARY | 2024-06-26 18:25 | XMS_ITS | Encounter Summary ---
Author Organization [facility] Address [address] [place] [address] Care Team Providers Care Entry Level Marketing Assistant Name Role Phone Sharon Mcmahon MD Primary Care Provider Reason for Visit * Reason Onset Date Comments PAC Patient Request Call Back 02/29/2024 Encounter Details Date Type Department Care Team (Late st Contact Info) Description 02/29/2024 Telephone [facility] [address] [place] [phone] Telephone Intake, Staff PAC Patient Request Call Back Social History Tobacco Use Types Packs/Day Years [...] Orientation Bisexual 01/01/2024 3: 09 PM EDT documented as of this encounter Miscellaneous Notes * Telephone Encounter - Jonna Moreland MD - 03/23/2024 5:07 PM EST Telephone call She had called saying eyes were yellow. Staff called and asked her to get labs. No labs done yet. I called her She did labs and let them know to be faxed. * Telephone Encounter - Amena Vo LPN - 03/02/2024 2:50 PM EST Pt said multiple people keep commenting that skin under her eyes look yellow. She said the only newthing is her methotrexate. Please advise. * Telephone Encounter - Mara Collins - 02/29/2024 11:29 AM EST Patient calling she would like to discuss her methotextrate medication with Dr. Moreland. Patient tel: [phone] Thank you - PAC documented in this encounter Plan of Treatment Upcoming Encounters Date Type Department Care Team (Late st Contact Info) Description 08/29/2024 10:40 AM EDT Follow-Up [facility] [address] [place] [address] Aircraft Electronics Technical Officer: Jonna Fletcher MD [address] [place] [address] documented as of this encounter Visit Diagnoses Not on filedocumented in this encounter Care Teams Entry Level Marketing Assistant Relationship Specialty Start Date End Date Sharon Mcmahon MD [address] [place] [address] PCP - General Internal Medicine 01/04/24 documented as of this encounter
--- OUTSIDE RECORDS SUMMARY | 2024-06-26 18:25 | XMS_ITS | Referral Summary ---
Author Organization [facility] Address [address] [place] [address] Care Team Providers Care Tea Leaf Reader Name Role Phone Sharon Mcmahon MD Primary Care Provider Encounters Date Type Department Care Team Description 05/22/2024 Telephone [facility] Building [address] [place] [phone] Ian Koo RPh Medication Follow Up Assessment 05/09/2024 10:20 AM EST Follow-Up [facility] [address] [place] [address] Brace Maker: Jonna Fletcher MD Seropositive rheumatoid arthritis (HCC) (Primary Dx); Immunosuppression due to drug therapy (HCC); High risk medication use from Last 3 Months Allergies Active Allergy Reactions Criticality Noted Date [...] mouth every 6 hours as needed. 12/09/19 Active cetirizine (ZyrTEC) 10 mg tablet Take 1 tablet by mouth once a day. 12/09/19 Active ibuprofen (MOTRIN) 600 mg tablet Take 600 mg by mouth every 6 hours as needed. Active diclofenac (VOLTAREN) 1% gel Apply 2 g topically to the affected area every 4 hours as needed. 05/06/19 Active lidocaine (Lidoderm) 5% patch Apply 1 patch topically to the affected area daily. 10/18/19 Active syringe with needle (Monoject TB Safety Syringe) 1 mL 25 gauge x 5/8 syringe Use weekly for methotrexate injections 12 each 3 5 3:56 PM EST 01/04/20 Active Actemra 162 mg/0.9 mL subcutaneous injection [...] -Seropositive RA, onset about 26 yo Treated [place] [facility] Positive anti CCP, negative RF Methotrexate by mouth, taken briefly, stopped due to nausea, vomiting Abatacept: allergic reaction, pain at injection site, lip swelling Tocilizumab (Actemra) 2020-?2021 effective Kevzara ? 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 Immunizations Immunization Administration Dates Next Due Influenza, Trivalent, Adjuvanted, PF 01/04/2024 Social History Tobacco Use Types Packs/Day Years [...] Info) Description 08/29/2024 10:40 AM EDT Follow-Up [facility] [address] [place] [address] Brace Maker: Jonna Fletcher MD [address] [place] [address] Procedures * Due to [place] state law, this organization might not be sharing [...] rheumatoid arthritis (HCC) QUANTIFERON-TB GOLD PLUS, 1 [id number] Routine 05/09/2024 11:16 AM EST Immunosuppression due to drug therapy (HCC) from Last 3 Months Results * Due to [place] state law, this organization might not be sharing negative HIV tests. * QuantiFERON-TB Gold Plus, 1 Tube (05/09/2024 11:16 AM EST) [facility] QuantiFERON-TB Gold Plus NEGATIVE NEGATIVE 05/12/2024 1:54 PM EST [employer] Comment: Negative test result. M. tuberculosis complex infection unlikely. NIL 0.06 IU/mL 05/12/2024 1:54 PM EST [employer] [facility] Mitogen-NIL >10.00 IU/mL 05/12/2024 1:54 PM EST [employer] [facility] TB1-NIL <0.00 IU/mL 05/12/2024 1:54 PM EST [employer] TB2-NIL 0.00 IU/mL 05/12/2024 1:54 PM EST [employer] Comment: The Nil tube value reflects the [...] T-lymphocytes. For additional information, please refer to https://[email or web address]/faq/SIF155 (This link is being provided for informational/ educational purposes only.) Blood Structure of peripheral vein / Unknown Venipuncture / Unknown 05/09/2024 11:16 AM EST 05/09/2024 11:40 AM EST [facility] 05/12/2024 1:54 PM EST [facility] Received Date: us Jonna Moreland MD LAB BLOOD ORDERABLES Final Resul t [facility] [address] [facility] [address], [place] [address], [place] [phone] [employer] [facility] [address] [facility] [address], [place] [address], [place] [phone] * (ABNORMAL) CBC Auto Differential (05/09/2024 11:16 AM EST) WBC 9.7 3.8 - 10.8 10*3/uL 05/09/2024 11:52 AM [facility] RBC 4.06 3.80 - 5.10 10*6/uL 05/09/2024 11:52 AM [facility] Hemoglobin 12.4 11.7 - 15.5 g/dL 05/09/2024 11:52 AM [facility] Hematocrit 36.9 35.0 - 45.0 % 05/09/2024 11:52 AM [facility] MCV 90.9 80.0 - 100.0 fL 05/09/2024 11:52 AM [facility] MCH 30.5 27.0 - 33.0 pg 05/09/2024 11:52 AM [facility] MCHC 33.6 32.0 - 36.0 g/dL 05/09/2024 11:52 AM [facility] RDW 12.3 11.0 - 15.0 % 05/09/2024 11:52 AM [facility] Platelets 311 140 - 400 10*3/uL 05/09/2024 11:52 AM [facility] MPV 10.5 7.5 - 12.5 fL 05/09/2024 11:52 AM [facility] Neutrophil % 57.0 % 05/09/2024 11:52 AM [facility] Immature Grans % 0.2 0.0 - 0.9 % 05/09/2024 11:52 AM [facility] Lymphocyte % 29.0 % 05/09/2024 11:52 AM [facility] Monocyte % 6.6 % 05/09/2024 11:52 AM [facility] Eosinophil % 6.7 % 05/09/2024 11:52 AM [facility] Basophil % 0.5 % 05/09/2024 11:52 AM [facility] Neutrophil # 5.55 1.50 - 7.80 10*3/uL 05/09/2024 11:52 AM [facility] Immature Grans # <0.03 <=0.03 10*3/uL 05/09/2024 11:52 AM [facility] Lymphocyte # 2.80 0.85 - 3.90 10*3/uL 05/09/2024 11:52 AM [facility] Monocyte # 0.60 0.20 - 0.95 10*3/uL 05/09/2024 11:52 AM [facility] Eosinophil # 0.70(H) 0.02 - 0.50 10*3/uL 05/09/2024 11:52 AM [facility] Basophil # 0.10 0.00 - 0.20 10*3/uL 05/09/2024 11:52 AM [facility] nRBC % 0.0 /100 WBCs 05/09/2024 11:52 AM [facility] nRBC # <0.01 <0.01 10*3/uL 05/09/2024 11:52 AM [facility] Blood Structure of peripheral vein / Unknown Venipuncture / Unknown 05/09/2024 11:16 AM EST 05/09/2024 11:40 AM EST us Jonna Moreland MD LAB BLOOD ORDERABLES Final Resul t [facility] [address] [place] [address], * Lyme Antibody Screen w/Reflex to Blot (05/09/2024 11:16 AM EST) Lyme Ab Screen <0.90 index 05/09/2024 9:43 PM EST [employer] Comment: ? Index ?Interpretation ? ----- ? [...] AM EST 05/09/2024 11:40 AM EST Narrative [facility] - 05/09/2024 9:43 PM EST [facility] Received Date:[id number] us Jonna Moreland MD LAB BLOOD ORDERABLES Final Resul t [facility]ASEY [place]OOK[place]N [address] [facility] [address], [place] [address], [place] [phone] [employer] [facility] [address] [facility] [address], [place] [address], [place] [phone] * Sedimentation Rate (05/09/2024 11:16 AM EST) Sed Rate 2 <20 mm/Hr mm/Hr 05/09/2024 11:53 AM EST [facility] Blood Structure of peripheral vein / Unknown Venipuncture / Unknown 05/09/2024 11:16 AM EST 05/09/2024 11:40 AM EST us Jonna Moreland MD LAB BLOOD ORDERABLES Final Resul t Performing Organization Address [facility] Co de Phone Number [facility] [address] [place] [phone], [place] * C-Reactive Protein (05/09/2024 11:16 AM EST) C Reactive Protein <3.0 <=9.9 mg/L 05/09/2024 12:21 PM EST [facility] Blood Structure of peripheral vein / Unknown Venipuncture / Unknown 05/09/2024 11:16 AM EST 05/09/2024 11:40 AM EST us Jonna Moreland MD LAB BLOOD ORDERABLES Final Resul t Performing Organization Address City/[facility]/ZIP Co de Phone Number [facility] [address] [place] [phone], [place] * ALT (05/09/2024 11:16 AM EST) ALT 15 10 - 40 U/L 05/09/2024 12:21 PM EST [facility] Blood Structure of peripheral vein / Unknown Venipuncture / Unknown 05/09/2024 11:16 AM EST 05/09/2024 11:40 AM EST us Jonna Moreland MD LAB BLOOD ORDERABLES Final Resul t Performing Organization Address City/[facility] de Phone Number [facility] [address] [place] [address], [place] * AST (05/09/2024 11:16 AM EST) AST 23 10 - 40 U/L 05/09/2024 12:21 PM EST [facility] Blood Structure of peripheral vein / Unknown Venipuncture / Unknown 05/09/2024 11:16 AM EST 05/09/2024 11:40 AM EST Jonna Moreland MD LAB BLOOD ORDERABLES Final Resul t Performing Organization Address [facility] Phone Number [facility] [address] [place] [address], [place] * Creatinine (05/09/2024 11:16 AM EST) Creatinine 0.63 0.50 - 1.20 mg/dL 05/09/2024 12:21 PM EST [facility] eGFR >90 >=60 mL/min/1. 73m2 05/09/2024 12:21 PM EST [facility] Comment:The estimated glomer ular [...] MD LAB BLOOD ORDERABLES Final Resul t [facility] [address] [place] [address], [place] from Last 3 Months Insurance [facility] Advance Directives Documents on File Type Date Recorded Patient [employer] [facility] Analyst Expl anation Health Care Proxy 01/04/2024 8:57 AM HCP-R ECV'D 01/04/24 Health Care Proxy 01/04/2024 8:55 AM HCP-R ECEIVED 01/04/24 Care Teams Tea Leaf Reader Relationship Specialty Start Date End Date Sharon Mcmahon MD [address] [place] [phone] PCP - General Internal Medicine 01/04/24
--- OUTSIDE RECORDS SUMMARY | 2024-06-26 18:25 | XMS_ITS | Encounter Summary ---
Author Organization [employer] Address [address] [facility] 7t [place] [address] Care Team Providers Care Spooling Machine Operator Name Role Phone Sharon Mcmahon MD Primary Care Provide r Reason for Visit * Reason Comments Med Refill Encounter Details Date Type Department Care Team ([facility] Contact Info) Description 06/24/2024 Refill [facility] [address] [place], [place] [phone] Sharon Mcmahon MD [address] [place], [place] [phone] Seasonal allergies Social History Tobacco Use Types Packs/Day Years [...] enough money to get more: Never True 03/ Transportation Answer Date Recorded In the past [...] Description 08/31/2024 1:45 PM EDT Office Visit [facility] [address] [place] [phone] Sharon Mcmahon MD [address] [place] [phone] documented as of this encounter Visit Diagnoses Diagnosis Seasonal allergies Allergic rhinitis, cause unspecified documented in this encounter Additional Health Concerns Assessment Noted Time PHQ-9 Depression Total Score: 0 04/01/20 23 11:08 AM EST documented as of this encounter Care Teams Spooling Machine Operator Relationship Specialty Start Date End Date Sharon Mcmahon MD [address] [place] [phone] PCP - General Family Medicine 12/21/17 documented as of this encounter
--- OUTSIDE RECORDS SUMMARY | 2024-06-26 18:25 | XMS_ITS | Encounter Summary ---
Author Organization [employer] Address [address] [facility] 7t [place] [address] Care Team Providers Care Letterset Press Set Up Operator Name Role Phone Sharon Mcmahon MD Primary Care Provide r Reason for Visit * Reason Onset Date Comments New Med Request 11/04/2023 Encounter Details Date Type Department Care Team ([facility] st Contact Info) Description 11/04/2023 Telephone [facility] [address] [place] [address] Sharon Mcmahon MD [address] [place], [place] [phone] New Med Request Social History Tobacco Use Types Packs/Day Years [...] AM EDT documented as of this encounter Miscellaneous Notes * Telephone Encounter - Marito Thornton - 11/04/2023 8:42 AM EDT Tc from patient calling in regards to the pain in right shoulder patient was having new symptoms technical writer did triage however patient would like some type of medication to help with pain documented in this encounter Plan of Treatment Upcoming Encounters Date Type Department Care Team (Late st Contact Info) Description 08/31/2024 1:45 PM EDT Office Visit [facility] [address] [place] [address] Sharon Mcmahon MD [address] [place] [address] documented as of this encounter Visit Diagnoses Not on filedocumented in this encounter Additional Health Concerns Assessment Noted Time PHQ-9 Depression Total Score: 0 04/01/20 23 11:08 AM EST documented as of this encounter Care Teams [employer] Set Up Operator Relationship Specialty Start Date End Date Sharon Mcmahon MD [address] [place] [phone] PCP - General Family Medicine 12/21/17 documented as of this encounter
--- OUTSIDE RECORDS SUMMARY | 2024-06-26 18:25 | XMS_ITS | Encounter Summary ---
Author Organization [employer] Address [address] [facility] [address] [place] [address] Care Team Providers Care Title I Coordinator Name Role Phone Sharon Mcmahon MD Primary Care Provide r Reason for Visit * Reason Comments Med Refill Encounter Details Date Type Department Care Team ([facility] Contact Info) Description 05/01/2023 Refill [facility] [address] [place], [place] [phone] Ruddy Ontiveros MD [address] [place] [address] Social History Tobacco Use Types Packs/Day Years [...] Description 08/31/2024 1:45 PM EDT Office Visit [facility] [address] [place] [phone] Sharon Mcmahon MD [address] [place] [phone] documented as of this encounter Visit Diagnoses Not on filedocumented in this encounter Additional Health Concerns Assessment Noted Time PHQ-9 Depression Total Score: 0 04/01/20 23 11:08 AM EST documented as of this encounter Care Teams Title I Coordinator Relationship Specialty Start Date End Date Sharon Mcmahon MD [address] [place] [phone] PCP - General Family Medicine 12/21/17 documented as of this encounter
== END 2024-06-26 16:20 | disposition home or self-care (01) ==
LOC: HO.HUSH 15:33
PROVIDERS: PCP Internal Medicine; Visit Provider Nurse Practitioner Family
DX: N20.0 Calculus of kidney (principal)
CPT/HCPCS: 99213

== ENCOUNTER → 2024-06-26 15:33 | Outpatient (BNVA) | payer MEDICAID, SELFPAY | PROVIDERS: PCP Internal Medicine; Visit Provider Nurse Practitioner Family ==

== ENCOUNTER 2024-08-03 15:44 | Outpatient (REF) | payer MEDICAID, SELFPAY ==
[2024-08-03 16:07] LABS: MANUAL DIFF FLAG NO
--- OUTSIDE RECORDS SUMMARY | 2024-08-03 16:09 | XMS_ITS | Encounter Summary ---
Author Organization [facility] Address [address] [place] [address] Care Team Providers Care Nurse Transplant Name Role Phone Sharon Mcmahon MD Primary Care Provider Encounter Details Date Type Department Care Team (Late Contact Info) Description 08/03/2024 myChart Message [facility] [address] [place] [phone] Indexer: Jonna Fletcher MD [address] [place] [phone] [place] Social History Tobacco Use Types Packs/Day Years [...] PM EDT documented as of this encounter Plan of Treatment Upcoming Encounters Date Type Department Care Team (Late st Contact Info) Description 08/29/2024 10:40 AM EDT Follow-Up [facility] [address] [place] [phone] Indexer: Jonna Fletcher MD [address] [place] [phone] documented as of this encounter Visit Diagnoses Not on filedocumented in this encounter Care Teams Nurse Transplant Relationship Specialty Start Date End Date Sharon Mcmahon MD [address] [place] [phone] PCP - General Internal Medicine 01/04/24 documented as of this encounter
--- OUTSIDE RECORDS SUMMARY | 2024-08-03 16:09 | XMS_ITS | Encounter Summary ---
Author Organization [facility] Address [address] [place] [address] Care Team Providers Care Machine Deburrer Name Role Phone Sharon Mcmahon MD Primary Care Provider Reason for Visit * Reason Onset Date Comments PAC Patient Request Call Back 02/29/2024 Encounter Details Date Type Department Care Team (Late st Contact Info) Description 02/29/2024 Telephone [facility] [address] [place] [phone] Telephone Intake, Staff PAC Patient Request Call [...] methotextrate medication with Dr. Moreland. Patient tel: [phone] Thank you - PAC documented in this encounter Plan of Treatment Upcoming Encounters Date Type Department Care Team (Late st Contact Info) Description 08/29/2024 10:40 AM EDT Follow-Up [facility] [address] [place] [address] Primary Teacher: Jonna Fletcher MD [address] [place] [address] documented as of this encounter Visit Diagnoses Not on filedocumented in this encounter Care Teams Machine Deburrer Relationship Specialty Start Date End Date Sharon Mcmahon MD [address] [place] [address] PCP - General Internal Medicine 01/04/24 documented as of this encounter
--- OUTSIDE RECORDS SUMMARY | 2024-08-03 16:09 | XMS_ITS | Referral Summary ---
Author Organization [facility] Address [address] [place] [address] Care Team Providers Care Hand Tube Bender Name Role Phone Sharon Mcmahon MD Primary Care Provider Encounters Date Type Department Care Team Description 08/03/2024 myChart Message [facility] [address] [place] [address] Apprentice Plumber: Jonna Fletcher MD Flaring 05/22/2024 Telephone [facility] [address] [address] Ian Koo corrina Medication Follow Up Assessment 05/09/2024 10:20 AM EST Follow-Up [facility] [address] [place] [address] Apprentice Plumber: Jonna Fletcher MD Seropositive rheumatoid arthritis (Primary Dx); Immunosuppression due to drug therapy; High risk medication use from Last 3 [...] Take 10 mg by mouth every night. 4 Active acetaminophen (TYLENOL) 500 mg tablet Take 1,000 mg by mouth every 6 hours as needed. 4 Active cetirizine (ZyrTEC) 10 mg tablet Take 1 tablet by mouth once a day. 4 Active ibuprofen (MOTRIN) 600 mg tablet Take 600 mg by mouth every 6 hours as needed. Active diclofenac (VOLTAREN) 1% gel Apply 2 g topically to the affected area every 4 hours as needed. 4 Active lidocaine (Lidoderm) 5% patch Apply 1 patch topically to the affected area daily. 4 Active syringe with needle (Monoject TB Safety Syringe) 1 mL 25 gauge x 5/8 syringe Use weekly for methotrexate injections 12 each 3 07/17/2024 11:57 AM EDT 4 Active Actemra 162 mg/0.9 mL subcutaneous injection Inject 0.9 mL (162 mg total) under the skin once a week. 3.6 mL 5 07/17/2024 11:57 AM EDT 4 025 Active folic acid (FOLVITE) 1 mg tablet Take 1 tablet (1 mg total) by mouth once a day. 30 tablet 11 06/06/2024 3:56 PM EST 4 025 Active methotrexate 25 mg/mL injection Inject 0.5 mL (12.5 mg total) under the skin once a week. After first puncture, store in refrigerator and use within 30 days. 2 mL 1 07/17/2024 11:57 AM EDT 4 Active Active Problems Problem Noted Date Diagnosed Date [...] -Seropositive RA, onset about 26 yo Treated [facility] Positive anti CCP, negative RF Methotrexate by mouth, taken briefly, stopped due to nausea, vomiting Abatacept: allergic reaction, pain at injection site, lip swelling Tocilizumab (Actemra) 2020-?2021 effective Kevzara ? , 2019 secondary faiure Tofacitinib (Xeljanz) failure Avoided anti TNF due to strong family history MS Occasional steroids Positive TONE Treatment at [facility] 01/04/2024 second opinion [facility] Try subcutaneous methotrexate Anaphylaxis due [...] Info) Description 08/29/2024 10:40 AM EDT Follow-Up [facility] [address] [place] [address] Apprentice Plumber: Jonna Fletcher MD [address] [place] [address] Procedures * Due to [place] state law, this organization might not be sharing negative HIV tests. Procedure Name Priority Date/Time Associated Diagnosis Comments CREATININE Routine 05/09/2024 11:16 AM EST Seropositive rheumatoid arthritis CBC AUTO DIFFERENTIAL Routine 05/09/2024 11:16 AM EST Seropositive rheumatoid arthritis ALT Routine 05/09/2024 11:16 AM EST Seropositive rheumatoid arthritis C-REACTIVE PROTEIN Routine 05/09/2024 11 :16 AM EST Seropositive rheumatoid arthritis SEDIMENTATION RATE, AUTOMATED Routine 05/09/2024 11:16 AM EST Seropositive rheumatoid arthritis AST Routine 05/09/2024 11:16 AM EST Seropositive rheumatoid arthritis LYME ANTIBODY SCREEN W/REFLEX TO BLOT Routine 05/09/2024 11:16 AM EST Seropositive rheumatoid arthritis QUANTIFERON-TB GOLD PLUS, 1 [id number] Routine 05/09/2024 11:16 AM EST Immunosuppression due to drug therapy from Last 3 Months Results * Due to [place] state law, this organization might not be sharing negative HIV tests. * QuantiFERON-TB Gold Plus, 1 Tube (05/09/2024 11:16 AM EST) [facility] QuantiFERON-TB Gold Plus NEGATIVE NEGATIVE 05/12/2024 1:54 PM EST [facility] Comment: Negative test result. M. tuberculosis complex infection unlikely. NIL 0.06 IU/mL 05/12/2024 1:54 PM EST [facility] Mitogen-NIL >10.00 IU/mL 05/12/2024 1:54 PM EST [facility] TB1-NIL <0.00 IU/mL 05/12/2024 1:54 PM EST [facility] TB2-NIL 0.00 IU/mL 05/12/2024 1:54 PM EST [facility] Comment: The Nil tube value reflects [...] T-lymphocytes. For additional information, please refer to https://education.[employer].SCL/faq/STP174 (This link is being provided for informational/ educational purposes only.) Blood Structure of peripheral vein / Unknown Venipuncture / Unknown 05/09/2024 11:16 AM EST 05/09/2024 11:40 AM EST Narrative [facility] - 05/12/2024 1:54 PM EST [facility] Received Date: us Jonna Moreland MD LAB BLOOD ORDERABLES Final Resul t [facility] [address], [place] [address], [place] [phone] [facility] [address], [place] [address], [place] [phone] * (ABNORMAL) CBC Auto Differential (05/09/2024 11:16 AM EST) WBC 9.7 3.8 - 10.8 10*3/uL 05/09/2024 11:52 AM EST [facility] RBC 4.06 3.80 - 5.10 10*6/uL 05/09/2024 11:52 AM EST [facility] Hemoglobin 12.4 11.7 - 15.5 g/dL 05/09/2024 11:52 AM EST [facility] Hematocrit 36.9 35.0 - 45.0 % 05/09/2024 11:52 AM EST [facility] MCV 90.9 80.0 - 100.0 fL 05/09/2024 11:52 AM EST [facility] MCH 30.5 27.0 - 33.0 pg 05/09/2024 11:52 AM EST [facility] MCHC 33.6 32.0 - 36.0 g/dL 05/09/2024 11:52 AM EST [facility] RDW 12.3 11.0 - 15.0 % 05/09/2024 11:52 AM EST [facility] Platelets 311 140 - 400 10*3/uL 05/09/2024 11:52 AM EST [facility] MPV 10.5 7.5 - 12.5 fL 05/09/2024 11:52 AM EST [facility] Neutrophil % 57.0 % 05/09/2024 11:52 AM EST [facility] Immature Grans % 0.2 0.0 - 0.9 % 05/09/2024 11:52 AM EST [facility] Lymphocyte % 29.0 % 05/09/2024 11:52 AM EST [facility] Monocyte % 6.6 % 05/09/2024 11:52 AM EST [facility] Eosinophil % 6.7 % 05/09/2024 11:52 AM EST [facility] Basophil % 0.5 % 05/09/2024 11:52 AM EST [facility] Neutrophil # 5.55 1.50 - 7.80 10*3/uL 05/09/2024 11:52 AM EST [facility] Immature Grans # <0.03 <=0.03 10*3/uL 05/09/2024 11:52 AM EST [facility] Lymphocyte # 2.80 0.85 - 3.90 10*3/uL 05/09/2024 11:52 AM EST [facility] Monocyte # 0.60 0.20 - 0.95 10*3/uL 05/09/2024 11:52 AM EST [facility] Eosinophil # 0.70(H) 0.02 - 0.50 10*3/uL 05/09/2024 11:52 AM EST [facility] Basophil # 0.10 0.00 - 0.20 10*3/uL 05/09/2024 11:52 AM EST [facility] nRBC % 0.0 /100 WBCs 05/09/2024 11:52 AM EST [facility] nRBC # <0.01 <0.01 10*3/uL 05/09/2024 11:52 AM [facility] Blood Structure of peripheral vein / Unknown Venipuncture / Unknown 05/09/2024 11:16 AM EST 05/09/2024 11:40 AM EST Jonna Moreland MD LAB BLOOD ORDERABLES Final Resul t Performing Organization Address City/State/[facility] Phone Number [facility] [address] [place] [address], * Lyme Antibody Screen w/Reflex to Blot (05/09/2024 11:16 AM EST) Lyme Ab Screen <0.90 index 05/09/2024 9:43 PM EST [facility] Comment: ? Index ?Interpretation ? ----- ? [...] AM EST 05/09/2024 11:40 AM EST Narrative [facility] - 05/09/2024 9:43 PM EST [facility] Received Date:[id number] Jonna Moreland MD LAB BLOOD ORDERABLES Final Resul t [facility] [address], [place] [address], [place] [phone] [facility] [address], [place] [address], [place] [phone] * Sedimentation Rate (05/09/2024 11:16 AM EST) Sed Rate 2 <20 mm/Hr mm/Hr 05/09/2024 11:53 AM EST [facility] Blood Structure of peripheral vein / Unknown Venipuncture / Unknown 05/09/2024 11:16 AM EST 05/09/2024 11:40 AM EST Jonna Moreland MD LAB BLOOD ORDERABLES Final Resul t Performing Organization Address City/[facility]/ZIP Co de Phone Number [facility] [address] [place] [address], [place] * C-Reactive Protein (05/09/2024 11:16 AM EST) C Reactive Protein <3.0 <=9.9 mg/L 05/09/2024 12:21 PM EST [facility] Blood Structure of peripheral vein / Unknown Venipuncture / Unknown 05/09/2024 11:16 AM EST 05/09/2024 11:40 AM EST us Jonna Moreland MD LAB BLOOD ORDERABLES Final Resul t Performing Organization Address City/[facility]/ZIP Co de Phone Number [facility] [address] [place] [address], [place] * ALT (05/09/2024 11:16 AM EST) ALT 15 10 - 40 U/L 05/09/2024 12:21 PM EST [facility] Blood Structure of peripheral vein / Unknown Venipuncture / Unknown 05/09/2024 11:16 AM EST 05/09/2024 11:40 AM EST us Jonna Moreland MD LAB BLOOD ORDERABLES Final Resul t Performing Organization Address [facility] de Phone Number [facility] [address] [place] [address], [place] * AST (05/09/2024 11:16 AM EST) AST 23 10 - 40 U/L 05/09/2024 12:21 PM EST [facility] Blood Structure of peripheral vein / Unknown Venipuncture / Unknown 05/09/2024 11:16 AM EST 05/09/2024 11:40 AM EST us Jonna Moreland MD LAB BLOOD ORDERABLES Final Resul t Performing Organization Address [facility] de Phone Number [facility] [address] [place] [address], [place] * Creatinine (05/09/2024 11:16 AM EST) Creatinine 0.63 0.50 - 1.20 mg/dL 05/09/2024 12:21 PM EST [facility] eGFR >90 >=60 mL/min/1. 73m2 05/09/2024 12:21 PM EST [facility] Comment:The estimated glomer ular filtration rate (eGFR) is calculated using a new formula developed by the NKF-ASN task force to eliminate race-based correction factors. The new formula uses serum/plasma creatinine, age, and gender to determine eGFR. A value below 60mls/min might indicate kidney disease and will be flagged. For additional information, see Bartolo petersen al, Am J Kidney Dis. 2021;79(2):268- 288, A Unifying Approach for GFR estimation: Recommendations of the NKF-ASN Task Force on Reassessing the Inclusion of Race in Diagnosing Kidney Disease . Blood Structure of peripheral vein / Unknown Venipuncture / Unknown 05/09/2024 11:16 AM EST 05/09/2024 11:40 AM EST us Jonna Moreland MD LAB BLOOD ORDERABLES Final Resul t [facility] [address] [place] [address], [place] from Last 3 Months Insurance flux - neutrinity Advance Directives Documents on File Type Date Recorded Patient Channel Marketing Manager Expl anation Health Care Proxy 01/04/2024 8:57 AM HCP-R ECV'D 01/04/24 Health Care Proxy 01/04/2024 8:55 AM HCP-R ECEIVED 01/04/24 Care Teams Hand Tube Bender Relationship Specialty Start Date End Date Sharon Mcmahon MD [address] [place] [id number] PCP - General Internal Medicine 01/04/24
--- OUTSIDE RECORDS SUMMARY | 2024-08-03 16:09 | XMS_ITS | Clinical Summary ---
Author Organization [facility] Address [address] [place] [address] Care Team Providers Care Fly Setter Name Role Phone Sharon Mcmahon MD Primary [...] -Seropositive RA, onset about 26 yo Treated [facility] Positive anti CCP, negative RF Methotrexate by mouth, taken briefly, stopped due to nausea, vomiting Abatacept: allergic reaction, pain at injection site, lip swelling Tocilizumab (Actemra) 2020-?2021 effective Kevzara ? 2019 secondary faiure Tofacitinib (Xeljanz) failure Avoided anti TNF due to strong family history MS Occasional steroids Positive TONE Treatment at [facility] 01/04/2024 second opinion [facility] Try subcutaneous methotrexate Anaphylaxis due to shellfish 01/28/2016 Encounters Date Type Department Care Team Description 08/03/2024 myChart Message [facility] [address] [place] [address] [phone] Firer Tunnel Kiln: Jonna Fletcher MD Flaring 05/22/2024 Telephone [facility] [address] [place] [phone] Ian Koo [facility] Medication Follow Up Assessment 05/09/2024 10:20 AM EST Follow-Up [facility] [address] [place], [place] [id number] Firer Tunnel Kiln: Jonna Fletcher MD Seropositive rheumatoid arthritis (Primary [...] Info) Description 08/29/2024 10:40 AM EDT Follow-Up [facility] [address] [place] [address] Firer Tunnel Kiln: Jonna Fletcher MD [address] [place] [address] Health Maintenance Due Date Last Done Comments [...] Additional history exists Procedures * Due to [place] [employer] law, this organization might not be sharing [...] Seropositive rheumatoid arthritis QUANTIFERON-TB GOLD PLUS, 1 [id number] Routine 05/09/2024 11:16 AM EST Immunosuppression due to drug therapy from Last 3 Months Results * Due to [place] CloudWalk law, this organization might not be sharing negative HIV tests. * QuantiFERON-TB Gold Plus, 1 Tube (05/09/2024 11:16 AM EST) QuantiFERON-TB Gold Plus NEGATIVE NEGATIVE 05/12/2024 1:54 PM EST [facility] Comment: Negative test result. M. tuberculosis complex infection unlikely. NIL 0.06 IU/mL 05/12/2024 1:54 PM EST [facility] Mitogen-NIL >10.00 IU/mL 05/12/2024 1:54 PM EST [facility] TB1-NIL <0.00 IU/mL 05/12/2024 1:54 PM EST [facility] [employer] TB2-NIL 0.00 IU/mL 05/12/2024 1:54 PM EST [facility] [employer] Comment: The Nil tube value reflects the [...] T-lymphocytes. For additional information, please refer to https://education.[employer]/faq/AWO829 (This link is being provided for informational/ educational purposes only.) Blood Structure of peripheral vein / Unknown Venipuncture / Unknown 05/09/2024 11:16 AM EST 05/09/2024 11:40 AM EST [facility] - 05/12/2024 1:54 PM EST [facility] Received Date: Jonna Moreland MD LAB BLOOD ORDERABLES Final Resul t [facility] [address] [facility], [place] [address], [place] [phone] [facility] [address], [place] [address], [place] [phone] * (ABNORMAL) CBC Auto Differential (05/09/2024 11:16 AM EST) WBC 9.7 3.8 - 10.8 10*3/uL 05/09/2024 11:52 AM EST [facility] RBC 4.06 3.80 - 5.10 10*6/uL 05/09/2024 11:52 AM EST [facility] Hemoglobin 12.4 11.7 - 15.5 g/dL 05/09/2024 11:52 AM [facility] Hematocrit 36.9 35.0 - 45.0 % 05/09/2024 11:52 AM [facility] MCV 90.9 80.0 - 100.0 fL 05/09/2024 11:52 AM [facility] MCH 30.5 27.0 - 33.0 pg 05/09/2024 11:52 AM [facility] MCHC 33.6 32.0 - 36.0 g/dL 05/09/2024 11:52 AM [facility] RDW 12.3 11.0 - 15.0 % 05/09/2024 11:52 AM [facility] Platelets 311 140 - 400 10*3/uL 05/09/2024 11:52 AM [facility] MPV 10.5 7.5 - 12.5 fL 05/09/2024 11:52 AM [facility] Neutrophil % 57.0 % 05/09/2024 11:52 AM [facility] Immature Grans % 0.2 0.0 - 0.9 % 05/09/2024 11:52 AM [facility] Lymphocyte % 29.0 % 05/09/2024 11:52 AM [facility] Monocyte % 6.6 % 05/09/2024 11:52 AM [facility] Eosinophil % 6.7 % 05/09/2024 11:52 AM [facility] Basophil % 0.5 % 05/09/2024 11:52 AM [facility] Neutrophil # 5.55 1.50 - 7.80 10*3/uL 05/09/2024 11:52 AM [facility] Immature Grans # <0.03 <=0.03 10*3/uL 05/09/2024 11:52 AM EST [facility] Lymphocyte # 2.80 0.85 - 3.90 10*3/uL 05/09/2024 11:52 AM EST [facility] Monocyte # 0.60 0.20 - 0.95 10*3/uL 05/09/2024 11:52 AM EST [facility] Eosinophil # 0.70(H) 0.02 - 0.50 10*3/uL 05/09/2024 11:52 AM EST [facility] Basophil # 0.10 0.00 - 0.20 10*3/uL 05/09/2024 11:52 AM EST [facility] nRBC % 0.0 /100 WBCs 05/09/2024 11:52 AM EST [facility] nRBC # <0.01 <0.01 10*3/uL 05/09/2024 11:52 AM EST [facility] Blood Structure of peripheral vein / Unknown Venipuncture / Unknown 05/09/2024 11:16 AM EST 05/09/2024 11:40 AM EST us Jonna Moreland MD LAB BLOOD ORDERABLES Final Resul t [facility] [address] [place] [address], * Lyme Antibody Screen w/Reflex to Blot (05/09/2024 11:16 AM EST) Lyme Ab Screen <0.90 index 05/09/2024 9:43 PM EST [facility] Comment: ? Index ?Interpretation ? ----- ? [...] AM EST 05/09/2024 11:40 AM EST Narrative [facility] - 05/09/2024 9:43 PM EST [facility] Received Date:[id number] us Jonna Moreland MD LAB BLOOD ORDERABLES Final Resul t [facility] [address], [place] [address], [facility] [address], [place] [address], * Sedimentation Rate (05/09/2024 11:16 AM EST) Pathologist [facility] Sed Rate 2 <20 mm/Hr mm/Hr 05/09/2024 11:53 AM EST [facility] Blood Structure of peripheral vein / Unknown Venipuncture / Unknown 05/09/2024 11:16 AM EST 05/09/2024 11:40 AM EST us Jonna Moreland MD LAB BLOOD ORDERABLES Final Resul t Performing Organization Address [facility] de Phone Number [facility] [address] [place] [address], [place] * C-Reactive Protein (05/09/2024 11:16 AM EST) C Reactive Protein <3.0 <=9.9 mg/L 05/09/2024 12:21 PM EST [facility] Blood Structure of peripheral vein / Unknown Venipuncture / Unknown 05/09/2024 11:16 AM EST 05/09/2024 11:40 AM EST us Jonna Moreland MD LAB BLOOD ORDERABLES Final Resul t Performing Organization Address [facility] Phone Number [facility] [address] [place] [address], [place] * ALT (05/09/2024 11:16 AM EST) ALT 15 10 - 40 U/L 05/09/2024 12:21 PM EST [facility] Blood Structure of peripheral vein / Unknown Venipuncture / Unknown 05/09/2024 11:16 AM EST 05/09/2024 11:40 AM EST us Jonna Moreland MD LAB BLOOD ORDERABLES Final Resul t Performing Organization Address [facility] de Phone Number [facility] [address] [place] [address], [place] * AST (05/09/2024 11:16 AM EST) AST 23 10 - 40 U/L 05/09/2024 12:21 PM EST [facility] Blood Structure of peripheral vein / Unknown Venipuncture / Unknown 05/09/2024 11:16 AM EST 05/09/2024 11:40 AM EST us Jonna Moreland MD LAB BLOOD ORDERABLES Final Resul t Performing Organization Address [facility] Co de Phone Number [facility] [address] [place] [address], * Creatinine (05/09/2024 11:16 AM EST) Creatinine 0.63 0.50 - 1.20 mg/dL 05/09/2024 12:21 PM EST [facility] eGFR >90 >=60 mL/min/1. 73m2 05/09/2024 12:21 PM EST [facility] Comment:The estimated glomer ular filtration rate (eGFR) is calculated using a new formula developed by the NKF-ASN task force to eliminate race-based correction factors. The new formula uses serum/plasma creatinine, age, and gender to determine eGFR. A value below 60mls/min might indicate kidney disease and will be flagged. For additional information, see Mcfarland et al, Am J Kidney Dis. 2021;79(2):268- 288, A Unifying Approach for GFR estimation: Recommendations of the NKF-ASN Task Force on Reassessing the Inclusion of Race in Diagnosing Kidney Disease . Blood Structure of peripheral vein / Unknown Venipuncture / Unknown 05/09/2024 11:16 AM EST 05/09/2024 11:40 AM EST us Jonna Moreland MD LAB BLOOD ORDERABLES Final Resul t Performing Organization Address [facility]/ZIP Co de Phone Number [facility] [address] [place] [address], from Last [address] [place] [address] [place] [id number] Advance Directives Documents on File Type Date Recorded Patient Management Expert Expl anation Health Care Proxy 01/04/2024 8:57 AM HCP-R ECV'D 01/04/24 Health Care Proxy 01/04/2024 8:55 AM HCP-R ECEIVED 01/04/24 Care Teams Fly Setter Relationship Specialty Start Date End Date Sharon Mcmahon MD [address] [place] [address] PCP - General Internal Medicine 01/04/24
[2024-08-03 16:47] LABS: Basophils Absolute Auto 0.1 X10*3/uL (0.0-0.2); Basophils Percent Auto 0.8 % (0-2); Eosinophils Absolute Auto 0.4 X10*3/uL (0.0-0.4); Hematocrit 35.2 % (37.0-47.0); Imm Gran Abs Auto 0.03 X10*3/uL (0.00-0.03); Imm Gran Pct Auto 0.4 % (0.0-0.4); Lymphocytes Absolute Auto 2.9 X10*3/uL (1.2-4.9); Lymphocytes Percent Auto 37.8 % (20-40); Mean Corpuscular HGB Conc 34.1 g/dl (31.0-35.0); Mean Corpuscular Hemoglobin 31.1 pg (27.0-33.0); Mean Corpuscular Volume 91.2 fL (80.0-98.0); Mean Platelet Volume 10.5 fL (9.4-12.3); Monocytes Absolute Auto 0.7 X10*3/uL (0.1-1.2); Monocytes Percent Auto 8.5 % (2-11); Neutrophils Absolute Auto 3.6 x10*3/uL (2.0-8.3); Neutrophils Percent Auto 47.5 % (45-73); Platelet Count 299 X10*3/uL (160-400); Red Blood Count 3.86 X10*6/uL (4.20-5.50); Red Cell Distribution Width 12.7 % (11.0-16.0); White Blood Count 7.6 X10*3/uL (4.8-10.8)
[2024-08-03 17:23] LABS: Erythrocyte Sedimentation Rate 4 MM/HR (0-20)
[2024-08-03 17:47] LABS: Alanine Aminotransferase 21 U/L (0-31); Albumin Level 4.2 g/dL (3.5-5.0); Alkaline Phosphatase 57 U/L (39-117); Anion Gap 10 (12-20); Aspartate Amino Transferase 25 U/L (5-31); Bilirubin Total 0.2 mg/dL (0.0-1.0); Blood Urea Nitrogen 14 mg/dL (9-16); C Reactive Protein < 0.10 mg/dL (< or = 0.50); Calcium 9.1 mg/dL (8.4-10.2); Carbon Dioxide 24 mmol/L (22-29); Chloride 110 mmol/L (96-108); Estimated Glomerular Filt Rate > 60; Glucose Random 105 mg/dL (60-115); Potassium 3.9 mmol/L (3.3-5.1); Sodium 140 mmol/L (135-145); Total Protein 6.8 g/dL (6.5-8.0)
== END 2024-08-03 15:45 | disposition home or self-care (01) ==
LOC: HO.LAB 15:44
PROVIDERS: PCP Internal Medicine; Visit Provider Internal Medicine Rheumatology
DX: M05.741 Rheumatoid arthritis with rheumatoid factor of right hand without organ or systems involvement (principal); M05.742 Rheumatoid arthritis with rheumatoid factor of left hand without organ or systems involvement
CPT/HCPCS: 36415; 80053; 85025; 85652; 86140

== ENCOUNTER 2024-08-07 20:42 | Emergency (ER) | payer MEDICAID, SELFPAY ==
[2024-08-07 20:46] VITALS: BP 163/93; PULSE 95; RESP 20; TEMP 37.2; O2SAT 97; BMI 31.2
--- NOTE | 2024-08-07 20:47 | ED.GENADULT ---
HPI - General Adult General Chief complaint: General Medical Stated complaint: Lupus flare up Time Seen by Provider: 08/08/24 00:28 Source: patient Mode of arrival: ambulatory Limitations: no limitations History of Present Illness ED Provider: Dr. Jaya Tobias HPI narrative: 34-year-old female with a history of seropositive rheumatoid arthritis, flexor tenosynovitis of the thumb, hypotension, migraines, kidney stones who presents emergency department for evaluation of diffuse joint pain, lethargy and difficulty concentrating. The patient states she was pain in all of her joints. She states that the pain is 10/10 at its worse and currently it at 7/10. Patient was evaluated by her technical solutions director who felt that she was having a flare-up of her rheumatoid arthritis and started her on prednisone 30 mg once a day for 1 week with a tapering course of 20 mg x 1 week and 10 mg x 1 week. She has been on the 30 mg dose for 5 days in his had no improvement of her symptoms. She had no other significant symptoms such as fever, chills, rhinorrhea, sore throat, cough, chest pain, nausea, vomiting, diarrhea. She states she was noted occasional frequency but no dysuria. The patient states that she was been getting a rash on her face and did show me a picture of a butterfly like rash to her cheeks bilaterally . She states that her technical solutions director is concerned that she may have lupus. The patient was taking Actema(tocilzumab and methotrexate injections for her rheumatoid arthritis. Related Data Home Medications ?Medication ?Instructions ?Recorded ?Confirmed meclizine 25 mg tablet 25 mg PO DAILY PRN Dizziness 09/04/20 02/27/24 cyclobenzaprine 5 mg tablet 5 mg PO BEDTIME PRN 08/03/21 02/27/24 omeprazole 20 mg capsule,delayed 20 mg PO DAILY PRN 08/03/21 02/27/24 release cetirizine 10 mg tablet 10 mg PO QAM 12/20/22 02/27/24 fluticasone propionate 50 intranasal 12/20/22 02/27/24 mcg/actuation nasal spray,suspension lidocaine 5 % topical patch 1 patch topical DAILY 12/20/22 02/27/24 (Lidoderm) methotrexate sodium 25 mg/mL 12.5 mg subcut QWEEK 01/17/24 02/27/24 injection solution Previous Rx's ?Medication ?Instructions ?Recorded finger splint #1 ea 05/06/23 diclofenac sodium 1 % topical gel 2 g topical QID PRN Hand Pain 06/02/23 #100 grams ibuprofen 600 mg tablet 600 mg PO Q8H PRN pain #20 tabs 08/16/23 Actemra 162 mg/0.9 mL subcutaneous 162 mg (0.9 mL) subcut QWEEK #3.6 10/10/23 syringe (tocilizumab) mL norethindrone (contraceptive) 0.35 0.35 mg PO DAILY #84 tabs 12/29/23 mg tablet oxycodone 5 mg tablet 5 mg PO Q6H PRN pain #14 tabs 08/08/24 prednisone 20 mg tablet 60 mg (3 x 20 mg) PO DAILY 5 days 08/08/24 #15 tabs Allergies Allergy/AdvReac Type Severity Reaction Status Date / Time shrimp Allergy Mild SWELLING Verified 08/07/24 20:49 gabapentin [GABAPENTIN] Allergy Unknown COULDNT Verified 08/07/24 20:49 FEEL LEGS , numbness methotrexate [METHOTREXATE] Allergy Unknown VOMITING Verified 08/07/24 20:49 nitrofurantoin Allergy Unknown cyclic Verified 08/07/24 20:49 vomitting abatacept [From Orencia] Allergy Swelling Verified 08/07/24 20:49 Sulfa (Sulfonamide AdvReac Unknown SOB, Verified 08/07/24 20:49 Antibiotics) Tembling, LE weakness trimethoprim [From BACTRIM] AdvReac Unknown NUMBNESS Verified 08/07/24 20:49 IN BLE, VOMITING Review of Systems Review of Systems: Yes all other systems are reviewed and are negative [facility] Past Medical History [facility] Narrative: Social history: She denies tobacco, alcohol use. She states she does take marijuana gummy he was 5 mg daily for her pain. Medical History Flexor tenosynovitis of thumb History of COVID-19 Long-term use of immunosuppressant medication Seropositive rheumatoid arthritis Hypotension Encounter for screening for endocrine disorder H/O renal calculi Symptomatic cholelithiasis Migraines Rheumatoid arthritis Kidney stones Surgical History History of cholecystectomy Hx of tubal ligation History of laparoscopic cholecystectomy Hx of cystoscopy Hx of colonoscopy Social History Social History Household Members: Children Alcohol intake: never Comment: pt. sleeping Patient Tobacco Use Status: Never used Tobacco e-Cigarette/Vaping Use: Never Used Substance Use Type: Marijuana Advance Directives: No Advance Directives Information Provided: Yes service: No Current occupational status: unemployed Current occupation: right hand dominant Physical Exam ED Vital Signs: Vital Signs - 24 hr 08/07/24 20:46 Temperature 99 F Pulse Rate 95 Respiratory Rate 20 Blood Pressure 163/93 H Pulse Oximetry 97 Oxygen Delivery Method Room Air BMI result Body Mass Index 31.2 Vital signs revealed an elevated blood pressure of 163/93 and an elevated respiratory rate of 20 Exam: General: Awake, alert in no distress Head: Normocephalic, atraumatic EENT: PERRL, Lids normal, sclera normal, conjunctiva normal, nose normal , ears normal, throat without erythema or exudates Neck: Supple, no adenopathy Lung: breath sounds symmetric, no wheezing, rales or rhonchi Chest: symmetric movement, nontender Heart: regular rate and rhythm, normal S1, S2 no murmurs or rubs Abdomen: soft, non-tender, nondistended, normal bowel sounds Back: no vertebral tenderness, no CVAT Extremities: no deformities, moves all extremities symmetrically, the patient has no increased warmth of her joint or obvious joint effusions however she does have increased pain with movement of her joints of her hands, wrists, elbows , knees and ankle. Neuro: Awake, alert, oriented, normal speech, cranial nerves intact, moves all extremities symmetrically Psych: Pleasant, cooperative Course Course Course Narrative: RME, this is a rapid medical exam performed by Jignesh Beard please refer to primary provider for complete H&P- 34-year-old female presents for evaluation of diffuse body aches, headache. She reports that she was currently and prednisone for rheumatoid arthritis flare. She was being worked up for lupus. Plan for labs and viral swabs. Medical Decision Making Medical Decision Making MDM Narrative: 34-year-old female with a history of seropositive rheumatoid arthritis, flexor tenosynovitis of the thumb, hypotension, migraines, kidney stones who presents emergency department for evaluation of diffuse joint pain, lethargy and difficulty concentrating. Patient states he was symptoms are consistent with a flare-up of her rheumatoid arthritis, she has been evaluated by her technical solutions director he was starting on a course of prednisone starting at 30 mg and tapering off over 3 weeks. She has been on prednisone 30 mg daily for 5 days with no improvement of her pain. Patient's pain is 10/10 at its worst in his currently 7/10 involves all of her joints. Vital signs did reveal an elevated blood pressure and elevated respiratory rate otherwise unremarkable. Physical examination did not reveal any increased erythema erythema or increased warmth over her joints and I did not appreciate any significant joint effusions. Differential diagnosis: ?Includes but is not limited to rheumatoid arthritis flare, lupus/rheumatoid encephalopathy, infectious process, anemia, electrolyte abnormalities Course: :14 My interpretation patient's laboratory evaluation as follows: Elevated white blood count 16741. Normocytic anemia with an H&H of 12.1 and 34.4-chronic. Elevated BUN 21. Elevated AST and ALT of 35 and 42. At this time my impression is that the patient was having a flare-up of her rheumatoid arthritis despite her normal inflammatory markers. I do not think that she was rheumatoid encephalopathy despite her reported mild confusion. I think that the patient needs a higher dose of steroids and I did discuss this with the patient. Patient was given Solu-Medrol 125 mg IV. She was also given oxycodone 10 mg orally for her pain. Patient was given a prescription for prednisone 60 mg once a day for 5 days and then she was advised to go back to her tapering course as prescribed by her technical solutions director. She was also given a prescription for oxycodone 5 mg every 6 hours as needed for pain. She was given printed and verbal instructions and discharged home. Admission/Observation Consideration of admission/observation: Escalation of care including admission/observation considered (Yes) Lab Data MDM Lab Attestation statement: I reviewed the patient's lab results. 08/07/24 21:07 08/07/24 21:07 Labs: Lab Results 08/07/24 08/07/24 Range/Units 21:07 21:13 WBC 11.9 H (4.8-10.8) X10*3/uL RBC 3.85 L (4.20-5.50) X10*6/uL Hgb 12.1 (12.0-16.0) g/dl Hct 34.4 L (37.0-47.0) % MCV 89.4 (80.0-98.0) fL MCH 31.4 (27.0-33.0) pg MCHC 35.2 H (31.0-35.0) g/dl RDW 12.9 (11.0-16.0) % Plt Count 323 (160-400) X10*3/uL MPV 10.1 (9.4-12.3) fL Immature Gran % (Auto) 0.8 H (0.0-0.4) % Neut % (Auto) 76.6 H (45-73) % Lymph % (Auto) 17.2 L (20-40) % [place] % (Auto) 5.3 (2-11) % Eos % (Auto) 0.0 (0-4) % Baso % (Auto) 0.1 (0-2) % Lymph # (Auto) 2.0 (1.2-4.9) X10*3/uL [place] # (Auto) 0.6 (0.1-1.2) X10*3/uL Eos # (Auto) 0.0 (0.0-0.4) X10*3/uL Baso # (Auto) 0.0 (0.0-0.2) X10*3/uL Abs Immat Gran (auto) 0.10 H (0.00-0.03) X10*3/uL Absolute Neuts (auto) 9.1 H (2.0-8.3) x10*3/uL Absolute Nucleated RBC 0.000 (0.0-0.012) X10*3/uL Nucleated RBC % (auto) 0.0 (0.0-0.2) /100WBC ESR 2 (0-20) MM/HR Sodium 137 (135-145) mmol/L Potassium 4.1 (3.3-5.1) mmol/L Chloride 107 (96-108) mmol/L Carbon Dioxide 22 (22-29) mmol/L Anion Gap 12 (12-20) BUN 21 H (9-16) mg/dL Creatinine 0.67 (0.5-1.4) mg/dL Estim Creat Clear Calc 110.5 Estimated GFR > 60 Random Glucose 109 (60-115) mg/dL Calcium 9.3 (8.4-10.2) mg/dL Magnesium 2.2 (1.6-2.6) mg/dL Total Bilirubin 0.2 (0.0-1.0) mg/dL AST 35 H (5-31) U/L ALT 42 H (0-31) U/L Alkaline Phosphatase 52 (39-117) U/L C-Reactive Protein < 0.10 (< or = 0.50) mg/dL Total Protein 7.1 (6.5-8.0) g/dL Albumin 4.4 (3.5-5.0) g/dL Lipase 32 (8-78) U/L Urine Color Yellow Urine Appearance Clear Urine pH 6.0 (5.0-9.0) Ur Specific [place] 1.025 (1.005-1.025) Urine Protein Negative (Neg-Trace) mg/dL Urine Glucose (UA) Negative (Negative) mg/dL Urine Ketones Negative (Negative) mg/dL Urine Blood Negative (Negative) Urine Nitrite Negative (Negative) Ur Leukocyte Esterase Negative (Negative) Urine RBC 0-2 (0-2) /HPF Urine WBC 0-5 (0-5) /HPF Ur Squamous Epith Cells 6-10 (0-2) /HPF Urine Bacteria 1+ (None Seen) Hyaline Casts 0-2 (0-2) /LPF Influenza Type A (PCR) NEGATIVE (Negative) Influenza Type B (PCR) NEGATIVE (Negative) RSV RNA Qual (PCR) NEGATIVE (Negative) SARS-CoV-2 RNA (RT-PCR) NEGATIVE (Negative) Prescription Management I considered prescription management with: Pain Medication (Oxycodone) and Other (Anti-inflammatory steroids: Prednisone) Chronic Conditions Patient?s care impacted by: Other (Rheumatoid arthritis) Discharge Plan Discharge Clinical Impression: Rheumatoid arthritis flare Patient Disposition: Home, Self-Care Additional Instructions: You had a complete blood count and comprehensive metabolic panel in the emergency depart You are mildly anemic with a hemoglobin of the 12.1 and a hematocrit of 34.4, this is unchanged from your previous labs. Your liver tests, AST and ALT were only slightly elevated at 35 and 42. Your inflammatory markers were normal. Your ESR was 2 and your CRP was below detectable limits. It is reassuring that your blood tests are normal and I do not think that you have an infection at this time causing your symptoms. Your symptoms are most likely caused by a flare-up of your rheumatoid arthritis. You are on two immunosuppressant agents and on prednisone which is most likely why your inflammatory markers were normal Despite the normal inflammatory markers, I think you are having a flare-up of your rheumatoid arthritis and you need a higher dose of prednisone to help with your pain/inflammation. You were treated here in the emergency department with Solu-Medrol 125 mg orally. You also received oxycodone 10 mg orally. I want you to take prednisone 20 mg pills, 3 pills once a day for 5 days and then go back to the 30 mg dose daily and follow the tapering dose of prednisone as prescribed by your technical solutions director. While your taking prednisone do not take other anti-inflammatory steroids (NSAIDs) such as ibuprofen, Motrin, Advil, Aleve, naproxen. Take Tylenol (acetaminophen) 500 mg pills, 2 pills every 6 hours as needed for pain. For pain not relieved by prednisone or Tylenol take oxycodone 5 mg pills, 1 pill every 4 hours as needed for pain. Do not drive or work while taking this medication since they can cause sleepiness. Oxycodone is a narcotic medication that can be addicting. If you are concerned about addiction you can ask the pharmacist for less pills or do not get this prescription filled. Follow-up with your rheumatology in 1 week. Please return to the emergency department if your symptoms get worse or if you develop any symptoms that are concerning to you. Prescriptions: New prednisone 20 mg tablet 60 mg PO DAILY 5 Days Qty: 15 0RF oxycodone 5 mg tablet 5 mg PO Q6H PRN (Reason: pain) Qty: 14 0RF Rx Instructions: Partial Fill upon patient request. No Action diclofenac sodium 1 % gel 2 g topical QID PRN (Reason: Hand Pain ) Qty: 100 1RF Rx Instructions: apply to hand; for hand includes palm/fingers/back of hand Actemra 162 mg/0.9 mL syringe 162 mg subcut QWEEK Qty: 3.6 2RF ibuprofen 600 mg tablet 600 mg PO Q8H PRN (Reason: pain) Qty: 20 0RF meclizine 25 mg tablet 25 mg PO DAILY PRN (Reason: Dizziness) omeprazole 20 mg capsule,delayed release(DR/EC) 20 mg PO DAILY PRN cyclobenzaprine 5 mg tablet 5 mg PO BEDTIME PRN lidocaine [Lidoderm] 5 % adhesive patch,medicated 1 patch topical DAILY fluticasone propionate 50 mcg/actuation spray,suspension intranasal cetirizine 10 mg tablet 10 mg PO QAM (DME) finger splint Misc See Rx Instructions .Route Qty: 1 0RF Rx Instructions: As directed norethindrone (contraceptive) 0.35 mg tablet 0.35 mg PO DAILY Qty: 84 4RF methotrexate sodium 25 mg/mL solution 12.5 mg subcut QWEEK Print Language: Estonian
--- NOTE | 2024-08-07 20:48 | ECG_ITS ---
Test Reason : WEAKNESS Blood Pressure : */* mmHG Vent. Rate : 76 BPM Atrial Rate : 76 BPM P-R Int : 184 ms QRS Dur : 92 ms QT Int : 380 ms P-R-T Axes : 50 18 9 degrees QTcB Int : 427 ms Normal sinus rhythm Normal ECG When compared with ECG of 13-Jun-2023 18:33, No significant change was found Referred By: Santosh Beard Electronically Signed By: Lawson Hager
--- OUTSIDE RECORDS SUMMARY | 2024-08-07 21:06 | XMS_ITS | Referral Summary ---
Author Organization [facility] Address [address] [place] [address] Care Team Providers Care Pulp Machine Operator Name Role Phone Sharon Mcmahon MD Primary Care Provider Encounters Date Type Department Care Team Description 08/03/2024 Orders Only [facility] [address] [place] [address] Anglesmith: Jonna Fletcher MD 08/03/2024 Orders Only [facility] [address] [place] [address] Anglesmith: Jonna Fletcher MD Seropositive rheumatoid arthritis (HCC) (Primary Dx); Other fatigue 08/03/2024 myChart Message [facility] [address] [place] [address] Anglesmith: Jonna Fletcher MD Flaring 05/22/2024 Telephone [facility] [place] [phone] Ian Koo [facility] Medication Follow Up Assessment 05/09/2024 10:20 AM EST Follow-Up [facility] [address] [place] [address] Anglesmith: Jonna Fletcher MD Seropositive rheumatoid arthritis (Primary [...] 1 07/17/2024 11:57 AM EDT 4 Active predniSONE (DELTASONE) 10 mg tablet 3 tabs every morning for 1 week then 2 tabs every morning for 1 week then 1 tab every morning for 1 week then stop 42 tablet 5 Active Active Problems Problem Noted Date Diagnosed Date Abnormal finding on MRI of brain 01/04/2024 Overview (01/04/2024): MRI brain 2019 reportedly abnormal Acute pain of right shoulder [...] -Seropositive RA, onset about 26 yo Treated Tea rheumatology Positive anti CCP, negative RF Methotrexate by mouth, taken briefly, stopped due to nausea, vomiting Abatacept: allergic reaction, pain at injection site, lip swelling Tocilizumab (Actemra) 2020-?2021 effective Kevzara ? Dates, 2019 secondary faiure Tofacitinib (Xeljanz) failure Avoided anti TNF due to strong family history MS Occasional steroids Positive TONE Treatment at [facility] 01/04/2024 second opinion [facility] Try subcutaneous methotrexate Anaphylaxis [...] Info) Description 08/29/2024 10:40 AM EDT Follow-Up [facility] [address] [place] [address] Anglesmith: Jonna Fletcher MD [address] [place] [phone] Procedures * Due to [place] state law, this organization might not be sharing negative HIV tests. Procedure Name Priority Date/Time Associated Diagnosis Comments LAB - SCANNED 08/03/2024 CREATININE Routine 05/09/2024 11:16 AM EST Seropositive [...] Seropositive rheumatoid arthritis QUANTIFERON-TB GOLD PLUS, 1 [id number] Routine 05/09/2024 11:16 AM EST Immunosuppression due to drug therapy from Last 3 Months Results * Due to [place] state law, this organization might not be sharing negative HIV tests. * LAB - SCANNED (08/03/2024) us Onbase Scan [facility] LAB HISTORICAL RESULTS Final Result * QuantiFERON-TB Gold Plus, 1 Tube (05/09/2024 11:16 AM EST) [facility] QuantiFERON-TB Gold Plus NEGATIVE NEGATIVE 05/12/2024 1:54 PM EST [employer] [facility] Comment: Negative test result. M. tuberculosis complex infection unlikely. NIL 0.06 IU/mL 05/12/2024 1:54 PM EST [facility] [employer] [facility] Mitogen-NIL >10.00 IU/mL 05/12/2024 1:54 PM EST [facility] TB1-NIL <0.00 IU/mL 05/12/2024 1:54 PM EST [facility] TB2-NIL 0.00 IU/mL 05/12/2024 1:54 PM EST [facility] Comment: The Nil tube value reflects the [...] T-lymphocytes. For additional information, please refer to https://education.GeoCities/faq/AZP718 (This link is being provided for informational/ educational purposes only.) Blood Structure of peripheral vein / Unknown Venipuncture / Unknown 05/09/2024 11:16 AM EST 05/09/2024 11:40 AM EST [facility] - 05/12/2024 1:54 PM EST [facility] Received Date: us Jonna Moreland MD LAB BLOOD ORDERABLES Final Resul t [facility] [address] [facility] 3rd Floor, [place] [address], [place] [phone] [employer] [facility] [address] [facility] 3rd Floor, [place] [address], [place] [phone] * (ABNORMAL) CBC Auto Differential (05/09/2024 11:16 AM EST) WBC 9.7 3.8 - 10.8 10*3/uL 05/09/2024 11:52 AM EST [facility] RBC 4.06 3.80 - 5.10 10*6/uL 05/09/2024 11:52 AM EST [facility] Hemoglobin 12.4 11.7 - 15.5 g/dL 05/09/2024 11:52 AM EST [facility] Hematocrit 36.9 35.0 - 45.0 % 05/09/2024 11:52 AM EST [facility] MCV 90.9 80.0 - 100.0 fL 05/09/2024 11:52 AM EST [facility] MCH 30.5 27.0 - 33.0 pg 05/09/2024 11:52 AM [facility] MCHC 33.6 32.0 - 36.0 g/dL 05/09/2024 11:52 AM [facility] RDW 12.3 11.0 - 15.0 % 05/09/2024 11:52 AM [facility] Platelets 311 140 - 400 10*3/uL 05/09/2024 11:52 AM [facility] MPV 10.5 7.5 - 12.5 fL 05/09/2024 11:52 AM [facility] Neutrophil % 57.0 % 05/09/2024 11:52 AM [facility] Immature Grans % 0.2 0.0 - 0.9 % 05/09/2024 11:52 AM [facility] Lymphocyte % 29.0 % 05/09/2024 11:52 AM [facility] Monocyte % 6.6 % 05/09/2024 11:52 AM [facility] Eosinophil % 6.7 % 05/09/2024 11:52 AM [facility] Basophil % 0.5 % 05/09/2024 11:52 AM [facility] Neutrophil # 5.55 1.50 - 7.80 10*3/uL 05/09/2024 11:52 AM [facility] Immature Grans # <0.03 <=0.03 10*3/uL 05/09/2024 11:52 AM [facility] Lymphocyte # 2.80 0.85 - 3.90 10*3/uL 05/09/2024 11:52 AM [facility] Monocyte # 0.60 0.20 - 0.95 10*3/uL 05/09/2024 11:52 AM EST [facility] Eosinophil # 0.70(H) 0.02 - 0.50 10*3/uL 05/09/2024 11:52 AM EST [facility] Basophil # 0.10 0.00 - 0.20 10*3/uL 05/09/2024 11:52 AM EST [facility] nRBC % 0.0 /100 WBCs 05/09/2024 11:52 AM EST [facility] nRBC # <0.01 <0.01 10*3/uL 05/09/2024 11:52 AM EST [facility] Blood Structure of peripheral vein / Unknown Venipuncture / Unknown 05/09/2024 11:16 AM EST 05/09/2024 11:40 AM EST us Jonna Morelnad MD LAB BLOOD ORDERABLES Final Resul t [facility] [address] [place] [address], * Lyme Antibody Screen w/Reflex to Blot (05/09/2024 11:16 AM EST) Lyme Ab Screen <0.90 index 05/09/2024 9:43 PM EST [employer] Comment: ? Index ?Interpretation ? ----- ? [...] EST 05/09/2024 11:40 AM EST Narrative [facility] - 05/09/2024 9:43 PM EST [facility] Received Date: us Jonna Moreland MD LAB BLOOD ORDERABLES Final Resul t Performing Organization Address City/[facility]/ZIP Co de Phone Number [facility] [address] [facility] 3rd [address], [place] [address], [place] [phone] [employer] [facility] [address] [facility] 3rd Floor, [place] [address], [place] [phone] * Sedimentation Rate (05/09/2024 11:16 AM EST) Sed Rate 2 <20 mm/Hr mm/Hr 05/09/2024 11:53 AM EST [facility] Blood Structure of peripheral vein / Unknown Venipuncture / Unknown 05/09/2024 11:16 AM EST 05/09/2024 11:40 AM EST us Jonna Moreland MD LAB BLOOD ORDERABLES Final Resul t [facility] [address] [place] [address], * C-Reactive Protein (05/09/2024 11:16 AM EST) C Reactive Protein <3.0 <=9.9 mg/L 05/09/2024 12:21 PM EST [facility] Blood Structure of peripheral vein / Unknown Venipuncture / Unknown 05/09/2024 11:16 AM EST 05/09/2024 11:40 AM EST us Jonna Moreland MD LAB BLOOD ORDERABLES Final Resul t Performing Organization Address City/[facility] Co de Phone Number [facility] [address] [place] [address], [place] * ALT (05/09/2024 11:16 AM EST) ALT 15 10 - 40 U/L 05/09/2024 12:21 PM EST [facility] Blood Structure of peripheral vein / Unknown Venipuncture / Unknown 05/09/2024 11:16 AM EST 05/09/2024 11:40 AM EST us Jonna Moreland MD LAB BLOOD ORDERABLES Final Resul t Performing Organization Address [facility] de Phone Number [facility] [address] [place] [address], [place] * AST (05/09/2024 11:16 AM EST) AST 23 10 - 40 U/L 05/09/2024 12:21 PM EST [facility] Blood Structure of peripheral vein / Unknown Venipuncture / Unknown 05/09/2024 11:16 AM EST 05/09/2024 11:40 AM EST us Jonna Moreland MD LAB BLOOD ORDERABLES Final Resul t Performing Organization Address City/[facility] Co de Phone Number [facility] [address] [place] [address], [place] * Creatinine (05/09/2024 11:16 AM EST) Creatinine 0.63 0.50 - 1.20 mg/dL 05/09/2024 12:21 PM EST [facility] eGFR >90 >=60 mL/min/1. 73m2 05/09/2024 12:21 PM EST [facility] Comment:The estimated glomer [...] MD LAB BLOOD ORDERABLES Final Resul t [facility] [address] [place] [address], [place] from Last 3 Months Insurance [employer] Advance Directives Documents on File Type Date Recorded Patient Sexton Helper Expl anation Health Care Proxy 01/04/2024 8:57 AM HCP-R ECV'D 01/04/24 Health Care Proxy 01/04/2024 8:55 AM HCP-R ECEIVED 01/04/24 Care Teams Pulp Machine Operator Relationship Specialty Start Date End Date Sharon Mcmahon MD [address] [place] [address] PCP - General Internal Medicine 01/04/24
--- OUTSIDE RECORDS SUMMARY | 2024-08-07 21:06 | XMS_ITS | Encounter Summary ---
Author Organization [employer] Address [address] [place] [address] Care Team Providers Care Online Merchandising Manager Name Role Phone Sharon Mcmahon MD Primary Care Provide r Reason for Visit * Reason Comments Med Refill Encounter Details Date Type Department Care Team ([facility] Contact Info) Description 05/01/2023 Refill [facility] [address] [place], [place] [phone] Sharon Mcmahon MD [address] [place], [place] [phone] Generalized abdominal pain Social History Tobacco Use [...] 08/31/2024 1:45 PM EDT Office Visit [facility] [address] [place] [address] Sharon Mcmahon MD [address] [place] [address] documented as of this encounter Visit Diagnoses Diagnosis Generalized abdominal pain Abdominal pain, generalized documented in this encounter Additional Health Concerns Assessment Noted Time PHQ-9 Depression Total Score: 0 04/01/20 23 11:08 AM EST documented as of this encounter Care Teams Online Merchandising Manager Relationship Specialty Start Date End Date Sharon Mcmahon MD [address] [place] [address] PCP - General Family Medicine 12/21/17 documented as of this encounter
--- OUTSIDE RECORDS SUMMARY | 2024-08-07 21:06 | XMS_ITS | Encounter Summary ---
Author Organization [facility] Address [address] [place] [address] Care Team Providers Care Palliative Care Physician Name Role Phone Sharon Mcmahon MD Primary Care Provider Encounter Details Date Type Department Care Team (Late st Contact Info) Description 08/03/2024 Orders Only [facility] [address] [place] [address] Disbursement Clerk: Jonna Fletcher MD [address] [place] [address] Seropositive rheumatoid arthritis (HCC) (Primary Dx); Other fatigue Social History Tobacco Use Types Packs/Day Years [...] Info) Description 08/29/2024 10:40 AM EDT Follow-Up [facility] [address] [place] [address] Disbursement Clerk: Jonna Fletcher MD [address] [place] [address] Scheduled Orders Name Type Priority Associated Diagnoses Orde r Schedule Comprehensive metabolic panel Lab Routine Seropositive rheumatoid arthritis (HCC) Expected: 08/03/2024, Expires: 08/03/2025 CBC Auto Differential Lab Routine Seropositive rheumatoid arthritis (HCC) Expected: 08/03/2024, Expires: 08/03/2025 Sedimentation Rate Lab Routine Seropositive rheumatoid arthritis (HCC) 1 Occurrences starting 08/03/2024 until 01/30/2025 C-Reactive Protein Lab Routine Seropositive rheumatoid arthritis (HCC) 1 Occurrences starting 08/03/2024 until 01/30/2025 TSH Reflex Free T4 Lab Routine Other fatigue Expected: 08/03/2024, Expires: 08/03/2025 documented as of this encounter Visit Diagnoses Diagnosis Seropositive rheumatoid arthritis (HCC)- Primary Other fatigue documented in this encounter Care Teams Palliative Care Physician Relationship Specialty Start Date End Date Sharon Mcmhaon MD [address] [place] [phone] PCP - General Internal Medicine 01/04/24 documented as of this encounter
--- OUTSIDE RECORDS SUMMARY | 2024-08-07 21:06 | XMS_ITS | Encounter Summary ---
Author Organization [employer] Address [address] [place] [address] Care Team Providers Care Oil Sales And Service Rep Name Role Phone Sharon Mcmahon MD Primary Care Provide r Reason for Visit * Reason Comments Med Refill Encounter Details Date Type Department Care Team ([facility] Contact Info) Description 05/01/2023 Refill [facility] [address] [place], [place] [phone] Ruddy Ontiveros MD [address] [place] [address] Social History Tobacco Use Types Packs/Day Years [...] Description 08/31/2024 1:45 PM EDT Office Visit [facility] [address] [place] [address] Sharon Mcmahon MD [address] [place] [address] documented as of this encounter Visit Diagnoses Not on filedocumented in this encounter Additional Health Concerns Assessment Noted Time PHQ-9 Depression Total Score: 0 04/01/20 23 11:08 AM EST documented as of this encounter Care Teams Oil Sales And Service Rep Relationship Specialty Start Date End Date Sharon Mcmahon MD [address] [place] [address] PCP - General Family Medicine 12/21/17 documented as of this encounter
--- OUTSIDE RECORDS SUMMARY | 2024-08-07 21:06 | XMS_ITS | Encounter Summary ---
Author Organization [facility] Address [address] [place] [address] Care Team Providers Care Tableau Lead Name Role Phone Sharon Mcmahon MD Primary Care Provider Encounter Details Date Type Department Care Team (Late Contact Info) Description 08/03/2024 Orders Only [facility] [address] [place] [address] Heater Mechanic: Jonna Fletcher MD [address] [place] [phone] Social History Tobacco Use Types Packs/Day Years [...] Info) Description 08/29/2024 10:40 AM EDT Follow-Up [facility] [address] [place] [address] Heater Mechanic: Jonna Fletcher MD [address] [place] [address] documented as of this encounter Visit Diagnoses Not on filedocumented in this encounter Care Teams Tableau Lead Relationship Specialty Start Date End Date Sharon Mcmahon MD [address] [place] [address] PCP - General Internal Medicine 01/04/24 documented as of this encounter
--- OUTSIDE RECORDS SUMMARY | 2024-08-07 21:06 | XMS_ITS | Encounter Summary ---
Author Organization [employer] Address [address] 7[address] [place] [address] Care Team Providers Care Crematory Operator Name Role Phone Sharon Mcmahon MD Primary Care Provide r Encounter Details Date Type Department Care Team ([facility] st Contact Info) Description 10/27/2023 Telephone [facility] [address] [place], [place] [phone] Sharon Mcmahon MD [address] [place], [place] [phone] Social History Tobacco Use Types Packs/Day Years [...] 1:45 PM EDT Office Visit [facility] [address] [place] [address] Sharon Mcmahon MD [address] [place] [address] documented as of this encounter Visit Diagnoses Not on filedocumented in this encounter Additional Health Concerns Assessment Noted Time PHQ-9 Depression Total Score: 0 04/01/20 23 11:08 AM EST documented as of this encounter Care Teams Crematory Operator Relationship Specialty Start Date End Date Sharon Mcmahon MD [address] [place] [phone] PCP - General Family Medicine 12/21/17 documented as of this encounter
--- OUTSIDE RECORDS SUMMARY | 2024-08-07 21:06 | XMS_ITS | Encounter Summary ---
Author Organization [facility] Address [address] [place] [address] Care Team Providers Care Film Composer Name Role Phone Sharon Mcmahon MD Primary Care Provider Reason for Visit * Reason Onset Date Comments PAC Patient Request Call Back 02/29/2024 Encounter Details Date Type Department Care Team (Late st Contact Info) Description 02/29/2024 Telephone [facility] [address] [place] [address] Telephone Intake, Staff PAC Patient Request Call [...] methotextrate medication with Dr. Moreland. Patient tel: [phone] Thank you - PAC documented in this encounter Plan of Treatment Upcoming Encounters Date Type Department Care Team (Late st Contact Info) Description 08/29/2024 10:40 AM EDT Follow-Up [facility] [address] [place] [address] Mathematician: Jonna Fletcher MD [address] [place] [address] documented as of this encounter Visit Diagnoses Not on filedocumented in this encounter Care Teams Film Composer Relationship Specialty Start Date End Date Sharon Mcmahon MD [address] [place] [address] PCP - General Internal Medicine 01/04/24 documented as of this encounter
--- OUTSIDE RECORDS SUMMARY | 2024-08-07 21:06 | XMS_ITS | Encounter Summary ---
Author Organization [employer] Address [address] [facility] 7t [place] [address] Care Team Providers Care Blocker And Polisher Gold Wheel Name Role Phone Sharon Mcmahon MD Primary Care Provide r Reason for Visit * Reason Onset Date Comments New Med Request 11/04/2023 Encounter Details Date Type Department Care Team ([facility] st Contact Info) Description 11/04/2023 Telephone [facility] [address] [place] [address] Sharon Mcmahon MD [address] [place], [place] [phone] New Med Request Social History Tobacco Use [...] right shoulder patient was having new symptoms underwriter did triage however patient would like some type of medication to help with pain documented in this encounter Plan of Treatment Upcoming Encounters Date Type Department Care Team (Late st Contact Info) Description 08/31/2024 1:45 PM EDT Office Visit [facility] [address] [place] [address] Sharon Mcmahon MD [address] [place] [address] documented as of this encounter Visit Diagnoses Not on filedocumented in this encounter Additional Health Concerns Assessment Noted Time PHQ-9 Depression Total Score: 0 04/01/20 23 11:08 AM EST documented as of this encounter Care Teams Blocker And Polisher Gold Wheel Relationship Specialty Start Date End Date Sharon Mcmahon MD [address] [place] [address] PCP - General Family Medicine 12/21/17 documented as of this encounter
--- OUTSIDE RECORDS SUMMARY | 2024-08-07 21:07 | XMS_ITS | Encounter Summary ---
Author Organization [facility] Address [address] [place] [address] Care Team Providers Care Business Area Manager Name Role Phone Sharon Mcmahon MD Primary Care Provider Encounter Details Date Type Department Care Team (Late Contact Info) Description 08/03/2024 myChart Message [facility] [address] [place] [address] Costume Rental Clerk: Jonna Fletcher MD [address] [place] [address] [place] Social History Tobacco Use Types Packs/Day [...] Info) Description 08/29/2024 10:40 AM EDT Follow-Up [facility] [address] [place] [address] Costume Rental Clerk: Jonna Fletcher MD [address] [place] [address] documented as of this encounter Visit Diagnoses Not on filedocumented in this encounter Care Teams Business Area Manager Relationship Specialty Start Date End Date Sharon Mcmahon MD [address] [place] [address] PCP - General Internal Medicine 01/04/24 documented as of this encounter
--- OUTSIDE RECORDS SUMMARY | 2024-08-07 21:07 | XMS_ITS | Encounter Summary ---
Author Organization [employer] Address [address] [facility] 7t [place] [address] Care Team Providers Care Nuclear Control Operator Name Role Phone Sharon Mcmahon MD Primary Care Provide r Reason for Visit * Reason Comments Med Refill Encounter Details Date Type Department Care Team ([facility] Contact Info) Description 03/25/2024 Refill [facility] [address] [place], [place] [phone] Sharon Mcmahon MD [address] [place], [place] [phone] Rheumatoid arthritis flare (CMS/HCC) Social History Tobacco [...] Description 08/31/2024 1:45 PM EDT Office Visit [facility] [address] [place] [phone] Sharon Mcmahon MD [address] [place] [address] documented as of this encounter Visit Diagnoses Diagnosis Rheumatoid arthritis flare (CMS/HCC) documented in this encounter Additional Health Concerns Assessment Noted Time PHQ-9 Depression Total Score: 0 04/01/20 23 11:08 AM EST documented as of this encounter Care Teams Nuclear Control Operator Relationship Specialty Start Date End Date Sharon Mcmahon MD [address] [place] [address] PCP - General Family Medicine 12/21/17 documented as of this encounter
--- OUTSIDE RECORDS SUMMARY | 2024-08-07 21:07 | XMS_ITS | Clinical Summary ---
Author Organization [employer] Address [address] [place] [address] Care Team Providers Care Methods Analyst Name Role Phone Sharon Mcmahon MD Primary [...] TIMES A DAY NEEDED FOR ABDOMINAL CRAMPING 03/23/20 19 Active EPINEPHrine (Epipen) 0.3 MG/0.3ML injection syringe epinephrine 0.3 mg/0.3 mL injection, auto-injector INJECT 0.3 ML INTRAMUSCULARLY ONCE DIRECTED FOR ANAPHYLAXIS AND CALL 911 06/03/19 21 Active ondansetron (Zofran) 4 MG tablet Take 4 mg by mouth every 6 (six) hours. 02/06/20 22 Active ibuprofen 400 MG tablet TAKE 1 TABLET BY MOUTH EVERY 6 HOURS NEEDED FOR PAIN 30 tablet 05/02/19 24 Active famotidine (Pepcid) 40 MG tabletIndicatio ns:Gastroesopha geal reflux disease without esophagitis Take 1 tablet (40 mg) by mouth in the morning. 30 tablet 1 06/24/19 24 Active Lidoderm 5 % patchIndication s:Rheumatoid arthritis flare (CMS/HCC) Apply 1 patch topically Once per day. Remove & discard patch within 12 hours or as directed by MD. 30 patch 10/18/19 24 Active Acetaminophen Extra Strength 500 MG tabletIndicatio ns:COVID-19 TAKE 2 TABLETS (1,000 MG) BY MOUTH EVERY 8 (EIGHT) HOURS IF NEEDED FOR MILD PAIN FOR UP TO 10 DAYS. 30 tablet 12/09/19 24 Active cyclobenzaprine (Flexeril) 10 MG tabletIndicatio ns:Rheumatoid arthritis flare (CMS/HCC) TAKE 1 TABLET (10 MG) BY MOUTH 3 TIMES DAILY FOR 10 DAYS. 30 tablet 12/09/19 24 Active LORazepam (Ativan) 0.5 MG tabletIndicatio ns:Anxiety Take one tablet 1-2 hours before the procedure 4 tablet 01/10/20 24 Active cetirizine (ZyrTEC) 10 MG tabletIndicatio ns:Seasonal allergies TAKE 1 TABLET BY MOUTH EVERY DAY IN THE MORNING 90 tablet 1 06/26/19 25 Active Active Problems Problem Noted Date Diagnosed [...] Overview (05/23/2022): -Mirtazapine 7.5mg nightly initiated on 1/13/23 Assessment & Plan (05/23/2022 10:34 AM EST): -Approx 4 weeks of mirtazapine w/o noted improvement in sleep or mood. Although, is noting increased appetite -Describing difficulty concentrating and mind racing before bed (not necessarily ruminating or anxious thoughts). 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 Encounters Date Type Department Care Team Description 06/24/2024 Refill [facility] [address] [place] [address] Sharon Mcmahon MD Seasonal allergies 06/22/2024 Population Health Risk Score [facility] ([facility] Department [address] [id number] Provider, Population Health Generic from Last 3 Months Immunizations Name Administration [...] Description 08/31/2024 1:45 PM EDT Office Visit [facility] [address], [place] [phone] Sharon Mcmahon MD [address] [place], [place] [phone] Health Maintenance Due Date Last Done Comments [...] 08/13/2020 07/16/2020 Depression Screening 04/01/2024 04/01/2023, 04/01/20 23 SDOH Screening 06/23/2024 06/24/2023 Alcohol/Substance Use Screening [...] Procedure Name Priority Date/Time Associated Diagnosis Comments THINPREP IMAGING PAP WITH REFLEX TO HPV MRNA E6/E7 Routine 12/05/2023 12:00 AM EDT ZZZ HISTORICAL HEPATITIS A,B,C PROFILE Routine 01/27/2021 9:00 AM EDT HPV MRNA E6/E7 REFLEX TO HPV 16, 18/45 Routine 11/27/2020 9:15 AM EDT from Last 3 Months or Most Recently Relevant to Health Maintenance Results * ThinPrep Imaging Pap with Reflex to HPV mRNA E6/E7 (12/05/2023 12:00 AM EDT) HPV nRNA E6/E7 [facility] SOURCE: SEE NOTE [facility] Comment:None given Report Status: [facility] Clinical Information: SEE NOTE [facility] Comment:None given LMP: SEE NOTE [facility] Comment:NONE GIVEN Prev. PAP: SEE NOTE [facility] Comment:NONE GIVEN Prev. BX: SEE NOTE [facility] Comment:NONE GIVEN Statement Of Adequacy: SEE NOTE [facility] Comment:Satisfactory for edy luation.Endocervical/transformation zone componentpresent. General Categorization: [facility] Interpretation/Result: SEE NOTE [facility] Comment:Cytology Results: Ne gative for intraepitheliallesion or malignancy. Cytology Comment SEE NOTE [facility] Comment:This Pap test has be en evaluated with computerassisted technology. Payable Representative: SEE NOTE [facility] Comment:YP, CT(ASCP)CT scree mau location: [address] [address] Review Payable Representative: [facility] Pathologist [facility] PAP Infection [facility] See Note SEE NOTE [facility] Comment:EXPLANATORY NOTE:The Pap is a screening test for cervical cancer. It isnot a diagnostic test and is subject to false negativeand false positive results. It is most reliable when asatisfactory sample, regularly obtained, is submittedwith relevant clinical findings and history, and whenthe Pap result is evaluated along with historic andcurrent clinical information.THIS TEST WAS PERFORMED AT:[facility] [employer] [address] [phone] AGEE MD 12/05/2023 12/05/2023 Narrative [facility] - 12/07/2023 3:26 PM EDT SEE SCANNED RESULTS IN EMR Sharon Caicedo MD LAB PATHOLOGY ORDERAB LES Final Result [facility] [address] [place] [address] [phone] * Hepatitis A,B,C Profile (01/27/2021 9:00 [...] 01/27/2021 9:00 AM EDT us Historical Provider HISTORICAL/NON ORDERABLE LABS Final Result Performing Organization Address [facility] Co de Phone Number [facility] [address] * HPV mRNA E6/E7 REFLEX TO HPV 16, 18/45 (11/27/2020 9:15 AM EDT) HPV nRNA E6/E7 Not Detected Not Detected [facility] Comment: Methodology: [employer] Supervisor-Mediated Amplification This assay detects E6/E7 viral messenger RNA (mRNA) from 14 high-risk HPV types (16,18,31,33,35,39,45,51,52,56,58,59,66,68). ? The analytical performance characteristics of this assay have been determined by [employer]. The modifications have not been cleared or approved by the FDA. This assay has been validated pursuant to the CLIA regulations and is used for clinical purposes. ?? For additional information, please refer to http://education.[employer]/faq/ICG163p2 (This link if provided for information/ educational purposes only.) 11/27/2020 9:15 AM EDT Sharon Caicedo MD LAB CYTOLOGY ORDERABL ES Final Result Performing Organization Address [facility] de Phone Number [facility] [address] from Last 3 Months or Most Recently Relevant to Health Maintenance Insurance [employer] Care Teams Methods Analyst Relationship Specialty Start Date End Date Sharon Mcmahon MD [address] [place] [phone] PCP - General Family Medicine 12/21/17
[2024-08-07 21:13] LABS: MANUAL DIFF FLAG NO
[2024-08-07 21:15] LABS: Basophils Percent Auto 0.1 % (0-2); Hematocrit 34.4 % (37.0-47.0); Hemoglobin 12.1 g/dl (12.0-16.0); Imm Gran Pct Auto 0.8 % (0.0-0.4); Lymphocytes Percent Auto 17.2 % (20-40); Mean Corpuscular HGB Conc 35.2 g/dl (31.0-35.0); Mean Corpuscular Hemoglobin 31.4 pg (27.0-33.0); Mean Corpuscular Volume 89.4 fL (80.0-98.0); Mean Platelet Volume 10.1 fL (9.4-12.3); Monocytes Absolute Auto 0.6 X10*3/uL (0.1-1.2); Monocytes Percent Auto 5.3 % (2-11); Neutrophils Absolute Auto 9.1 x10*3/uL (2.0-8.3); Neutrophils Percent Auto 76.6 % (45-73); Platelet Count 323 X10*3/uL (160-400); Red Blood Count 3.85 X10*6/uL (4.20-5.50); Red Cell Distribution Width 12.9 % (11.0-16.0); White Blood Count 11.9 X10*3/uL (4.8-10.8)
[2024-08-07 21:20] LABS: Appearance Urine Clear; Color Urine Yellow; Glucose Urine UA Negative (Negative); Leukocyte Esterase Urine Negative (Negative); Nitrite Urine Negative (Negative); Specific Gravity - Urine 1.025 (1.005-1.025); Urine Blood Negative (Negative); Urine Ketones Negative (Negative); Urine Protein Negative (Neg-Trace)
[2024-08-07 21:25] LABS: Bacteria Urine 1+ (None Seen); Hyaline Casts Urine 0-2 /LPF (0-2); RBC Urine 0-2 /HPF (0-2); WBC Urine 0-5 /HPF (0-5)
[2024-08-07 21:31] LABS: Alanine Aminotransferase 42 U/L (0-31); Albumin Level 4.4 g/dL (3.5-5.0); Alkaline Phosphatase 52 U/L (39-117); Anion Gap 12 (12-20); Aspartate Amino Transferase 35 U/L (5-31); Bilirubin Total 0.2 mg/dL (0.0-1.0); Blood Urea Nitrogen 21 mg/dL (9-16); C Reactive Protein < 0.10 mg/dL (< or = 0.50); Calcium 9.3 mg/dL (8.4-10.2); Carbon Dioxide 22 mmol/L (22-29); Chloride 107 mmol/L (96-108); Creatinine Clr Calc Pharmacy 110.5; Estimated Glomerular Filt Rate > 60; Glucose Random 109 mg/dL (60-115); Lipase 32 U/L (8-78); Magnesium 2.2 mg/dL (1.6-2.6); Potassium 4.1 mmol/L (3.3-5.1); Sodium 137 mmol/L (135-145); Total Protein 7.1 g/dL (6.5-8.0)
[2024-08-07 21:59] LABS: Erythrocyte Sedimentation Rate 2 MM/HR (0-20)
[2024-08-07 22:20] LABS: Influenza A PCR NEGATIVE (Negative); Influenza B PCR NEGATIVE (Negative); Resp Syncy Virus RNA Qual PCR NEGATIVE (Negative); SARS COV2 PCR INHOUSE NEGATIVE (Negative)
[2024-08-08] MEDS: oxyCODONE HCl Immed Release 5 MG TABLET 10 MG PO (01:22)
[2024-08-08] MEDS: methylPREDNISolone Sod Succ 125 MG/2 ML VIAL IVPUSH (01:22)
[2024-08-08 01:23] VITALS: BP 121/64; PULSE 67; RESP 16; TEMP 36.6; O2SAT 98
== END 2024-08-08 01:10 | disposition home or self-care (01) ==
PROVIDERS: Physician Assistant; Emergency Provider Emergency Medicine Emergency Medical Services; PCP Internal Medicine
DX: M06.9 Rheumatoid arthritis, unspecified (principal); Z03.818 Encounter for observation for suspected exposure to other biological agents ruled out; Z79.899 Other long term (current) drug therapy
CPT/HCPCS: 0241U; 36415; 80053; 81001; 83690; 83735; 85025; 85652; 86140; 93005; 96374; 99284; J2919

== ENCOUNTER → 2024-08-07 20:48 | Outpatient (BNV) | payer MEDICAID, SELFPAY | PROVIDERS: Emergency Provider Emergency Medicine Emergency Medical Services; PCP Internal Medicine; Visit Provider Internal Medicine Cardiovascular Disease | DX: R53.1 Weakness (principal) | CPT/HCPCS: 93010 ==

== ENCOUNTER 2024-09-10 09:22 | Outpatient (REF) | payer MEDICAID, SELFPAY ==
--- NOTE | ~2024-09-10 | US_ITS ---
CLINICAL HISTORY: N20.0 - Calculus of kidney US Renal Comparison: None Findings: Right kidney normal size and echotexture, 10.6 cm length. Left kidney normal size and echotexture, 10.1 cm length. No collecting system dilatation of either kidney. Normal color Doppler. Incidental increased echotexture of the liver. Incidental probable dilated colon in the region of the spleen. IMPRESSION: 1. Normal kidneys. 2. Incidental hepatic steatosis. 3. Incidental probable dilated colon in the region of the spleen. This document has been electronically signed by: Kj Martines MD on 09/10/2024 12:50:53
== END 2024-09-10 09:23 | disposition home or self-care (01) ==
LOC: HO.US 09:22
PROVIDERS: PCP Internal Medicine; Visit Provider Nurse Practitioner Family
DX: N20.0 Calculus of kidney (principal)
CPT/HCPCS: 76775

== ENCOUNTER → 2024-09-10 09:26 | Outpatient (BNV) | payer MEDICAID, SELFPAY | PROVIDERS: PCP Internal Medicine; Visit Provider Radiology Vascular & Interventional Radiology | DX: N20.0 Calculus of kidney (principal) | CPT/HCPCS: 76775 ==

== ENCOUNTER 2024-09-10 19:10 | Emergency (ER) | payer MEDICAID, SELFPAY ==
[2024-09-10 19:19] VITALS: BP 120/95; PULSE 108; RESP 18; TEMP 36.6; O2SAT 96; BMI 31.2
--- NOTE | 2024-09-10 19:37 | ED.ABDPAIN ---
HPI - Abdominal Pain General Chief Complaint: Abdominal Pain Stated Complaint: abd pain Time Seen by Provider: 09/11/24 00:17 Source: patient Mode of arrival: ambulatory Limitations: no limitations History of Present Illness ED Provider: HPI narrative: patient complaining of diffuse abdominal pain since morning today earlier today patient had renal ultrasound after she came back patient noticed has a cramping pain in the mid abdomen with nausea no vomiting no diarrhea patient is status post cholecystectomy no urinary symptoms or complaints ultrasound of the kidney showed normal kidneys with fatty liver no other family member sick Related Data Home Medications ?Medication ?Instructions ?Recorded ?Confirmed meclizine 25 mg tablet 25 mg PO DAILY PRN Dizziness 09/04/20 02/27/24 cyclobenzaprine 5 mg tablet 5 mg PO BEDTIME PRN 08/03/21 02/27/24 omeprazole 20 mg capsule,delayed 20 mg PO DAILY PRN 08/03/21 02/27/24 release cetirizine 10 mg tablet 10 mg PO QAM 12/20/22 02/27/24 fluticasone propionate 50 intranasal 12/20/22 02/27/24 mcg/actuation nasal spray,suspension lidocaine 5 % topical patch 1 patch topical DAILY 12/20/22 02/27/24 (Lidoderm) methotrexate sodium 25 mg/mL 12.5 mg subcut QWEEK 01/17/24 02/27/24 injection solution Previous Rx's ?Medication ?Instructions ?Recorded finger splint #1 ea 05/06/23 diclofenac sodium 1 % topical gel 2 g topical QID PRN Hand Pain 06/02/23 #100 grams ibuprofen 600 mg tablet 600 mg PO Q8H PRN pain #20 tabs 08/16/23 Actemra 162 mg/0.9 mL subcutaneous 162 mg (0.9 mL) subcut QWEEK #3.6 10/10/23 syringe (tocilizumab) mL norethindrone (contraceptive) 0.35 0.35 mg PO DAILY #84 tabs 12/29/23 mg tablet oxycodone 5 mg tablet 5 mg PO Q6H PRN pain #14 tabs 08/08/24 prednisone 20 mg tablet 60 mg (3 x 20 mg) PO DAILY 5 days 08/08/24 #15 tabs dicyclomine 20 mg tablet 20 mg PO TID PRN Abdominal 09/11/24 Discomfort #15 tabs ondansetron 4 mg disintegrating 4 mg PO Q6-8H PRN nausea and 09/11/24 tablet vomiting #7 tabs Allergies Allergy/AdvReac Type Severity Reaction Status Date / Time shrimp Allergy Mild SWELLING Verified 09/10/24 19:20 gabapentin [GABAPENTIN] Allergy Unknown COULDNT Verified 09/10/24 19:20 FEEL LEGS , numbness methotrexate [METHOTREXATE] Allergy Unknown VOMITING Verified 09/10/24 19:20 nitrofurantoin Allergy Unknown cyclic Verified 09/10/24 19:20 vomitting abatacept [From Orencia] Allergy Swelling Verified 09/10/24 19:20 Sulfa (Sulfonamide AdvReac Unknown SOB, Verified 09/10/24 19:20 Antibiotics) Tembling, LE weakness trimethoprim [From BACTRIM] AdvReac Unknown NUMBNESS Verified 09/10/24 19:20 IN BLE, VOMITING PMFSH Past Medical History Medical History Flexor tenosynovitis of thumb History of COVID-19 Long-term use of immunosuppressant medication Seropositive rheumatoid arthritis Hypotension Encounter for screening for endocrine disorder H/O renal calculi Symptomatic cholelithiasis Migraines Rheumatoid arthritis Kidney stones Surgical History History of cholecystectomy Hx of tubal ligation History of laparoscopic cholecystectomy Hx of cystoscopy Hx of colonoscopy Social History Social History Household Members: Children Alcohol intake: never Comment: pt. sleeping Patient Tobacco Use Status: Never used Tobacco e-Cigarette/Vaping Use: Never Used Substance Use Type: Marijuana Advance Directives: No Advance Directives Information Provided: No Do you have a plan to hurt others: No Plan service: No Current occupational status: unemployed Current occupation: right hand dominant Physical Exam ED Vital Signs: Vital Signs - 24 hr 09/10/24 19:19 09/10/24 22:03 09/11/24 01:49 Temperature 97.8 F 97.8 F 98.3 F Pulse Rate 108 H 90 94 Respiratory Rate 18 20 20 Blood Pressure 120/95 H 116/77 128/79 Pulse Oximetry 96 97 98 Oxygen Delivery Method Room Air Room Air Room Air 09/11/24 02:22 Temperature 98.3 F Pulse Rate 94 Respiratory Rate 20 Blood Pressure 128/79 Pulse Oximetry 98 Oxygen Delivery Method Room Air BMI result Body Mass Index 31.2 Appearance: Alert. Oriented X3. No acute distress. Eyes: no pallor or icterus ENT: Pharynx normal. Oral Mucosa moist Neck: Normal inspection. Neck supple. CVS: Normal heart rate and rhythm. Pulses normal. Respiratory: No respiratory distress. Equal air entry bilateral, no wheezing/rales/rhonchi Abdomen: Soft and mild diffuse tenderness no rebound tenderness or guarding Bowel sounds are present, no mass palpable, no CVA tenderness Skin: Skin warm and dry. Normal skin color. Normal skin turgor. Extremities: No lower extremity edema. No calf tenderness Neuro: Oriented X 3. Course Course Course Narrative: This is an RME: Additional HPI, ROS, PE not included below will be deferred to primary provider. RME assessment and note performed by: Kirsten Devi PA-C this is a 34-year-old female who presents emergency department with concerns of generalized abdominal pain which started this morning. Reports that she had an renal ultrasound in his unsure of all of the for she used to use the ultrasound made her pain worse. Endorsing nausea. Reports that she had a tubal ligation, denies risk of . Plan: labs, UA, further ER evaluation needed. Medical Decision Making Medical Decision Making [facility] Narrative: patient with nonspecific abdominal pain with nausea likely viral etiology labs are stable patient does not have gallbladder and just had ultrasound of the abdomen which showed normal kidneys and fatty liver Lab Data MDM Lab Attestation statement: I reviewed the patient's lab results. 09/10/24 21:02 09/10/24 21:02 Labs: Lab Results 09/10/24 09/10/24 Range/Units 21:02 22:13 WBC 12.3 H (4.8-10.8) X10*3/uL RBC 4.19 L (4.20-5.50) X10*6/uL Hgb 13.2 (12.0-16.0) g/dl Hct 37.7 (37.0-47.0) % MCV 90.0 (80.0-98.0) fL MCH 31.5 (27.0-33.0) pg MCHC 35.0 (31.0-35.0) g/dl RDW 12.6 (11.0-16.0) % Plt Count 268 (160-400) X10*3/uL MPV 10.3 (9.4-12.3) fL Immature Gran % (Auto) 0.9 H (0.0-0.4) % Neut % (Auto) 90.1 H (45-73) % Lymph % (Auto) 4.3 L (20-40) % Gentry % (Auto) 4.3 (2-11) % Eos % (Auto) 0.2 (0-4) % Baso % (Auto) 0.2 (0-2) % Lymph # (Auto) 0.5 L (1.2-4.9) X10*3/uL Gentry # (Auto) 0.5 (0.1-1.2) X10*3/uL Eos # (Auto) 0.0 (0.0-0.4) X10*3/uL Baso # (Auto) 0.0 (0.0-0.2) X10*3/uL Abs Immat Gran (auto) 0.11 H (0.00-0.03) X10*3/uL Absolute Neuts (auto) 11.1 H (2.0-8.3) x10*3/uL Absolute Nucleated RBC 0.000 (0.0-0.012) X10*3/uL Nucleated RBC % (auto) 0.0 (0.0-0.2) /100WBC Smear Tech's Comments VERIFIED Sodium 139 (135-145) mmol/L Potassium 3.7 (3.3-5.1) mmol/L Chloride 110 H (96-108) mmol/L Carbon Dioxide 22 (22-29) mmol/L Anion Gap 11 L (12-20) BUN 13 (9-16) mg/dL Creatinine 0.78 (0.5-1.4) mg/dL Estim Creat Clear Calc 94.9 Estimated GFR > 60 Random Glucose 105 (60-115) mg/dL Calcium 8.6 D (8.4-10.2) mg/dL Total Bilirubin 0.4 (0.0-1.0) mg/dL Direct Bilirubin 0.1 (0.0-0.5) mg/dL AST 28 (5-31) U/L ALT 27 (0-31) U/L Alkaline Phosphatase 67 (39-117) U/L Total Protein 6.7 (6.5-8.0) g/dL Albumin 4.3 (3.5-5.0) g/dL Lipase 30 (8-78) U/L Urine Color Yellow Urine Appearance Clear Urine pH 6.5 (5.0-9.0) Ur Specific Garwood 1.025 (1.005-1.025) Urine Protein Negative (Neg-Trace) mg/dL Urine Glucose (UA) Negative (Negative) mg/dL Urine Ketones Trace (Negative) mg/dL Urine Blood Negative (Negative) Urine Nitrite Negative (Negative) Ur Leukocyte Esterase Negative (Negative) Medications Administered Discontinued Medications Generic Name Dose Route Start Last Admin Trade Name Freq PRN Reason Stop Dose Admin Dicyclomine HCl 20 mg 09/11/24 00:56 09/11/24 01:10 Dicyclomine Hcl 10 Mg Capsule PO 09/11/24 00:57 20 mg ONCE ONE Administration Ondansetron HCl 4 mg 09/10/24 23:59 09/11/24 00:02 Ondansetron Odt 4 Mg Tab.Rapdis TRANSLINGU 09/11/24 00:00 4 mg ONCE ONE Administration Discharge Plan Discharge Clinical Impression: Abdominal pain Patient Disposition: Home, Self-Care Instructions: Abdominal Pain (ED) Additional Instructions: your abdominal pain is likely from bowel cramping take dicyclomine 1 tablet every 8 hours as needed for the pain medicine for nausea as prescribed follow up with your PCP as needed Prescriptions: New dicyclomine 20 mg tablet 20 mg PO TID PRN (Reason: Abdominal Discomfort) Qty: 15 0RF ondansetron 4 mg tablet,disintegrating 4 mg PO Q6-8H PRN (Reason: nausea and vomiting) Qty: 7 0RF No Action diclofenac sodium 1 % gel 2 g topical QID PRN (Reason: Hand Pain ) Qty: 100 1RF Rx Instructions: apply to hand; for hand includes palm/fingers/back of hand Actemra 162 mg/0.9 mL syringe 162 mg subcut QWEEK Qty: 3.6 2RF ibuprofen 600 mg tablet 600 mg PO Q8H PRN (Reason: pain) Qty: 20 0RF prednisone 20 mg tablet 60 mg PO DAILY 5 Days Qty: 15 0RF oxycodone 5 mg tablet 5 mg PO Q6H PRN (Reason: pain) Qty: 14 0RF Rx Instructions: Partial Fill upon patient request. meclizine 25 mg tablet 25 mg PO DAILY PRN (Reason: Dizziness) omeprazole 20 mg capsule,delayed release(DR/EC) 20 mg PO DAILY PRN cyclobenzaprine 5 mg tablet 5 mg PO BEDTIME PRN lidocaine [Lidoderm] 5 % adhesive patch,medicated 1 patch topical DAILY fluticasone propionate 50 mcg/actuation spray,suspension intranasal cetirizine 10 mg tablet 10 mg PO QAM (DME) finger splint Misc See Rx Instructions .Route Qty: 1 0RF Rx Instructions: As directed norethindrone (contraceptive) 0.35 mg tablet 0.35 mg PO DAILY Qty: 84 4RF methotrexate sodium 25 mg/mL solution 12.5 mg subcut QWEEK Interventions: ED Discharge Assessment Last Done: 09/11/24 02:22 Discharge Date/Time: 09/11/24 02:23 Print Language: Tamazight
[2024-09-10 21:18] LABS: Basophils Percent Auto 0.2 % (0-2); Eosinophils Percent Auto 0.2 % (0-4); Hematocrit 37.7 % (37.0-47.0); Hemoglobin 13.2 g/dl (12.0-16.0); Imm Gran Abs Auto 0.11 X10*3/uL (0.00-0.03); Imm Gran Pct Auto 0.9 % (0.0-0.4); Lymphocytes Absolute Auto 0.5 X10*3/uL (1.2-4.9); Lymphocytes Percent Auto 4.3 % (20-40); MANUAL DIFF FLAG SCAN; Mean Corpuscular Hemoglobin 31.5 pg (27.0-33.0); Mean Platelet Volume 10.3 fL (9.4-12.3); Monocytes Absolute Auto 0.5 X10*3/uL (0.1-1.2); Monocytes Percent Auto 4.3 % (2-11); Neutrophils Absolute Auto 11.1 x10*3/uL (2.0-8.3); Neutrophils Percent Auto 90.1 % (45-73); Platelet Count 268 X10*3/uL (160-400); Red Blood Count 4.19 X10*6/uL (4.20-5.50); Red Cell Distribution Width 12.6 % (11.0-16.0); SCAN SMEAR FLAG 1; White Blood Count 12.3 X10*3/uL (4.8-10.8)
[2024-09-10 21:22] LABS: Alanine Aminotransferase 27 U/L (0-31); Albumin Level 4.3 g/dL (3.5-5.0); Alkaline Phosphatase 67 U/L (39-117); Anion Gap 11 (12-20); Aspartate Amino Transferase 28 U/L (5-31); Bilirubin Direct 0.1 mg/dL (0.0-0.5); Bilirubin Total 0.4 mg/dL (0.0-1.0); Blood Urea Nitrogen 13 mg/dL (9-16); Calcium 8.6 mg/dL (8.4-10.2); Carbon Dioxide 22 mmol/L (22-29); Chloride 110 mmol/L (96-108); Creatinine Clr Calc Pharmacy 94.9; Estimated Glomerular Filt Rate > 60; Glucose Random 105 mg/dL (60-115); Lipase 30 U/L (8-78); Potassium 3.7 mmol/L (3.3-5.1); Sodium 139 mmol/L (135-145); Total Protein 6.7 g/dL (6.5-8.0)
[2024-09-10 21:42] LABS: SLIDE REVIEW VERIFIED
--- OUTSIDE RECORDS SUMMARY | 2024-09-10 21:58 | XMS_ITS | Clinical Summary ---
Author Organization [facility] Address [address] [place] [address] Care Team Providers Care Mosaic Worker Name Role Phone Sharon Mcmahon MD Primary [...] for methotrexate injections 12 each 3 5 6:39 PM EDT 01/04/20 24 Active folic acid (FOLVITE) 1 mg tablet Take 1 tablet (1 mg total) by mouth once a day. 30 tablet 11 5 3:56 PM EST 01/31/20 24 025 Active predniSONE (DELTASONE) 10 mg tablet 3 tabs every morning for 1 week then 2 tabs every morning for 1 week then 1 tab every morning for 1 week then stop 42 tablet 08/04/19 25 Active methotrexate 25 mg/mL injection Inject 0.5 mL (12.5 mg total) under the skin once a week. After first puncture, store in refrigerator and use within 30 days. 2 mL 1 5 6:39 PM EDT 08/21/19 25 Active oxyCODONE IR (ROXICODONE) 5 mg tablet Take 5 mg by mouth every 6 hours as needed. 08/09/19 25 Active upadacitinib ER (Rinvoq) 15 mg tablet Take 1 tablet (15 mg total) by mouth once a day. 30 tablet 5 5 6:22 PM EDT 08/30/19 25 Active Actemra 162 mg/0.9 mL subcutaneous injection Inject 0.9 mL (162 mg total) under the skin once a week. 3.6 mL 5 6:39 PM EDT 08/14/19 25 025 Discontin ued(Not effective ) Active Problems Problem Noted Date Diagnosed Date [...] syndrome 04/23/2022 Seropositive rheumatoid arthritis 01/11/2017 Overview (08/29/2024): -Seropositive RA, onset about 26 yo Treated [facility] Positive anti CCP, negative RF Methotrexate by mouth, taken briefly, stopped due to nausea, vomiting Abatacept: allergic reaction, pain at injection site, lip swelling Tocilizumab (Actemra) 2020-?2021 effective Kevzara ? 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 Encounters Date Type Department Care Team Description 09/10/2024 [facility] Clinical Specialty Pharmacy [facility] [address] [place] [id number] Thuy Hodges RPh 09/06/2024 Telephone [facility] [address] [place] [address] Test And Turn Up Technician: Linda Herzog Prior Authorization (upadacitinib ER (Rinvoq) 15 mg tablet) 08/29/2024 10:40 AM EDT Follow-Up [facility] [address] [place] [address] Test And Turn Up Technician: Jonna Fletcher MD Seropositive rheumatoid arthritis (HCC) (Primary Dx); Immunosuppression due to drug therapy (HCC); High risk medication use 08/09/2024 Refill [facility] [address] [place] [address] Test And Turn Up Technician: Rosa Morgan MD 08/09/2024 Refill [facility] [address] [place] [address] Test And Turn Up Technician: Jonna Fletcher MD 08/03/2024 Orders Only [facility] [address] [place] [address] Test And Turn Up Technician: Jonna Fletcher MD 08/03/2024 Orders Only [facility] [address] [place] [address] Test And Turn Up Technician: Jonna Fletcher MD Seropositive rheumatoid arthritis (HCC) (Primary Dx); Other fatigue 08/03/2024 myChart Message [facility] [address] [place] [address] Test And Turn Up Technician: Jonna Fletcher MD Flaring from Last 3 Months Immunizations Immunization Administration [...] Sign Reading Time Taken Comments Blood Pressure 135/82 08/29/2024 10:23 AM EDT Pulse 85 08/29/2024 10:23 AM EDT Temperature 36.7 ??C (98.1 ??F) 08/29/2024 10:23 AM E DT Respiratory Rate - - Oxygen Saturation - - Inhaled Oxygen Concentration - - Weight 72.6 kg (160 lb) 08/29/2024 10:23 AM EDT Height 154.9 cm (5' 1 ) 08/29/2024 10:23 AM EDT Body Mass Index 30.23 08/29/2024 10:23 AM EDT Plan of Treatment Upcoming Encounters Date Type Department Care Team (Late st Contact Info) Description 11/01/2024 10:30 AM EDT Office Visit [facility] [address] [place] [address] Test And Turn Up Technician: Manish Zazueta V. AIR SURVEILLANCE OPERATOR [address] [place] [address] Health Maintenance Due Date Last Done Comments [...] Additional history exists Procedures * Due to [place] POI law, this organization might not be sharing negative HIV tests. Procedure Name Priority Date/Time Associated Diagnosis Comments C-REACTIVE PROTEIN Routine 08/29/2024 11 :38 AM EDT Seropositive rheumatoid arthritis (HCC) SEDIMENTATION RATE, AUTOMATED Routine 08/29/2024 11:38 AM EDT Seropositive rheumatoid arthritis (HCC) COMPREHENSIVE METABOLIC PANEL Routine 08/29/2024 11:38 AM EDT Seropositive rheumatoid arthritis (HCC) TSH REFLEX FREE T4 Routine 08/29/2024 11 :38 AM EDT Other fatigue CBC AUTO DIFFERENTIAL Routine 08/29/2024 11:38 AM EDT Seropositive rheumatoid arthritis (HCC) LAB - SCANNED 08/03/2024 from Last 3 Months Results * Due to [place] POI law, this organization might not be sharing negative HIV tests. * TSH Reflex Free T4 (08/29/2024 11:38 AM EDT) TSH 1.540 0.280 - 3.890 uIU/mL 08/29/2024 12:53 PM EDT [facility] Comment: Females: 1st trimester ? 0.150-4.000 ??IU/mL 2nd trimester ?? 0.310-4.170 ?IU/mL 3rd trimester ?0.380-4.150 ?IU/mL Blood Structure of peripheral vein / Unknown Venipuncture / Unknown 08/29/2024 11:38 AM EDT 08/29/2024 11:57 AM EDT us Jonna Moreland MD LAB BLOOD ORDERABLES Final Resul t [facility] [address] [place] [address], [place] * CBC Auto Differential (08/29/2024 11:38 AM EDT) WBC 6.2 3.8 - 10.8 10*3/uL 08/29/2024 12:10 PM EDT [facility] RBC 3.96 3.80 - 5.10 10*6/uL 08/29/2024 12:10 PM EDT [facility] Hemoglobin 12.3 11.7 - 15.5 g/dL 08/29/2024 12:10 PM EDT [facility] Hematocrit 36.4 35.0 - 45.0 % 08/29/2024 12:10 PM EDT [facility] MCV 91.9 80.0 - 100.0 fL 08/29/2024 12:10 PM EDT [facility] MCH 31.1 27.0 - 33.0 pg 08/29/2024 12:10 PM EDT [facility] MCHC 33.8 32.0 - 36.0 g/dL 08/29/2024 12:10 PM EDT [facility] RDW 12.4 11.0 - 15.0 % 08/29/2024 12:10 PM EDT [facility] Platelets 279 140 - 400 10*3/uL 08/29/2024 12:10 PM EDT [facility] MPV 10.4 7.5 - 12.5 fL 08/29/2024 12:10 PM EDT [facility] Neutrophil % 54.8 % 08/29/2024 12:10 PM EDT [facility] Immature Grans % 0.2 0.0 - 0.9 % 08/29/2024 12:10 PM EDT [facility] Lymphocyte % 34.4 % 08/29/2024 12:10 PM EDT [facility] Monocyte % 7.6 % 08/29/2024 12:10 PM EDT [facility] Eosinophil % 2.4 % 08/29/2024 12:10 PM EDT [facility] Basophil % 0.6 % 08/29/2024 12:10 PM EDT [facility] Neutrophil # 3.38 1.50 - 7.80 10*3/uL 08/29/2024 12:10 PM EDT [facility] Immature Grans # <0.03 <=0.03 10*3/uL 08/29/2024 12:10 PM EDT [facility] Lymphocyte # 2.10 0.85 - 3.90 10*3/uL 08/29/2024 12:10 PM EDT [facility] Monocyte # 0.50 0.20 - 0.95 10*3/uL 08/29/2024 12:10 PM EDT [facility] Eosinophil # 0.20 0.02 - 0.50 10*3/uL 08/29/2024 12:10 PM EDT [facility] Basophil # <0.03 0.00 - 0.20 10*3/uL 08/29/2024 12:10 PM EDT [facility] nRBC % 0.0 /100 WBCs 08/29/2024 12:10 PM EDT [facility] nRBC # <0.01 <0.01 10*3/uL 08/29/2024 12:10 PM EDT [facility] Blood Structure of peripheral vein / Unknown Venipuncture / Unknown 08/29/2024 11:38 AM EDT 08/29/2024 11:57 AM EDT us Jonna Moreland MD LAB BLOOD ORDERABLES Final Resul t [facility] [address] [place] [address], * Sedimentation Rate (08/29/2024 11:38 AM EDT) Sed Rate 1 <20 mm/Hr mm/Hr 08/29/2024 12:09 PM EDT [facility] Blood Structure of peripheral vein / Unknown Venipuncture / Unknown 08/29/2024 11:38 AM EDT 08/29/2024 11:57 AM EDT us Jonna Moreland MD LAB BLOOD ORDERABLES Final Resul t Performing Organization Address City/[facility]/ZIP Co de Phone Number [facility] [address] [place] [address] * C-Reactive Protein (08/29/2024 11:38 AM EDT) C Reactive Protein <3.0 <=9.9 mg/L 08/29/2024 12:54 PM EDT [facility] Blood Structure of peripheral vein / Unknown Venipuncture / Unknown 08/29/2024 11:38 AM EDT 08/29/2024 11:57 AM EDT us Jonna Moreland MD LAB BLOOD ORDERABLES Final Resul t [facility] [address] [place] [address], * (ABNORMAL) Comprehensive metabolic panel (08/29/2024 11:38 AM EDT) NA 140 135 - 145 mmol/L 08/29/2024 12:53 PM EDT [facility] K 3.7 3.5 - 5.3 mmol/L 08/29/2024 12:53 PM EDT [facility] Cl 104 98 - 107 mmol/L 08/29/2024 12:53 PM EDT [facility] CO2 25 22 - 32 mmol/L 08/29/2024 12:53 PM T [facility] Anion Gap 11 5 - 15 08/29/2024 12:53 PM T [facility] Glucose 115(H) 65 - 99 mg/dL 08/29/2024 12:53 PM [facility] Creatinine 0.73 0.50 - 1.20 mg/dL 08/29/2024 12:53 PM T [facility] Calcium 9.1 8.6 - 10.5 mg/dL 08/29/2024 12:53 PM [facility] Total Protein 6.8 6.0 - 8.0 g/dL 08/29/2024 12:53 PM [facility] Albumin 4.3 3.5 - 5.2 g/dL 08/29/2024 12:53 PM [facility] Bilirubin, Total 0.5 0.2 - 1.2 mg/dL 08/29/2024 12:53 PM [facility] Alkaline Phosphatase 67 35 - 129 U/L 08/29/2024 12:53 PM [facility] AST 27 10 - 40 U/L 08/29/2024 12:53 PM [facility] ALT 27 10 - 40 U/L 08/29/2024 12:53 PM [facility] BUN 12 7 - 23 mg/dL 08/29/2024 12:53 PM [facility] eGFR >90 >=60 mL/min/1. 73m2 08/29/2024 12:53 PM [facility] Comment:The estimated glomer ular [...] of Race in Diagnosing Kidney Disease . Globulin, Total 2.5 2.1 - 4.2 g/dL 08/29/2024 12:53 PM EDT [facility] A/G Ratio 1.7 1.5 - 3.0 08/29/2024 12:53 PM EDT [facility] Blood Structure of peripheral vein / Unknown Venipuncture / Unknown 08/29/2024 11:38 AM EDT 08/29/2024 11:57 AM EDT us Jonna Moreland MD LAB BLOOD ORDERABLES Final Resul t [facility] [address] [place] [address], [place] * LAB - SCANNED (08/03/2024) us Onbase Scan [facility] LAB HISTORICAL RESULTS Final Result from Last 3 Months Insurance [facility] Advance Directives Documents on File Type Date Recorded Patient Promotions Associate Expl anation Health Care Proxy 01/04/2024 8:57 AM HCP-R ECV'D 01/04/24 Health Care Proxy 01/04/2024 8:55 AM HCP-R ECEIVED 01/04/24 Care Teams Mosaic Worker Relationship Specialty Start Date End Date Sharon Mcmahon MD [address] [place] [id number] PCP - General Internal Medicine 01/04/24
[2024-09-10 22:03] VITALS: BP 116/77; PULSE 90; RESP 20; TEMP 36.6; O2SAT 97
[2024-09-10 22:20] LABS: Appearance Urine Clear; Color Urine Yellow; Glucose Urine UA Negative (Negative); Leukocyte Esterase Urine Negative (Negative); Nitrite Urine Negative (Negative); PH 6.5 (5.0-9.0); Specific Gravity - Urine 1.025 (1.005-1.025); Urine Blood Negative (Negative); Urine Ketones Trace mg/dL (Negative); Urine Protein Negative (Neg-Trace)
[2024-09-11] MEDS: Ondansetron ODT 4 MG TAB.RAPDIS TRANSLINGU (00:02)
[2024-09-11] MEDS: Dicyclomine HCl 10 MG CAPSULE 20 MG PO (01:10)
[2024-09-11 01:49] VITALS: BP 128/79; PULSE 94; RESP 20; TEMP 36.8; O2SAT 98
[2024-09-11 02:22] VITALS: BP 128/79; PULSE 94; RESP 20; TEMP 36.8; O2SAT 98
== END 2024-09-11 02:23 | disposition home or self-care (01) ==
PROVIDERS: Physician Assistant Medical; Emergency Provider Internal Medicine; PCP Internal Medicine
DX: R25.2 Cramp and spasm (principal); Z79.899 Other long term (current) drug therapy
CPT/HCPCS: 36415; 80048; 80076; 81003; 83690; 85025; 99283

== ENCOUNTER 2024-09-24 10:25 | Outpatient (AMB) | payer MEDICAID, SELFPAY ==
--- NOTE | 2024-09-24 10:29 | MHC.OFFVIS ---
Intake Visit Reasons: follow-up with imaging and [facility] Intake Note: Patient is present for follow up kidney stone Urology Rx: none Blood Thinners: none Imaging completed: 09/10/2024 Allergies shrimp Allergy (Mild, Verified 09/24/24 11:50) SWELLING gabapentin [GABAPENTIN] Allergy (Unknown, Verified 09/24/24 11:50) COULDNT FEEL LEGS , numbness methotrexate [METHOTREXATE] Allergy (Unknown, Verified 09/24/24 11:50) VOMITING nitrofurantoin Allergy (Unknown, Verified 09/24/24 11:50) cyclic vomitting abatacept [From Orencia] Allergy (Verified 09/24/24 11:50) Swelling Sulfa (Sulfonamide Antibiotics) Adverse Reaction (Unknown, Verified 09/24/24 11:50) SOB, Tembling, LE weakness trimethoprim [From BACTRIM] Adverse Reaction (Unknown, Verified 09/24/24 11:50) NUMBNESS IN BLE, VOMITING Medication List - Last Reconciled 09/24/24 by ANA Finch-ROD cetirizine 10 mg PO QAM cyclobenzaprine 5 mg PO BEDTIME PRN diclofenac sodium 1% 2 grams topical QID PRN dicyclomine 20 mg PO TID PRN finger splint As directed ibuprofen 600 mg PO Q8H PRN lidocaine 5% (Lidoderm) 1 patch topical DAILY methotrexate sodium 12.5 mg subcut QWEEK omeprazole 20 mg PO DAILY PRN ondansetron 4 mg PO Q6-8H PRN HPI Comments Details: Bridgette is a very pleasant 34-year-old female patient of . She has a past medical history of rheumatoid arthritis, nephrolithiasis, and migraines. She presents to the office today for follow-up of her nephrolithiasis. In discussion with the patient today she reports to be doing and feeling well. She does report feeling she has passed a kidney stone since the last visit. She currently denies any bothersome urinary issues or concerns. Recent renal imaging results were reviewed with the patient today 10/03 bilateral kidneys are normal in size and echotexture. No collecting system dilatation of either kidney. Normal kidneys. Recent Litholink results were reviewed. We discussed increase in urine volume when compared to previous Litholink however still remains low. We discussed increase in hydration in relation to nephrolithiasis as well as recent Litholink results. In office urinalysis results reviewed with the patient today. We discussed potential for passage of kidney stone as previous imaging noted 3 mm stone and most recent imaging noted no nephrolithiasis. All questions were answered. She denies urinary urgency, urinary frequency, incontinence, nocturia, hematuria, dysuria, foul smelling urine, changes to urinary stream, flank pain, fever, and or chills. She is happy with her current voiding parameters. She continues to attempt to drink plenty of water daily. All questions were answered. She otherwise offers no other issues or concerns at this time. Discussion Notes The patient's ultrasound showed no current kidney stones, which is an improvement from the previous year when a 3 mm stone was noted. I advised the patient to increase her fluid intake. We discussed the importance of maintaining adequate hydration, especially during hot weather, to avoid dehydration and potential stone formation. I will order follow-up imaging in six months to monitor for any new stone formation. Plan The patient's ultrasound results are favorable, showing no current kidney stones, which suggests the previous stone may have passed. To prevent future stones, the patient should increase her fluid intake focusing on hydration. A follow-up ultrasound is scheduled in six months to monitor for any new stone formation, with the potential to extend to annual monitoring if no stones are present. PREVIOUS OFFICE NOTE: Nephrolithiasis Intermittent recurrent Recent presentation to ER with right-sided flank pain CT 09/01 - Left kidney: Nonobstructive 1 mm stone in the upper pole left kidney. Mild hydronephrosis of left kidney with distention renal pelvis calyces and proximal left ureter. There is a obstructing stone in the proximal left ureter at the ureter pelvic junction measuring 3 mm. [facility] Medical History Flexor tenosynovitis of thumb History of COVID-19 Long-term use of immunosuppressant medication Seropositive rheumatoid arthritis Hypotension Encounter for screening for endocrine disorder H/O renal calculi Symptomatic cholelithiasis Migraines Rheumatoid arthritis Kidney stones Surgical History History of cholecystectomy Hx of tubal ligation History of laparoscopic cholecystectomy Hx of cystoscopy Hx of colonoscopy Social History Household Members: Children Alcohol intake: never Comment: pt. sleeping Patient Tobacco Use Status: Never used Tobacco e-Cigarette/Vaping Use: Never Used Substance Use Type: Marijuana service: No Current occupational status: unemployed Current occupation: right hand dominant Female Reproductive History Menstrual Age of Menarche: 13 Review of Systems Const All systems reviewed & are unremarkable except as noted in HPI and below Physical Exam Const General: cooperative, healthy appearing, comfortable, no acute distress, well developed, alert and awake Orientation/consciousness: patient oriented x3 Limitations: no limitations HEENT Head: Yes normal to inspection Eyes General: appearance normal, both eyes and all related structures Neck Neck: Yes normal visual inspection Chest Chest palpation & inspection: normal inspection of the chest Resp Effort & Inspection: normal respiratory effort and able to speak in complete sentences Cardio Rate: regular rate GI Inspection: Yes normal to inspection General: Yes no CVA tenderness Back/Spine/Pelvis Back: no CVA tenderness Skin General skin exam: no rashes or lesions noted Neuro General: patient oriented x3 Extrem General: Yes normal to inspection Psych Appearance: grossly normal and well kempt Mental Status: mental status grossly normal Speech and movement: Normal speech and movement present and Clear speech present Affect: normal affect Attitude: cooperative Thought process: Normal thought process present Thought content: Normal thought content present Insight: Fair insight present (Psych) Judgement: Fair judgement present (Psych) Results AMB Urinalysis, Automated UA Leukoctes 70 Eitan/uL Last Edit by Deloris Madrigal MA on 09/24/24 10:43 UA Nitrite Negative Last Edit by Deloris Madrigal MA on 09/24/24 10:43 UA Urobilinogen 0.2 mg/dL Last Edit by Deloris Madrigal MA on 09/24/24 10:43 UA Protein 15 mg/dL Last Edit by Deloris Madrigal MA on 09/24/24 10:43 UA pH 6.0 Last Edit by Deloris Madrigal MA on 09/24/24 10:43 UA Blood 0 Izaiah/uL Last Edit by Deloris Madrigal MA on 09/24/24 10:43 UA Specific Thorndike 1.015 Last Edit by Deloris Madrigal MA on 09/24/24 10:43 UA Ketone Negative Last Edit by Deloris Madrigal MA on 09/24/24 10:43 UA Bilirubin 0 mg/dL Last Edit by Deloris Madrigal MA on 09/24/24 10:43 UA Glucose 0 mg/dL Last Edit by Deloris Madrigal MA on 09/24/24 10:43 Results Reviewed Results Reviewed: Laboratory Last Values Urine pH (Auto) 6.0 09/24/24 10:37 Specific Thorndike (Auto) 1.015 09/24/24 10:37 Urine Protein (Auto) 15 mg/dL 09/24/24 10:37 Glucose (UA)(Auto) 0 mg/dL 09/24/24 10:37 Urine Ketones (Auto) Negative 09/24/24 10:37 Urine Blood (Auto) 0 Izaiah/uL 09/24/24 10:37 Urine Nitrite (Auto) Negative 09/24/24 10:37 Urine Bilirubin (Auto) 0 mg/dL 09/24/24 10:37 Urine Urobilinogen (Auto) 0.2 mg/dL 09/24/24 10:37 Leukocyte Esterase (Auto) 70 Eitan/uL 09/24/24 10:37 Date of Service: 09/10/24 Procedure(s): US renal BI Findings: Right kidney normal size and echotexture, 10.6 cm length. Left kidney normal size and echotexture, 10.1 cm length. No collecting system dilatation of either kidney. Normal color Doppler. Incidental increased echotexture of the liver. Incidental probable dilated colon in the region of the spleen. IMPRESSION: 1. Normal kidneys. 2. Incidental hepatic steatosis. 3. Incidental probable dilated colon in the region of the spleen. Assessment & Plan Assessment & Plan (1) Kidney stones: Code(s): N20.0 - Calculus of kidney Category: Medical Plan In office urinalysis results reviewed with the patient today; as noted above. Recent renal imaging results with the patient today; as noted above. Recent Litholink results reviewed with the patient today; as noted above. We discussed increase in urine volume when compared to previous Litholink however important to continue to increase volume to 2-2-1/2 L of urine output per day. She currently denies any bothersome urinary issues or concerns. She reports be happy with current voiding parameters. Continue drinking plenty of water daily. Continue adding 1 oz of lemon juice to water daily. Will obtain renal ultrasound in 6 months. Will obtain Litholink in 6 months. Follow-up in 6 months with imaging and Litholink; or sooner with any issues, concerns, and or questions. Orders: Orders US renal BI 6 Months N20.0 - Calculus of kidney AMB Urinalysis Automated Today Z13.9 - Encounter for screening, unspecified URORISK 6 Months N20.0 - Calculus of kidney Patient Instructions: The patient had an opportunity to ask questions regarding the treatment plan. All questions were answered. Physical exam, labs, and imaging were discussed and reviewed in detail. As well as risks, benefits, and discussion of treatment choices. No major barriers to understanding were identified. The patient expressed understanding and agreement with the above treatment plan. The patient was made aware they should contact our office by phone for worsening of their current condition, the appearance of new symptoms, or with any questions or concerns. Compliance is encouraged with any medications and follow up testing that is ordered. It is a privilege to be allowed the opportunity to participate in? your urological care.? Again, if you have any questions or concerns If you have any questions or concerns please do not hesitate to contact me. The office is [phone]. This note is constructed using voice recognition software. While every effort has been made to ensure accuracy installation supervisor errors may have been included. Yours sincerely, FABRICE Finch Coding Level of Care Code Est Pt Level 3 (87701) Diagnoses Kidney stones N20.0
== END 2024-09-24 11:05 | disposition home or self-care (01) ==
LOC: HO.HUSH 10:25
PROVIDERS: PCP Internal Medicine; Visit Provider Nurse Practitioner Family
DX: N20.0 Calculus of kidney (principal); Z13.9 Encounter for screening, unspecified
CPT/HCPCS: 99213

== ENCOUNTER → 2024-09-24 10:25 | Outpatient (BNVA) | payer MEDICAID, SELFPAY | PROVIDERS: PCP Internal Medicine; Visit Provider Nurse Practitioner Family | DX: N20.0 Calculus of kidney (principal) | CPT/HCPCS: 81003; 99212 ==

== ENCOUNTER 2024-09-30 17:51 | Emergency (ER) | payer MEDICAID, SELFPAY ==
--- NOTE | ~2024-09-30 | XR_ITS ---
CLINICAL HISTORY: injury 3 view left ankle Comparison: None provided Findings: No acute fractures. Ankle mortise intact. No significant arthritic change or erosions. No ankle effusion. No radiopaque foreign body. IMPRESSION: 1. No acute findings. This document has been electronically signed by: Kendrick Fox MD on 09/30/2024 19:25:43
--- NOTE | ~2024-09-30 | XR_ITS ---
CLINICAL HISTORY: injury 3 view left foot Comparison: None provided Findings: No fractures or dislocations. No significant arthritic change or erosions. No ankle effusion. No radiopaque foreign body. IMPRESSION: 1. No acute findings. This document has been electronically signed by: Kendrick Fox MD on 09/30/2024 19:24:49
[2024-09-30 18:10] VITALS: BP 134/84; PULSE 101; RESP 16; TEMP 36.6; O2SAT 98; BMI 30.2
--- NOTE | 2024-09-30 19:19 | ED_ITS ---
HPI - General Adult General Chief complaint: Extremity Injury, Lower Stated complaint: lft ankle injury Time Seen by Provider: 09/30/24 20:29 Source: patient Mode of arrival: wheelchair Limitations: no limitations History of Present Illness ED Provider: Natalie Oquendo PA-C HPI narrative: Patient is a 34 year old assigned female at with a history of RA presenting to the emergency department today with left ankle pain. Patient states that she tripped and rolled her left ankle. Patient denies any dizziness, lightheadedness, abdominal pain, nausea, vomiting, fever, chills, blurry vision, double vision, loss of vision, chest pain, difficulty breathing, shortness of breath, back pain, night sweats, pain with urination, increased urinary frequency, increased urinary urgency, blood in her urine or stool, syncope or a near syncopal episode, bowel incontinence, bladder incontinence, or any other complaints at this time. Relieving factors: none Exacerbating factors: none Associated symptoms: denies other symptoms Treatments prior to arrival: none Related Data Home Medications ?Medication ?Instructions ?Recorded ?Confirmed cyclobenzaprine 5 mg tablet 5 mg PO BEDTIME PRN 02/27/24 omeprazole 20 mg capsule,delayed 20 mg PO DAILY PRN 02/27/24 release cetirizine 10 mg tablet 10 mg PO QAM 12/20/22 lidocaine 5 % topical patch 1 patch topical DAILY 12/1002/27/24 (Lidoderm) methotrexate sodium 25 mg/mL 12.5 mg subcut QWEEK 12/0202/27/24 injection solution Previous Rx's ?Medication ?Instructions ?Recorded finger splint #1 ea 05/06/23 diclofenac sodium 1 % topical gel 2 g topical QID PRN Hand Pain 06/02/23 #100 grams ibuprofen 600 mg tablet 600 mg PO Q8H PRN pain #20 t abs 08/16/23 dicyclomine 20 mg tablet 20 mg PO TID PRN Abdominal 0 09/11/24 Discomfort #15 tabs ondansetron 4 mg disintegrating 4 mg PO Q6-8H PRN naus ea and 09/11/24 tablet vomiting #7 tabs Allergies Allergy/AdvReac Type Severity Reaction Status Date / Time shrimp Allergy Mild SWELLING Verified 09/30/24 18:12 gabapentin (GABAPENTIN) Allergy Unknown COULDNT Verified 09/30/24 18:12 FEEL LEGS , numbness methotrexate (METHOTREXATE) Allergy Unknown VOMITING Verified 09/30/24 18:12 nitrofurantoin Allergy Unknown cyclic Verified 09/30/24 18:12 vomitting abatacept (From Orencia) Allergy Swelling Verified 09/30/24 18:12 Sulfa (Sulfonamide AdvReac Unknown SOB, Verified 09/30/24 18:12 Antibiotics) Tembling, LE weakness trimethoprim (From BACTRIM) AdvReac Unknown NUMBNESS Verified 09/30/24 18:12 IN BLE, VOMITING Review of Systems Constitutional: Constitutional: Reports no additional constitutional complaints, Denies chills, Denies fever(s) and Denies night sweats Eyes: Eyes: Reports no additional eye complaints, Denies blurry vision, Denies change in vision, Denies diplopia, Denies eye discharge, Denies loss of vision and Denies eye pain ENT: Denies dizziness Cardiovascular: Cardiovascular: Reports no additional cardiovascular complaints, Denies chest pain, Denies lightheadedness, Denies Loss of Consciousness and Denies dyspnea Respiratory: Respiratory: Reports no additional respiratory complaints and Denies dyspnea Gastrointestinal: Gastrointestinal: Reports no additional gastrointestinal complaints, Denies abdominal pain, Denies melena, Denies hematochezia, Denies c hange in bowel habits and Denies change in stool character Genitourinary: Genitourinary: Denies hematuria, Denies urinary frequency, Denies dysuria, Denies urinary incontinence, Denies urinary hesitancy and Denies urinary urgency Musculoskeletal: Musculoskeletal: Reports no additional musculoskeletal complaints, Denies numbness and Denies tingling Comments: left ankle pain Neurologic: Denies dizziness, Denies loss of vision, Denies numbness and Denies tingling Psychiatric: Psychiatric: Reports no additional psychiatric complaints Endocrine: Endocrine: Reports no additional endocrine complaints Hematologic/Lymphatic: Hematologic/Lymphatic: Reports no additional hematologic/lymphatic complaints Allergic/Immunologic: Allergic/Immunologic: Reports no additional allergic/immunologic complaints PMFSH Past Medical History Attestation statement: The following information was validated with the patient. Source: old records reviewed and nursing notes reviewed Medical History Flexor tenosynovitis of thumb History of COVID-19 Long-term use of immunosuppressant medication Seropositive rheumatoid arthritis Hypotension Encounter for screening for endocrine disorder H/O renal calculi Symptomatic cholelithiasis Migraines Rheumatoid arthritis Kidney stones Surgical History History of cholecystectomy Hx of tubal ligation History of laparoscopic cholecystectomy Hx of cystoscopy Hx of colonoscopy Social History Social History Household Members: Children Alcohol intake: never Comment: pt. sleeping Patient Tobacco Use Status: Never used Tobacco e-Cigarette/Vaping Use: Never Used Substance Use Type: Marijuana Advance Directives: No Advance Directives Information Provided: Yes Do you have a plan to hurt others: No Plan service: No Current occupational status: unemployed Current occupation: right hand dominant Physical Exam ED Vital Signs: Vital Signs - 24 hr 09/30/24 18:10 09/30/24 21:25 Temperature 97.8 F 97.8 F Pulse Rate 101 H 89 Respiratory Rate 16 16 Blood Pressure 134/84 134/84 Pulse Oximetry 98 97 Oxygen Delivery Method Room Air Room Air BMI result Body Mass Index 30.2 Const General: cooperative, no acute distress, alert and awake Nutritional Appearance: well nourished Orientation/consciousness: patient oriented x3 HENMT Head: Yes normal to inspection and Yes atraumatic Ears: hearing grossly normal bilaterally and external ears normal General nose exam: Normal external nose present, no nasal discharge noted and no epistaxis Face and sinus: Yes normal facial exam, No abrasion and No laceration Mouth: Normal oral and palatal mucosa present, no drooling and no muffled voice Eyes General: appearance normal, both eyes and all related structures Periorbital: periorbital findings normal Eyelids: Yes eyelids normal Conjunctivae: conjunctivae normal Pupils: Equal, round and reactive pupils present EOM: EOMs intact bilaterally Neck Neck: Yes normal visual inspection, Yes full ROM and Yes no lymphadenopathy Resp Effort & Inspection: normal respiratory effort and able to speak in complete sentences Neuro General: patient oriented x3, moves all extremities and CN's II-XI intact bilaterally Cranial nerves: Yes Equal, round and reactive pupils present Cognition (Neuro): normal cognition Extrem Other: minimal swelling present to the left ankle pain with palpation of the left lateral ankle General: Yes full ROM and Yes capillary refill normal Psych Appearance: grossly normal Mental Status: mental status grossly normal Affect: normal affect Attitude: cooperative Thought process: Normal thought process present Thought content: Normal thought content present Insight: Good insight present (Psych) Course Course Course Narrative: RME: 33-year-old female presents to ED for left ankle pain after tripping and rolling ankle and 30 minutes ago. Patient has medial lateral aspect tenderness bowel swelling. Negative for obvious deformity or crepitus. X-ray ordered. Patient denies hitting head Procedures Orthopedic Splinting/Casting Injury #1: Side: left Lower Extremity Injury Location: ankle Lower Extremity Immobilizer: boot orthosis Medical Decision Making Medical Decision Making MDM Narrative: Patient is a 34 year old assigned female at with a history of RA presenting to the emergency department today with left ankle pain. Patient's physical exam was as noted in the physical exam portion of this note. Patient's left foot and ankle x-rays showed no acute process. Patient's clinical presentation is most consistent with a left ankle sprain. I explained my physical exam findings as well as all test results to the patient. I answered all questions asked by the patient. Patient's left ankle was placed in a walking boot, without incident. Patient's PMS were intact prior to and after boot placement. I stressed the importance of the patient taking her medication as d irected (either prescribed or as the over the counter packaging recommends). I stressed the importance of the patient following up with her primary care provider. I stressed the importance of the patient returning to the emergency department immediately if her symptoms were to worsen or if she were to develop any dizziness, shortness of breath, difficulty breathing, chest pain, blurry vision, loss of vision, nausea, vomiting, abdominal pain, fever, chills, back pain, or any other complaints. Patient verbalized agreement and understanding with this treatment plan and discharge. Differential Diagnosis Differential Diagnoses: The differential diagnosis associated with the presentation includes Left ankle fracture Left ankle sprain Left ankle strain Admission/Observation Consideration of admission/observation: Escalation of care including admission/observation considered Patient would have been admitted to the hospital had her work up had any findings where hospital admission was appropriate and her clinical presentation warranted hospital admission. Independent Interpretation I performed an independent interpretation of an: Plain X-Ray Interpretation: My interpretation is in agreement with the radiologist's impression of these imaging studies. CLINICAL HISTORY: injury 3 view left foot Comparison: None provided Findings: No fractures or dislocations. No significant arthritic change or erosions. No ankle effusion. No radiopaque foreign body. IMPRESSION: 1. No acute findings. This document has been electronically signed by: Kendrikc Fox MD on 09/30/2024 19:24:49 Dictated By: Kendrick Fox MD Signed By: Electronically signed by Kendrick Fox MD 09/30/241925 CLINICAL HISTORY: injury 3 view left ankle Comparison: None provided Findings: No acute fractures. Ankle mortise intact. No significant arthritic change or erosions. No ankle effusion. No radiopaque foreign body. IMPRESSION: 1. No acute findings. This document has been electronically signed by: Kendrick Fox MD on 09/30/2024 19:25:43 Dictated By: Kendrick Fox MD Signed By: Electronically signed by Kendrick Fox MD 09/30/241926 Radiology Impression Discussion of test interpretation with radiology: I have reviewed the radiologist's reading. Discharge Plan Discharge Clinical Impression: Ankle sprain Qualifiers: Encounter type: initial encounter Involved ligament of ankle: unspecified ligament Laterality: left Qualified Code(s): S93.402A - Sprain of unspecified ligament of left ankle, initial encounter Patient Disposition: Home, Self-Care Instructions: Ankle Sprain (DC) Additional Instructions: Follow up with your primary care provider. Return to the emergency department immediately if your symptoms worsen or if you develop any numbness, tingling, dizziness, shortness of breath, difficulty breathing, chest pain, blurry vision, loss of vision, nausea, vomiting, abdominal pain, fever, chills, back pain, or any other complaints. Please see the information below about our Patient Portal. If you are not yet enrolled in the [facility] Patient Portal, you will receive an enrollment email invitation following your visit to any [facility] setting. You may also self-enroll in the Patient Portal by visiting our website: [email or web address] The following information is required to access the Patient Portal: - Your [facility] Medical Record Number - Your personal home email address (must match what is in your electronic medical record, Registration staff can assist with this) - Name - Date of Capabilities of the Patient Portal: - Message some providers - View upcoming appointments - Access your health summary, medical history, and visit history - View current conditions and allergies - View procedure and lab results - View your medications, including guidelines, side effects, and precautions - Complete pre-appointment questionnaires requested by your provider - Ready summary reports of your office visits and procedures To access the Patient Portal Mobile [employer], follow these directions: - Search [employer] in the [employer] Store or [employer] Store - Download the Sary - Search for [facility] - Enter your login/password Prescriptions: No Action diclofenac sodium 1 % gel 2 g topical QID PRN (Reason: Hand Pain ) Qty: 100 1RF Rx Instructions: apply to hand; for hand includes palm/fingers/back of hand ibuprofen 600 mg tablet 600 mg PO Q8H PRN (Reason: pain) Qty: 20 0RF dicyclomine 20 mg tablet 20 mg PO TID PRN (Reason: Abdominal Discomfort) Qty: 15 0RF ondansetron 4 mg tablet,disintegrating 4 mg PO Q6-8H PRN (Reason: nausea and vomiting) Qty: 7 0RF omeprazole 20 mg capsule,delayed release(DR/EC) 20 mg PO DAILY PRN cyclobenzaprine 5 mg tablet 5 mg PO BEDTIME PRN lidocaine [Lidoderm] 5 % adhesive patch,medicated 1 patch topical DAILY cetirizine 10 mg tablet 10 mg PO QAM (DME) finger splint Misc See Rx Instructions .Route Qty: 1 0RF Rx Instructions: As directed methotrexate sodium 25 mg/mL solution 12.5 mg subcut QWEEK Referrals: Sharon Mcmahon MD [Primary Care Provider, Internal Medicine] Interventions: ED Discharge Assessment Last Done: 09/30/24 21:25 Discharge Date/Time: 09/30/24 21:26 Print Language: Turkish
[2024-09-30 21:25] VITALS: BP 134/84; PULSE 89; RESP 16; TEMP 36.6; O2SAT 97
== END 2024-09-30 21:26 | disposition home or self-care (01) ==
PROVIDERS: Emergency Provider Emergency Medicine Emergency Medical Services; PCP Internal Medicine
DX: S93.402A Sprain of unspecified ligament of left ankle, initial encounter (principal); M25.572 Pain in left ankle and joints of left foot; X58.XXXA Exposure to other specified factors, initial encounter; Y93.9 Activity, unspecified; Y92.9 Unspecified place or not applicable; Y99.8 Other external cause status; Z79.899 Other long term (current) drug therapy
CPT/HCPCS: 29515; 73610; 73630; 99283; 99284

== ENCOUNTER → 2024-09-30 18:30 | Outpatient (BNV) | payer MEDICAID, SELFPAY | PROVIDERS: PCP Internal Medicine; Visit Provider Student in an Organized Health Care Education/Training Program | DX: S99.912A Unspecified injury of left ankle, initial encounter (principal); S99.922A Unspecified injury of left foot, initial encounter | CPT/HCPCS: 73610; 73630 ==

== ENCOUNTER 2024-12-03 10:02 | Emergency (ER) | payer MEDICAID, SELFPAY ==
--- NOTE | ~2024-12-03 | US_ITS ---
EXAMINATION: US TRIPLEX LOWER EXTREMITY, LEFT CLINICAL INFORMATION: Left calf pain COMPARISON: None available. TECHNIQUE: Color-flow triplex imaging with spectral analysis and compression Doppler were performed on the left lower extremity. FINDINGS: Respiratory variation, normal compression and augmented flow are noted throughout the left lower extremity. The visualized common femoral vein, superficial femoral vein, profunda femoral vein, popliteal vein show no evidence of deep venous thrombosis.. The midcalf peroneal and posterior tibial venous segments are poorly demonstrated. US/US venous duplex LE LT IMPRESSION: No evidence of deep venous thrombosis involving the left lower extremity. Electronically signed by: Houston Gibbs MD 12/03/2024 12:41 PM EDT
[2024-12-03 10:17] VITALS: BP 118/78; PULSE 88; RESP 16; TEMP 36.7; O2SAT 100; BMI 30.2
--- NOTE | 2024-12-03 10:25 | ED.LOWEXIN ---
HPI - Extremity Injury (Lower) General Chief Complaint: Extremity Injury, Lower Stated Complaint: swelling, pain left leg Time Seen by Provider: 12/03/24 10:08 Source: patient Mode of arrival: ambulatory Limitations: no limitations History of Present Illness ED Provider: Sonja Richard APRN HPI Narrative: This is a 34 yo female with a history of RA followed at [facility] [email or web address]] (Manish Castellano) who has been on olumiant for 1 month presents with left calf pain/swelling after a car drive to [place] on 11/27. No associated injury. No numbness/tingling of the extremity. No SOB/CP. Related Data Home Medications ?Medication ?Instructions ?Recorded ?Confirmed cyclobenzaprine 5 mg tablet 5 mg PO BEDTIME PRN 08/03/21 02/27/24 omeprazole 20 mg capsule,delayed 20 mg PO DAILY PRN 08/03/21 02/27/24 release cetirizine 10 mg tablet 10 mg PO QAM 12/20/22 02/27/24 lidocaine 5 % topical patch 1 patch topical DAILY 12/20/22 02/27/24 (Lidoderm) methotrexate sodium 25 mg/mL 12.5 mg subcut QWEEK 01/17/24 02/27/24 injection solution Previous Rx's ?Medication ?Instructions ?Recorded finger splint #1 ea 05/06/23 diclofenac sodium 1 % topical gel 2 g topical QID PRN Hand Pain 06/02/23 #100 grams ibuprofen 600 mg tablet 600 mg PO Q8H PRN pain #20 tabs 08/16/23 dicyclomine 20 mg tablet 20 mg PO TID PRN Abdominal 09/11/24 Discomfort #15 tabs ondansetron 4 mg disintegrating 4 mg PO Q6-8H PRN nausea and 09/11/24 tablet vomiting #7 tabs Allergies Allergy/AdvReac Type Severity Reaction Status Date / Time shrimp Allergy Mild SWELLING Verified 12/03/24 10:20 gabapentin (GABAPENTIN) Allergy Unknown COULDNT Verified 12/03/24 10:20 FEEL LEGS , numbness methotrexate (METHOTREXATE) Allergy Unknown VOMITING Verified 12/03/24 10:20 nitrofurantoin Allergy Unknown cyclic Verified 12/03/24 10:20 vomitting abatacept (From Orencia) Allergy Swelling Verified 12/03/24 10:20 Sulfa (Sulfonamide AdvReac Unknown SOB, Verified 12/03/24 10:20 Antibiotics) Tembling, LE weakness trimethoprim (From BACTRIM) AdvReac Unknown NUMBNESS Verified 12/03/24 10:20 IN BLE, VOMITING Review of Systems Review of Systems: Yes all other systems are reviewed and are negative Constitutional: Constitutional: Reports no additional constitutional complaints, Denies body ache(s), Denies chills, Denies fever(s), Denies headache(s) and Denies weakness Eyes: Eyes: Reports no additional eye complaints and Denies change in vision ENT: Reports system reviewed and no additional complaints, except as documented, Denies dizziness, Denies headache(s), Denies nasal congestion, Denies nasal discharge and Denies neck pain Cardiovascular: Cardiovascular: Reports no additional cardiovascular complaints, Denies chest pain, Reports leg edema and Denies dyspnea Respiratory: Respiratory: Reports no additional respiratory complaints, Denies cough and Denies dyspnea Gastrointestinal: Gastrointestinal: Reports no additional gastrointestinal complaints, Denies abdominal pain, Denies diarrhea, Denies nausea and Denies vomiting Genitourinary: Genitourinary: Reports no additional female genitourinary complaints and Denies urinary incontinence Musculoskeletal: Musculoskeletal: Reports no additional musculoskeletal complaints, Denies back pain, Denies arthralgias, Denies joint swelling, Denies neck pain, Denies numbness and Denies tingling Integumentary/Breasts: Skin/Breast: Reports system reviewed and no additional complaints, except as docu and Denies rash Neurologic: Reports system reviewed and no additional complaints, except as documented, Denies Abnormal speech present, Denies dizziness, Denies headache(s), Denies numbness, Denies tingling and Denies weakness [facility] Past Medical History Attestation statement: The following information was validated with the patient. Source: old records reviewed and nursing notes reviewed Medical History Flexor tenosynovitis of thumb History of COVID-19 Long-term use of immunosuppressant medication Seropositive rheumatoid arthritis Hypotension Encounter for screening for endocrine disorder H/O renal calculi Symptomatic cholelithiasis Migraines Rheumatoid arthritis Kidney stones Surgical History History of cholecystectomy Hx of tubal ligation History of laparoscopic cholecystectomy Hx of cystoscopy Hx of colonoscopy Social History Social History Household Members: Children Alcohol intake: never Comment: pt. sleeping Patient Tobacco Use Status: Never used Tobacco e-Cigarette/Vaping Use: Never Used Substance Use Type: Marijuana Advance Directives: No Advance Directives Information Provided: No service: No Current occupational status: unemployed Current occupation: right hand dominant Physical Exam Vital Signs: Vital Signs: Last Vital Signs Temp 98.1 F 12/03/24 10:17 Pulse 88 12/03/24 10:17 Resp 16 12/03/24 10:17 BP 118/78 12/03/24 10:17 Pulse Ox 100 12/03/24 10:17 O2 Del Method Room Air 12/03/24 10:17 BMI result Body Mass Index 30.2 Const: General: cooperative, healthy appearing, comfortable and no acute distress Orientation/consciousness: patient oriented x3 Limitations: no limitations HEENT: Head: Yes normal to inspection Ears: hearing grossly normal bilaterally General nose exam: Normal external nose present Face and sinus: Yes normal facial exam Mouth: Normal oral and palatal mucosa present Throat: Yes posterior oropharynx normal Eyes: General: appearance normal, both eyes and all related structures Pupils: Equal, round and reactive pupils present Neck: Neck: Yes normal visual inspection Chest: Chest palpation & inspection: normal inspection of the chest Resp: Effort & Inspection: normal respiratory effort Auscultation: clear to auscultation bilaterally Cardio: Rate: regular rate Rhythm: regular rhythm Peripheral pulses: Peripheral pulses 2+ throughout GI: Inspection: Yes normal to inspection Palpation (GI): Soft to palpation and nontender Auscultation: normal bowel sounds Back/Spine/Pelvis: Thoracic/Lumbar Spine: thoracic and lumbar spine normal to inspection Skin: General skin exam: no rashes or lesions noted Neuro: General: patient oriented x3, no focal motor deficits and normal sensation to monofilament Cranial nerves: Yes Equal, round and reactive pupils present Cognition (Neuro): normal cognition Speech: No Abnormal speech present Gait exam (Neuro): Normal gait present Motor exam (neuro): 5/5 motor strength present throughout Extrem: Other: There is posterior left calf pain on palpation worsened with plantar flexion 2+ DP/PT pulses Normal sensation General: Yes normal to inspection and No pedal edema Medical Decision Making Medical Decision Making MDM Narrative: This is a 34 yo female with a history of RA followed at [facility] [[email or web address]] (Manish Castellano) who has been on olumiant for 1 month presents with left calf pain/swelling after a car drive to [place] on 11/27. No associated injury. No numbness/tingling of the extremity. No SOB/CP. There is posterior left calf pain on palpation worsened with plantar flexion 2+ DP/PT pulses Normal sensation Will obtain US, labs Differential Diagnosis Differential Diagnoses: The differential diagnosis associated with the presentation includes DVT, strain, sprain, RA flare Admission/Observation Consideration of admission/observation: Escalation of care including admission/observation considered Lab Data MDM Lab Attestation statement: I reviewed the patient's lab results. 12/03/24 10:42 12/03/24 10:42 Labs: Lab Results 12/03/24 Range/Units 10:42 WBC 8.2 (4.8-10.8) X10*3/uL RBC 4.16 L (4.20-5.50) X10*6/uL Hgb 12.4 (12.0-16.0) g/dl Hct 37.4 (37.0-47.0) % MCV 89.9 (80.0-98.0) fL MCH 29.8 (27.0-33.0) pg MCHC 33.2 (31.0-35.0) g/dl RDW 11.9 (11.0-16.0) % Plt Count 428 H D (160-400) X10*3/uL MPV 10.0 (9.4-12.3) fL Immature Gran % (Auto) 0.2 (0.0-0.4) % Neut % (Auto) 63.2 (45-73) % Lymph % (Auto) 28.2 (20-40) % [place] % (Auto) 6.0 (2-11) % Eos % (Auto) 1.8 (0-4) % Baso % (Auto) 0.6 (0-2) % Lymph # (Auto) 2.3 (1.2-4.9) X10*3/uL [place] # (Auto) 0.5 (0.1-1.2) X10*3/uL Eos # (Auto) 0.2 (0.0-0.4) X10*3/uL Baso # (Auto) 0.1 (0.0-0.2) X10*3/uL Abs Immat Gran (auto) 0.02 (0.00-0.03) X10*3/uL Absolute Neuts (auto) 5.2 (2.0-8.3) x10*3/uL Absolute Nucleated RBC 0.000 (0.0-0.012) X10*3/uL Nucleated RBC % (auto) 0.0 (0.0-0.2) /100WBC PT 11.8 (10.9-12.4) SEC INR 1.0 (0.9-1.1) Sodium 138 (135-145) mmol/L Potassium 4.0 (3.3-5.1) mmol/L Chloride 104 (96-108) mmol/L Carbon Dioxide 25 (22-29) mmol/L Anion Gap 13 (12-20) BUN 12 (9-16) mg/dL Creatinine 0.71 (0.5-1.4) mg/dL Estim Creat Clear Calc 102.6 Estimated GFR > 60 Random Glucose 94 (60-115) mg/dL Calcium 9.1 (8.4-10.2) mg/dL Total Bilirubin 0.4 (0.0-1.0) mg/dL Direct Bilirubin 0.1 (0.0-0.5) mg/dL AST 26 (5-31) U/L ALT 16 (0-31) U/L Alkaline Phosphatase 84 (39-117) U/L Total Protein 7.6 (6.5-8.0) g/dL Albumin 4.5 (3.5-5.0) g/dL Independent Interpretation I performed an independent interpretation of an: Ultrasound Interpretation: I independently viewed the ultrasound agree with the radiology report Radiology Impression Discussion of test interpretation with radiology: I have reviewed the radiologist's reading. Radiologist Impression: [address] [address] Ultrasound Report Signed Patient: Bridgette Hayden MR#: [id number] : 1990 Acct:[id number] Age/Sex: 34 / F ADM Date: 12/03/24 Loc: .ED Attending Dr: Ordering Physician: Sonja Richard NP Date of Service: 12/03/24 Procedure(s): US venous duplex LE LT Accession Number(s): [id number] cc: Sharon Mcmahon MD; Sonja Richard NP~ EXAMINATION: US TRIPLEX LOWER EXTREMITY, LEFT CLINICAL INFORMATION: Left calf pain COMPARISON: None available. TECHNIQUE: Color-flow triplex imaging with spectral analysis and compression Doppler were performed on the left lower extremity. FINDINGS: Respiratory variation, normal compression and augmented flow are noted throughout the left lower extremity. The visualized common femoral vein, superficial femoral vein, profunda femoral vein, popliteal vein show no evidence of deep venous thrombosis.. The [place]calf peroneal and posterior tibial venous segments are poorly demonstrated. US/US venous duplex LE LT IMPRESSION: No evidence of deep venous thrombosis involving the left lower extremity. Electronically signed by: Houston Gibbs MD 12/03/2024 12:41 PM EDT RP Discharge Plan Discharge Clinical Impression: Acute leg pain Patient Disposition: Home, Self-Care Instructions: Leg Pain (ED) Additional Instructions: Your blood work is normal Your ultrasound does not show any evidence of a deep vein thrombosis. You should follow-up with your primary care doctor for any continued symptoms. 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 Prescriptions: No Action diclofenac sodium 1 % gel 2 g topical QID PRN (Reason: Hand Pain ) Qty: 100 1RF Rx Instructions: apply to hand; for hand includes palm/fingers/back of hand ibuprofen 600 mg tablet 600 mg PO Q8H PRN (Reason: pain) Qty: 20 0RF dicyclomine 20 mg tablet 20 mg PO TID PRN (Reason: Abdominal Discomfort) Qty: 15 0RF ondansetron 4 mg tablet,disintegrating 4 mg PO Q6-8H PRN (Reason: nausea and vomiting) Qty: 7 0RF omeprazole 20 mg capsule,delayed release(DR/EC) 20 mg PO DAILY PRN cyclobenzaprine 5 mg tablet 5 mg PO BEDTIME PRN lidocaine [Lidoderm] 5 % adhesive patch,medicated 1 patch topical DAILY cetirizine 10 mg tablet 10 mg PO QAM (DME) finger splint Misc See Rx Instructions .Route Qty: 1 0RF Rx Instructions: As directed methotrexate sodium 25 mg/mL solution 12.5 mg subcut QWEEK Referrals: Sharon Mcmahon MD [Primary Care Provider, Internal Medicine] Print Language: Chinese
--- NOTE | 2024-12-03 10:42 | PC.NURSE ---
Labs drawn and sent for analysis. Results pending. Plan for ultrasound of left lower extremity to rule out DVT or other vascular abnormalities. Care ongoing by this RN.
[2024-12-03 10:52] LABS: MANUAL DIFF FLAG NO
[2024-12-03 11:01] LABS: Hematocrit 37.4 % (37.0-47.0); Hemoglobin 12.4 g/dl (12.0-16.0); Imm Gran Abs Auto 0.02 X10*3/uL (0.00-0.03); Imm Gran Pct Auto 0.2 % (0.0-0.4); Lymphocytes Absolute Auto 2.3 X10*3/uL (1.2-4.9); Mean Corpuscular HGB Conc 33.2 g/dl (31.0-35.0); Mean Corpuscular Hemoglobin 29.8 pg (27.0-33.0); Mean Corpuscular Volume 89.9 fL (80.0-98.0); NRBC Abs Auto 0.000 X10*3/uL (0.0-0.012); NRBC Pct Auto 0.0 /100WBC (0.0-0.2); Platelet Count 428 X10*3/uL (160-400); Red Blood Count 4.16 X10*6/uL (4.20-5.50); White Blood Count 8.2 X10*3/uL (4.8-10.8)
[2024-12-03 11:11] LABS: Alanine Aminotransferase 16 U/L (0-31); Albumin Level 4.5 g/dL (3.5-5.0); Alkaline Phosphatase 84 U/L (39-117); Anion Gap 13 (12-20); Aspartate Amino Transferase 26 U/L (5-31); Blood Urea Nitrogen 12 mg/dL (9-16); Calcium 9.1 mg/dL (8.4-10.2); Carbon Dioxide 25 mmol/L (22-29); Chloride 104 mmol/L (96-108); Creatinine Clr Calc Pharmacy 102.6; Estimated Glomerular Filt Rate > 60; Potassium 4.0 mmol/L (3.3-5.1); Sodium 138 mmol/L (135-145); Total Protein 7.6 g/dL (6.5-8.0)
[2024-12-03 11:14] LABS: INTERNATIONAL NORM RATIO 1.0 (0.9-1.1); Prothrombin Time 11.8 SEC (10.9-12.4)
--- OUTSIDE RECORDS SUMMARY | 2024-12-03 11:48 | XMS_ITS | Clinical Summary ---
Author Organization [facility] Address [address] [place] [address] Care Team Providers Care Solar Project Manager Name Role Phone Sharon Mcmahon MD [...] weekly for methotrexate injections 12 each 3 10/30/2024 6:46 AM EDT 4 Active folic acid (FOLVITE) 1 mg tablet Take 1 tablet (1 mg total) by mouth once a day. 30 tablet 11 10/02/2024 1:43 PM EDT 4 01/31/20 25 Active methotrexate 25 mg/mL injection Inject 0.5 mL (12.5 mg total) under the skin once a week. After first puncture, store in refrigerator and use within 30 days. 2 mL 1 10/30/2024 6:46 AM EDT 5 Active baricitinib (OLUMIANT) 2 mg tabletIndicatio ns:Seropositive rheumatoid arthritis (HCC) Take 1 tablet (2 mg total) by mouth once a day. 30 tablet 11 11/07/2024 1:28 PM EDT 5 10/28/19 26 Active predniSONE (DELTASONE) 5 mg tabletIndicatio ns:Rheumatoid arthritis involving both hands with positive rheumatoid factor (HCC) Take 4 tablets (20 mg total) by mouth once a day for 7 days, THEN 3 tablets (15 mg total) once a day for 7 days, THEN 2 tablets (10 mg total) once a day for 7 days, THEN 1 tablet (5 mg total) once a day for 7 days. 70 tablet 5 12/05/19 25 Active Active Problems Problem Noted Date [...] -Seropositive RA, onset about 26 yo Treated [facility] Positive anti CCP, negative RF Methotrexate by mouth, taken briefly, stopped due to nausea, vomiting Abatacept: allergic reaction, pain at injection site, lip swelling Tocilizumab (Actemra) 2020-?2021 effective Kevzara ? 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 Encounters Date Type Department Care Team Description 12/01/2024 Refill [facility] [address] [place] [phone] Historiography Teacher: Manish Zazueta NP Rheumatoid arthritis involving both hands with positive rheumatoid factor (HCC) 11/16/2024 [facility] Clinical Specialty Pharmacy [facility] [address] [place] [phone] Ignacia May RP 11/08/2024 [facility] Clinical Specialty Pharmacy [facility] [address] [place] [phone] Thuy Hodges RPh 11/06/2024 Telephone [facility] [address] [place] [address] [phone] Historiography Teacher: Manish Zazueta NP 11/06/2024 Orders Only [facility] [address] [place] [address] [phone] Historiography Teacher: Manish Zazueta NP Rheumatoid arthritis involving both hands with positive rheumatoid factor (HCC) (Primary Dx) 11/06/2024 Orders Only [facility] [address] [place] [phone] Fred Medina MD Chronic neck pain (Primary Dx) 11/06/2024 [employer] Message [facility] [address] [place] [address] [phone] Fred Medina MD MRI 11/06/2024 [employer] Message [facility] [address] [place] [address] [phone] Historiography Teacher: Manish Zazueta NP Blood work 11/01/2024 10:30 AM EDT Office Visit [facility] [address] [place] [address] [phone] Historiography Teacher: Manish Zazueta NP Seropositive rheumatoid arthritis (HCC) (Primary Dx); Immunosuppression due to drug therapy (HCC); High risk medication use 11/01/2024 Telephone [facility] [address] [place] [address] [phone] Historiography Teacher: Manish Zazueta NP Prior Authorization (baricitinib (OLUMIANT) 2 mg tablet ) 10/25/2024 Documentation [facility] [address] [place] [address] [phone] Historiography Teacher: Olga Moon PA 10/24/2024 Refill [facility] [address] [place] [address] [phone] Historiography Teacher: Manish Zazueta NP 10/19/2024 myChart Message [facility] [address] [place] [address] [phone] Historiography Teacher: Manish Zazueta NP Rash 10/18/2024 Telephone [facility] [address] [place] [address] Historiography Teacher: Manish Zazueta NP 10/18/2024 Refill [facility] [address] [place] [address] Historiography Teacher: Jonna Fletcher MD 10/11/2024 [facility] Clinical Specialty Pharmacy [facility] [address] [place] [phone] Cristy Martines 09/21/2024 Orders Only [facility] [address] [place] [address] [phone] Fred Medina MD Chronic neck pain (Primary Dx) 09/19/2024 2:00 PM EDT Office Visit [facility] [address] [place] [address] Fred Medina MD Chronic neck pain (Primary Dx) 09/17/2024 Transcribe Orders [facility] [address] [place] [address] Sharon Mcmahon MD Chronic left shoulder pain (Primary Dx) 09/10/2024 [facility] Clinical Specialty Pharmacy [facility] [address] [place] [phone] Thuy Hodges RPh 09/06/2024 Telephone [facility] [address] [place] [address] [phone] Historiography Teacher: Linda Herzog Prior Authorization (upadacitinib ER (Rinvoq) 15 mg tablet) from Last 3 Months Immunizations Immunization Administration [...] Sign Reading Time Taken Comments Blood Pressure 119/84 11/01/2024 10:30 AM EDT Pulse 77 11/01/2024 10:30 AM EDT Temperature 36.7 C (98.1 F) 11/01/2024 10:30 AM EDT Respiratory Rate - - Oxygen Saturation - - Inhaled Oxygen Concentration - - Weight 72.6 kg (160 lb) 11/01/2024 10:30 AM EDT Height 154.9 cm (5' 1 ) 08/29/2024 10:23 AM EDT Body Mass Index 30.23 08/29/2024 10:23 AM EDT Plan of Treatment Upcoming Encounters Date Type Department Care Team (Late st Contact Info) Description 01/14/2025 10:00 AM EDT Appointment [facility] [address] [place] [address] Fred Medina MD [address] [place] [phone] Sharmila Bravo MD [address] [place] [address] [facility] Maintenance Due Date Last Done Comments [...] Drivers of Health Janine ual Screening 04/11/2024 Influenza Vaccine (#1) 2024 , 02/18/2023, 03/22/2022, Additional history exists Cervical Cancer Screening 12/04/2026 Pap Smear 12/04/2026 12/05/2023 DTaP,Tdap,and Td Vaccines (4 - Td or Tdap) 01/27/2028 01/26/2018, 11/20/2012, 05/23/2011 RSV Vaccine (60+ years old a nd patients) (1 - 1-dose 75+ series) 2066 Procedures * Due to [place] state law, this organization might not be sharing negative HIV tests. Procedure Name Priority Date/Time Associated Diagnosis Comments ALBUMIN Routine 11/01/2024 11:10 AM EDT High risk medication use ALT Routine 11/01/2024 11:10 AM EDT High risk medication use AST Routine 11/01/2024 11:10 AM EDT High risk medication use CBC AUTO DIFFERENTIAL Routine 11/01/2024 11:10 AM EDT High risk medication use CREATININE Routine 11/01/2024 11:10 AM EDT High risk medication use C-REACTIVE PROTEIN Routine 11/01/2024 11 :10 AM EDT Seropositive rheumatoid arthritis (HCC) SEDIMENTATION RATE, AUTOMATED Routine 11/01/2024 11:10 AM EDT Seropositive rheumatoid arthritis (HCC) MRI CERVICAL SPINE WO CONTRAST STAT 10/01/2024 6:50 AM EDT Chronic neck pain XR CERVICAL SPINE 4 OR 5 VIEWS INCLUDING OBLIQUES Routine 09/19/2024 1:58 PM EDT Chronic neck pain from Last 3 Months Results * Due to [place] state law, this organization might not be sharing negative HIV tests. * (ABNORMAL) CBC Auto Differential (11/01/2024 11:10 AM EDT) WBC 9.8 3.8 - 10.8 10*3/uL 11/01/2024 12:06 PM EDT [facility] RBC 4.02 3.80 - 5.10 10*6/uL 11/01/2024 12:06 PM EDT [facility] Hemoglobin 12.4 11.7 - 15.5 g/dL 11/01/2024 12:06 PM EDT [facility] Hematocrit 37.0 35.0 - 45.0 % 11/01/2024 12:06 PM EDT [facility] MCV 92.0 80.0 - 100.0 fL 11/01/2024 12:06 PM EDT [facility] MCH 30.8 27.0 - 33.0 pg 11/01/2024 12:06 PM EDT [facility] MCHC 33.5 32.0 - 36.0 g/dL 11/01/2024 12:06 PM EDT [facility] RDW 11.8 11.0 - 15.0 % 11/01/2024 12:06 PM EDT [facility] Platelets 448(H) 140 - 400 10*3/uL 11/01/2024 12:06 PM EDT [facility] MPV 10.4 7.5 - 12.5 fL 11/01/2024 12:06 PM EDT [facility] Neutrophil % 58.0 % 11/01/2024 12:06 PM EDT [facility] Immature Grans % 0.5 0.0 - 0.9 % 11/01/2024 12:06 PM EDT [facility] Lymphocyte % 31.3 % 11/01/2024 12:06 PM EDT [facility] Monocyte % 8.2 % 11/01/2024 12:06 PM EDT [facility] Eosinophil % 1.6 % 11/01/2024 12:06 PM EDT [facility] Basophil % 0.4 % 11/01/2024 12:06 PM EDT [facility] Neutrophil # 5.68 1.50 - 7.80 10*3/uL 11/01/2024 12:06 PM EDT [facility] Immature Grans # 0.05(H) <=0.03 10*3/uL 11/01/2024 12:06 PM EDT [facility] Lymphocyte # 3.10 0.85 - 3.90 10*3/uL 11/01/2024 12:06 PM EDT [facility] Monocyte # 0.80 0.20 - 0.95 10*3/uL 11/01/2024 12:06 PM EDT [facility] Eosinophil # 0.20 0.02 - 0.50 10*3/uL 11/01/2024 12:06 PM EDT [facility] Basophil # <0.03 0.00 - 0.20 10*3/uL 11/01/2024 12:06 PM EDT [facility] nRBC % 0.0 /100 WBCs 11/01/2024 12:06 PM EDT [facility] nRBC # <0.01 <0.01 10*3/uL 11/01/2024 12:06 PM EDT [facility] Blood Structure of peripheral vein / Unknown Venipuncture / Unknown 11/01/2024 11:10 AM EDT 11/01/2024 11:58 AM EDT Manish Castellano NP LAB BLOOD ORDERABLES Final Result Performing Organization Address [facility] Co de Phone Number [facility] [address] [place] [address], [place] * (ABNORMAL) Sedimentation Rate (11/01/2024 11:10 AM EDT) Sed Rate 40(H) <20 mm/Hr mm/Hr 11/01/2024 12:08 PM EDT [facility] Blood Structure of peripheral vein / Unknown Venipuncture / Unknown 11/01/2024 11:10 AM EDT 11/01/2024 11:58 AM EDT Manish Castellano NP LAB BLOOD ORDERABLES Final Result Performing Organization Address [facility] de Phone Number [facility] [address] [place] [phone], [place] * (ABNORMAL) C-Reactive Protein (11/01/2024 11:10 AM EDT) C Reactive Protein 18.0(H) <=9.9 mg/L 11/01/2024 12:52 PM EDT [facility] Blood Structure of peripheral vein / Unknown Venipuncture / Unknown 11/01/2024 11:10 AM EDT 11/01/2024 11:58 AM EDT Manish Castellano NP LAB BLOOD ORDERABLES Final Result Performing Organization Address City/[facility] Co de Phone Number [facility] [address] [place] [phone], [place] * ALT (11/01/2024 11:10 AM EDT) ALT 12 10 - 40 U/L 11/01/2024 12:52 PM EDT [facility] Blood Structure of peripheral vein / Unknown Venipuncture / Unknown 11/01/2024 11:10 AM EDT 11/01/2024 11:58 AM EDT us Manish Castellano NP LAB BLOOD ORDERABLES Final Result Performing Organization Address [facility]/ZIP Co de Phone Number [facility] [address] [place] [address], [place] * AST (11/01/2024 11:10 AM EDT) AST 23 10 - 40 U/L 11/01/2024 12:52 PM EDT [facility] Blood Structure of peripheral vein / Unknown Venipuncture / Unknown 11/01/2024 11:10 AM EDT 11/01/2024 11:58 AM EDT Manish Castellano NP LAB BLOOD ORDERABLES Final Result Performing Organization Address [facility] Co de Phone Number [facility] [address] [place] [address], [place] * Creatinine (11/01/2024 11:10 AM EDT) Creatinine 0.66 0.50 - 1.20 mg/dL 11/01/2024 12:52 PM EDT [facility] eGFR >90 >=60 mL/min/1. 73m2 11/01/2024 12:52 PM EDT [facility] Comment:The estimated glomer [...] peripheral vein / Unknown Venipuncture / Unknown 11/01/2024 11:10 AM EDT 11/01/2024 11:58 AM EDT Manish Castellano NP LAB BLOOD ORDERABLES Final Result Performing Organization Address [facility] Co de Phone Number [facility] [address] [place] [address], [place] * Albumin (11/01/2024 11:10 AM EDT) Albumin 4.3 3.5 - 5.2 g/dL 11/01/2024 12:52 PM EDT [facility] Blood Structure of peripheral vein / Unknown Venipuncture / Unknown 11/01/2024 11:10 AM EDT 11/01/2024 11:58 AM EDT Manish Castellano NP LAB BLOOD ORDERABLES Final Result Performing Organization Address [facility] de Phone Number [facility] [address] [place] [phone], [place] * MRI Cervical Spine WO Contrast (10/01/2024 6:50 AM EDT) Anatomical Region Laterality Modality Spine, C-spine Magnetic Resonan ce 10/01/2024 6:20 AM EDT Impressions 10/01/2024 8:31 AM EDT Noncontrast cervical spine MRI without prior comparable studies revealing; No high-grade stenosis, compression deformity or anamika disc herniation. Early degenerative changes as described. Appropriate clinical, imaging correlation and follow-up advised. If this radiology report contains a blank impression section, it is an incomplete radiology report. Please contact the interpreting radiologist or applicable radiology division as soon as possible to obtain the completed interpretation. Workstation ID: [id number] Narrative 10/01/2024 8:31 AM EDT EXAMINATION: CERVICAL SPINE MRI WITHOUT IV CONTRAST TECHNIQUE: Multiplanar and multisequence MR imaging of cervical spine spine performed without intravenous contrast administration. COMPARISON: Plain films of cervical spine dated 09/19/2024. CLINICAL INFORMATION: Chronic cervical pain, right lower cervical radiculopathy, myelopathy, FINDINGS: Straightening of cervical lordosis is again noted. There is no compression deformity, prevertebral edema or swelling. Individual levels: C2-C3: Intervertebral disc space and canal components are overall preserved. C3-C4: Intervertebral disc space and canal components are overall preserved. C4-C5: Early degenerative disc disease and small disc osteophyte complex are noted. Canal components are overall preserved. C5-C6: Early degenerative disc disease and small disc osteophyte complex are noted. Canal components are overall preserved. C6-C7: Intervertebral disc spaces and canal components are overall preserved. C7-T1: Intervertebral disc space and canal components are normally visualized. The cervical cord is normal in course, contour and signal. A few, prominent perineural cysts are noted in bilateral neural foramen at cervicothoracic junction. The craniocervical junction is normal. There is no epidural/paraspinal drainable collection. Resulting Agency Comment [id number] Procedure Note Guerrero Ruiz MD - 10/01/2024 EXAMINATION: CERVICAL SPINE MRI WITHOUT IV CONTRAST TECHNIQUE: Multiplanar and multisequence MR imaging of cervical spine spine performedwithout intravenous contrast administration. COMPARISON: Plain films of cervical spine dated 09/19/2024. CLINICAL INFORMATION: Chronic cervical pain, right lower cervical radiculopathy, myelopathy, FINDINGS: Straightening of cervical lordosis is again noted. There is no compression deformity, prevertebral edema or swelling. Individual levels: C2-C3: Intervertebral disc space and canal components are overallpreserved. C3-C4: Intervertebral disc space and canal components are overallpreserved. C4-C5: Early degenerative disc disease and small disc osteophyte complexare noted. Canal components are overall preserved. C5-C6: Early degenerative disc disease and small disc osteophyte complexare noted. Canal components are overall preserved. C6-C7: Intervertebral disc spaces and canal components are overallpreserved. C7-T1: Intervertebral disc space and canal components are normallyvisualized. The cervical cord is normal in course, contour and signal. A few,prominent perineural cysts are noted in bilateral neural foramen atcervicothoracic junction. The craniocervical junction is normal. There is no epidural/paraspinal drainable collection. IMPRESSION: Noncontrast cervical spine MRI without prior comparable studiesrevealing; No high-grade stenosis, compression deformity or anamika disc herniation. Early degenerative changes as described. Appropriate clinical, imaging correlation and follow-up advised. If this radiology report contains a blank impression section, it is anincomplete radiology report. Please contact the interpreting radiologistor applicable radiology division as soon as possible to obtain thecompleted interpretation. Workstation ID: [id number] us Fred Medina MD IMG MRI PROCEDURES Carmen l Result * XR Spine Cervical 4 or 5 VW (09/19/2024 1:58 PM EDT) Anatomical Region Laterality Modality Spine, C-spine Computed Radiogr aphy 09/19/2024 8:08 PM EDT Impressions 09/19/2024 8:09 PM EDT FINDINGS/IMPRESSION: Mild reversal of the normal cervical lordosis. No significant spondylolisthesis. No visible acute vertebral body compression fracture. The right sided neuroforamina are suboptimally assessed due to positioning. The left neuroforamen are intact. The atlantodens interval is not widened. Prevertebral soft tissues are within normal limits. If this radiology report contains a blank impression section, it is an incomplete radiology report. Please contact the interpreting radiologist or applicable radiology division as soon as possible to obtain the completed interpretation. Workstation ID: [id number] Narrative 09/19/2024 8:09 PM EDT COMPARISON: There are no prior studies available for comparison at this time. Resulting Agency Comment [id number] Procedure Note Robert Lugo MD - 09/19/2024 COMPARISON: There are no prior studies available for comparison at thistime. IMPRESSION: FINDINGS/IMPRESSION: Mild reversal of the normal cervical lordosis. Nosignificant spondylolisthesis. No visible acute vertebral body compressionfracture. The right sided neuroforamina are suboptimally assessed due topositioning. The left neuroforamen are intact. The atlantodens interval isnot widened. Prevertebral soft tissues are within normal limits. If this radiology report contains a blank impression section, it is anincomplete radiology report. Please contact the interpreting radiologistor applicable radiology division as soon as possible to obtain thecompleted interpretation. Workstation ID: [id number] us Fred Medina MD IMG XR PROCEDURES Final Result from Last [address] [place] [address] [place] [id number] Advance Directives Documents on File Type Date Recorded Patient Deck Builder Expl anation Health Care Proxy 01/04/2024 8:57 AM HCP-R ECV'D 01/04/24 Health Care Proxy 01/04/2024 8:55 AM HCP-R ECEIVED 01/04/24 Care Teams Solar Project Manager Relationship Specialty Start Date End Date Sharon Mcmahon MD [address] [place] [id number] PCP - General Internal Medicine 01/04/24
[2024-12-03 13:03] VITALS: BP 118/78; PULSE 88; RESP 16; TEMP 36.7; O2SAT 100
== END 2024-12-03 13:03 | disposition home or self-care (01) ==
PROVIDERS: Nurse Practitioner Family; Emergency Provider Emergency Medicine; PCP Internal Medicine
DX: M79.605 Pain in left leg (principal); R60.0 Localized edema; Z79.899 Other long term (current) drug therapy
CPT/HCPCS: 36415; 80048; 80076; 85025; 85610; 93971; 99282; 99284

== ENCOUNTER → 2024-12-03 10:31 | Outpatient (BNV) | payer MEDICAID, SELFPAY | PROVIDERS: Emergency Provider Emergency Medicine; PCP Internal Medicine; Visit Provider Radiology Diagnostic Radiology | DX: M79.662 Pain in left lower leg (principal) | CPT/HCPCS: 93971 ==

== ENCOUNTER 2025-03-20 15:11 | Outpatient (REF) | payer MEDICAID, SELFPAY ==
[2025-03-20 15:36] LABS: MANUAL DIFF FLAG NO
[2025-03-20 15:58] LABS: Hematocrit 34.3 % (37.0-47.0); Hemoglobin 11.6 g/dl (12.0-16.0); Imm Gran Abs Auto 0.05 X10*3/uL (0.00-0.03); Imm Gran Pct Auto 0.4 % (0.0-0.4); Lymphocytes Absolute Auto 3.5 X10*3/uL (1.2-4.9); Mean Corpuscular HGB Conc 33.8 g/dl (31.0-35.0); Mean Corpuscular Hemoglobin 29.6 pg (27.0-33.0); Mean Corpuscular Volume 87.5 fL (80.0-98.0); NRBC Abs Auto 0.000 X10*3/uL (0.0-0.012); NRBC Pct Auto 0.0 /100WBC (0.0-0.2); Platelet Count 410 X10*3/uL (160-400); Red Blood Count 3.92 X10*6/uL (4.20-5.50); White Blood Count 11.4 X10*3/uL (4.8-10.8)
[2025-03-20 16:40] LABS: Anion Gap 12 (12-20); Blood Urea Nitrogen 19 mg/dL (9-16); Calcium 9.2 mg/dL (8.4-10.2); Carbon Dioxide 23 mmol/L (22-29); Chloride 107 mmol/L (96-108); Estimated Glomerular Filt Rate > 60; Potassium 3.6 mmol/L (3.3-5.1); Sodium 138 mmol/L (135-145)
--- OUTSIDE RECORDS SUMMARY | 2025-03-20 23:46 | XMS_ITS | Clinical Summary ---
Author Organization [facility] Address [address] [place] [address] Care Team Providers Care Solar Project Manager [...] mouth once a day. 12/09/19 24 Active diclofenac (VOLTAREN) 1% gel Apply 2 g topically to the affected area every 4 hours as needed. 05/06/19 24 Active lidocaine (Lidoderm) 5% patch Apply 1 patch topically to the affected area daily. 10/18/19 24 Active syringe with needle (Monoject TB Safety Syringe) 1 mL 25 gauge x 5/8 syringe Use weekly for methotrexate injections 12 each 3 5 9:07 PM EDT 01/04/20 24 Active folic acid (FOLVITE) 1 mg tablet Take 1 tablet (1 mg total) by mouth once a day. 30 tablet 11 5 7:48 AM EDT 01/31/20 24 025 Active baricitinib (OLUMIANT) 2 mg tabletIndications: Seropositive rheumatoid arthritis Take 1 tablet (2 mg total) by mouth once a day. 30 tablet 11 5 9:39 AM EST 11/02/19 25 026 Active celecoxib (CeleBREX) 200 mg capsuleIndications :Seropositive rheumatoid arthritis Take 1 capsule (200 mg total) by mouth once a day. 30 capsule 3 12/13/19 25 026 Active syringe with needle (BD SafetyGlide Syringe) 3 mL 25 x 5/8 syringeIndications :Seropositive rheumatoid arthritis 1 Syringe once a week. 12 each 3 5 9:39 AM EST 01/01/20 25 025 Active ondansetron (ZOFRAN ODT) 4 mg disintegrating tablet SMARTSI Tablet(s) By Mouth Every 6-8 Hours PRN 09/12/19 25 Active hydrOXYzine HCL (ATARAX) 25 mg tablet Take 25 mg by mouth every 8 hours as needed. 02/14/20 25 Active methotrexate 25 mg/mL injection Inject 0.5 mL (12.5 mg total) under the skin once a week. After first puncture, store in refrigerator and use within 30 days. 2 mL 1 5 9:39 AM EST 02/21/20 25 Active predniSONE (DELTASONE) 5 mg tabletIndications: Seropositive rheumatoid arthritis Take 1 tablet (5 mg total) by mouth once a day. 90 tablet 1 02/28/20 25 Active traMADoL (ULTRAM) 50 mg tabletIndications: Seropositive rheumatoid arthritis Take 1 tablet (50 mg total) by mouth 2 times a day as needed for pain. 60 tablet 1 03/19/20 25 026 Active Active Problems Problem Noted Date Diagnosed Date Cervical radiculopathy 01/14/2025 Abnormal finding on MRI of brain 01/04/2024 [...] -Seropositive RA, onset about 26 yo Treated [facility] rheumatology Positive anti CCP, negative RF Methotrexate by mouth, taken briefly, stopped due to nausea, vomiting Abatacept: allergic reaction, pain at injection site, lip swelling Tocilizumab (Actemra) 2020-?2021 effective Kevzara ? Dates, 2019 secondary faiure Tofacitinib (Xeljanz) failure Avoided anti TNF due to strong family history MS Occasional steroids Positive TONE Treatment at [facility] 01/04/[address] 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 Encounters Date Type Department Care Team Description 03/19/2025 myChart Message [facility] [address] [place] [address] Golf Ball Molder: Hollie Rojas NP Flare up 03/10/2025 Refill [facility] [address] [place] [id number] Golf Ball Molder: Hollie Rojas NP Seropositive rheumatoid arthritis 02/20/2025 Refill [facility] [address] [place] [id number] Golf Ball Molder: Olga Moon PA 02/20/2025 Results Follow-Up [facility] [address] [place] [address] Golf Ball Molder: Hollie Rojas NP 02/14/2025 3:00 PM EST - 02/14/2025 11:59 PM EST Hospital Encounter [facility] Xray [address] [place] [phone] Discharge Disposition: Home or Self Care () 02/14/2025 2:00 PM EST Office Visit [facility] [address] [place] [phone] Golf Ball Molder: Hollie Rojas NP Seropositive rheumatoid arthritis (Primary Dx); High risk medication use 01/25/2025 [facility]ty [facility] [address] [place] [address] Francisca Jones [facility] 01/14/2025 9:42 AM EDT - 01/14/2025 11:59 PM EDT Hospital Encounter [facility] [address] [place] [address] Fred Medina MD Daniello, Kate M, MD Kurtishaj, Zenel Chronic neck pain Discharge Disposition: Home or Self Care () 01/11/2025 10:40 AM EDT Office Visit [facility] [address] [place] [address] Vero Flanagan MD Myofascial pain syndrome (Primary Dx) 12/31/2024 Orders Only [facility] [address] [place] [address] Golf Ball Molder: Mainsh Zazueta NP Seropositive rheumatoid arthritis (HCC) (Primary Dx) 12/25/2024 Refill [facility] [address] [place] [address] Golf Ball Molder: Olga Moon PA from Last 3 Months Immunizations Immunization Administration Dates Next Due Influenza, Trivalent, Adjuvanted, PF (FLUAD) Family History Medical History Relation Name Comments [...] Sign Reading Time Taken Comments Blood Pressure 135/85 02/14/2025 2:05 PM EST Pulse 88 02/14/2025 2:05 PM EST Temperature 36.7 C (98.1 F) 11/01/2024 10:30 AM EDT Respiratory Rate 16 02/14/2025 2:05 PM EST Oxygen Saturation 99% 01/11/2025 10:34 AM EDT Inhaled Oxygen Concentration - - Weight 72.6 kg (160 lb) 02/14/2025 2:05 PM EST Height 154.9 cm (5' 1 ) 02/14/2025 2:05 PM EST Body Mass Index 30.23 02/14/2025 2:05 PM EST Plan of Treatment Upcoming Encounters Date Type Department Care Team (Late st Contact Info) Description 05/22/2025 10:00 AM EST Office Visit [facility] [address] [place] [address] Golf Ball Molder: Jia Doshi MD [address] [place] [address] Health Maintenance Due Date Last Done Comments [...] Td or Tdap) 01/27/2028 01/26/2018, 11/20/2012, 05/23/2011 Procedures * Due to [place] state law, this organization might not be sharing negative HIV tests. Procedure Name Priority Date/Time Associated Diagnosis Comments CBC Routine 02/14/2025 3:22 PM EST Seropositive rheumatoid arthritis AST Routine 02/14/2025 3:22 PM EST Seropositive rheumatoid arthritis ALT Routine 02/14/2025 3:22 PM EST Seropositive rheumatoid arthritis CREATININE Routine 02/14/2025 3:22 PM EST Seropositive rheumatoid arthritis SEDIMENTATION RATE, AUTOMATED Routine 02/14/2025 3:22 PM EST Seropositive rheumatoid arthritis C-REACTIVE PROTEIN Routine 02/14/2025 3: 22 PM EST Seropositive rheumatoid arthritis XR HAND 3+ VW RIGHT Routine 02/14/2025 3 :16 PM EST Seropositive rheumatoid arthritis XR HAND 3+ VW LEFT Routine 02/14/2025 3: 16 PM EST Seropositive rheumatoid arthritis EMG/ NCS/ NEUROMUSCULAR ULTRASOUND Routine 01/14/2025 9:42 AM EDT Chronic neck pain from Last 3 Months Results * Due to [place] state law, this organization might not be sharing negative HIV tests. * (ABNORMAL) Sedimentation Rate (02/14/2025 3:22 PM EST) Sed Rate 51(H) <20 mm/Hr mm/Hr 02/14/2025 5:18 PM EST [facility] Blood Structure of peripheral vein / Unknown Venipuncture / Unknown 02/14/2025 3:22 PM EST 02/14/2025 4:13 PM EST us Hollie Dunbar INTERNAL COMBUSTION ENGINE SUBASSEMBLER LAB BLOOD ORDERABLES Final Res ult [facility] [address] [place] [address], * (ABNORMAL) CBC (02/14/2025 3:22 PM EST) WBC 10.8 3.8 - 10.8 10*3/uL 02/14/2025 4:25 PM EST [facility] RBC 4.35 3.80 - 5.10 10*6/uL 02/14/2025 4:25 PM EST [facility] Hemoglobin 12.6 11.7 - 15.5 g/dL 02/14/2025 4:25 PM EST [facility] Hematocrit 39.0 35.0 - 45.0 % 02/14/2025 4:25 PM EST [facility] MCV 89.7 80.0 - 100.0 fL 02/14/2025 4:25 PM EST [facility] MCH 29.0 27.0 - 33.0 pg 02/14/2025 4:25 PM EST [facility] MCHC 32.3 32.0 - 36.0 g/dL 02/14/2025 4:25 PM EST [facility] RDW 12.4 11.0 - 15.0 % 02/14/2025 4:25 PM EST [facility] Platelets 467(H) 140 - 400 10*3/uL 02/14/2025 4:25 PM EST [facility] MPV 10.7 7.5 - 12.5 fL 02/14/2025 4:25 PM EST [facility] Blood Structure of peripheral vein / Unknown Venipuncture / Unknown 02/14/2025 3:22 PM EST 02/14/2025 4:13 PM EST Hollie Dunbar INTERNAL COMBUSTION ENGINE SUBASSEMBLER LAB BLOOD ORDERABLES Final Res ult Performing Organization Address [facility]/ZIP Co de Phone Number [facility] [address] [place] [address], * C-Reactive Protein (02/14/2025 3:22 PM EST) C Reactive Protein 5.6 <=9.9 mg/L 02/14/2025 4:49 PM EST [facility] Blood Structure of peripheral vein / Unknown Venipuncture / Unknown 02/14/2025 3:22 PM EST 02/14/2025 4:13 PM EST us Hollie uDnbar INTERNAL COMBUSTION ENGINE SUBASSEMBLER LAB BLOOD ORDERABLES Final Res ult [facility] [address] [place] [address], [place] * ALT (02/14/2025 3:22 PM EST) ALT 13 10 - 40 U/L 02/14/2025 4:49 PM EST [facility] Blood Structure of peripheral vein / Unknown Venipuncture / Unknown 02/14/2025 3:22 PM EST 02/14/2025 4:13 PM EST Hollie Manjinder INTERNAL COMBUSTION ENGINE SUBASSEMBLER LAB BLOOD ORDERABLES Final Res ult [facility] [address] [place] [address], [place] * AST (02/14/2025 3:22 PM EST) AST 25 10 - 40 U/L 02/14/2025 4:49 PM EST [facility] Blood Structure of peripheral vein / Unknown Venipuncture / Unknown 02/14/2025 3:22 PM EST 02/14/2025 4:13 PM EST [facility] INTERNAL COMBUSTION ENGINE SUBASSEMBLER LAB BLOOD ORDERABLES Final Res ult [facility] [address] [place] [address], [place] * Creatinine (02/14/2025 3:22 PM EST) Creatinine 0.68 0.50 - 1.20 mg/dL 02/14/2025 4:49 PM EST [facility] eGFR >90 >=60 mL/min/1. 73m2 02/14/2025 4:49 PM EST [facility] Comment:The estimated glomer [...] peripheral vein / Unknown Venipuncture / Unknown 02/14/2025 3:22 PM EST 02/14/2025 4:13 PM EST us Hollie Dunbar INTERNAL COMBUSTION ENGINE SUBASSEMBLER LAB BLOOD ORDERABLES Final Res ult [facility] [address] [place] [address], [place] * XR Hand 3+ vw Right (02/14/2025 3:16 PM EST) Anatomical Region Laterality Modality Upper Extremities, Hand Right Computed Radiography 02/14/2025 4:37 PM EST Impressions 02/14/2025 4:38 PM EST No evidence of inflammatory arthropathy. If this radiology report contains a blank impression section, it is an incomplete radiology report. Please contact the interpreting radiologist or applicable radiology division as soon as possible to obtain the completed interpretation. Workstation ID: [id number] Narrative 02/14/2025 4:38 PM EST COMPARISON: 01/04/2024 FINDINGS: Left hand: No acute fracture or dislocation. Joints are congruent. Joint spaces are maintained. No erosions or destructive changes. Right hand: No acute fracture or dislocation. Joints are congruent. Joint spaces are maintained. No erosions or destructive changes. Resulting Agency Comment [id number] Procedure Note Germain Madera, DO - 02/14/2025 COMPARISON: 01/04/2024 FINDINGS: Left hand: No acute fracture or dislocation. Joints are congruent. Jointspaces are maintained. No erosions or destructive changes. Right hand: No acute fracture or dislocation. Joints are congruent. Jointspaces are maintained. No erosions or destructive changes. IMPRESSION: No evidence of inflammatory arthropathy. If this radiology report contains a blank impression section, it is anincomplete radiology report. Please contact the interpreting radiologistor applicable radiology division as soon as possible to obtain thecompleted interpretation. Workstation ID: [id number] [facility] INTERNAL COMBUSTION ENGINE SUBASSEMBLER IMG XR PROCEDURES Final Result * XR Hand 3+ vw Left (02/14/2025 3:16 PM EST) Anatomical Region Laterality Modality Upper Extremities, Hand Left Computed Radiography 02/14/2025 4:37 PM EST Impressions 02/14/2025 4:38 PM EST No evidence of inflammatory arthropathy. If this radiology report contains a blank impression section, it is an incomplete radiology report. Please contact the interpreting radiologist or applicable radiology division as soon as possible to obtain the completed interpretation. Workstation ID: [id number] Narrative 02/14/2025 4:38 PM EST COMPARISON: 01/04/2024 FINDINGS: Left hand: No acute fracture or dislocation. Joints are congruent. Joint spaces are maintained. No erosions or destructive changes. Right hand: No acute fracture or dislocation. Joints are congruent. Joint spaces are maintained. No erosions or destructive changes. Resulting Agency Comment [id number] Procedure Note Germain Madera, DO - 02/14/2025 COMPARISON: 01/04/2024 FINDINGS: Left hand: No acute fracture or dislocation. Joints are congruent. Jointspaces are maintained. No erosions or destructive changes. Right hand: No acute fracture or dislocation. Joints are congruent. Jointspaces are maintained. No erosions or destructive changes. IMPRESSION: No evidence of inflammatory arthropathy. If this radiology report contains a blank impression section, it is anincomplete radiology report. Please contact the interpreting radiologistor applicable radiology division as soon as possible to obtain thecompleted interpretation. Workstation ID: [id number] [facility] INTERNAL COMBUSTION ENGINE SUBASSEMBLER IMG XR PROCEDURES Final Result * EMG AUTO ADVANCE (01/14/2025 9:42 AM EDT) Narrative [facility] EMG - 01/14/2025 10:53 AM EDT Table formatting from the original result was not included. Images from the original result were not included. [facility] [address] [place]. [address] Patient: JOZEF HILL ID#: [id number] Sex: Female Height: 5' 1 : 1990 Age: 34 years Physician: Sharmila Bravo MD Financial Sales Associate: Elin FranciscoNCST Ref Phys: FRED MEDINA Test Date: 01/14/2025 Reason for Study: r ight upper extremity weakness in a lower cervical/ulnar distribution Nerve Conduction Study Demonstrates: The right median-D2 and D3, right ulnar-D5, and right radial-snuff sensory nerve action potentials (SNAPs) are normal. The right median and ulnar palmar mixed nerve action potentials (MNAPs) are normal. The right median-APB, right ulnar-ADM, and right ulnar-FDI compound muscle action potentials (CMAPs) are normal. Concentric Needle EMG Demonstrates: The right deltoid, biceps, triceps, pronator teres and first dorsal interosseous muscles are normal. Impressions: This is a normal study. Specifically, there is no electrophysiologic evidence of a right ulnar neuropathy or a right C5-T1 cervical radiculopathy. Sharmila Bravo MD Nerve Conduction Studies Stim Site NR Peak (ms) O-P Amp ( V) Dist (cm) Viral (m/s) NCV Right Median Anti Sensory (2nd/3rd Digit) 32.1 C Wr/Ind 2.4 75.9 13.0 Wr/Mid 2.4 69.3 13.0 NCV Right Ulnar Anti Sensory (5th Digit) 33.2 C Wrist 2.2 31.0 11.0 NCV Right Radial Anti Sensory (Snuff Box) 33 C FA 2.0 51.7 10.0 Stim Site NR Peak (ms) O-P Amp ( V) Site1 Site2 Delta-P (ms) NCV Right Median/Ulnar Palm Comparison (Wrist - 8cm) 32.4 C Median Palm 1.7 108.9 Median Palm Ulnar Palm 0.0 Ulnar Palm 1.7 54.8 Stim Site NR Onset (ms) O-P Amp (mV) Dist (cm) Viral (m/s) NCV Right Median Motor (Abd Poll Brev) 33.1 C Wrist 2.6 15.8 4.5 Elbow 6.2 15.7 23.0 64 NCV Right Ulnar-ADM Motor (Abd Dig Min) 33.2 C Wrist 2.0 8.2 4.5 A Elbow 6.3 7.3 29.0 67 NCV Right Ulnar-FDI Motor (First Matthew Int) 32.5 C Wrist 2.5 13.2 11.0 A Elbow 7.1 11.4 29.0 63 Electromyography Side Muscle Ins Act Fibs/Psw Fasc Misc Amp Dur Poly # MUs Rate Effort Comment Right 1stDorInt Nml None None None Nml Nml Nml Nml Nml Full Right PronatorTeres Nml None None None Nml Nml Nml Nml Nml Full Right Biceps Nml None None None Nml Nml Nml Nml Nml Full Right Triceps Nml None None None Nml Nml Nml Nml Nml Full Right Deltoid Nml None None None Nml Nml Nml Nml Nml Full Waveforms: us Fred Medina MD NEUROLOGY ORDERABLES nal Result [facility]NERGY EMG from Last [address] [place] [address] [place] [address] Advance Directives Documents on File Type Date Recorded Patient Crop And Soil Scientist Expl [facility] Care Proxy 01/04/2024 8:57 AM HCP-R ECV'D 09/25/24 Health Care Proxy 01/04/2024 8:55 AM HCP-R ECEIVED 01/04/24 Care Teams Solar Project Manager Relationship Specialty Start Date End Date Sharon Mcmahon MD [address] [place] [address] PCP - General Internal Medicine 01/04/24
--- OUTSIDE RECORDS SUMMARY | 2025-03-20 23:46 | XMS_ITS | Encounter Summary ---
Author Organization [facility] Address [address] [place] [address] Care Team Providers Care Metal Bonding Crib Attendant Name Role Phone Sharon Mcmahon MD Primary Care Provider Reason for Visit * Reason Onset Date Comments PAC Patient Request Call Back 02/29/2024 Encounter Details Date Type Department Care Team (Late st Contact Info) Description 02/29/2024 Telephone [facility] [address] [place] [phone] Telephone Intake, Staff PAC Patient Request Call [...] methotextrate medication with Dr. Moreland. Patient tel: [phone] Thank you - PAC documented in this encounter Plan of Treatment Upcoming Encounters Date Type Department Care Team (Late st Contact Info) Description 05/22/2025 10:00 AM EST Office Visit [facility] [address] [place] [address] It Technician: Jia Doshi MD [address] [place] [phone] documented as of this encounter Visit Diagnoses Not on filedocumented in this encounter Care Teams Metal Bonding Crib Attendant Relationship Specialty Start Date End Date Sharon Mcmahon MD [address] [place] [address] PCP - General Internal Medicine 01/04/24 documented as of this encounter
--- OUTSIDE RECORDS SUMMARY | 2025-03-20 23:46 | XMS_ITS | Encounter Summary ---
Author Organization [facility] Address [address] [place] [address] Care Team Providers Care Donor Services Specialist Name Role Phone Sharon Mcmahon MD Primary Care Provider Encounter Details Date Type Department Care Team (Late Contact Info) Description 03/19/2025 myChart Message [facility] [address] [place] [phone] Sign Out Clerk: Hollie Rojas NP [address] [place] [address] [phone] Flare up Social History Tobacco Use Types Packs/Day Years [...] Description 05/22/2025 10:00 AM EST Office Visit [facility] [address] [place] [address] [phone] Sign Out Clerk: Jia Doshi MD [address] [place] [address] [phone] Scheduled Orders Name Type Priority Associated Diagnoses Orde r Schedule CBC Auto Differential Lab Routine Other fatigue Positive TONE (antinuclear antibody) High risk medication use Expected: 03/19/2025, Expires: 03/19/2026 Complement C3 Lab Routine Other fatigue Positive TONE (antinuclear antibody) High risk medication use Expected: 03/19/2025, Expires: 09/15/2025 Complement C4 Lab Routine Other fatigue Positive TONE (antinuclear antibody) High risk medication use Expected: 03/19/2025, Expires: 09/15/2025 C-Reactive Protein Lab Routine Other fatigue Positive TONE (antinuclear antibody) High risk medication use 1 Occurrences starting 03/19/2025 until 09/15/2025 Sedimentation Rate Lab Routine Other fatigue Positive TONE (antinuclear antibody) High risk medication use 1 Occurrences starting 03/19/2025 until 09/15/2025 TONE Specific Antibody w/Reflex to [place] Lab Routine Other fatigue Positive TONE (antinuclear antibody) High risk medication use Expected: 03/19/2025, Expires: 06/17/2025 Basic Metabolic Panel Lab Routine Other fatigue Positive TONE (antinuclear antibody) High risk medication use 1 Occurrences starting 03/19/2025 until 09/15/2025 TONE Screen, IFA, w/Reflex to Titer & Pattern Lab Routine Other fatigue Positive TONE (antinuclear antibody) High risk medication use Expected: 03/19/2025, Expires: 09/15/2025 documented as of this encounter Visit Diagnoses Diagnosis Other fatigue- Primary Positive TONE (antinuclear antibody) Other and unspecified nonspecific immunological findings High risk medication use Seropositive rheumatoid arthritis documented in this encounter Care Teams Donor Services Specialist Relationship Specialty Start Date End Date Sharon Mcmahon MD [address] [place] [phone] PCP - General Internal Medicine 01/04/24 documented as of this encounter
[2025-03-21 12:08] LABS: Anti Nuclear Antibody Screen NEGATIVE (NEGATIVE)
== END 2025-03-20 15:12 | disposition home or self-care (01) ==
LOC: HO.LAB 15:11
PROVIDERS: PCP Internal Medicine; Visit Provider Nurse Practitioner Family
DX: R53.83 Other fatigue (principal); R76.89 Other specified abnormal immunological findings in serum; Z79.899 Other long term (current) drug therapy; Z01.84 Encounter for antibody response examination
CPT/HCPCS: 36415; 80048; 85025; 85652; 86038; 86140; 86160

== ENCOUNTER 2025-03-21 16:29 | Outpatient (REF) | payer MEDICAID, SELFPAY ==
--- NOTE | ~2025-03-21 | US_ITS ---
EXAMINATION: US RETROPERITONEAL LIMITED (RENAL ONLY) CLINICAL INFORMATION: N20.0. Calculus of kidney. COMPARISON: September 10, 2024 TECHNIQUE: Real-time ultrasound kidneys using grayscale technique. FINDINGS: RIGHT KIDNEY: 11 x 4 x 4 cm (SAG x AP x TRV). Volume: 87 cc. Normal echotexture. Renal cortical thickness is normal. No hydronephrosis. No solid or cystic lesion. LEFT KIDNEY: 10 x 5 x 3 cm (SAG x AP x TRV). Volume: 85 cc. Normal echotexture. Renal cortical thickness is normal. No hydronephrosis. 4 mm hyperechoic abnormality in the lower pole. US/US renal BI IMPRESSION: No hydronephrosis. Probable 4 mm nonobstructing calculus, left kidney.. Electronically signed by: Isiah Jorgensen MD 03/22/2025 06:44 AM [place]
--- OUTSIDE RECORDS SUMMARY | 2025-03-21 23:22 | XMS_ITS | Encounter Summary ---
Author Organization [employer] Address [address] [facility] [address] [place] [address] Care Team Providers Care Pig Machine Operator Helper Name Role Phone Sharon Mcmahon MD Primary Care Provide r Reason for Visit * Reason Comments Med Change Request Encounter Details Date Type Department Care Team ([facility] Contact Info) Description 02/13/2025 Refill [facility] [address] [place] [address] Sharon Mcmahon MD [address] [place], [place] [phone] Chronic right shoulder pain Social History Tobacco Use Types Packs/Day Years Used Date Smoking Tobacco: Never Passive Smoke Exposure: Never Smokeless Tobacco: Never Alcohol Use Standard Drinks/Week Comments Yes 0 (1 standard drink = 0.6 oz pur e alcohol) Occassionally Depression Answer Date Recorded Patient Health Questionnaire-9 Score 11 02/13/2025 Patient Health Questionnaire-9 Score 11 02/13/2025 Last PHQ-9: Questionnaire Data Not on file 1 04/15/2024 Housing Stability Answer Date Recorded What is your housing situation today? I have brandon inman 08/23/[address] you li ve. Do you have problems with any of the following? None of the above 08/23/2024 Food Insecurity Answer Date Recorded Within the past 12 months, y ou worried that your food would run out before you got money to buy more: Never True 08/23/2024 Within the past 12 months,th e food you bought just didn't last and you didn't have enough money to get more: Never True Transportation Answer Date Recorded In the past 12 months, has l ack of transportation kept you from medical appts, meetings, work or from getting things needed for daily living? No 08/23/2024 Utilities Answer Date Recorded In the past 12 months, has t he electric, gas, oil or water company threatened to shut off services in your home? Yes 08/23/2024 Depression Answer Date Recorded Patient Health Questionnaire-2 Score 4 02/13/2025 Internet Access Answer Date Recorded Internet Access Q1 Yes 08/23/2024 Internet Access Q2 Not on file 08/23/2024 Comments Unknown Sex and Gender Information Value Date Recorded Sex Assigned at Female 02/08/2022 10:17 AM EDT Legal Sex Female 10:17 AM EDT Gender Identity Female 02/08/2022 10:17 AM EDT Sexual Orientation Bisexual 02/08/2022 10 :17 AM EDT documented as of this encounter Functional Status * Over the past 2 weeks, how often have you been bothered by any of the following problems? Question Answer Date of Assessment Author Patient Health Questionnaire-2 Score 4 08/2024 10:21 AM Joanna Carias MA * Little interest or pleasure in doing things Answer Date of Assessment Author More than half the days 02/13/2025 10:21 AM Joanna Carias MA * Feeling down, depressed, or hopeless Answer Date of Assessment Author More than half the days 02/13/2025 10:21 AM Joanna Carias MA * Trouble falling or staying asleep, or sleeping too much Answer Date of Assessment Author Several days 02/13/2025 10:21 AM Sivakumar Carias MA * Feeling tired or having little energy Answer Date of Assessment Author Several days 02/13/2025 10:21 AM Sivakumar Carias MA * Poor appetite or overeating Answer Date of Assessment Author Several days 02/13/2025 10:21 AM Sivakumar Carias MA * Feeling bad about yourself - or that you are a failure or have let yourself or your family down Answer Date of Assessment Author Several days 02/13/2025 10:21 AM Sivakumar Carais MA * Trouble concentrating on things, such as reading the newspaper or watching television Answer Date of Assessment Author Nearly every day 02/13/2025 10:21 AM Joanna Carias MA * Moving or speaking so slowly that other people could have noticed? Or the opposite - being so fidgety or restless that you have been moving around a lot more than usual. Answer Date of Assessment Author Not at all 02/13/2025 10:21 AM Sivakumar Carias MA * Thoughts that you would be better off or hurting yourself in some way Answer Date of Assessment Author Not at all 02/13/2025 10:21 AM Sivakumar Carias MA * Patient Health Questionnaire-9 Score Answer Date of Assessment Author 11 02/13/2025 10:21 AM Sivakumar Carias MA * Over the last 2 weeks, how often have you been bothered by any of the following problems? Question Answer Date of Assessment Author Feeling nervous, anxious, or on edge 2 08/2024 10:22 AM Joanna Carias MA Not being able to stop or co ntrol worrying 1 02/13/2025 10:22 AM Joanna Carias MA Worrying too much about diff erent things 1 02/13/2025 10:22 AM Joanna Carias MA Trouble relaxing 1 02/13/2025 10:22 AM Joanna Carias MA Being so restless that it is hard to sit still 1 02/13/2025 10:22 AM Joanna Carias MA Becoming easily annoyed or irritable 0 08/2024 10:22 AM Joanna Carias MA Feeling afraid as if somethi ng awful might happen 1 02/13/2025 10:22 AM Joanna Carias MA ALEXIS-7 Total Score 7 02/13/2025 10:22 AM Joanna Carias MA documented as of this encounter Plan of Treatment Not on file documented as of this encounter Visit Diagnoses Diagnosis Chronic right shoulder pain Pain in joint, shoulder region documented in this encounter Additional Health Concerns Assessment Noted Time PHQ-9 Depression Total Score: 11 025 10:21 AM EST documented as of this encounter Care Teams Pig Machine Operator Helper Relationship Specialty Start Date End Date Sharon Mcmahon MD [address] [place] [address] PCP - General Family Medicine 12/21/17 documented as of this encounter
--- OUTSIDE RECORDS SUMMARY | 2025-03-21 23:22 | XMS_ITS | Encounter Summary ---
Author Organization [employer] Address [address] [place] [address] Care Team Providers Care Wafer Polishing Lead Worker Name Role Phone Sharon Mcmahon MD Primary Care Provide r Reason for Visit * Reason Comments Med Refill Encounter Details Date Type Department Care Team ([facility] Contact Info) Description 05/01/2023 Refill [facility] [address] [place], [place] [phone] Ruddy Ontiveros MD [address] [place] [address] Social History Tobacco Use Types Packs/Day Years [...] documented as of this encounter Care Teams Wafer Polishing Lead Worker Relationship Specialty Start Date End Date Sharon Mcmahon MD [address] [place] [id number] PCP - General Family Medicine 12/21/17 documented as of this encounter
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
--- OUTSIDE RECORDS SUMMARY | 2025-03-21 23:22 | XMS_ITS | Encounter Summary ---
Author Organization [employer] Address [address] [place] [address] Care Team Providers Care Game Author Name Role Phone Sharon Mcmahon MD Primary Care Provide r Reason for Visit * Reason Comments Med Refill Encounter Details Date Type Department Care Team ([facility] Contact Info) Description 03/25/2024 Refill [facility] [address] [place], [place] [phone] Sharon Mcmahon MD [address] [place], [place] [phone] Rheumatoid arthritis flare (CMS/HCC) Social History Tobacco [...] Visit Diagnoses Diagnosis Rheumatoid arthritis flare (CMS/HCC) (HCC) documented in this encounter Additional Health Concerns Assessment Noted Time PHQ-9 Depression Total Score: 0 04/01/20 23 11:08 AM EST documented as of this encounter Care Teams Game Author Relationship Specialty Start Date End Date Sharon Mcmahon MD [address] [place] [address] PCP - General Family Medicine 12/21/17 documented as of this encounter
--- OUTSIDE RECORDS SUMMARY | 2025-03-21 23:22 | XMS_ITS | Clinical Summary ---
Author Organization [facility] Address [address] [place] [address] Care Team Providers Care Assembler Wire Group Name Role Phone Sharon Mcmahon MD Primary [...] -Seropositive RA, onset about 26 yo Treated [place] [facility] Positive anti CCP, negative RF Methotrexate by mouth, taken briefly, stopped due to nausea, vomiting Abatacept: allergic reaction, pain at injection site, lip swelling Tocilizumab (Actemra) 2020-?2021 effective Kevzara ? 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 Encounters Date Type Department Care Team Description 03/19/2025 myChart Message [facility] [address] [place] [address] Partner Manager: Hollie Rojas NP Flare up 03/10/2025 Refill [facility] [address] [place] [phone] Partner Manager: Hollie Rojas NP Seropositive rheumatoid arthritis 02/20/2025 Refill [facility] [address] [place] [phone] Partner Manager: Olga Moon PA 02/20/2025 Results Follow-Up [facility] [address] [place] [phone] Partner Manager: Hollie Rojas NP 02/14/2025 3:00 PM EST - 02/14/2025 11:59 PM EST Hospital Encounter [facility] [address] [place] [phone] Discharge Disposition: Home or Self Care () 02/14/2025 2:00 PM EST Office Visit [facility] [address] [place] [phone] Partner Manager: Hollie Rojas NP Seropositive rheumatoid arthritis (Primary Dx); High risk medication use 01/25/2025 [facility] [address] [place] [address] Francisca Jones [facility] 01/14/2025 9:42 AM EDT - 01/14/2025 11:59 PM EDT Hospital Encounter [facility] [address] [place] [address] Fred Medina MD Daniello, Kate M, MD Kurtishaj, Zenel Chronic neck pain Discharge Disposition: Home or Self Care () 01/11/2025 10:40 AM EDT Office Visit [facility] [address] [place] [address] Vero Flanagan MD Myofascial pain syndrome (Primary Dx) 12/31/2024 Orders Only [facility] [address] [place] [address] Partner Manager: Manish Zazueta NP Seropositive rheumatoid arthritis (HCC) (Primary Dx) 12/25/2024 Refill [facility] [address] [place] [address] Partner Manager: Olga Moon PA from Last 3 Months [...] Description 05/22/2025 10:00 AM EST Office Visit [facility] [address] [place] [address] Partner Manager: Jia Doshi MD [address] [place] [address] Health Maintenance Due Date Last Done Comments [...] 01/26/2018, 11/20/2012, 05/23/2011 Procedures * Due to [place] state law, this organization might not be [...] Last 3 Months Results * Due to [place] state law, this organization might not be sharing negative HIV tests. * (ABNORMAL) Sedimentation Rate (02/14/2025 3:22 PM EST) Sed Rate 51(H) <20 mm/Hr mm/Hr 02/14/2025 5:18 PM EST [facility] Blood Structure of peripheral vein / Unknown Venipuncture / Unknown 02/14/2025 3:22 PM EST 02/14/2025 4:13 PM EST us Hollie Dunbar PLASMA CUTTING MACHINE OPERATOR LAB BLOOD ORDERABLES Final Res ult [facility] [address] [place] [address], * (ABNORMAL) CBC (02/14/2025 3:22 PM EST) WBC 10.8 3.8 - 10.8 10*3/uL 02/14/2025 4:25 PM EST [facility] RBC 4.35 3.80 - 5.10 10*6/uL 02/14/2025 4:25 PM EST [facility] Hemoglobin 12.6 11.7 - 15.5 g/dL 02/14/2025 4:25 PM EST [facility] Hematocrit 39.0 35.0 - 45.0 % 02/14/2025 4:25 PM EST [facility] MCV 89.7 80.0 - 100.0 fL 02/14/2025 4:25 PM EST [facility] MCH 29.0 27.0 - 33.0 pg 02/14/2025 4:25 PM EST [facility] MCHC 32.3 32.0 - 36.0 g/dL 02/14/2025 4:25 PM EST [facility] RDW 12.4 11.0 - 15.0 % 02/14/2025 4:25 PM EST [facility] Platelets 467(H) 140 - 400 10*3/uL 02/14/2025 4:25 PM EST [facility] MPV 10.7 7.5 - 12.5 fL 02/14/2025 4:25 PM EST [facility] Blood Structure of peripheral vein / Unknown Venipuncture / Unknown 02/14/2025 3:22 PM EST 02/14/2025 4:13 PM EST Hollie Dunbar PLASMA CUTTING MACHINE OPERATOR LAB BLOOD ORDERABLES Final Res ult Performing Organization Address City/[facility]/ZIP Co de Phone Number [facility] [address] [place] [address], * C-Reactive Protein (02/14/2025 3:22 PM EST) C Reactive Protein 5.6 <=9.9 mg/L 02/14/2025 4:49 PM EST [facility] Blood Structure of peripheral vein / Unknown Venipuncture / Unknown 02/14/2025 3:22 PM EST 02/14/2025 4:13 PM EST us Hollie Dunbar PLASMA CUTTING MACHINE OPERATOR LAB BLOOD ORDERABLES Final Res ult [facility] [address] [place] [address], [place] * ALT (02/14/2025 3:22 PM EST) ALT 13 10 - 40 U/L 02/14/2025 4:49 PM EST [facility] Blood Structure of peripheral vein / Unknown Venipuncture / Unknown 02/14/2025 3:22 PM EST 02/14/2025 4:13 PM EST Hollie Manjinder PLASMA CUTTING MACHINE OPERATOR LAB BLOOD ORDERABLES Final Res ult [facility] [address] [place] [address], [place] * AST (02/14/2025 3:22 PM EST) AST 25 10 - 40 U/L 02/14/2025 4:49 PM EST [facility] Blood Structure of peripheral vein / Unknown Venipuncture / Unknown 02/14/2025 3:22 PM EST 02/14/2025 4:13 PM EST [facility] PLASMA CUTTING MACHINE OPERATOR LAB BLOOD ORDERABLES Final Res ult [facility] [address] [place] [address], [place] * Creatinine (02/14/2025 3:22 PM EST) Creatinine 0.68 0.50 - 1.20 mg/dL 02/14/2025 4:49 PM EST [facility] eGFR >90 >=60 mL/min/1. 73m2 02/14/2025 4:49 PM EST [facility] Comment:The estimated glomer ular [...] 02/14/2025 4:13 PM EST us Hollie Dunbar PLASMA CUTTING MACHINE OPERATOR LAB BLOOD ORDERABLES Final Res ult [facility] [address] [place] [address], [place] * XR Hand 3+ vw Right [...] to obtain the completed interpretation. Workstation ID: [id number] Narrative 02/14/2025 4:38 PM EST COMPARISON: 01/04/2024 FINDINGS: Left hand: No acute fracture or dislocation. Joints are congruent. Joint spaces are maintained. No erosions or destructive changes. Right hand: No acute fracture or dislocation. Joints are congruent. Joint spaces are maintained. No erosions or destructive changes. Resulting Agency Comment [id number] Procedure Note Germain Madera, DO - 02/14/2025 [...] possible to obtain thecompleted interpretation. Workstation ID: [id number] [facility] PLASMA CUTTING MACHINE OPERATOR IMG XR PROCEDURES Final Result * XR [...] to obtain the completed interpretation. Workstation ID: [id number] Narrative 02/14/2025 4:38 PM EST COMPARISON: 01/04/2024 FINDINGS: Left hand: No acute fracture or dislocation. Joints are congruent. Joint spaces are maintained. No erosions or destructive changes. Right hand: No acute fracture or dislocation. Joints are congruent. Joint spaces are maintained. No erosions or destructive changes. Resulting Agency Comment [id number] Procedure Note Germain Madera, DO - 02/14/2025 [...] possible to obtain thecompleted interpretation. Workstation ID: [id number] [facility] Manjinder PLASMA CUTTING MACHINE OPERATOR IMG XR PROCEDURES Final Result * EMG AUTO ADVANCE (01/14/2025 9:42 AM EDT) Narrative [facility] - 01/14/2025 10:53 AM EDT Table formatting from the original result was not included. Images from the original result were not included. [facility] [address] [place]. [address] Patient: JOZEF HILL ID#: [id number] Sex: Female Height: 5' 1 : 1990 Age: 34 years Physician: Sharmila Bravo MD Security Guard Dispatcher: Elin FranciscoNCST Ref Phys: FRED MEDINA Test [...] [facility] from Last [address] [place] [address] [place] [address] Advance Directives Documents on File Type Date Recorded Patient Machine Tool Builder Expl [facility] Care Proxy 01/04/2024 8:57 AM HCP-R ECV'D 09/25/24 Health Care Proxy 01/04/2024 8:55 AM HCP-R ECEIVED 01/04/24 Care Teams Assembler Wire Group Relationship Specialty Start Date End Date Sharon Mcmahon MD [address] [place] [address] PCP - General Internal Medicine 01/04/24
--- OUTSIDE RECORDS SUMMARY | 2025-03-21 23:22 | XMS_ITS | Encounter Summary ---
Author Organization [employer] Address [address] [place] [address] Care Team Providers Care Tube Coremaker Name Role Phone Sharon Mcmahon MD Primary Care Provide r Reason for Visit * Reason Comments Med Refill Encounter Details Date Type Department Care Team ([facility] Contact Info) Description 05/01/2023 Refill [facility] [address] [place], [place] [phone] Sharon Mcmahon MD [address] [place], [place] [phone] Generalized abdominal pain Social History Tobacco Use [...] your housing situation today? I have brandon imnan 02/07/[address] you li [...] documented as of this encounter Care Teams Tube Coremaker Relationship Specialty Start Date End Date Sharon Mcmahon MD [address] [place] [address] PCP - General Family Medicine 12/21/17 documented as of this encounter
--- OUTSIDE RECORDS SUMMARY | 2025-03-21 23:22 | XMS_ITS | Encounter Summary ---
Author Organization [employer] Address [address] [place] [address] Care Team Providers Care Outdoor Studies Professor Name Role Phone Sharon Mcmahon MD Primary Care Provide r Encounter Details Date Type Department Care Team ([facility] st Contact Info) Description 10/27/2023 Telephone [facility] MED[facility] [address] [place], [place] [phone] Sharon Mcmahon MD [address] [place], [place] [phone] Social History Tobacco Use Types Packs/Day Years [...] documented as of this encounter Care Teams Outdoor Studies Professor Relationship Specialty Start Date End Date Sharon Mcmahon MD [address] [place] [address] PCP - General Family Medicine 12/21/17 documented as of this encounter
--- OUTSIDE RECORDS SUMMARY | 2025-03-21 23:22 | XMS_ITS | Encounter Summary ---
Author Organization [facility] Address [address] [place] [address] Care Team Providers Care Manufacturing Quality Inspector Name Role Phone Sharon Mcmahon MD Primary Care Provider Reason for Visit * Reason Onset Date Comments PAC Patient Request Call Back 02/29/2024 Encounter Details Date Type Department Care Team (Late st Contact Info) Description 02/29/2024 Telephone [facility] [address] [place] [phone] Telephone Intake, Staff PAC Patient Request Call [...] methotextrate medication with Dr. Moreland. Patient tel: [phone] Thank you - PAC documented in this encounter Plan of Treatment Upcoming Encounters Date Type Department Care Team (Late st Contact Info) Description 05/22/2025 10:00 AM EST Office Visit [facility] [address] [place] [address] Collection Systems Consultant: Jia Doshi MD [address] [place] [phone] documented as of this encounter Visit Diagnoses Not on filedocumented in this encounter Care Teams Manufacturing Quality Inspector Relationship Specialty Start Date End Date Sharon Mcmahon MD [address] [place] [address] PCP - General Internal Medicine 01/04/24 documented as of this encounter
--- OUTSIDE RECORDS SUMMARY | 2025-03-21 23:22 | XMS_ITS | Encounter Summary ---
Author Organization [facility] Address [address] [place] [address] Care Team Providers Care Financial Management Consultant Name Role Phone Sharon Mcmahon MD Primary Care Provider Encounter Details Date Type Department Care Team (Late Contact Info) Description 03/19/2025 myChart Message [facility] [address] [place] [phone] Heel Painter: Hollie Rojas NP [address] [place] [address] [phone] Flare up Social History Tobacco Use Types [...] Description 05/22/2025 10:00 AM EST Office Visit [facility] [address] [place] [address] [phone] Heel Painter: Jia Doshi MD [address] [place] [address] [phone] Scheduled Orders Name Type Priority Associated Diagnoses [...] until 09/15/2025 TONE Specific Antibody w/Reflex to [facility] Lab Routine Other fatigue Positive TONE (antinuclear [...] arthritis documented in this encounter Care Teams Financial Management Consultant Relationship Specialty Start Date End Date Sharon Mcmahon MD [address] [place] [phone] PCP - General Internal Medicine 01/04/24 documented as of this encounter
--- OUTSIDE RECORDS SUMMARY | 2025-03-21 23:22 | XMS_ITS | Encounter Summary ---
Author Organization [employer] Address [address] 7t [place] [address] Care Team Providers Care Solar Energy Systems Engineer Name Role Phone Sharon Mcmahon MD Primary Care Provide r Reason for Visit * Reason Onset Date Comments New Med Request 11/04/2023 Encounter Details Date Type Department Care Team ([facility] st Contact Info) Description 11/04/2023 Telephone [facility] MEDICINE [address] [place] [address] Sharon Mcmahon MD [address] [place], [place] [phone] New Med Request Social History Tobacco Use [...] right shoulder patient was having new symptoms securities underwriter did triage however patient would like some type of medication to help with pain documented in this encounter Plan of Treatment Not on file documented as of this encounter Visit Diagnoses Not on filedocumented in this encounter Additional Health Concerns Assessment Noted Time PHQ-9 Depression Total Score: 0 04/01/20 23 11:08 AM EST documented as of this encounter Care Teams Solar Energy Systems Engineer Relationship Specialty Start Date End Date Sharon Mcmahon MD [address] [place] [phone] PCP - General Family Medicine 12/21/17 documented as of this encounter
--- OUTSIDE RECORDS SUMMARY | 2025-03-21 23:22 | XMS_ITS | Encounter Summary ---
Author Organization [employer] Address [address] [place] [address] Care Team Providers Care Sas Statistical Programmer Name Role Phone Sharon Mcmahon MD Primary Care Provide r Encounter Details Date Type Department Care Team ([facility] Contact Info) Description 03/20/2025 Orders Only GENERIC EXTERNAL DATA DEPARTMENT Provider, Generic External Data Social History Tobacco Use Types Packs/Day Years [...] as of this encounter Plan of Treatment Pending Results Name Type Priority Associated Diagnoses Date /Time TONE Screen,IFA, with Reflex to Titer and Pattern Lab Routine 03/20/2025 3:34 PM EST documented as of this encounter Procedures Procedure Name Priority Date/Time Associated Diagnosis Comments CBC WITH AUTO DIFFERENTIAL Routine 03/20/2025 3:34 PM EST SED RATE BY MODIFIED WESTERGREN Routine 03/20/2025 3:34 PM EST COMPLEMENT COMPONENT C3C Routine 03/20/2025 3:34 PM EST COMPLEMENT COMPONENT C4C Routine 03/20/2025 3:34 PM EST C-REACTIVE PROTEIN Routine 03/20/2025 3: 34 PM EST TONE SCREEN, IFA, W/REFL TITER AND PATTERN Routine 03/20/2025 3:34 PM EST BASIC METABOLIC PANEL Routine 03/20/2025 3:34 PM EST documented in this encounter Results * Complement Component C4c (03/20/2025 3:34 PM EST) Complement C4 45 15 - 57 mg/dL [facility] Comment:THIS TEST WAS PERFOR MED AT:[employer] [place] [id number] AGEE MD 03/20/2025 3:34 PM EST 03/20/2025 3:34 PM EST Generic External Data Provider LAB BLOOD ORDERAB LES Final Result Performing Organization Address [facility] de Phone Number [facility] [address] [place] [phone] * Complement Component C3c (03/20/2025 3:34 PM EST) Complement C3 180 83 - 193 mg/dL [facility] Comment:THIS TEST WAS PERFOR MED AT:[employer] [place] [id number] AGEE MD 03/20/2025 3:34 PM EST 03/20/2025 3:34 PM EST Generic External Data Provider LAB BLOOD ORDERAB LES Final Result Performing Organization Address [facility] Number [facility] [address] [place] [phone] * (ABNORMAL) Sed Rate by Modified [place] (03/20/2025 3:34 PM EST) Erythrocyte Sedimentation Rate 33(H) 1 - 20 MM/HR [facility] Comment:Patients with polycy themia and many hemoglobin abnormalitiesmay have depressed sed rates whereas patients with anemiamay have elevated sed rates. 03/20/2025 3:34 PM EST 03/20/2025 3:34 PM EST Generic External Data Provider LAB BLOOD ORDERAB LES Final Result Performing Organization Address [facility] de Phone Number [facility] [address] [place] [phone] * (ABNORMAL) C-reactive Protein (03/20/2025 3:34 PM EST) C Reactive Protein 1.24(H) < or = 0.50 mg/dL [facility] 03/20/2025 3:34 PM EST 03/20/2025 3:34 PM EST us Generic External Data Provider LAB BLOOD ORDERAB LES Final Result Performing Organization Address [facility] de Phone Number [facility] [address] [place] [phone] * (ABNORMAL) Basic Metabolic Panel (03/20/2025 3:34 PM EST) [facility] Sodium 138 135 - 145 mmol/L [facility] Potassium 3.6 3.3 - 5.1 mmol/L [facility] Chloride 107 96 - 108 mmol/L [facility] Carbon Dioxide 23 22 - 29 mmol/L [facility] Anion Gap 12 12 - 20 [facility] Urea Nitrogen (BUN) 19(H) 9 - 16 mg/dL [facility] Creatinine, Serum 0.68 0.5 - 1.4 mg/dL [facility] Estimated Glomerular Filt Rate >60 [facility] Comment:Chronic Kidney Disea se: Estimated GFR < 60 mL/min/1.48s4Mgwscc Kidney Disease: Estimated GFR < 15 mL/min/1.73m2 Glucose 91 60 - 115 mg/dL [facility] Calcium 9.2 8.4 - 10.2 mg/dL [facility] 03/20/2025 3:34 PM EST 03/20/2025 3:34 PM EST us Generic External Data Provider LAB BLOOD ORDERAB LES Final Result Performing Organization Address [facility] Co de Phone Number [facility] [address] [place] [phone] * (ABNORMAL) CBC auto differential (03/20/2025 3:34 PM EST) [facility] White Blood Count 11.4(H) 4.8 - 10.8 X10*3/uL [facility] Red Blood Count 3.92(L) 4.20 - 5.50 X10*6/uL [facility] Hemoglobin 11.6(L) 12.0 - 16.0 g/dl [facility] Hematocrit 34.3(L) 37.0 - 47.0 % [facility] Mean Corpuscular Volume 87.5 80.0 - 98.0 fL [facility] Mean Corpuscular Hemoglobin 29.6 27.0 - 33.0 pg [facility] Mean Corpuscular HGB Conc 33.8 31.0 - 35.0 g/dl [facility] Red Cell Distribution Width 12.4 11.0 - 16.0 % [facility] Platelet Count 410(H) 160 - 400 X10*3/uL [facility] Mean Platelet Volume 10.2 9.4 - 12.3 fL [facility] Neutrophils Percent Auto 58.8 45 - 73 % [facility] Imm Gran Pct Auto 0.4 0.0 - 0.4 % [facility] Lymphocytes Percent Auto 30.8 20 - 40 % [facility] Monocytes Percent Auto 7.1 2 - 11 % [facility] Eosinophils Percent Auto 2.5 0 - 4 % [facility] Basophils Percent Auto 0.4 0 - 2 % [facility] NRBC Pct Auto 0.0 0.0 - 0.2 /100WBC [facility] Neutrophils Absolute Auto 6.7 2.0 - 8.3 x10*3/uL [facility] Imm Gran Abs Auto 0.05(H) 0.00 - 0.03 X10*3/uL [facility] Lymphocytes Absolute Auto 3.5 1.2 - 4.9 X10*3/uL [facility] Monocytes Absolute Auto 0.8 0.1 - 1.2 X10*3/uL [facility] Eosinophils Absolute Auto 0.3 0.0 - 0.4 X10*3/uL [facility] Basophils Absolute Auto 0.1 0.0 - 0.2 X10*3/uL [facility] NRBC Abs Auto 0.000 0.0 - 0.012 X10*3/uL [facility] 03/20/2025 3:34 PM EST 03/20/2025 3:34 PM EST us Generic External Data Provider LAB BLOOD ORDERAB LES Final Result [facility] [address] [place] [phone] documented in this encounter Visit Diagnoses Not on filedocumented in this encounter Additional Health Concerns Assessment Noted Time PHQ-9 Depression Total Score: 11 025 10:21 AM EST documented as of this encounter Care Teams Sas Statistical Programmer Relationship Specialty Start Date End Date Sharon Mcmahon MD [address] [place] [address] PCP - General Family Medicine 12/21/17 documented as of this encounter
== END 2025-03-21 16:30 | disposition home or self-care (01) ==
LOC: HO.US 16:29
PROVIDERS: PCP Internal Medicine; Visit Provider Nurse Practitioner Family
DX: N20.0 Calculus of kidney (principal)
CPT/HCPCS: 76775

== ENCOUNTER → 2025-03-21 16:32 | Outpatient (BNV) | payer MEDICAID, SELFPAY | PROVIDERS: PCP Internal Medicine; Visit Provider Radiology Diagnostic Radiology | DX: N20.0 Calculus of kidney (principal) | CPT/HCPCS: 76775 ==